=== PATIENT | male | born 1955 | race Caucasian/White ===

== ENCOUNTER → 2016-12-02 | Outpatient (CLI) | payer BC ==
[~2016-12-02] MED LIST: CRAN500C2 PO; FENO145T26 PO; GLC500 PO; INSDGIPEN SC; NVLGI SC; OMEG10007 PO
[2016-12-02 13:33] LABS: ESTIMATED AVERAGE GLUCOSE 232 mg/dl; HA1C FLAG Normal (Normal)
== END | disposition home or self-care (01) ==
LOC: C.LAB1850 12:24
PROVIDERS: ATTEND Internal Medicine
DX: Z11.59 Encounter for screening for other viral diseases (principal); F17.200 Nicotine dependence, unspecified, uncomplicated

== ENCOUNTER → 2017-02-17 | Outpatient (CLI) | payer BC ==
[2017-02-17 10:07] LABS: BASO ABS # 0.07 K/uL (0-0.2); COMPLETE YES; EOS % 5.9 %; HEMATOCRIT 46.3 % (42-52); IG% 0.3 %; LYMPH % 26.7 %; LYMPH ABS # 1.87 K/uL (1.2-3.4); MEAN CELL VOLUME 83.1 fL (80-100); MEAN CORPUSCULAR HEMOGLOBIN 28.9 pg (25-34); MEAN CORPUSCULAR HGB CONC 34.8 g/dl (32-36); MEAN PLATELET VOLUME 10.2 fL (7.4-10.4); MONO % 10.3 %; NEUT % 55.8 %; PLATELET COUNT 275 K/uL (130-400); RED BLOOD COUNT 5.57 M/uL (4.7-6.1)
[2017-02-17 10:37] LABS: ALT/SGPT 56 U/L (12-78); BLOOD UREA NITROGEN 8 mg/dl (7-18); BUN/CREATININE RATIO 8.9 (10-20); CALCIUM 9.2 mg/dl (8.5-10.1); CARBON DIOXIDE 28 mmol/L (21-32); CHLORIDE 100 mmol/L (98-107); CHOLESTEROL 224 mg/dl (0-200); CREATININE 0.88 mg/dl (0.60-1.40); GLUCOSE 227 mg/dl (70-99); SODIUM 134 mmol/L (136-145)
[2017-02-17 10:48] LABS: ALB/GLOB RATIO 0.8 (0.9-2); ALKALINE PHOSPHATASE 92 U/L (45-117); AST/SGOT 57 U/L (15-37); HDL CHOLESTEROL 25 mg/dl; PROSTATE SPECIFIC ANTIGEN 0.132 ng/ml (0.000-4.000); TRIGLYCERIDES 1066 mg/dl (0-150)
--- NOTE | 2017-02-24 14:06 | CODING QUERY MEDICAL NECESSITY ---
SUPPORTING DIAGNOSIS NEEDED A supporting diagnosis is required for the test/procedure performed on this patient in order for us to be reimbursed by the patient's insurance. Please provide a supporting diagnosis for the following test/procedure listed below next to the test name along with your signature. *If there is no additional diagnosis for this patient that would support the following test/procedure please document that below next to the test/procedure. Test(s)/Procedure(s) that require a supporting diagnosis: * PSA DIAGNOSIS: Provider Signature: Date: Thank you Jennifer Kilgore [employer] Once completed, please kindly fax back to [phone] For questions please call [phone]
== END | disposition home or self-care (01) ==
LOC: C.LAB1850 09:00
PROVIDERS: ATTEND Internal Medicine
DX: F17.200 Nicotine dependence, unspecified, uncomplicated (principal); Z12.5 Encounter for screening for malignant neoplasm of prostate

== ENCOUNTER → 2017-05-31 | Outpatient (CLI) | payer BC ==
[2017-05-31 10:37] LABS: ESTIMATED AVERAGE GLUCOSE 249 mg/dl; HA1C FLAG Normal (Normal)
[2017-05-31 10:53] LABS: ALT/SGPT 37 U/L (12-78); AST/SGOT 42 U/L (15-37); BLOOD UREA NITROGEN 8 mg/dl (7-18); BUN/CREATININE RATIO 8.7 (10-20); CALCIUM 9.3 mg/dl (8.5-10.1); CARBON DIOXIDE 28 mmol/L (21-32); CHLORIDE 101 mmol/L (98-107); GLUCOSE 189 mg/dl (70-99); POTASSIUM 3.9 mmol/L (3.5-5.1); SODIUM 132 mmol/L (136-145)
[2017-05-31 10:55] LABS: ALB/GLOB RATIO 0.9 (0.9-2); ALKALINE PHOSPHATASE 77 U/L (45-117); CHOLESTEROL 143 mg/dl (0-200); CHOLESTEROL/HDL RATIO 5.1; HDL CHOLESTEROL 28 mg/dl; LDL CHOLESTEROL CALCULATED 61 mg/dl; TRIGLYCERIDES 271 mg/dl (0-150); VERY LOW DENSITY LIPOPROT CALC 54 mg/dl
[2017-05-31 13:03] LABS: RATIO 75.3 mcg/mg (0-30.0)
== END | disposition home or self-care (01) ==
LOC: C.LAB1850 09:35
PROVIDERS: ATTEND Internal Medicine
DX: E11.65 Type 2 diabetes mellitus with hyperglycemia (principal); E78.1 Pure hyperglyceridemia

== ENCOUNTER 2019-12-13 16:29 | Inpatient (IN) ==
[2019-12-13] MEDS ORDERED: SODIUM CHLORIDE 0.9% 500 ML IV ONE (17:08)
[2019-12-13] MEDS ORDERED: ASPIRIN CHEW 324 MG PO STA (17:08)
--- NOTE | 2019-12-13 17:12 | Emergency Department Note ---
Impression & Plan Numbness on right side, Stroke-like symptoms, Acute hyperglycemia, Elevated liver enzymes ED Provider Note NAME: PERRY KENT AGE: 64 SEX: M : 1955 ARRIVES VIA: Walk-In INFORMANT: [Patient] ED PROVIDER(S): [Mark Benoit MD] CHIEF COMPLAINT: Right-sided numbness HISTORY OF PRESENT ILLNESS: Patient is a 64-year-old male who presents to the ED with right-sided numbness which has now resolved. The patient states that 3 hours ago, his right side from his face to his foot were numb for 15 minutes. He felt he was slightly weak on the right side as well but was able to walk. The patient states that about an hour or so after the first episode, he had a second episode of the same numbness lasting maybe 5 to 8 minutes. His symptoms have now resolved and have not returned a third time. There has been no cough or cold or congestion. No chest pain or headache. He has been in baseline health. No known coronavirus exposures. He talked his family and was advised to come to the ED. The patient states that he has never had a stroke before but he was concerned that his symptoms were consistent with stroke. REVIEW OF SYSTEMS: See HPI for pertinent positives and negatives. A total of ten systems were reviewed and were otherwise negative. PMHx/PSHx: See Below SOCIAL HISTORY: See Below. PHYSICAL EXAM: GENERAL: Patient is in no acute distress. HEENT: No acute trauma, normocephalic atraumatic, mucous membranes moist, no nasal congestion, no scleral icterus. NECK: No stridor, no adenopathy, no meningismus, trachea is midline. LUNGS: Clear to auscultation bilaterally, no wheeze, no rhonchi, breath sounds equal. HEART: Without murmurs gallops or rubs, regular rate and rhythm. ABDOMEN: Soft, nontender, bowel sounds positive, no hernias, no peritonitis. EXTREMITIES: No cyanosis or edema, full range of motion of all the joints witho ut pain or difficulty, no signs for acute trauma. NEUROLOGIC: Oriented x 3, no acute motor or sensory deficits, no focal weakness. No speech slur or facial droop. No extremity drift, no cerebellar dysfunction. SKIN: No rash, no jaundice, no diaphoresis. DIFFERENTIAL DIAGNOSIS: Infection, dehydration, metabolic abnormality, hypo/hyperglycemia, TIA, CVA, electrolyte disturbance, anemia, hypoxia, cardiac sources, intracerebral event, toxicologic, neurologic, as well as other pathologies. EMERGENCY DEPARTMENT COURSE/PROCEDURES: ECG: Indication was strokelike symptoms. The EKG shows a normal sinus rhythm with some diffuse nonspecific ST change. There may be an old inferior infarct present. The rate is 99. The QTC is 420. There are no PVCs. No ST elevation. Continuous Cardiac Monitoring: An order was placed for continuous cardiac monitoring. The monitor shows a rate of 93 with normal sinus rhythm. MEDICAL DECISION MAKING: There is no leukocytosis or concerning anemia. No coagulopathy. Sodium was low at 129. Glucose was high at 534. No kidney failure. There were some liver enzyme elevations, the bilirubin was normal. Urinalysis shows glucose, no evidence for infection. Brain CT angiogram shows some scattered plaquing, no acute stroke, no acute bleeding. CT angiogram of the neck does not show any significant stenosis but there is some scattered plaquing. EKG shows a sinus rhythm, no acute ischemia. Cardiac enzyme testing x1 is not consistent with acute cardiac injury. On my exam, there were no focal neurologic deficits. There was no speech slur. The patient received oral aspirin for stroke prevention. He was given IV insulin because of the high blood sugar. He received IV saline, 1 L. The patient requires a hospital stay for his presentation. Certainly, TIA is a consideration. I suppose, with the higher sugar, his symptoms could be related to the hyperglycemia. I spoke to the patient, I talked with the case folder. The on-call hospitalist was consulted. Of note, the patient had a 5-minute episode while here in the ED where his right arm was numb. This resolved spontaneously, he is now again asymptomatic. 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, uncontrolled (Chronic) Diabetes type 2, uncontrolled (Chronic) Diabetic peripheral neuropathy (Chronic) Dysesthesia (Acute) Dyslipidemia with low high density lipoprotein (HDL) cholesterol with hypertriglyceridemia due to type 2 diabetes mellitus (Chronic) Esophageal reflux (Acute) Hypertension (Chronic) Hypertriglyceridemia (Acute) Hypothyroidism, unspecified (Acute) Neurodermatitis (Chronic) Obstructive sleep apnea (Chronic) Prurigo nodularis (Acute) Retinopathy (Acute) Sebaceous cyst (Acute) Skin lesion (Acute) Tubular adenoma of colon (Acute) Type 2 diabetes mellitus (Acute) Family History Unknown Diabetes Family/Other Diabetes Mother Diabetes Cardiovascular disease Social History Preferred Language: [place] Beliefs That Will Affect Care: None Current Living Situation: Family Other Information That Helps Us Care for You: No Feels Safe at Home: Yes Safety Concerns: Feels Safe At This Time Smoking Status: Former smoker Hx Alcohol Use: No Hx Substance Use: No Allergies Allergies Allergy/AdvReac Type Severity Reaction Status Date / Time liraglutide [From Victoza] Allergy Unknown Unknown Verified 12/13/19 18:09 Home Meds Home Medications Medication Instructions Recorded Confirmed fenofibrate nanocrystallized 145 145 mg PO DAILY #90 tab 01/04/19 12/13/19 mg tablet vitamin B complex 1 tab PO DAILY 01/10/19 12/13/19 insulin aspart U-100 [Novolog 0 unit SUBCUT TIDM 10/15/19 12/13/19 Flexpen U-100 Insulin] insulin degludec [Tresiba 140 unit SUBCUT HS 10/15/19 12/13/19 FlexTouch U-200] magnesium 250 mg PO HS 10/15/19 12/13/19 levothyroxine 25 mcg PO QAM 12/13/19 12/13/19 Previous Rx's Medication Instructions Recorded atorvastatin 20 mg tablet 20 mg PO QPM #90 tab 11/28/18 metformin 500 mg tablet 1,000 mg PO BID #360 tab 11/28/18 Results & Data (ED) Vital Signs Vital Signs - 24 hr 12/13/19 16:34 12/13/19 17:00 12/13/19 17:30 Temperature 37.2 C Temperature Source Oral Pulse Rate 109 H 100 H Pulse Rate from SpO2 Sensor 101 H Respiratory Rate 18 26 H Respiratory Effort / Characteristics Non-Labored Spontaneous Respiratory Depth Normal Blood Pressure 134/79 137/90 167/99 H Blood Pressure Mean 97 106 143 Blood Pressure Position Sitting Pulse Oximetry 95 94 Oxygen Delivery Method Room Air Sepsis Recent Fever Within 48 Hours No Sepsis New/Unexplained Change in Mental Status No Sepsis Action Taken by Nursing No Action Required 12/13/19 17:38 12/13/19 18:00 12/13/19 18:32 Temperature Temperature Source Pulse Rate 93 H 93 H Pulse Rate from SpO2 Sensor 93 H 94 H 93 H Respiratory Rate 15 Respiratory Effort / Characteristics Respiratory Depth Blood Pressure 150/89 H 136/83 160/94 H Blood Pressure Mean 109 98 104 Blood Pressure Position Pulse Oximetry 95 95 96 Oxygen Delivery Method Room Air Sepsis Recent Fever Within 48 Hours Sepsis New/Unexplained Change in Mental Status Sepsis Action Taken by Nursing 12/13/19 19:00 12/13/19 19:01 12/13/19 19:15 Temperature Temperature Source Pulse Rate 85 83 83 Pulse Rate from SpO2 Sensor 85 84 Respiratory Rate 20 20 17 Respiratory Effort / Characteristics Respiratory Depth Blood Pressure 139/87 146/91 H Blood Pressure Mean 96 113 Blood Pressure Position Pulse Oximetry 96 96 98 Oxygen Delivery Method Room Air Room Air Sepsis Recent Fever Within 48 Hours Sepsis New/Unexplained Change in Mental Status Sepsis Action Taken by Nursing 12/13/19 19:30 12/13/19 20:17 12/13/19 20:30 Temperature Temperature Source Pulse Rate 80 82 Pulse Rate from SpO2 Sensor 84 Respiratory Rate 15 14 Respiratory Effort / Characteristics Respiratory Depth Blood Pressure 166/97 H 145/90 H 127/70 Blood Pressure Mean 129 97 83 Blood Pressure Position Pulse Oximetry 98 Oxygen Delivery Method Sepsis Recent Fever Within 48 Hours Sepsis New/Unexplained Change in Mental Status Sepsis Action Taken by [facility] Medications Current Medication List: was personally reviewed by me Laboratory Data Attestation: I reviewed the patient's lab results. Result diagrams: 12/13/19 16:48 12/13/19 22:44 Lab Results 12/13/19 12/13/19 12/13/19 Range/Units 16:48 16:48 16:48 WBC 8.30 (4.8-10.8) K/uL RBC 5.61 (4.7-6.1) M/uL Hgb 16.1 (14.0-18.0) g/dL Hct 47.1 (42-52) % MCV 84.0 (80-100) fL MCH 28.7 (25-34) pg MCHC 34.2 (32-36) g/dL RDW Std Deviation 44.0 (36.4-46.3) fL RDW Coeff of Emery 14.3 (11.5-14.5) % Plt Count 267 (130-400) K/uL MPV 11.1 H (7.4-10.4) fL Immature Gran % (Auto) 0.2 % Neut % (Auto) 64.9 % Lymph % (Auto) 23.1 % Gooding % (Auto) 8.7 % Eos % (Auto) 1.9 % Baso % (Auto) 1.2 % Immature Gran # (Auto) 0.02 (0.00-0.02) K/uL Neut # (Auto) 5.38 (1.4-6.5) K/uL Lymph # (Auto) 1.92 (1.2-3.4) K/uL Gooding # (Auto) 0.72 H (0.11-0.59) K/uL Eos # (Auto) 0.16 (0-0.5) K/uL Baso # (Auto) 0.10 (0-0.2) K/uL PT 11.3 (9.0-12.0) Seconds INR 1.1 (0.9-1.1) APTT 28.9 (21.0-31.0) Seconds PTT Ratio 1.0 Sodium 129 L (136-145) mmol/L Potassium 4.3 (3.5-5.1) mmol/L Chloride 93 L (98-107) mmol/L Carbon Dioxide 26 (21-32) mmol/L Anion Gap 10.0 (3-11) BUN 9 (7-18) mg/dl Creatinine 1.18 (0.6-1.4) mg/dl Est Cr Clr Drug Dosing 70.6 ml/min Est GFR ( Amer) 75.7 Est GFR (Non-Af Amer) 65.3 BUN/Creatinine Ratio 7.8 L (10-20) Glucose 534 H* (70-99) mg/dl POC Glucose (70-99) mg/dl Calcium 9.6 (8.5-10.1) mg/dl Magnesium 1.9 (1.8-2.4) mg/dl Total Bilirubin 0.8 (0.2-1) mg/dl AST 90 H (15-37) U/L ALT 80 H (12-78) U/L Alkaline Phosphatase 328 H (45-117) U/L Troponin I < 0.015 (0-0.045) ng/ml Total Protein 8.8 H (6.4-8.2) gm/dl Albumin 3.3 L (3.4-5.0) gm/dl Globulin 5.5 H (2.5-4.0) gm/dl Albumin/Globulin Ratio 0.6 L (0.9-2) Beta-Hydroxybutyric Acd 1.90 (0.2-2.81) mg/dl Urine Color Urine Appearance (Clear) Urine pH (4.5-7.5) Ur Specific [place] (1.000-1.030) Urine Protein (Negative) Urine Glucose (UA) (Negative) Urine Ketones (Negative) Urine Blood (Negative) Urine Nitrite (Negative) Urine Bilirubin (Negative) Urine Urobilinogen (Negative) Ur Leukocyte Esterase (Negative) 12/13/19 12/13/19 Range/Units 17:35 19:14 WBC (4.8-10.8) K/uL RBC (4.7-6.1) M/uL Hgb (14.0-18.0) g/dL Hct (42-52) % MCV (80-100) fL MCH (25-34) pg MCHC (32-36) g/dL RDW Std Deviation (36.4-46.3) fL RDW Coeff of Emery (11.5-14.5) % Plt Count (130-400) K/uL MPV (7.4-10.4) fL Immature Gran % (Auto) % Neut % (Auto) % Lymph % (Auto) % Gooding % (Auto) % Eos % (Auto) % Baso % (Auto) % Immature Gran # (Auto) (0.00-0.02) K/uL Neut # (Auto) (1.4-6.5) K/uL Lymph # (Auto) (1.2-3.4) K/uL Good[place] # (Auto) (0.11-0.59) K/uL Eos # (Auto) (0-0.5) K/uL Baso # (Auto) (0-0.2) K/uL PT (9.0-12.0) Seconds INR (0.9-1.1) APTT (21.0-31.0) Seconds PTT Ratio Sodium (136-145) mmol/L Potassium (3.5-5.1) mmol/L Chloride (98-107) mmol/L Carbon Dioxide (21-32) mmol/L Anion Gap (3-11) BUN (7-18) mg/dl Creatinine (0.6-1.4) mg/dl Est Cr Clr Drug Dosing ml/min Est GFR ( Amer) Est GFR (Non-Af Amer) BUN/Creatinine Ratio (10-20) Glucose (70-99) mg/dl POC Glucose 403 H* (70-99) mg/dl Calcium (8.5-10.1) mg/dl Magnesium (1.8-2.4) mg/dl Total Bilirubin (0.2-1) mg/dl AST (15-37) U/L ALT (12-78) U/L Alkaline Phosphatase (45-117) U/L Troponin I (0-0.045) ng/ml Total Protein (6.4-8.2) gm/dl Albumin (3.4-5.0) gm/dl Globulin (2.5-4.0) gm/dl Albumin/Globulin Ratio (0.9-2) Beta-Hydroxybutyric Acd (0.2-2.81) mg/dl Urine Color Yellow Urine Appearance Clear (Clear) Urine pH 6.5 (4.5-7.5) Ur Specific [place] 1.041 H (1.000-1.030) Urine Protein Negative (Negative) Urine Glucose (UA) 3+ H (Negative) Urine Ketones Negative (Negative) Urine Blood Negative (Negative) Urine Nitrite Negative (Negative) Urine Bilirubin Negative (Negative) Urine Urobilinogen Negative (Negative) Ur Leukocyte Esterase Negative (Negative) Administered Medications Heparin Sodium (Porcine) (Heparin Sodium (Porcine)) 5,000 units SQ Q12 ANA MARIA Stop: 01/12/20 22:59 Last Admin: 12/13/19 23:54 Dose: Not Given Documented by: [id number] Insulin Human Regular 250 (units/ Sodium Chloride) 250 mls @ 7.2 mls/hr IV .Q24H ANA MARIA; Protocol Stop: 01/12/20 20:39 Last Titration: 12/14/19 00:09 Dose: 7.2 units/hr, 7.2 mls/hr Documented by: [id number] Cosigned by: [id number] Titration: 06/18/20 23:21 Dose: 9 units/hr, 9 mls/hr Documented by: [id number] Cosigned by: [id number] Admin: 12/13/19 22:00 Dose: 9 units/hr, 9 mls/hr Documented by: [id number] Cosigned by: [id number] Ioversol (Optiray 320 125ml) 119 ml IV ONCE PRN PRN Reason: Interaction Checking Stop: 12/17/19 18:18 Last Admin: 12/13/19 18:19 Dose: 119 ml Documented by: [id number] Discontinued Medications Aspirin (Aspirin) 324 mg PO NOW STA Stop: 12/13/19 17:09 Last Admin: 12/13/19 17:15 Dose: 324 mg Documented by: [id number] Sodium Chloride (Nss) 500 mls @ 999 mls/hr IV .Q31M ONE Stop: 12/13/19 17:38 Last Infusion: 12/13/19 17:46 Dose: 0 mls/hr Documented by: [id number] Admin: 12/13/19 17:15 Dose: 999 mls/hr Documented by: [id number] Sodium Chloride (Nss 1000ml) 500 mls @ 999 mls/hr IV .Q31M ONE Stop: 12/13/19 18:22 Last Infusion: 12/13/19 19:23 Dose: 0 mls/hr Documented by: [id number] Admin: 12/13/19 18:41 Dose: 999 mls/hr Documented by: [id number] Insulin Human Regular (Novolin R U-100 Per Unit) 10 units IV NOW STA Stop: 12/13/19 17:53 Last Admin: 12/13/19 18:41 Dose: 10 units Documented by: [id number] Cosigned by: [id number] Miscellaneous (Insulin Protocol Hhs Goal Range) 1 ea N/A ONE ONE Stop: 12/13/19 20:41 Last Admin: 12/13/19 22:23 Dose: 1 ea Documented by: [id number] Miscellaneous Information (Consult Glycemic Management Pharmacy) 1 ea N/A NOW STA Stop: 12/13/19 20:41 Last Admin: 12/13/19 22:23 Dose: 1 ea Documented by: [id number] Imaging Data Radiologist's Impression: CT head/brain wo con CT DOSE: HISTORY: Stroke evaluation TECHNIQUE: Multiaxial CT images of the head were performed without the use of intravenous contrast. A dose lowering technique was utilized adhering to the principles of ALARA. Comparison: None. Findings: The paranasal sinuses and mastoid air cells are clear. The calvarium and skull base are intact. The ventricles and sulci are within normal limits. There is no mass, hematoma, midline shift, or acute infarct. Impression: No acute intracranial abnormality. CT angio neck with con HISTORY: Mental status change Stroke evaluation TECHNIQUE: Multiaxial CT angiography of the neck was performed IV contrast: None. All measurements were calculated based on NASCET criteria. Maximum intensity projection images were also obtained. A dose lowering technique was utilized adhering to the principles of ALARA. COMPARISON STUDY: None. FINDINGS: The aortic arch and proximal great vessels are widely patent. Plaque formation involving the right and to a lesser extent left carotid bifurcations. The proximal right internal carotid artery demonstrates a 50% narrowing. There is no significant left-sided stenosis. Vertebral basilar system is unremarkable. IMPRESSION: 1. 50% narrowing right internal carotid artery at its origin. 2. Moderate plaque formation bilaterally at the carotid bifurcations. 3. No evidence for high-grade stenosis. 4. Normal vertebral basilar system CT angio head w con HISTORY: Mental status change Stroke evaluation TECHNIQUE: Multiaxial CT angiography of the head was performed IV contrast: None. Maximum intensity projection images were also obtained. A dose loweri ng technique was utilized adhering to the principles of ALARA. COMPARISON: None. FINDINGS: There is no mass, hematoma, midline shift, or acute infarct. Intracranial vasculature demonstrates moderate atherosclerotic change at the carotid siphons. There is also mild scattered atherosclerotic narrowing throughout all major intracranial vessels. No evidence, however for high-grade or critical stenotic process. No evidence for significant aneurysmal dilatation. Reconstructed images suggest a tip of the basilar severe stenosis. Raw data evaluation shows this to be artifactual. Moderate plaque formation is noted however. IMPRESSION: 1. Minimal to mild scattered plaque formation throughout the intracranial vasculature. 2. No evidence for high-grade or critical stenosis. Blood Pressure Blood Pressure Findings: Elevated blood pressure Blood Pressure Disposition: further management by hospitalist Discharge Plan Visit Data *Final* Discharge Date/Time: 12/13/19 21:34 Chief Complaint: Neuro Symptoms/Deficit Stated Complaint: WHOLE RIGHT SIDE OF BODY WENT NUMB TWICE ED Provider: Mark Benoit Discharge Problem: Numbness on right side, Stroke-like symptoms, Acute hyperglycemia, Elevated liver enzymes Patient Disposition: Admitted As Inpatient Condition: Good Discharge Instructions Interventions: ED Discharge Assessment Last Done: 12/13/19 21:34
[2019-12-13 17:37] LABS: INR 1.1 (0.9-1.1); Partial Thromboplastin Time 28.9 Seconds (21.0-31.0); Prothrombin Time 11.3 Seconds (9.0-12.0)
[2019-12-13 17:39] LABS: Basophils % (auto) 1.2 %; Eosinophils # (auto) 0.16 K/uL (0-0.5); Eosinophils % (auto) 1.9 %; Hematocrit (blood only) 47.1 % (42-52); Hemoglobin 16.1 g/dL (14.0-18.0); Immature Granulocytes # (auto) 0.02 K/uL (0.00-0.02); Immature Granulocytes % (auto) 0.2 %; Lymphocytes # (auto) 1.92 K/uL (1.2-3.4); Lymphocytes % (auto) 23.1 %; Mean Corpuscular Hemoglobin 28.7 pg (25-34); Mean Corpuscular Hgb Conc 34.2 g/dL (32-36); Mean Platelet Volume 11.1 fL (7.4-10.4); Monocytes # (auto) 0.72 K/uL (0.11-0.59); Monocytes % (auto) 8.7 %; Neutrophils # (auto) 5.38 K/uL (1.4-6.5); Neutrophils % (auto) 64.9 %; Platelet Count 267 K/uL (130-400); RDW Coefficient of Variation 14.3 % (11.5-14.5); Red Blood Count 5.61 M/uL (4.7-6.1)
[2019-12-13 17:47] LABS: Alanine Aminotransferase 80 U/L (12-78); Albumin Globulin Ratio 0.6 (0.9-2); Albumin Level 3.3 gm/dl (3.4-5.0); Alkaline Phosphatase 328 U/L (45-117); Aspartate Aminotransferase 90 U/L (15-37); BUN Creatinine Ratio 7.8 (10-20); Bilirubin,Total 0.8 mg/dl (0.2-1); Blood Urea Nitrogen 9 mg/dl (7-18); Calcium 9.6 mg/dl (8.5-10.1); Carbon Dioxide 26 mmol/L (21-32); Chloride 93 mmol/L (98-107); Creatinine Clr Calc Pharmacy 70.6 ml/min; Est GFR (African American) 75.7; Est GFR (Non-African American) 65.3; Globulin 5.5 gm/dl (2.5-4.0); Glucose 534 mg/dl (70-99); Magnesium 1.9 mg/dl (1.8-2.4); Potassium 4.3 mmol/L (3.5-5.1); Sodium 129 mmol/L (136-145); Total Protein 8.8 gm/dl (6.4-8.2); Troponin I < 0.015 ng/ml (0-0.045)
[2019-12-13 17:51] LABS: Appearance Urine Clear (Clear); Bilirubin Urine Negative (Negative); Blood Urine Negative (Negative); Color Urine Yellow; Glucose Urine UA 3+ (Negative); Ketones Urine Negative (Negative); Leukocyte Esterase Urine Negative (Negative); Nitrite Urine Negative (Negative); Protein Urine Negative (Negative); Specific Gravity Urine 1.041 (1.000-1.030); Urobilinogen Urine Negative (Negative); pH Urine 6.5 (4.5-7.5)
[2019-12-13] MEDS ORDERED: NovoLIN-R INSULIN PER UNIT CHARGE IV STA (17:52)
[2019-12-13] MEDS ORDERED: SODIUM CHLORIDE 0.9% 1000ML 500 ML IV ONE (17:52)
[2019-12-13] MEDS ORDERED: OPTIRAY 320 125ml IV PRN (18:19)
--- NOTE | 2019-12-13 18:34 | CT Scan Report ---
CT head/brain wo con CT DOSE: HISTORY: Stroke evaluation TECHNIQUE: Multiaxial CT images of the head were performed without the use of intravenous contrast. A dose lowering technique was utilized adhering to the principles of ALARA. Comparison: None. Findings: The paranasal sinuses and mastoid air cells are clear. The calvarium and skull base are int act. The ventricles and sulci are within normal limits. There is no mass, hematoma, midline shift, or acute infarct. Impression: No acute intracranial abnormality. ACT 112: Negative or not required by law. The above report was generated using voice recognition software. It may contain grammatical, syntax or spelling errors. Electronically signed by: Jorge Smith M.D. 12/13/2019 6:32 PM
--- NOTE | 2019-12-13 18:37 | CT Scan Report ---
CT angio neck with con HISTORY: Mental status change Stroke evaluation TECHNIQUE: Multiaxial CT angiography of the neck was performed IV contrast: None. All measurements w ere calculated based on NASCET criteria. Maximum intensity projection images were also obtained. A dose lowering technique was utilized adhering to the principles of ALARA. COMPARISON STUDY: None. FINDINGS: The aortic arch and proximal great vessels are widely patent. Plaque formation involving t he right and to a lesser extent left carotid bifurcations. The proximal right internal carotid artery demonstrates a 50% narrowing. There is no significant left-sided stenosis. Vertebral basilar system is unremarkable. IMPRESSION: 1. 50% narrowing right internal carotid artery at its origin. 2. Moderate plaque formation bilaterally at the carotid bifurcations. 3. No evidence for high-grade stenosis. 4. Normal vertebral basilar system ACT 112: Negative or not required by law. The above report was generated using voice recognition software. It may contain grammatical, syntax or spelling errors. Electronically signed by: Jorge Smith M.D. 12/13/2019 6:36 PM
--- NOTE | 2019-12-13 18:42 | CT Scan Report ---
CT angio head w con HISTORY: Mental status change Stroke evaluation TECHNIQUE: Multiaxial CT angiography of the head was performed IV contrast: None. Maximum intensit y projection images were also obtained. A dose lowering technique was utilized adhering to [facility] COMPARISON: None. FINDINGS: There is no mass, hematoma, midline shift, or acute infarct. Intracranial vasculature demon strates moderate atherosclerotic change at the carotid siphons. There is also mild scattered atherosc lerotic narrowing throughout all major intracranial vessels. No evidence, however for high-grade or c ritical stenotic process. No evidence for significant aneurysmal dilatation. Reconstructed images suggest a tip of the basilar severe stenosis. Raw data evaluation shows this to be artifactual. Moderate plaque formation is noted however. IMPRESSION: 1. Minimal to mild scattered plaque formation throughout the intracranial vasculature. 2. No evidence for high-grade or critical stenosis. 3. Moderate plaque formation of the carotid siphons as well as tip of the basilar. ACT 112: Negative or not required by law. The above report was generated using voice recognition software. It may contain grammatical, syntax or spelling errors. Electronically signed by: Jorge Smith M.D. 12/13/2019 6:41 PM
[2019-12-13] MEDS ORDERED: INSULIN REGULAR 250 UNITS in SODIUM CHLORIDE 0.9% 247.5 ML IV SCH (20:40)
[2019-12-13] MEDS ORDERED: HHS GOAL RANGE 250-350 mg/dl ONE (20:40)
[2019-12-13] MEDS ORDERED: PHARMACY GLYCEMIC MGMT CONSULT STA (20:40)
--- NOTE | 2019-12-13 20:52 | History & Physical Report ---
Date of Service December 13, 2019 Assessment & Plan (1) Elevated liver enzymes: (2) Diabetes mellitus with neurological manifestations, uncontrolled: (3) Esophageal reflux: (4) Hypertension: (5) Hypothyroidism, unspecified: History of Present Illness Chief Complaint: Right sided numbness Primary Care Provider: Jordy Conway MD 64-year-old male past medical history significant for type 2 diabetes, not well controlled on insulin therapy, hyperlipidemia, hypertension, hypothyroidism, obstructive sleep apnea presented to the emergency room following several episodes of right sided face, RU E, and RLE numbness with some minimal associated weakness of his affected leg. Last known normal was about 2 PM today, at 2 PM he had a 15-minute episode of this numbness, which self resolved. 1 hour later he had another episode which lasted for 5 minutes and again self resolved. After speaking with his daughter who urged him to come to the emergency room, he came to our facility for evaluation. In the ED he had 1 more such episode that lasted for 5 minutes but was isolated to his right upper extremity. While in the ED his lab work showed a glucose of 534, AST 90, ALT 80, alk phos 328. Head CT/CTA head and neck significant for 50% stenosis of the right ICA, mild scattered intracranial plaque. Patient was given 10 units insulin IV, 1 L NSS, aspirin 324 mg. Hospitalist service was consulted for admission. On my interview patient is without symptoms at this time, denies shortness of breath, chest pain, dizziness, headaches, numbness, tingling, nausea, vomiting. No recent illnesses. Reports that for the last 20 years he has had diabetes, however for the entirety of that time he has not made any dietary changes, does not regularly check his sugars, and eats "whatever he wants". Last A1c per patient was about 14% about a year ago. Used to follow with Endocrinology, his primary care provider is Dr. Conway. Endorses intermittent numbness and tingling of his fingers and toes and sensation of cold in his fingers and toes intermittently. States that "this happening is a kick in the pants, and I want to be around for my grandbaby who will be here in 9 weeks". Has a family history of diabetes and CAD. Allergies Allergy/AdvReac Type Severity Reaction Status Date / Time liraglutide [From Victoza] Allergy Unknown Unknown Verified 12/13/19 18:09 Home Medications Home Medications Medication Instructions Recorded Confirmed Type metformin 500 mg tablet 1,000 mg PO BID #360 tab 11/28/18 12/13/19 Rx fenofibrate nanocrystallized 145 145 mg PO DAILY #90 tab 01/04/19 12/13/19 History mg tablet vitamin B complex 1 tab PO DAILY 01/10/19 12/13/19 History insulin aspart U-100 [Novolog 0 unit SUBCUT TIDM 10/15/19 12/13/19 History Flexpen U-100 Insulin] magnesium 250 mg PO HS 10/15/19 12/13/19 History Tresiba FlexTouch U-200 140 unit SUBCUT HS #0 ml 12/14/19 12/13/19 Rx aspirin 81 mg PO QAM #30 tab 12/14/19 Rx atorvastatin 40 mg PO QAM #30 tab 12/14/19 Rx levothyroxine 50 mcg PO DAILY #30 cap 12/14/19 Rx 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, uncontrolled (Chronic) Diabetes type 2, uncontrolled (Chronic) Diabetic peripheral neuropathy (Chronic) Dysesthesia (Acute) Dyslipidemia with low high density lipoprotein (HDL) cholesterol with hypertriglyceridemia due to type 2 diabetes mellitus (Chronic) Esophageal reflux (Acute) Hypertension (Chronic) Hypertriglyceridemia (Acute) Hypothyroidism, unspecified (Acute) Neurodermatitis (Chronic) Obstructive sleep apnea (Chronic) Prurigo nodularis (Acute) Retinopathy (Acute) Sebaceous cyst (Acute) Skin lesion (Acute) Tubular adenoma of colon (Acute) Type 2 diabetes mellitus (Acute) Family History Unknown Diabetes Family/Other Diabetes Mother , age 88 with dementia Diabetes Cardiovascular disease Dementia Social History (Updated 12/14/19 @ 08:06 by Jonathan Davenport MD) Preferred Language: Urdu Communication Ability: Effective Beliefs That Will Affect Care: None Current Living Situation: Family current occupational status: retired 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 Feels Safe at Home: Yes Smoking Status: Former smoker Hx Alcohol Use: Yes Alcohol type: beer Alcohol Intake Frequency Comment: Averages less than 1 per week. Hx Substance Use: No Review of Systems Review of Systems: All systems reviewed & are unremarkable except as noted in HPI & below Constitutional: no fever, no chills and no malaise Eyes: no visual changes Ear, Nose, Mouth, Throat: no dizziness, no hoarseness and no dysphagia Respiratory: no cough, no dyspnea and no wheezing Cardiovascular: no chest pain, no palpitations and no edema Gastrointestinal: no abdominal pain, no nausea, no vomiting, no constipation and no diarrhea/loose stools Genitourinary: no dysuria and no hematuria Neurologic: no headache(s) and no abnormal speech Physical Exam Constitutional: WD/WN, vitals as above Eyes: PERRL, conjunctivae normal, anicteric sclerae ENMT: external ear and nose normal, oropharynx normal Neck: normal visual inspection Respiratory: normal respiratory effort, lungs clear to auscultation Cardiovascular: RRR, no murmur, no edema Gastrointestinal (Abdomen): normal bowel sounds, soft, nontender, no hepatosplenomegaly Musculoskeletal: no cyanosis or clubbing, extremities motor strength 5/5 Skin: patient with multiple excoriations on his bilateral LE and R shoulder Neurologic: AAOx3, normal speech. PERRLA, EOMI, no nystagmus. Normal visual acuity bilaterally. Bilateral UE, LE, and face without sensory or motor deficits. DTRs normal. II- XII intact bilaterally. No pronator drift. No tremor. Normal rapid alternating movements, normal finger to nose. Psychiatric: A+Ox3, euthymic affect Results & Data Results & Data ([facility]) Vital Signs (Past 12 Hours) Vital Signs Temp Pulse Resp BP Pulse Ox 12/13/19 19:15 83 17 146/91 H 98 12/13/19 19:01 83 20 96 12/13/19 19:00 85 20 139/87 96 12/13/19 18:32 160/94 H 96 12/13/19 18:00 93 H 136/83 95 12/13/19 17:38 93 H 15 150/89 H 95 12/13/19 17:30 167/99 H 12/13/19 17:00 100 H 26 H 137/90 94 12/13/19 16:34 37.2 C 109 H 18 134/79 95 Code Status & VTE Plan VTE Prophylaxis Plan VTE Prophylaxis will be ordered: Yes Supervising Physician Co-Signing Physician Notes Attending addendum: I have physically seen this patient, have supervised the medical residents activities, and agree with the H&P unless as otherwise noted. Assessment and Plan: Resolved episodes of right-sided numbness- Patient had several episodes of transient numbness of right side of face, right upper extremity, right lower extremity and one time with transient right leg weakness. CT of head, and CTA head neck primarily significant for 50% stenosis of the right ICA. Laboratory assessment was significant for elevated glucose of 534, AST 90, ALT 80, alk phos 328. Patient was given 10 units of regular insulin IV 1 L normal saline by the ED, with improvement in fingerstick to 403. The patient will be admitted with stroke protocol order set. Aspirin 81 mg daily. MRI of brain ordered. Neurology consult Uncontrolled diabetes mellitus- Patient admittedly eats whatever he wants and but blood sugar not uncommonly goes up to 450 if and when he checks it at home. Check hemoglobin A1c. He is going to be placed on an insulin infusion with glycemic consult. Diabetic education. Will transition to his usual dosing of Tresiba morning 40 units subcu at bedtime and metformin 5 mg p.o. twice daily. Hyperlipidemia- Continue fenofibrate 145 mg daily and atorvastatin 40 mg daily. Check a fasting lipid panel. Remainder of orders and notations noted. Resident Activity Tracking Resident Involvement: Resident Care Provided Care Provided: Adult Hospital Medicine (1) Hypertension Hypertension type: essential hypertension Qualified Code(s): I10 - Essential (primary) hypertension
[2019-12-13] MEDS ORDERED: POLYETHYLENE (MIRALAX) 17 GM PACK PO PRN (22:03)
[2019-12-13] MEDS ORDERED: ACETAMINOPHEN 325 MG TAB PO PRN (22:03)
[2019-12-13] MEDS ORDERED: PHARMACIST DISCHARGE MED REC CONSULT PRN (22:03)
[2019-12-13] MEDS ORDERED: ONDANSETRON INJ 2 MG/ML 2 ML VIAL IV PRN (22:03)
[2019-12-13] MEDS ORDERED: PHARMACY GLYCEMIC MGMT CONSULT PRN (22:15)
[2019-12-13] MEDS ORDERED: GLUCOSE 10 TABS/TUBE PO PRN (22:45)
[2019-12-13] MEDS ORDERED: DEXTROSE 50% 50 ML SYRINGE IV PRN (22:45)
[2019-12-13] MEDS ORDERED: GLUCAGON FOR INJ 1 MG VIAL IM PRN (22:45)
[2019-12-13] MEDS ORDERED: GLUCOSE 40% GEL 15 GM TUBE PO PRN (22:45)
[2019-12-13] MEDS ORDERED: CARBOHYDRATES FOR HYPOGLYCEMIA PO PRN (22:45)
[2019-12-13 23:31] LABS: BUN Creatinine Ratio 9.5 (10-20); Calcium 9.4 mg/dl (8.5-10.1); Creatinine Clr Calc Pharmacy 100.6 ml/min; Est GFR (African American) 108.5; Est GFR (Non-African American) 93.6; Potassium 3.7 mmol/L (3.5-5.1)
[2019-12-13] MEDS: HEPARIN SOD 5,000 UNIT/0.5 ML VIAL SQ SCH (23:54)
[2019-12-14] MEDS: NSS + 20MEQ KCL 20 MEQ/1,000 ML BAG IV SCH ×2 (01:00→07:58)
[2019-12-14 07:08] LABS: Basophils # (auto) 0.07 K/uL (0-0.2); Eosinophils # (auto) 0.33 K/uL (0-0.5); Eosinophils % (auto) 4.5 %; Hematocrit (blood only) 42.1 % (42-52); Hemoglobin 14.1 g/dL (14.0-18.0); Immature Granulocytes # (auto) 0.02 K/uL (0.00-0.02); Immature Granulocytes % (auto) 0.3 %; Lymphocytes # (auto) 2.28 K/uL (1.2-3.4); Mean Corpuscular Hemoglobin 28.1 pg (25-34); Mean Corpuscular Hgb Conc 33.5 g/dL (32-36); Mean Corpuscular Volume 83.9 fL (80-100); Mean Platelet Volume 10.2 fL (7.4-10.4); Monocytes # (auto) 0.57 K/uL (0.11-0.59); Monocytes % (auto) 7.7 %; Neutrophils # (auto) 4.09 K/uL (1.4-6.5); Neutrophils % (auto) 55.5 %; Platelet Count 206 K/uL (130-400); RDW Coefficient of Variation 14.5 % (11.5-14.5); RDW Standard Deviation 44.2 fL (36.4-46.3); Red Blood Count 5.02 M/uL (4.7-6.1); White Blood Count 7.36 K/uL (4.8-10.8)
[2019-12-14 07:35] LABS: Albumin Level 2.7 gm/dl (3.4-5.0); Calcium 8.5 mg/dl (8.5-10.1); Creatinine Clr Calc Pharmacy 112.7 ml/min; Est GFR (African American) 113.8; Est GFR (Non-African American) 98.2; Magnesium 1.7 mg/dl (1.8-2.4); Potassium 3.8 mmol/L (3.5-5.1)
[2019-12-14 07:39] LABS: Albumin Globulin Ratio 0.6 (0.9-2); Bilirubin,Total 0.5 mg/dl (0.2-1); Globulin 4.7 gm/dl (2.5-4.0); Phosphorus 2.9 mg/dl (2.5-4.9); Total Protein 7.4 gm/dl (6.4-8.2)
[2019-12-14 07:45] LABS: Estimated Average Glucose 346 mg/dl; Hemoglobin A1C 13.7 % (4.5-5.6)
[2019-12-14] MEDS: INSULIN ASPART 100 UNITS/ML 3 ML PEN SC SCH ×2 (07:52→11:57)
--- NOTE | 2019-12-14 08:02 | Neurology Consultation ---
Date of Consultation December 14, 2019 Assessment & Plan (1) Numbness on right side: (2) Carotid stenosis: (3) Diabetes type 2, uncontrolled: (4) Diabetic peripheral neuropathy: Patient had 3 episodes of transient right-sided numbness December 12 with no other significant symptoms or findings. Today he is stable and has had no further episodes and has a nonfocal neurologic exam no deficits, meningeal signs, or encephalopathy. The etiology of these transient symptoms could be hyperglycemia. Glucose and electrolyte imbalances such as this can mimic stroke/TIA. Alternatively, I cannot entirely exclude TIA. He has no obvious large vessel occlusion. There is 50% stenosis in the right internal carotid artery at the origin but this move not be responsible for his symptoms. I suspect significant small vessel ischemic disease secondary to longstanding, poorly controlled diabetes. The patient also has elevated liver enzymes. Recommendations: 1. MRI of the brain without contrast to evaluate for stroke and extent of cerebral vascular disease. 2. Fasting lipid profile, hemoglobin A1c, TSH, and B12 if not already ordered. 3. Echocardiogram 4. 81 mg aspirin tablet daily. 5. Depending on his lipid profile, the patient could be a high dose statin candidate. 6. Controlled glucose as you are doing. 7. Increase activity as able. 8. Final recommendations will be made following the above. I discussed the case with Dr. Hui including differential diagnosis and treatment options. History of Present Illness Reason for Consultation: The patient is a 64-year-old, who I was asked to see the request of Dr. Burrell, for neurologic consultation regarding transient neurologic dysfunction. Requesting Physician: Dr. Burrell Attending Physician: Jenny Hui MD History of Present Illness Patient has a 20 year history diabetes requiring insulin for most of this. He is also on metformin. He has a several year history of diabetes and dyslipidemia (increased triglycerides). Carries a diagnosis of obstructive sleep apnea on CPAP and hypothyroidism. Patient was in his usual health when on December 12, around 1400, when he was sitting watching TV, he had the sudden onset of numbness on the right side of the body. He claims that it really was the right half of the body including face and head, arm, trunk, and leg (like it split the midline). This lasted 15 minutes and then resolved. He had a sense of vague weakness with this but he could walk and was not significantly weak. He had no pain or headache before, during, or after. Approximately 1 hour later the same thing in the exact same area happen again only this time it lasted 5-8 minutes and then resolved. He arrived at the emergency room at 1634 with a temperature 37.2, pulse 109, respiratory rate 18, blood pressure 134/79, and O2 saturation 95%. On neurologic examination he had no focal signs, meningeal signs, or encephalopathy. NIH stroke scale was 0. He tells me that sometime in the emergency room ("before they lowered my sugar") he had a 3rd episode of numbness lasting about 2 minutes but only involving the right upper extremity. CT scan of the head was unremarkable. CT angiography of the head showed some plaque and of a moderate nature at the basilar tip. CT angiography of the neck had a 50% stenosis at the origin of the right internal carotid artery CBC was unremarkable. Chem profile revealed a sodium of 129, glucose of 534, alk phos of 328, AST of 90, ALT of 80. Urinalysis was unremarkable. This morning blood pressure is 130/76. He has been in normal sinus rhythm since admission. He has had no episodes of numbness or dysesthesias since. He has had no pain or headaches, speech issues, mentation issues balance problems. He has no chest or abdominal pain and really feels back to his baseline Allergies Allergy/AdvReac Type Severity Reaction Status Date / Time liraglutide [From Victoza] Allergy Unknown Unknown Verified 12/13/19 18:09 Home Medications Home Medications Medication Instructions Recorded Confirmed Type atorvastatin 20 mg tablet 20 mg PO QPM #90 tab 11/28/18 12/13/19 Rx metformin 500 mg tablet 1,000 mg PO BID #360 tab 11/28/18 12/13/19 Rx fenofibrate nanocrystallized 145 145 mg PO DAILY #90 tab 01/04/19 12/13/19 History mg tablet vitamin B complex 1 tab PO DAILY 01/10/19 12/13/19 History insulin aspart U-100 [Novolog 0 unit SUBCUT TIDM 10/15/19 12/13/19 History Flexpen U-100 Insulin] insulin degludec [Tresiba 140 unit SUBCUT HS 10/15/19 12/13/19 History FlexTouch U-200] magnesium 250 mg PO HS 10/15/19 12/13/19 History levothyroxine 25 mcg PO QAM 12/13/19 12/13/19 History Patient History Medical History Acute bronchitis (Acute) Acute sinusitis (Acute) 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, uncontrolled (Chronic) Diabetes type 2, uncontrolled (Chronic) Diabetic peripheral neuropathy (Chronic) Dysesthesia (Acute) Dyslipidemia with low high density lipoprotein (HDL) cholesterol with hypertriglyceridemia due to type 2 diabetes mellitus (Chronic) Esophageal reflux (Acute) Hypertension (Chronic) Hypertriglyceridemia (Acute) Hypothyroidism, unspecified (Acute) Neurodermatitis (Chronic) Obstructive sleep apnea (Chronic) Prurigo nodularis (Acute) Retinopathy (Acute) Sebaceous cyst (Acute) Skin lesion (Acute) Tubular adenoma of colon (Acute) Type 2 diabetes mellitus (Acute) Family History Unknown Diabetes Family/Other Diabetes Mother , age 88 with dementia Diabetes Cardiovascular disease Dementia Social History (Updated 12/14/19 @ 08:06 by Jonathan Davenport MD) Preferred Language: Portuguese Beliefs That Will Affect Care: None Current Living Situation: Family current occupational status: retired 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 Hx Substance Use: No Review of Systems Constitutional: no fever, no fatigue and no weakness Eyes: no diplopia, no eye pain and no worsening vision Ear, Nose, Mouth, Throat: + snoring; no ear pain, no tinnitus, no hearing loss, no dizziness, no hoarseness and no dysphagia Respiratory: no cough and no dyspnea Cardiovascular: no chest pain, no palpitations and no lightheadedness Gastrointestinal: no abdominal pain, no nausea and no vomiting Genitourinary: no dysuria and no urinary incontinence Musculoskeletal: no back pain, no neck pain, no radicular pain, no joint pain and no myalgia Integumentary: no rash and no lesions Neurologic: no gait abnormality, no localized weakness, no generalized weakness, no tingling, no numbness, no tremor(s), no abnormal movements, no headache(s), no abnormal speech, no confusion and no memory loss Psychiatric: no depression, no irritability, no anxiety, no difficulty concentrating, no confusion and no hallucinations Endocrine: no fatigue and no flushing Hematologic / Lymphatic: no easy bleeding and no easy bruising Allergy / Immunological: no urticaria and no problem reported Exam (Neuro) Physical Exam: The patient is right-handed. The patient is awake, alert, and attentive. Speech is normal without any aphasia or dysarthria. he can name objects, repeat phrases, and has normal spontaneous speech. Mentation and thought processes are intact, with orientation to person, place and time, and normal fund of knowledge. Attention and concentration are normal. Mood and affect are normal and appropriate. General appearance and grooming are normal. Short and long-term memory are intact. The discs are sharp with positive venous pulsations bilaterally. There are no exudates, hemorrhages, or blood vessel changes seen. Pupils are 3 mm bilaterally and reactive to light. Extraocular eye muscles are intact without nystagmus. Visual acuity and visual ko seem normal grossly to confrontation. There are no deficits to sensation in the face in all 3 distributions of the fifth cranial nerve bilaterally. Corneal reflexes are positive bilaterally. Facial strength and symmetry was normal bilaterally. Hearing seems normal to whisper and finger rub bilaterally. Palate moves well without asymmetry. There is normal sternocleidomastoid and trapezius (shoulder shrug) strength bilaterally. Tongue is midline with good strength bilaterally. Neck has a full range of motion without discomfort. There are no cervical bruits bilaterally. There are no cranial or ocular bruits. Heart is without murmur. There is a regular rhythm and rate. Cervical, thoracic, and lumbar spine are nontender to palpation. Gait is narrow based, with good arm swing, turns, and stance. Balance is normal eyes open or closed. With outstretched arms there is no drift. There are no resting, postural, or action tremors. There is no ataxia with finger to nose testing. There is good facility in the hands. No other abnormal involuntary movements are noted. Motor strength is 5/5 diffusely in the arms bilaterally including deltoids, biceps, triceps, brachioradialis, wrist flexors and extensors, admissions manager, and intrinsic hand muscles. Motor strength is 5/5 diffusely in the legs bilaterally including hip flexors, quadriceps, hamstrings, gastrocnemius, tibialis anterior, tibialis posterior, and Peroneii muscles. Toe extensors are normal and there is good bulk in the extensor digitorum brevis muscles bilaterally. The limbs have good tone without rigidity or spasticity. There is no atrophy not ed in the muscles. Muscle bulk is normal, there is no tenderness to palpation, no myotonia to percussion, and no fasciculations seen. Sensory examination is intact to touch and pin throughout all 4 limbs diffusely. Reflexes are 1/4 in the biceps, triceps, and brachioradialis tendons bilaterally. Quadriceps and Achilles tendon reflexes are absent bilaterally. There is no clonus bilaterally. Toes are downgoing with plantar stimulation bilaterally. Peripheral pulses are present and of normal quality distally in all 4 limbs. There is no peripheral edema noted in the limbs. Results & Data ([facility]) Vital Signs (Past 12 Hours) Vital Signs Temp Pulse Pulse Resp BP BP Pulse Ox 12/14/19 04:23 36.9 C 67 20 130/76 94 12/14/19 00:23 37.1 C 76 18 142/87 H 94 12/13/19 21:47 36.7 C 83 18 167/98 H 93 12/13/19 21:30 77 21 138/77 95 12/13/19 21:01 81 16 149/93 H 98 12/13/19 20:30 82 14 127/70 12/13/19 20:17 80 15 145/90 H PG Care Time/CCT Total # of Minutes Spent Total Time Spent with Patient: Total time spent is greater than 50% in coordination of care (as documented) at patient's floor/unit and/or counseling patient: Coding Level of Care Code 87282 Inpt Consult Level 4 Diagnoses Numbness on right side R20.0 Carotid stenosis I65.29 Diabetes type 2, uncontrolled E11.65 Diabetic peripheral neuropathy E11.42
[2019-12-14] MEDS ORDERED: ASPIRIN 81 MG ECTAB PO SCH (09:00)
[2019-12-14] MEDS ORDERED: ATORVASTATIN 40 MG TAB PO SCH (09:00)
[2019-12-14] MEDS: HEPARIN SOD 5,000 UNIT/0.5 ML VIAL SQ SCH (09:10)
[2019-12-14] MEDS: MAGNESIUM SULFATE / D5W 1 GM/100 ML BAG IV SCH ×2 (09:38→12:00)
[2019-12-14 10:21] LABS: Thyroid Stimulating Hormone 6.49 uIu/ml (0.300-4.500)
[2019-12-14 10:34] LABS: T4 Free Thyroxine 1.31 ng/dl (0.8-1.6)
[2019-12-14] MEDS ORDERED: GADOBUTROL 65ML VIAL IV PRN (10:57)
--- NOTE | 2019-12-14 11:09 | Magnetic Resonance Report ---
MRI OF THE BRAIN WITHOUT AND WITH IV CONTRAST CLINICAL HISTORY: stroke like symptoms. Right-sided numbness. COMPARISON STUDY: Head CT and CTA of the head December 13, 2019. TECHNIQUE: Utilizing a 1.5 Sonia magnet and dedicated coil, multiplanar, multiecho imaging of the br ain was performed pre and postcontrast administration. IV administration of 8.5 mL of Gadavist contr ast was uneventful. FINDINGS: There are no foci of restricted diffusion to suggest acute infarct. No acute intracranial h emorrhage, midline shift or mass effect is present. Ventricular system is unremarkable. Basilar ciste rns are patent. There are no extra-axial collections. Flow-voids for the major intracranial vessels a re present. There is no intracranial mass or pathologic enhancement. Note is made of mild atrophy. A few small white matter T2 hyperintense foci reflect mild small vessel disease. Calvarial signal is no rmal. Orbits are unremarkable Global. Minimal ethmoid sinus mucosal thickening is present. IMPRESSION: No acute intracranial findings. ACT 112: Negative or not required by law. Electronically signed by: Neftali Brandon M.D. 12/14/2019 11:07 AM
--- NOTE | 2019-12-14 12:12 | Pharmacy Report ---
Glycemic Control Consultation - Date of Service December 14, 2019 - Scope Scope: Glycemic Pharmacist consulted for glycemic control and to write orders per [facility] inpatient glycemic control protocol. - Objective Weight: 88.9 kg Accuchecks BSG (last 24hrs): 12/13/19 12/13/19 12/13/19 16:48 19:14 21:45 Glucose 534 H* POC Glucose 403 H* 354 H* 12/13/19 12/13/19 12/14/19 22:44 23:11 00:07 Glucose 311 H* POC Glucose 289 H 239 H 12/14/19 12/14/19 12/14/19 00:56 01:59 02:31 Glucose POC Glucose 215 H 189 H 196 H 12/14/19 12/14/19 12/14/19 02:59 03:34 04:28 Glucose POC Glucose 206 H 210 H 237 H 12/14/19 12/14/19 12/14/19 05:26 06:34 07:01 Glucose 231 H POC Glucose 270 H 223 H 12/14/19 12/14/19 12/14/19 07:32 08:29 09:42 Glucose POC Glucose 226 H 215 H 257 H 12/14/19 12/14/19 10:21 11:35 Glucose POC Glucose 319 H* 318 H* Laboratory Data (last 24hrs): 12/13/19 12/13/19 12/14/19 16:48 22:44 00:08 Potassium 4.3 3.7 Carbon Dioxide 26 24 Anion Gap 10.0 9.0 Creatinine 1.18 0.83 D Est Cr Clr Drug Dosing 70.6 100.6 Beta-Hydroxybutyric Acd 1.90 1.49 12/14/19 07:01 Potassium 3.8 Carbon Dioxide 26 Anion Gap 7.0 Creatinine 0.74 Est Cr Clr Drug Dosing 112.7 Beta-Hydroxybutyric Acd HbA1c: Hemoglobin A1c 13.7 % (4.5-5.6) H 12/14/19 07:01 - Recent Pertinent Medications Outpatient Anti-diabetic Regimen: * tresiba 140 units HS + novolog, metformin * A1c = 13.7 % 12/13 Risk Factors for Insulin Resistance: * Diet: yes - Assessment & Plan Assessment & Plan: ASSESSMENT: * 64 year old with t2dm, hld, htn hypothyroidism presenting to the ED following R face numbness/weakness in leg. Insulin gtt started on admission for elevated BSGs on arrival. Pharmacy consulted for glycemic management * Insulin gtt just started late last evening <12 hrs since starting - BSGs still in upper 200s. BSG at lunch ~300s, however per discussion with RN appears patient had eaten some carbs for late breakfast and had gone done to MRI so carbs were not covered * Used to [place] [facility] [place]. A1C elevated ~13.7 on admission * Plan to give dose of basal insulin to help with drip transition PLAN FOR INPATIENT GLYCEMIC CONTROL: * Continue insulin drip for now - adjusted goal range 110-180 * Confirmed home insulin regimen and adjusted set carb ratio of 2 * Plan to give Lantus 100 units x 1 in hopes for possible drip transition * Please note that the plan above was derived based on current level of insulin resistance and hospital stress. These recommendations are appropriate for inpatient admission only. Plan of care upon discharge will need to be reassessed to avoid potential outpatient hypo/hyperglycemia. Thank you.
[2019-12-14] MEDS ORDERED: INSULIN GLARGINE 100 UNIT/ML VIAL SC ONE (15:15)
[2019-12-14] MEDS ORDERED: STROKE PATIENT DISCHARGE STA (15:57)
--- NOTE | 2019-12-14 16:00 | Discharge Summary ---
Date of Service December 14, 2019 Admission HPI Per Admitting Provider 64-year-old male past medical history significant for type 2 diabetes, not well controlled on insulin therapy, hyperlipidemia, hypertension, hypothyroidism, obstructive sleep apnea presented to the emergency room following several episodes of right sided face, RU E, and RLE numbness with some minimal associated weakness of his affected leg. Last known normal was about 2 PM today, at 2 PM he had a 15-minute episode of this numbness, which self resolved. 1 hour later he had another episode which lasted for 5 minutes and again self resolved. After speaking with his daughter who urged him to come to the emergency room, he came to our facility for evaluation. In the ED he had 1 more such episode that lasted for 5 minutes but was isolated to his right upper extremity. While in the ED his lab work showed a glucose of 534, AST 90, ALT 80, alk phos 328. Head CT/CTA head and neck significant for 50% stenosis of the right ICA, mild scattered intracranial plaque. Patient was given 10 units insulin IV, 1 L NSS, aspirin 324 mg. Hospitalist service was consulted for admission. On my interview patient is without symptoms at this time, denies shortness of breath, chest pain, dizziness, headaches, numbness, tingling, nausea, vomiting. No recent illnesses. Reports that for the last 20 years he has had diabetes, however for the entirety of that time he has not made any dietary changes, does not regularly check his sugars, and eats "whatever he wants". Last A1c per patient was about 14% about a year ago. Used to follow with Endocrinology, his primary care provider is Dr. Conway. Endorses intermittent numbness and tingling of his fingers and toes and sensation of cold in his fingers and toes intermittently. States that "this happening is a kick in the pants, and I want to be around for my grandbaby who will be here in 9 weeks". Has a family history of diabetes and CAD. Principal Diagnosis HHS, right-sided paresthesias Discharge Exam Constitutional WD/WN, vitals as above Eyes + anicteric sclerae Neck trachea midline, no thyromegaly Respiratory normal respiratory effort, lungs clear to auscultation Cardiovascular RRR, no murmur, no edema Chest (Breasts) Chest: normal inspection of chest Gastrointestinal (Abdomen) normal bowel sounds, soft, nontender, no hepatosplenomegaly Musculoskeletal Extremities: extremities normal to inspection; no cyanosis and no clubbing Skin no rashes, warm and dry Neurologic moves all extremities and awake; no focal motor deficits Psychiatric A+Ox3, euthymic affect Lymphatic no lymphedema Discharge Data Allergies Allergy/AdvReac Type Severity Reaction Status Date / Time liraglutide [From Victoza] Allergy Unknown Unknown Verified 12/20/19 08:03 Consultations 12/13/19 18:59 ED Decision to Admit Stat 12/13/19 22:03 Consult Case Management - Discharge Planning Routine Consult Neurology Routine Ordered Studies 12/13/19 17:08 CT angio head w con Stat CT angio neck with con Stat CT head/brain wo con Stat 12/14/19 08:56 MR brain wo/w con Urgent Echo Hospital Course (1) Diabetes mellitus with neurological manifestations, uncontrolled: Resolved episodes of right-sided numbness- Patient had several episodes of transient numbness of right side of face, right upper extremity, right lower extremity and one time with transient right leg weakness. CT of head, and CTA head neck primarily significant for 50% stenosis of the right ICA. Laboratory assessment was significant for elevated glucose of 534, AST 90, ALT 80, alk phos 328. Patient was given 10 units of regular insulin IV 1 L normal saline by the ED, with improvement in fingerstick to 403. He was admitted for stroke work-up. MRI of the brain was negative for stroke. Echocardiogram was normal. No arrhythmias on telemetry. CT angiogram of the head and neck were noted as above. His symptoms are completely resolved with resolution of his profound hyperglycemia Neurology consult appreciated Stable for discharged home and will continue him on aspirin 81 mg daily for primary prevention of stroke -We will also start atorvastatin 40 mg daily for hyperlipidemia Uncontrolled diabetes mellitus-with HHS and blood sugar in the 500s Patient admittedly eats whatever he wants and but blood sugar not uncommonly goes up to 450 if and when he checks it at home. hemoglobin A1c here significantly elevated at 13.7% He was started on insulin drip and blood sugars came down to the 300s. Patient was adamant about going home. He was given a large dose of Tresiba 100 units prior to discharge and he will take another 40 units this evening when he gets home -Restart home metformin and NovoLog sliding scale He was counseled extensively on the importance of following and improve diet and following up with endocrinology for improved blood sugar management Hypothyroidism his TSH was found to be elevated His levothyroxine dose was increased to 50 mcg once daily and he will follow-up with endocrinology Hyperlipidemia- Continue fenofibrate 145 mg daily and increased the dose of his atorvastatin for hyperlipidemia Stable for discharge to home (2) Elevated liver enzymes: (3) Esophageal reflux: (4) Hypertension: (5) Hypothyroidism, unspecified: Total Time Total Time Spent Total Time Spent (In Minutes): Greater than 30 minutes Total Time Includes: Examination of the Patient, Discharge Planning and Medication Reconciliation Discharge Plan Discharge Items Patient Disposition: Home - Self-Care Reason For Visit: HHS,CVA R/O Discharge Diagnosis: Hyperglycemia Condition on Discharge: Fair Activity: Resume your previous activity Non-emergency contact: Primary Care Provider and Specialist Call non-emergency contact if: you have any medication questions and your symptoms worsen Follow-up/Referrals: Jordy Conway MD [Primary Care Provider] - 12/20/19 8:15 am (Please follow up within 1-2 weeks. Appt: 12/20/19 8:15 am ) Sage Petty MD [Physician] - (Please follow up with Dr. Petty within 2 weeks. ) Diet: Carb Consistent or DM2 and Heart Healthy Addtl Attending Provider Instructions: You were admitted with stroke-like symptoms and a brain MRI showed that you did NOT have a stroke. Your symptoms of numbness were likely due to your severely uncontrolled blood sugars. It is very important that you start checking your blood sugar first thing in the morning and before each meal and again at bedtime. For tonight, please only take Tresiba 40 units if your blood glucose is >180 as you already received 100 units at the hospital at 4:00 PM. Then, you can go back to your usual 140 units of Tresiba each night tomorrow, 12/15/19. Your cholesterol is very high. Please increase your atorvastatin dose to 40mg once daily and begin taking aspirin 81mg once daily for stroke prevention. Your thyroid function is too low. Please increase your levothyroxine dose to 50mcq once daily. Dr. Petty can follow your thyroid function in the next 1-2 months. Please follow up with Dr. Petty and with Dr. Conway within 1-2 weeks. Pending Studies at Discharge: No Stand-Alone Forms: My [facility] Medications and DC Order Prescriptions: New atorvastatin 40 mg Tablet 40 mg PO QAM Qty: 30 RF: 0 aspirin 81 mg Tablet,Delayed Release (Dr/Ec) 81 mg PO QAM Qty: 30 RF: 0 levothyroxine 50 mcg capsule 50 mcg PO DAILY Qty: 30 RF: 0 Continued metformin 500 mg tablet 1,000 mg PO BID Qty: 360 RF: 3 fenofibrate nanocrystallized 145 mg tablet 145 mg PO DAILY Qty: 90 RF: 0 vitamin B complex [B Complex-Vitamin B12] tablet 1 tab PO DAILY RF: 0 Tresiba FlexTouch U-200 200 unit/mL (3 mL) insulin pen 140 unit SUBCUT HS Qty: 0 RF: 0 magnesium 250 mg Tablet 250 mg PO HS RF: 0 insulin aspart U-100 [Novolog Flexpen U-100 Insulin] 100 unit/mL (3 mL) insulin pen 0 unit SUBCUT TIDM RF: 0 Discontinued atorvastatin 20 mg tablet 20 mg PO QPM Qty: 90 RF: 3 levothyroxine 25 mcg tablet 25 mcg PO QAM RF: 0 No Action ramipril 5 mg capsule 5 mg PO DAILY Qty: 90 RF: 3 Discharge Orders: Discharge Order (Routine); Ordered 12/14/19 Ordered By: Jenny Hui Admission Data Admit Date/Time: 12/13/19 20:40 Attending Provider: Jenny Hui Admit Provider: Fawn Castaneda Primary Care Provider: Jordy Conway Other Providers: Jonathan Davenport Other Interventions: Discharge Summary Assessment (RN) Last Done: 12/14/19 16:28 DC Date/Time DO NOT enter until pt leaves facility: 12/14/19 17:04 Coding Level of Care Code D/C Day Management >30 mins Diagnoses Diabetes mellitus with neurological manifestations, uncontrolled E11.49; E11.65 Elevated liver enzymes R74.8 Esophageal reflux K21.9 Hypertension I10 Hypertension type: essential hypertension Hypothyroidism, unspecified E03.9
--- NOTE | 2019-12-14 17:23 | XCELERA ---
[id number]
--- NOTE | 2019-12-14 19:21 | Electrocardiogram Report ---
Test Reason : Blood Pressure : / mmHG Vent. Rate : 099 BPM Atrial Rate : 099 BPM P-R Int : 166 ms QRS Dur : 086 ms QT Int : 328 ms P-R-T Axes : 052 -35 021 degrees QTc Int : 420 ms Normal sinus rhythm Left axis deviation Possible Anterior infarct , age undetermined Incomplete right bundle branch block Abnormal ECG When compared with ECG of 12-MAR-2015 18:01, Nonspecific T wave abnormality, worse in Anterior leads Confirmed by Joni Pack ([id number]) on 12/14/2019 7:20:37 PM Referred By: REFERRED SELF Confirmed By:Jean Pack
[2019-12-14] MEDS ORDERED: [UNRECOGNIZED DRUG - OTHER] SCH (20:00)
--- NOTE | 2019-12-15 05:12 | Billing Data ---
Date of Service December 15, 2019 Coding Level of Care Code 11189 Initial Inpt Care Lvl 3
== END 2019-12-14 17:04 | disposition home or self-care (01) | DRG 301 ==
LOC: ED 16:29 → SUATTDRO 20:40 → 2S 20:40

== ENCOUNTER 2021-01-06 16:09 | Inpatient (IN) ==
[~2021-01-06 16:09] MED LIST changes: -CRAN500C2 PO; -FENO145T26 PO; -GLC500 PO; -INSDGIPEN SC; +KETAMINE HCL INJ 50 MG/ML 10 ML VIAL IV ONE; -NVLGI SC; -OMEG10007 PO; +SUCCINYLCHOLINE CHLORIDE 20 MG/ML 10 ML VIAL IV ONE
[2021-01-06] MEDS ORDERED: SODIUM CHLORIDE 0.9% 1000ML 2,000 ML IV ONE (16:43)
[2021-01-06 16:50] LABS: Basophils # (auto) 0.02 K/uL (0-0.2); Basophils % (auto) 0.2 %; Hematocrit (blood only) 44.5 % (42-52); Hemoglobin 15.1 g/dL (14.0-18.0); Immature Granulocytes # (auto) 0.03 K/uL (0.00-0.02); Immature Granulocytes % (auto) 0.3 %; Lymphocytes # (auto) 0.64 K/uL (1.2-3.4); Lymphocytes % (auto) 5.9 %; Mean Corpuscular Hemoglobin 29.7 pg (25-34); Mean Corpuscular Hgb Conc 33.9 g/dL (32-36); Mean Corpuscular Volume 87.6 fL (80-100); Mean Platelet Volume 11.1 fL (7.4-10.4); Monocytes # (auto) 0.58 K/uL (0.11-0.59); Monocytes % (auto) 5.4 %; Neutrophils # (auto) 9.52 K/uL (1.4-6.5); Neutrophils % (auto) 88.2 %; Platelet Count 112 K/uL (130-400); RDW Coefficient of Variation 15.5 % (11.5-14.5); RDW Standard Deviation 50.2 fL (36.4-46.3); Red Blood Count 5.08 M/uL (4.7-6.1); White Blood Count 10.79 K/uL (4.8-10.8)
[2021-01-06 16:53] LABS: Base Excess VBG -3.5 mEq/L; Oxygen Saturation VBG 71.1 %; pH VBG 7.42 (7.36-7.41)
[2021-01-06] MEDS ORDERED: NovoLIN-R INSULIN PER UNIT CHARGE IV STA (16:56)
--- NOTE | 2021-01-06 16:56 | Emergency Department Note ---
Impression & Plan Acute CVA (cerebrovascular accident), Altered mental status, Acidosis, lactic, Elevated troponin, Acute hyperglycemia, Mass of throat, Respiratory arrest ED Provider Note NAME: PERRY KENT AGE: 65 SEX: M : 1955 ARRIVES VIA: Ambulance INFORMANT: Patient ED PROVIDER(S): Esequiel Phillips DO CHIEF COMPLAINT: Altered mental status HPI: Patient is a 65-year-old male who presents the ER for altered mental status. He was last known well last night some where around 9pm. Family notes that he has had this before in the past and it was secondary to his elevated blood sugars. Recently placed on steroids for vertigo and they believe that his blood sugars have been elevated. History is otherwise limited secondary to mentation as he is only able to state his name Ed. ROS: History is limited secondary to mentation PAST MEDICAL HISTORY:See Below PAST SURGICAL HISTORY:See Below FAMILY HISTORY:See Below SOCIAL HISTORY:See Below HOME MEDICATIONS:See Below ALLERGIES:See Below VITALS:See Below PHYSICAL EXAMINATION: GENERAL: Lying in bed rolling around, disheveled and altered EYE EXAM: normal conjunctiva. PERRL and EOM's grossly intact. OROPHARYNX: mucous membranes are dry NECK: supple, no nuchal rigidity, no adenopathy, non-tender LUNGS: Clear to auscultation. Normal chest wall mechanics HEART: tachy, S1 normal and S2 normal ABDOMEN: abdomen soft, non-tender, normo-active bowel sounds, no masses, no rebound or guarding. UPPER EXTREMITIES: upper extremities are grossly normal. LOWER EXTREMITIES: No pitting edema. NEURO EXAM: Eyes are open and Pt is intermittently rolling around the bed. He is able to state that his name Ed and will intermittently follow commands but will not answer any other questions, MEDICAL DECISION MAKING: Patient is a 65-year-old male who was brought in by EMS as he was found down with his last known well yesterday around 9pm. IV was established and blood work was obtained. Labs show no significant leukocytosis or anemia. INR was at 1.4. BMP with a sodium slightly low at 128. CO2 was 21. Glucose was elevated in the 400s. Lactate was elevated at 5. LFTs were unremarkable. T bili slightly elevated 2.3. Ammonia was 32. Troponin was elevated 0.656. Procalcitonin was elevated at 26. UA was contaminated with small amount epithelial cells. No white cells. Nothing to suggest infection in UA. Alcohol was negative. Covid was negative. CT of the head was obtained as well as a chest x-ray initially. CT head showed likely right basal ganglia infarct. He had significant electrolyte abnormalities. He was ordered 8 units IV insulin as well as 2 L IV fluids. He was also ordered an insulin drip. We attempted to obtain CTA of the head and neck which was added onafter he initially returned from CT of the head. Also added on CT of the chest, abdomen/pelvis as his lactat e came back elevated and increased from 5 to 10. I was concerned as there may be other causes of this elevation in lactic acid. This was prior being given ativan. Patient was rolling around the bed intermittently not following commands. We did give him a small dose of Ativan initially 1 mg to settle him down for better CT studies. This was followed by 0.5 mg dose in attempt to get him to lay still. He was still fairly agitated and we attempted to obtain scans which were poor studies as he was moving throughout the scanner in the CT. Sedation was given as he was concerned that he may have a large vessel occlusion due to the mentation and presentation. Following this he returned to [address] scanner went down and images were delayed for a period of time. Did call down to pharmacy to obtain insulin drip and a new order was placed and I called and spoke with the pharmacist personally and she sent up the insulin. Dr. Valladares was present in the ER evaluating another patient in B1. Discussed the case and with his current presentation as it had deteriorated, increasing lactic, as he now does not respond to any verbal stimuli and with sternal rub mohollie did elect to intubate as he was not protecting his airway and the need for MRI/additional imaging. Initially let Whit Julian use glide scope 4 to open the airway and intubate. I was standing behind her and visualized the mass. I took control at this point and passed the ET tube with a significant amount of difficulty 2/2 the mass/bleeding. Patient had good breath sounds bilaterally and no air in the stomach. I gave the tube to respiratory therapy to take control and secure and went to call/order x-ray as O2 stats were improving. By the time I got to the base/foot of the bed respiratory therapist had removed the ET tube for unknown reasons. I quickly returned to the top of the bed and tried to reintubate the patient but there was extensive bleeding and the mass was significantly swelled. Suction would not keep up with the bleeding. Were unable to oxygenate or ventilate through BVM. I used the glidescope 4 again and was unable to intubate. We attempted to bag the patient and the sats dropped to the 70s. At this point anesthesia and ICU were paged emergently. We attempted to place a Nhan airway with no improvement in bagging. I attempted to directly intubate the patient with a MAC 4 and was unable to visualize anything due to the mass and the bleeding. Dr. Robles presented at bedside and help set up for cricothyrotomy. While they were bagging the Pt I performed cricothyrotomy. Initially there was minimal breath sounds and O2 sats continued to deteriorate. Patient coded and bradycardia down. Anesthesia present at bedside and attempted to take a look above but was unable to visualize anything due to the mass and the bleeding. At this time I pulled out the ET tube which I now believed was not in the proper position in the neck. I reinserted with a 6.0 tube and got good breath sounds bilaterally after widening my incision. CPR continued. Patient was given epinephrine Q 3minutes during CPR. Pulses were then regained. Anesthesia and early head start teacher both attempted to evaluate the tube by bronch at bedside. Please see their note for further dictation. Heart rate trended down and pulse ox trended up to the 90s after about 10 minutes of CPR. Patient was then taken under the care of the early head start teacher Dr. Cullen Valladares who was at bedside. Of note did discuss with the ex- prior to intubation who is his contact and she agrees that he would be a full code. Did update both daughters in regards to the events. Triage Nursing notes reviewed. Limited review of prior medical records performed Vital Signs: reviewed and remarkable for tachycardic and tachypneic Differential diagnosis: Differential diagnoses includes but is not limited to toxic, metabolic, infectious, traumatic, cardiac, neurologic, hematologic, psychiatric and inflammatory etiologies. ER treatment provided: See below Diagnostics interpreted by me: ECG: Sinus rhythm rate of 117 Left axis No PVCs QTC 474 Cardiac Monitoring: An order was placed for continuous cardiac monitoring. The monitor shows a rate of 110 with sinus rhythm. Laboratory studies: As stated above and show below. Imaging studies: See below Consultation(s): Discussed with early head start teacher as stated above who evaluate the patient at bedside Consulted anesthesia who did present at bedside to assist Procedures: EM PROCEDURE NOTE - Endotracheal Intubation PROCEDURE NOTE: Informed consent was not obtained by the patient. Verify Correct Patient: yes Procedure: Endotracheal intubation Indication: respiratory failure, not maintain airway, obtaining imaging studies The procedure was done emergently. Description of the Procedure: The patient was seen and properly identified. The patient was pre-oxygenated and intubated after rapid sequence induction with meds: Succinylcholine and ketamie. Intubation was performed using a glidescope 4 with 8.0 cuffed endotracheal tube. The tube was visualized going through the cords and secured with the 23cm lacie at the lips. The patient had good bilateral breath sounds in the axillae with good chest rise and no breath sounds over the abdomen. The patient dropped his pulse ox into the upper 80s but tolerated the initial intubation and had a fair amount of bleeding from the mass in the back of her throat. Repeat attempts at intubation were unsuccessful after the tube was pulled by the respiratory therapist as she believed that she heard the someone said the tube w as in the stomach. Cricothyrotomy: Landmarks of the neck were established. Made a small vertical followed by a lateral incision over the cricothyroid membrane with an 11 blade. Advanced my pinky into the trachea and threaded a bougie over top. Advanced a 6.5 ET tube initially. Patient was bagged and pulse ox continued to deteriorate and patient coded. There was only minimal breath sounds on the left side at this time. ET tube was removed. Used the 11 blade to make a larger incision and reinserted with bougie followed by a 6.0 ET tube. At this point had good b reath sounds B/L and pulse Ox began to improve significantly. CPR was performed under my direction for close to 10 minutes. Critical Care: I have personally spent 45 minutes of critical care time in the direct management of this patient. This includes bedside care, interpretation of diagnostic studies, and testing, discussion with consultants, patient, and family members, and other required patient management activities. This 45 minutes is in excess of all separately billable procedures. 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, uncontrolled Diabetes type 2, uncontrolled Diabetic peripheral neuropathy Dysesthesia Dyslipidemia with low high density lipoprotein (HDL) cholesterol with hypertriglyceridemia due to type 2 diabetes mellitus Esophageal reflux Hypertension Hypertriglyceridemia Hypothyroidism, unspecified Neurodermatitis Obstructive sleep apnea Prurigo nodularis Retinopathy Sebaceous cyst Skin lesion Tubular adenoma of colon Type 2 diabetes mellitus Family History Unknown Diabetes Family/Other Diabetes Mother , age 88 with dementia Diabetes Cardiovascular disease Dementia Social History Smoking Status: Unknown if ever smoked Hx Alcohol Use: No (unable to obtain) Hx Substance Use: No (unable to obtain) Preferred Language: Nauruan Communication Ability: Unable Visual Impairment: Limited Hearing Ability: Normal Control Systems Specialist Required: No Beliefs That Will Affect Care: None marital status: Single Current Living Situation: Family current occupational status: retired 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 [employer] Feels Safe at Home: Yes Childhood Exposure to Second-Hand Smoke: Yes caffeine: Yes Dental Care, Regularly: No Physical Activity Frequency: Does not Exercise Seatbelt Use: sometimes Sunscreen Use: No Assistive Devices: None Allergies Allergies Allergy/AdvReac Type Severity Reaction Status Date / Time liraglutide [From Victoza] Allergy Unknown Unknown Verified 01/06/21 17:06 Home Meds Home Medications Medication Instructions Recorded Confirmed magnesium 250 mg tablet 250 mg PO HS 10/15/19 01/06/21 blood sugar diagnostic (Accu-Chek ea 08/07/20 01/01/21 Guide test strips) fenofibrate nanocrystallized 145 145 mg PO DAILY tab 10/15/20 01/06/21 mg tablet insulin degludec 200 unit/mL (3 140 unit SUBCUT HS PRN ml 11/06/20 01/06/21 mL) subcutaneous pen (Tresiba FlexTouch U-200 insulin) subcutaneous insulin pump (t:slim #1 ea 11/06/20 01/01/21 X2 Basal-IQ Insulin Finger Lift Operator) cyanocobalamin (vitamin B-12) 1,000 mcg PO DAILY 01/06/21 01/06/21 1,000 mcg tablet (Vitamin B-12) Previous Rx's Medication Instructions Recorded aspirin 81 mg tablet,delayed 81 mg PO QAM #30 tab 12/14/19 release ramipril 5 mg capsule 5 mg PO DAILY #90 cap 12/20/19 metformin 500 mg tablet 1,000 mg PO BID #360 tab 01/03/20 blood-glucose meter (Accu-Chek #1 ea 02/25/20 Guide Glucose Meter) lancets (Accu-Chek Fastclix Lancet #300 ea 02/25/20 Drum) Dexcom G6 Pipe Liner (blood-glucose #1 ea NS 05/13/20 meter,continuous) atorvastatin 40 mg tablet 40 mg PO QAM #90 tab 05/20/20 levothyroxine 50 mcg capsule 50 mcg PO DAILY #90 cap 05/20/20 Dexcom G6 Sensor (blood-glucose #9 ea NS 09/04/20 sensor) Dexcom G6 Transmitter #1 ea NS 09/04/20 (blood-glucose transmitter) Novolog U-100 Insulin aspart 100 350 unit SUBCUT DAILY 90 Days #320 09/04/20 unit/mL subcutaneous solution ml NS (insulin aspart U-100) meclizine 25 mg tablet 25 mg PO TID PRN #30 tab 12/29/20 methylprednisolone 4 mg tablets in 4 mg PO .COMPLEX #21 ea 01/01/21 a dose pack (Medrol (Jonnathan)) Results & Data (ED) Vital Signs Vital Signs - 24 hr 01/06/21 16:33 01/06/21 17:27 01/06/21 17:28 Temperature 36.8 C Temperature Source Oral Pulse Rate 115 H Pulse Rate [Right Finger] 113 H Pulse Rate from SpO2 Sensor Respiratory Rate 35 H 37 H 32 H Respiratory Effort / Characteristics Labored Non-Labored Labored Respiratory Depth Deep Normal Blood Pressure 125/76 Blood Pressure [Right Arm] 156/70 H Blood Pressure Mean 92 Blood Pressure Mean [Right Arm] 98 Pulse Oximetry 94 94 96 Oxygen Delivery Method Room Air Room Air Room Air Oxygen Flow Rate Sepsis Recent Fever Within 48 Hours No Sepsis New/Unexplained Change in Mental Status Yes Sepsis Action Taken by Nursing Physician Notified 01/06/21 18:00 01/06/21 18:14 01/06/21 18:30 Temperature Temperature Source Pulse Rate 116 H 113 H Pulse Rate [Right Finger] 117 H Pulse Rate from SpO2 Sensor 117 H 114 H Respiratory Rate 44 H 43 H 24 Respiratory Effort / Characteristics Respiratory Depth Blood Pressure 131/75 150/76 H Blood Pressure [Right Arm] 132/85 Blood Pressure Mean 93 100 Blood Pressure Mean [Right Arm] 100 Pulse Oximetry 93 96 96 Oxygen Delivery Method Room Air Oxygen Flow Rate Sepsis Recent Fever Within 48 Hours Sepsis New/Unexplained Change in Mental Status Sepsis Action Taken by Nursing 01/06/21 18:50 01/06/21 19:00 01/06/21 19:39 Temperature Temperature Source Pulse Rate 109 H Pulse Rate [Right Finger] 109 H 105 H Pulse Rate from SpO2 Sensor 109 H Respiratory Rate 36 H 42 H 36 H Respiratory Effort / Characteristics Labored Respiratory Depth Blood Pressure 150/84 H Blood Pressure [Right Arm] 159/84 H 115/52 L Blood Pressure Mean 106 Blood Pressure Mean [Right Arm] 109 73 Pulse Oximetry 95 94 92 Oxygen Delivery Method Room Air Nasal Cannula Oxygen Flow Rate 2 Sepsis Recent Fever Within 48 Hours Sepsis New/Unexplained Change in Mental Status Sepsis Action Taken by Nursing 01/06/21 19:43 01/06/21 19:45 01/06/21 20:00 Temperature Temperature Source Pulse Rate 105 H Pulse Rate [Right Finger] Pulse Rate from SpO2 Sensor 105 H 109 H Respiratory Rate Respiratory Effort / Characteristics Labored Respiratory Depth Blood Pressure 131/56 L 135/83 Blood Pressure [Right Arm] Blood Pressure Mean 81 100 Blood Pressure Mean [Right Arm] Pulse Oximetry 91 94 Oxygen Delivery Method Nasal Cannula Nasal Cannula Nasal Cannula Oxygen Flow Rate 4 4 Sepsis Recent Fever Within 48 Hours Sepsis New/Unexplained Change in Mental Status Sepsis Action Taken by Nursing 01/06/21 20:15 01/06/21 20:30 Temperature Temperature Source Pulse Rate 106 H 105 H Pulse Rate [Right Finger] Pulse Rate from SpO2 Sensor 105 H 105 H Respiratory Rate Respiratory Effort / Characteristics Respiratory Depth Blood Pressure 96/60 L 107/74 Blood Pressure [Right Arm] Blood Pressure Mean 72 85 Blood Pressure Mean [Right Arm] Pulse Oximetry 99 80 L Oxygen Delivery Method Nasal Cannula Oxygen Flow Rate 4 Sepsis Recent Fever Within 48 Hours Sepsis New/Unexplained Change in Mental Status Sepsis Action Taken by Nursing Laboratory Data Result diagrams: 01/07/21 04:19 01/07/21 08:00 Lab Results 01/06/21 01/06/21 01/06/21 Range/Units 16:17 16:26 16:29 WBC 10.79 (4.8-10.8) K/uL RBC 5.08 (4.7-6.1) M/uL Hgb 15.1 (14.0-18.0) g/dL POC Hgb (14.0-18.0) g/dl Hct 44.5 (42-52) % POC Hct (42-52) % MCV 87.6 (80-100) fL MCH 29.7 (25-34) pg MCHC 33.9 (32-36) g/dL RDW Std Deviation 50.2 H (36.4-46.3) fL RDW Coeff of Emery 15.5 H (11.5-14.5) % Plt Count 112 L (130-400) K/uL MPV 11.1 H (7.4-10.4) fL Immature Gran % (Auto) 0.3 % Neut % (Auto) 88.2 % Lymph % (Auto) 5.9 % [place] % (Auto) 5.4 % Eos % (Auto) 0.0 % Baso % (Auto) 0.2 % Neut # (Auto) 9.52 H (1.4-6.5) K/uL Lymph # (Auto) 0.64 L (1.2-3.4) K/uL [place] # (Auto) 0.58 (0.11-0.59) K/uL Eos # (Auto) 0.00 (0-0.5) K/uL Baso # (Auto) 0.02 (0-0.2) K/uL Immature Gran # (Auto) 0.03 H (0.00-0.02) K/uL PT (9.0-12.0) Seconds INR (0.9-1.1) APTT (21.0-31.0) Seconds PTT Ratio POC pH (7.35-7.45) POC pCO2 (35-46) mmHg POC pO2 (80-95) mmHg POC HCO3 (19-24) tiki/L POC Base Excess (-9-1.8) tiki/L POC ABG O2 Sat (90-95) % VBG pH (7.36-7.41) VBG pCO2 (38-50) mmHg VBG pO2 mmHg VBG HCO3 mmol/L VBG O2 Saturation % VBG Base Excess mEq/L Barometric Pressure mm/Hg POC Sodium (135-144) mmol/L Sodium 128 L (136-145) mmol/L POC Potassium (3.3-5.0) mmol/L Potassium 3.7 (3.5-5.1) mmol/L POC Chloride (101-112) mmol/L Chloride 97 L (98-107) mmol/L Carbon Dioxide 21 (21-32) mmol/L POC Total CO2 (24-31) mmol/L Anion Gap 10.0 (3-11) POC Anion Gap (16-25) mmol/L POC BUN (7-18) mg/dl BUN 29 H (7-18) mg/dl Creatinine 1.48 H (0.6-1.4) mg/dl POC Creatinine (0.6-1.3) mg/dl Est Cr Clr Drug Dosing 58.6 ml/min Est GFR ( Amer) 57.1 ml/min Est GFR (Non-Af Amer) 49.3 ml/min BUN/Creatinine Ratio 19.8 (10-20) Glucose 426 H* (70-99) mg/dl POC Glucose 412 H* (70-99) mg/dl POC Glucose (other) (70-99) mg/dl Estimat Average Glucose mg/dl Hemoglobin A1c (4.5-5.6) % Lactate (0.4-2.0) mmol/L Calcium 8.7 (8.5-10.1) mg/dl POC Ioniz Calcium Hipolito (1.12-1.32) mmol/l Phosphorus (2.5-4.9) mg/dl Magnesium 1.6 L (1.8-2.4) mg/dl Total Bilirubin 2.3 H (0.2-1) mg/dl AST 110 H (15-37) U/L ALT 53 (12-78) U/L Alkaline Phosphatase 111 (45-117) U/L Ammonia (11-32) umol/L Total Creatine Kinase (39-308) U/L Troponin I 0.656 H* (0-0.045) ng/ml Total Protein 8.3 H (6.4-8.2) gm/dl Albumin 3.0 L (3.4-5.0) gm/dl Globulin 5.3 H (2.5-4.0) gm/dl Albumin/Globulin Ratio 0.6 L (0.9-2) Beta-Hydroxybutyric Acd (0.2-2.81) mg/dl Procalcitonin (0-0.5) ng/ml Urine Color Urine Appearance (Clear) Urine pH (4.5-7.5) Ur Specific [place] (1.000-1.030) Urine Protein (Negative) Urine Glucose (UA) (Negative) Urine Ketones (Negative) Urine Blood (Negative) Urine Nitrite (Negative) Urine Bilirubin (Negative) Urine Urobilinogen (Negative) Ur Leukocyte Esterase (Negative) Urine WBC (Auto) (0-5) /hpf Urine RBC (Auto) (0-4) /hpf U Hyaline Cast (Auto) (0-5) /lpf U Epithel Cells (Auto) (0-5) /lpf Urine Bacteria (Auto) (Negative) Ethyl Alcohol mg/dL (0-3) mg/dl COVID-19 Eval Order SARS-CoV-2 (PCR) (Negative) 01/06/21 01/06/21 01/06/21 Range/Units 16:31 16:31 16:40 WBC (4.8-10.8) K/uL RBC (4.7-6.1) M/uL Hgb (14.0-18.0) g/dL POC Hgb (14.0-18.0) g/dl Hct (42-52) % POC Hct (42-52) % MCV (80-100) fL MCH (25-34) pg MCHC (32-36) g/dL RDW Std Deviation (36.4-46.3) fL RDW Coeff of Emery (11.5-14.5) % Plt Count (130-400) K/uL MPV (7.4-10.4) fL Immature Gran % (Auto) % Neut % (Auto) % Lymph % (Auto) % [place] % (Auto) % Eos % (Auto) % Baso % (Auto) % Neut # (Auto) (1.4-6.5) K/uL Lymph # (Auto) (1.2-3.4) K/uL [place] # (Auto) (0.11-0.59) K/uL Eos # (Auto) (0-0.5) K/uL Baso # (Auto) (0-0.2) K/uL Immature Gran # (Auto) (0.00-0.02) K/uL PT (9.0-12.0) Seconds INR (0.9-1.1) APTT (21.0-31.0) Seconds PTT Ratio POC pH (7.35-7.45) POC pCO2 (35-46) mmHg POC pO2 (80-95) mmHg POC HCO3 (19-24) tiki/L POC Base Excess (-9-1.8) tiki/L POC ABG O2 Sat (90-95) % VBG pH (7.36-7.41) VBG pCO2 (38-50) mmHg VBG pO2 mmHg VBG HCO3 mmol/L VBG O2 Saturation % VBG Base Excess mEq/L Barometric Pressure mm/Hg POC Sodium (135-144) mmol/L Sodium (136-145) mmol/L POC Potassium (3.3-5.0) mmol/L Potassium (3.5-5.1) mmol/L POC Chloride (101-112) mmol/L Chloride (98-107) mmol/L Carbon Dioxide (21-32) mmol/L POC Total CO2 (24-31) mmol/L Anion Gap (3-11) POC Anion Gap (16-25) mmol/L POC BUN (7-18) mg/dl BUN (7-18) mg/dl Creatinine (0.6-1.4) mg/dl POC Creatinine (0.6-1.3) mg/dl Est Cr Clr Drug Dosing ml/min Est GFR ( Amer) ml/min Est GFR (Non-Af Amer) ml/min BUN/Creatinine Ratio (10-20) Glucose (70-99) mg/dl POC Glucose (70-99) mg/dl POC Glucose (other) (70-99) mg/dl Estimat Average Glucose mg/dl Hemoglobin A1c (4.5-5.6) % Lactate 5.0 H* (0.4-2.0) mmol/L Calcium (8.5-10.1) mg/dl POC Ioniz Calcium [place]ito (1.12-1.32) mmol/l Phosphorus (2.5-4.9) mg/dl Magnesium (1.8-2.4) mg/dl Total Bilirubin (0.2-1) mg/dl AST (15-37) U/L ALT (12-78) U/L Alkaline Phosphatase (45-117) U/L Ammonia (11-32) umol/L Total Creatine Kinase (39-308) U/L Troponin I (0-0.045) ng/ml Total Protein (6.4-8.2) gm/dl Albumin (3.4-5.0) gm/dl Globulin (2.5-4.0) gm/dl Albumin/Globulin Ratio (0.9-2) Beta-Hydroxybutyric Acd (0.2-2.81) mg/dl Procalcitonin (0-0.5) ng/ml Urine Color Urine Appearance (Clear) Urine pH (4.5-7.5) Ur Specific [place] (1.000-1.030) Urine Protein (Negative) Urine Glucose (UA) (Negative) Urine Ketones (Negative) Urine Blood (Negative) Urine Nitrite (Negative) Urine Bilirubin (Negative) Urine Urobilinogen (Negative) Ur Leukocyte Esterase (Negative) Urine WBC (Auto) (0-5) /hpf Urine RBC (Auto) (0-4) /hpf U Hyaline Cast (Auto) (0-5) /lpf U Epithel Cells (Auto) (0-5) /lpf Urine Bacteria (Auto) (Negative) Ethyl Alcohol mg/dL (0-3) mg/dl COVID-19 Eval Order Covid19 at [facility] SARS-CoV-2 (PCR) NEGATIVE (Negative) 01/06/21 01/06/21 01/06/21 Range/Units 16:40 16:44 17:41 WBC (4.8-10.8) K/uL RBC (4.7-6.1) M/uL Hgb (14.0-18.0) g/dL POC Hgb 16.0 (14.0-18.0) g/dl Hct (42-52) % POC Hct 47 (42-52) % MCV (80-100) fL MCH (25-34) pg MCHC (32-36) g/dL RDW Std Deviation (36.4-46.3) fL RDW Coeff of Emery (11.5-14.5) % Plt Count (130-400) K/uL MPV (7.4-10.4) fL Immature Gran % (Auto) % Neut % (Auto) % Lymph % (Auto) % [place] % (Auto) % Eos % (Auto) % Baso % (Auto) % Neut # (Auto) (1.4-6.5) K/uL Lymph # (Auto) (1.2-3.4) K/uL [place] # (Auto) (0.11-0.59) K/uL Eos # (Auto) (0-0.5) K/uL Baso # (Auto) (0-0.2) K/uL Immature Gran # (Auto) (0.00-0.02) K/uL PT (9.0-12.0) Seconds INR (0.9-1.1) APTT (21.0-31.0) Seconds PTT Ratio POC pH (7.35-7.45) POC pCO2 (35-46) mmHg POC pO2 (80-95) mmHg POC HCO3 (19-24) tiki/L POC Base Excess (-9-1.8) tiki/L POC ABG O2 Sat (90-95) % VBG pH 7.42 H (7.36-7.41) VBG pCO2 31 L (38-50) mmHg VBG pO2 36 mmHg VBG HCO3 20 mmol/L VBG O2 Saturation 71.1 % VBG Base Excess -3.5 mEq/L Barometric Pressure 734.5 mm/Hg POC Sodium 131 L (135-144) mmol/L Sodium (136-145) mmol/L POC Potassium 4.3 (3.3-5.0) mmol/L Potassium (3.5-5.1) mmol/L POC Chloride 96 L (101-112) mmol/L Chloride (98-107) mmol/L Carbon Dioxide (21-32) mmol/L POC Total CO2 20 L (24-31) mmol/L Anion Gap (3-11) POC Anion Gap 21.0 (16-25) mmol/L POC BUN 37 H (7-18) mg/dl BUN (7-18) mg/dl Creatinine (0.6-1.4) mg/dl POC Creatinine 1.2 (0.6-1.3) mg/dl Est Cr Clr Drug Dosing ml/min Est GFR ( Amer) ml/min Est GFR (Non-Af Amer) ml/min BUN/Creatinine Ratio (10-20) Glucose (70-99) mg/dl POC Glucose (70-99) mg/dl POC Glucose (other) 438 H* (70-99) mg/dl Estimat Average Glucose mg/dl Hemoglobin A1c (4.5-5.6) % Lactate (0.4-2.0) mmol/L Calcium (8.5-10.1) mg/dl POC Ioniz Calcium [place] 1.03 L (1.12-1.32) mmol/l Phosphorus (2.5-4.9) mg/dl Magnesium (1.8-2.4) mg/dl Total Bilirubin (0.2-1) mg/dl AST (15-37) U/L ALT (12-78) U/L Alkaline Phosphatase (45-117) U/L Ammonia (11-32) umol/L Total Creatine Kinase (39-308) U/L Troponin I (0-0.045) ng/ml Total Protein (6.4-8.2) gm/dl Albumin (3.4-5.0) gm/dl Globulin (2.5-4.0) gm/dl Albumin/Globulin Ratio (0.9-2) Beta-Hydroxybutyric Acd (0.2-2.81) mg/dl Procalcitonin (0-0.5) ng/ml Urine Color Dark Yellow Urine Appearance Clear (Clear) Urine pH 5.5 (4.5-7.5) Ur Specific [place] 1.038 H (1.000-1.030) Urine Protein 1+ H (Negative) Urine Glucose (UA) 3+ H (Negative) Urine Ketones 1+ H (Negative) Urine Blood 2+ H (Negative) Urine Nitrite Negative (Negative) Urine Bilirubin 1+ H (Negative) Urine Urobilinogen Negative (Negative) Ur Leukocyte Esterase Negative (Negative) Urine WBC (Auto) 1-5 (0-5) /hpf Urine RBC (Auto) 5-10 H (0-4) /hpf U Hyaline Cast (Auto) 1-5 (0-5) /lpf U Epithel Cells (Auto) 5-10 H (0-5) /lpf Urine Bacteria (Auto) Negative (Negative) Ethyl Alcohol mg/dL (0-3) mg/dl COVID-19 Eval Order SARS-CoV-2 (PCR) (Negative) 01/06/21 01/06/21 01/06/21 Range/Units 17:58 17:58 17:58 WBC (4.8-10.8) K/uL RBC (4.7-6.1) M/uL Hgb (14.0-18.0) g/dL POC Hgb (14.0-18.0) g/dl Hct (42-52) % POC Hct (42-52) % MCV (80-100) fL MCH (25-34) pg MCHC (32-36) g/dL RDW Std Deviation (36.4-46.3) fL RDW Coeff of Emery (11.5-14.5) % Plt Count (130-400) K/uL MPV (7.4-10.4) fL Immature Gran % (Auto) % Neut % (Auto) % Lymph % (Auto) % [place] % (Auto) % Eos % (Auto) % Baso % (Auto) % Neut # (Auto) (1.4-6.5) K/uL Lymph # (Auto) (1.2-3.4) K/uL [place] # (Auto) (0.11-0.59) K/uL Eos # (Auto) (0-0.5) K/uL Baso # (Auto) (0-0.2) K/uL Immature Gran # (Auto) (0.00-0.02) K/uL PT 13.5 H (9.0-12.0) Seconds INR 1.4 H (0.9-1.1) APTT 31.4 H (21.0-31.0) Seconds PTT Ratio 1.2 POC pH (7.35-7.45) POC pCO2 (35-46) mmHg POC pO2 (80-95) mmHg POC HCO3 (19-24) tiki/L POC Base Excess (-9-1.8) tiki/L POC ABG O2 Sat (90-95) % VBG pH (7.36-7.41) VBG pCO2 (38-50) mmHg VBG pO2 mmHg VBG HCO3 mmol/L VBG O2 Saturation % VBG Base Excess mEq/L Barometric Pressure mm/Hg POC Sodium (135-144) mmol/L Sodium (136-145) mmol/L POC Potassium (3.3-5.0) mmol/L Potassium (3.5-5.1) mmol/L POC Chloride (101-112) mmol/L Chloride (98-107) mmol/L Carbon Dioxide (21-32) mmol/L POC Total CO2 (24-31) mmol/L Anion Gap (3-11) POC Anion Gap (16-25) mmol/L POC BUN (7-18) mg/dl BUN (7-18) mg/dl Creatinine (0.6-1.4) mg/dl POC Creatinine (0.6-1.3) mg/dl Est Cr Clr Drug Dosing ml/min Est GFR ( Amer) ml/min Est GFR (Non-Af Amer) ml/min BUN/Creatinine Ratio (10-20) Glucose (70-99) mg/dl POC Glucose (70-99) mg/dl POC Glucose (other) (70-99) mg/dl Estimat Average Glucose mg/dl Hemoglobin A1c (4.5-5.6) % Lactate (0.4-2.0) mmol/L Calcium (8.5-10.1) mg/dl POC Ioniz Calcium Hipolito (1.12-1.32) mmol/l Phosphorus (2.5-4.9) mg/dl Magnesium (1.8-2.4) mg/dl Total Bilirubin (0.2-1) mg/dl AST (15-37) U/L ALT (12-78) U/L Alkaline Phosphatase (45-117) U/L Ammonia 32.0 (11-32) umol/L Total Creatine Kinase (39-308) U/L Troponin I (0-0.045) ng/ml Total Protein (6.4-8.2) gm/dl Albumin (3.4-5.0) gm/dl Globulin (2.5-4.0) gm/dl Albumin/Globulin Ratio (0.9-2) Beta-Hydroxybutyric Acd (0.2-2.81) mg/dl Procalcitonin 26.31 H (0-0.5) ng/ml Urine Color Urine Appearance (Clear) Urine pH (4.5-7.5) Ur Specific [place] (1.000-1.030) Urine Protein (Negative) Urine Glucose (UA) (Negative) Urine Ketones (Negative) Urine Blood (Negative) Urine Nitrite (Negative) Urine Bilirubin (Negative) Urine Urobilinogen (Negative) Ur Leukocyte Esterase (Negative) Urine WBC (Auto) (0-5) /hpf Urine RBC (Auto) (0-4) /hpf U Hyaline Cast (Auto) (0-5) /lpf U Epithel Cells (Auto) (0-5) /lpf Urine Bacteria (Auto) (Negative) Ethyl Alcohol mg/dL (0-3) mg/dl COVID-19 Eval Order SARS-CoV-2 (PCR) (Negative) 01/06/21 01/06/21 01/06/21 Range/Units 17:58 17:58 17:58 WBC (4.8-10.8) K/uL RBC (4.7-6.1) M/uL Hgb (14.0-18.0) g/dL POC Hgb (14.0-18.0) g/dl Hct (42-52) % POC Hct (42-52) % MCV (80-100) fL MCH (25-34) pg MCHC (32-36) g/dL RDW Std Deviation (36.4-46.3) fL RDW Coeff of Emery (11.5-14.5) % Plt Count (130-400) K/uL MPV (7.4-10.4) fL Immature Gran % (Auto) % Neut % (Auto) % Lymph % (Auto) % [place] % (Auto) % Eos % (Auto) % Baso % (Auto) % Neut # (Auto) (1.4-6.5) K/uL Lymph # (Auto) (1.2-3.4) K/uL [place] # (Auto) (0.11-0.59) K/uL Eos # (Auto) (0-0.5) K/uL Baso # (Auto) (0-0.2) K/uL Immature Gran # (Auto) (0.00-0.02) K/uL PT (9.0-12.0) Seconds INR (0.9-1.1) APTT (21.0-31.0) Seconds PTT Ratio POC pH (7.35-7.45) POC pCO2 (35-46) mmHg POC pO2 (80-95) mmHg POC HCO3 (19-24) tiki/L POC Base Excess (-9-1.8) tiki/L POC ABG O2 Sat (90-95) % VBG pH (7.36-7.41) VBG pCO2 (38-50) mmHg VBG pO2 mmHg VBG HCO3 mmol/L VBG O2 Saturation % VBG Base Excess mEq/L Barometric Pressure mm/Hg POC Sodium (135-144) mmol/L Sodium (136-145) mmol/L POC Potassium (3.3-5.0) mmol/L Potassium (3.5-5.1) mmol/L POC Chloride (101-112) mmol/L Chloride (98-107) mmol/L Carbon Dioxide (21-32) mmol/L POC Total CO2 (24-31) mmol/L Anion Gap (3-11) POC Anion Gap (16-25) mmol/L POC BUN (7-18) mg/dl BUN (7-18) mg/dl Creatinine (0.6-1.4) mg/dl POC Creatinine (0.6-1.3) mg/dl Est Cr Clr Drug Dosing ml/min Est GFR ( Amer) ml/min Est GFR (Non-Af Amer) ml/min BUN/Creatinine Ratio (10-20) Glucose (70-99) mg/dl POC Glucose (70-99) mg/dl POC Glucose (other) (70-99) mg/dl Estimat Average Glucose mg/dl Hemoglobin A1c (4.5-5.6) % Lactate (0.4-2.0) mmol/L Calcium (8.5-10.1) mg/dl POC Ioniz Calcium [place]ito (1.12-1.32) mmol/l Phosphorus (2.5-4.9) mg/dl Magnesium (1.8-2.4) mg/dl Total Bilirubin (0.2-1) mg/dl AST (15-37) U/L ALT (12-78) U/L Alkaline Phosphatase (45-117) U/L Ammonia (11-32) umol/L Total Creatine Kinase 1320 H (39-308) U/L Troponin I (0-0.045) ng/ml Total Protein (6.4-8.2) gm/dl Albumin (3.4-5.0) gm/dl Globulin (2.5-4.0) gm/dl Albumin/Globulin Ratio (0.9-2) Beta-Hydroxybutyric Acd 3.64 H (0.2-2.81) mg/dl Procalcitonin (0-0.5) ng/ml Urine Color Urine Appearance (Clear) Urine pH (4.5-7.5) Ur Specific [place] (1.000-1.030) Urine Protein (Negative) Urine Glucose (UA) (Negative) Urine Ketones (Negative) Urine Blood (Negative) Urine Nitrite (Negative) Urine Bilirubin (Negative) Urine Urobilinogen (Negative) Ur Leukocyte Esterase (Negative) Urine WBC (Auto) (0-5) /hpf Urine RBC (Auto) (0-4) /hpf U Hyaline Cast (Auto) (0-5) /lpf U Epithel Cells (Auto) (0-5) /lpf Urine Bacteria (Auto) (Negative) Ethyl Alcohol mg/dL < 3.0 (0-3) mg/dl COVID-19 Eval Order SARS-CoV-2 (PCR) (Negative) 01/06/21 01/06/21 01/06/21 Range/Units 18:06 18:24 19:11 WBC (4.8-10.8) K/uL RBC (4.7-6.1) M/uL Hgb (14.0-18.0) g/dL POC Hgb (14.0-18.0) g/dl Hct (42-52) % POC Hct (42-52) % MCV (80-100) fL MCH (25-34) pg MCHC (32-36) g/dL RDW Std Deviation (36.4-46.3) fL RDW Coeff of Emery (11.5-14.5) % Plt Count (130-400) K/uL MPV (7.4-10.4) fL Immature Gran % (Auto) % Neut % (Auto) % Lymph % (Auto) % [place] % (Auto) % Eos % (Auto) % Baso % (Auto) % Neut # (Auto) (1.4-6.5) K/uL Lymph # (Auto) (1.2-3.4) K/uL [place] # (Auto) (0.11-0.59) K/uL Eos # (Auto) (0-0.5) K/uL Baso # (Auto) (0-0.2) K/uL Immature Gran # (Auto) (0.00-0.02) K/uL PT (9.0-12.0) Seconds INR (0.9-1.1) APTT (21.0-31.0) Seconds PTT Ratio POC pH (7.35-7.45) POC pCO2 (35-46) mmHg POC pO2 (80-95) mmHg POC HCO3 (19-24) tiki/L POC Base Excess (-9-1.8) tiki/L POC ABG O2 Sat (90-95) % VBG pH (7.36-7.41) VBG pCO2 (38-50) mmHg VBG pO2 mmHg VBG HCO3 mmol/L VBG O2 Saturation % VBG Base Excess mEq/L Barometric Pressure mm/Hg POC Sodium (135-144) mmol/L Sodium (136-145) mmol/L POC Potassium (3.3-5.0) mmol/L Potassium (3.5-5.1) mmol/L POC Chloride (101-112) mmol/L Chloride (98-107) mmol/L Carbon Dioxide (21-32) mmol/L POC Total CO2 (24-31) mmol/L Anion Gap (3-11) POC Anion Gap (16-25) mmol/L POC BUN (7-18) mg/dl BUN (7-18) mg/dl Creatinine (0.6-1.4) mg/dl POC Creatinine (0.6-1.3) mg/dl Est Cr Clr Drug Dosing ml/min Est GFR ( Amer) ml/min Est GFR (Non-Af Amer) ml/min BUN/Creatinine Ratio (10-20) Glucose (70-99) mg/dl POC Glucose 373 H* 443 H* (70-99) mg/dl POC Glucose (other) (70-99) mg/dl Estimat Average Glucose mg/dl Hemoglobin A1c (4.5-5.6) % Lactate 10.2 H* (0.4-2.0) mmol/L Calcium (8.5-10.1) mg/dl POC Ioniz Calcium [place] (1.12-1.32) mmol/l Phosphorus (2.5-4.9) mg/dl Magnesium (1.8-2.4) mg/dl Total Bilirubin (0.2-1) mg/dl AST (15-37) U/L ALT (12-78) U/L Alkaline Phosphatase (45-117) U/L Ammonia (11-32) umol/L Total Creatine Kinase (39-308) U/L Troponin I (0-0.045) ng/ml Total Protein (6.4-8.2) gm/dl Albumin (3.4-5.0) gm/dl Globulin (2.5-4.0) gm/dl Albumin/Globulin Ratio (0.9-2) Beta-Hydroxybutyric Acd (0.2-2.81) mg/dl Procalcitonin (0-0.5) ng/ml Urine Color Urine Appearance (Clear) Urine pH (4.5-7.5) Ur Specific [place] (1.000-1.030) Urine Protein (Negative) Urine Glucose (UA) (Negative) Urine Ketones (Negative) Urine Blood (Negative) Urine Nitrite (Negative) Urine Bilirubin (Negative) Urine Urobilinogen (Negative) Ur Leukocyte Esterase (Negative) Urine WBC (Auto) (0-5) /hpf Urine RBC (Auto) (0-4) /hpf U Hyaline Cast (Auto) (0-5) /lpf U Epithel Cells (Auto) (0-5) /lpf Urine Bacteria (Auto) (Negative) Ethyl Alcohol mg/dL (0-3) mg/dl COVID-19 Eval Order SARS-CoV-2 (PCR) (Negative) 01/06/21 01/06/21 01/06/21 Range/Units 19:49 19:54 19:54 WBC (4.8-10.8) K/uL RBC (4.7-6.1) M/uL Hgb (14.0-18.0) g/dL POC Hgb 13.3 L (14.0-18.0) g/dl Hct (42-52) % POC Hct 39 L (42-52) % MCV (80-100) fL MCH (25-34) pg MCHC (32-36) g/dL RDW Std Deviation (36.4-46.3) fL RDW Coeff of Emery (11.5-14.5) % Plt Count (130-400) K/uL MPV (7.4-10.4) fL Immature Gran % (Auto) % Neut % (Auto) % Lymph % (Auto) % [place] % (Auto) % Eos % (Auto) % Baso % (Auto) % Neut # (Auto) (1.4-6.5) K/uL Lymph # (Auto) (1.2-3.4) K/uL [place] # (Auto) (0.11-0.59) K/uL Eos # (Auto) (0-0.5) K/uL Baso # (Auto) (0-0.2) K/uL Immature Gran # (Auto) (0.00-0.02) K/uL PT (9.0-12.0) Seconds INR (0.9-1.1) APTT (21.0-31.0) Seconds PTT Ratio POC pH 7.39 (7.35-7.45) POC pCO2 29 L (35-46) mmHg POC pO2 63 L (80-95) mmHg POC HCO3 18 L (19-24) tiki/L POC Base Excess -8.0 (-9-1.8) tiki/L POC ABG O2 Sat 92.0 (90-95) % VBG pH 7.26 L (7.36-7.41) VBG pCO2 45 (38-50) mmHg VBG pO2 37 mmHg VBG HCO3 20 mmol/L VBG O2 Saturation 66.1 % VBG Base Excess -7.4 mEq/L Barometric Pressure 735.6 mm/Hg POC Sodium 131 L (135-144) mmol/L Sodium (136-145) mmol/L POC Potassium 3.3 (3.3-5.0) mmol/L Potassium (3.5-5.1) mmol/L POC Chloride (101-112) mmol/L Chloride (98-107) mmol/L Carbon Dioxide (21-32) mmol/L POC Total CO2 18 L (24-31) mmol/L Anion Gap (3-11) POC Anion Gap (16-25) mmol/L POC BUN (7-18) mg/dl BUN (7-18) mg/dl Creatinine (0.6-1.4) mg/dl POC Creatinine (0.6-1.3) mg/dl Est Cr Clr Drug Dosing ml/min Est GFR ( Amer) ml/min Est GFR (Non-Af Amer) ml/min BUN/Creatinine Ratio (10-20) Glucose (70-99) mg/dl POC Glucose (70-99) mg/dl POC Glucose (other) (70-99) mg/dl Estimat Average Glucose mg/dl Hemoglobin A1c (4.5-5.6) % Lactate (0.4-2.0) mmol/L Calcium (8.5-10.1) mg/dl POC Ioniz Calcium [place] (1.12-1.32) mmol/l Phosphorus 3.0 (2.5-4.9) mg/dl Magnesium (1.8-2.4) mg/dl Total Bilirubin (0.2-1) mg/dl AST (15-37) U/L ALT (12-78) U/L Alkaline Phosphatase (45-117) U/L Ammonia (11-32) umol/L Total Creatine Kinase (39-308) U/L Troponin I (0-0.045) ng/ml Total Protein (6.4-8.2) gm/dl Albumin (3.4-5.0) gm/dl Globulin (2.5-4.0) gm/dl Albumin/Globulin Ratio (0.9-2) Beta-Hydroxybutyric Acd 2.81 (0.2-2.81) mg/dl Procalcitonin (0-0.5) ng/ml Urine Color Urine Appearance (Clear) Urine pH (4.5-7.5) Ur Specific [place] (1.000-1.030) Urine Protein (Negative) Urine Glucose (UA) (Negative) Urine Ketones (Negative) Urine Blood (Negative) Urine Nitrite (Negative) Urine Bilirubin (Negative) Urine Urobilinogen (Negative) Ur Leukocyte Esterase (Negative) Urine WBC (Auto) (0-5) /hpf Urine RBC (Auto) (0-4) /hpf U Hyaline Cast (Auto) (0-5) /lpf U Epithel Cells (Auto) (0-5) /lpf Urine Bacteria (Auto) (Negative) Ethyl Alcohol mg/dL (0-3) mg/dl COVID-19 Eval Order SARS-CoV-2 (PCR) (Negative) 01/06/21 01/06/21 Range/Units 19:54 20:16 WBC (4.8-10.8) K/uL RBC (4.7-6.1) M/uL Hgb (14.0-18.0) g/dL POC Hgb (14.0-18.0) g/dl Hct (42-52) % POC Hct (42-52) % MCV (80-100) fL MCH (25-34) pg MCHC (32-36) g/dL RDW Std Deviation (36.4-46.3) fL RDW Coeff of Emery (11.5-14.5) % Plt Count (130-400) K/uL MPV (7.4-10.4) fL Immature Gran % (Auto) % Neut % (Auto) % Lymph % (Auto) % [place] % (Auto) % Eos % (Auto) % Baso % (Auto) % Neut # (Auto) (1.4-6.5) K/uL Lymph # (Auto) (1.2-3.4) K/uL [place] # (Auto) (0.11-0.59) K/uL Eos # (Auto) (0-0.5) K/uL Baso # (Auto) (0-0.2) K/uL Immature Gran # (Auto) (0.00-0.02) K/uL PT (9.0-12.0) Seconds INR (0.9-1.1) APTT (21.0-31.0) Seconds PTT Ratio POC pH (7.35-7.45) POC pCO2 (35-46) mmHg POC pO2 (80-95) mmHg POC HCO3 (19-24) tiki/L POC Base Excess (-9-1.8) tiki/L POC ABG O2 Sat (90-95) % VBG pH (7.36-7.41) VBG pCO2 (38-50) mmHg VBG pO2 mmHg VBG HCO3 mmol/L VBG O2 Saturation % VBG Base Excess mEq/L Barometric Pressure mm/Hg POC Sodium (135-144) mmol/L Sodium (136-145) mmol/L POC Potassium (3.3-5.0) mmol/L Potassium (3.5-5.1) mmol/L POC Chloride (101-112) mmol/L Chloride (98-107) mmol/L Carbon Dioxide (21-32) mmol/L POC Total CO2 (24-31) mmol/L Anion Gap (3-11) POC Anion Gap (16-25) mmol/L POC BUN (7-18) mg/dl BUN (7-18) mg/dl Creatinine (0.6-1.4) mg/dl POC Creatinine (0.6-1.3) mg/dl Est Cr Clr Drug Dosing ml/min Est GFR ( Amer) ml/min Est GFR (Non-Af Amer) ml/min BUN/Creatinine Ratio (10-20) Glucose (70-99) mg/dl POC Glucose 360 H* (70-99) mg/dl POC Glucose (other) (70-99) mg/dl Estimat Average Glucose 171 mg/dl Hemoglobin A1c 7.6 H (4.5-5.6) % Lactate (0.4-2.0) mmol/L Calcium (8.5-10.1) mg/dl POC Ioniz Calcium [place] (1.12-1.32) mmol/l Phosphorus (2.5-4.9) mg/dl Magnesium (1.8-2.4) mg/dl Total Bilirubin (0.2-1) mg/dl AST (15-37) U/L ALT (12-78) U/L Alkaline Phosphatase (45-117) U/L Ammonia (11-32) umol/L Total Creatine Kinase (39-308) U/L Troponin I (0-0.045) ng/ml Total Protein (6.4-8.2) gm/dl Albumin (3.4-5.0) gm/dl Globulin (2.5-4.0) gm/dl Albumin/Globulin Ratio (0.9-2) Beta-Hydroxybutyric Acd (0.2-2.81) mg/dl Procalcitonin (0-0.5) ng/ml Urine Color Urine Appearance (Clear) Urine pH (4.5-7.5) Ur Specific [place] (1.000-1.030) Urine Protein (Negative) Urine Glucose (UA) (Negative) Urine Ketones (Negative) Urine Blood (Negative) Urine Nitrite (Negative) Urine Bilirubin (Negative) Urine Urobilinogen (Negative) Ur Leukocyte Esterase (Negative) Urine WBC (Auto) (0-5) /hpf Urine RBC (Auto) (0-4) /hpf U Hyaline Cast (Auto) (0-5) /lpf U Epithel Cells (Auto) (0-5) /lpf Urine Bacteria (Auto) (Negative) Ethyl Alcohol mg/dL (0-3) mg/dl COVID-19 Eval Order SARS-CoV-2 (PCR) (Negative) Administered Medications Fentanyl Citrate (Fentanyl Bolus From Bag) 50 mcg IV Q60M PRN PRN Reason: Pain or Agitation Stop: 01/20/21 23:27 Last Admin: 01/07/21 08:43 Dose: 50 mcg Documented by: [id number] Propofol (Diprivan) 1,000 mg in 100 mls @ 27.96 mls/hr IV .Q3H35M [facility]; Protocol Stop: 01/09/21 23:29 Last Titration: 01/07/21 09:18 Dose: 50 mcg/kg/min, 28 mls/hr Documented by: [id number] Titration: 01/07/21 08:54 Dose: 45 mcg/kg/min, 25.2 mls/hr Documented by: [id number] Admin: 01/07/21 08:42 Dose: 40 mcg/kg/min, 22.4 mls/hr Documented by: [id number] Cosigned by: [id number] Titration: 01/07/21 08:30 Dose: 35 mcg/kg/min, 19.6 mls/hr Documented by: [id number] Cosigned by: [id number] Titration: 01/07/21 07:30 Dose: 35 mcg/kg/min, 19.6 mls/hr Documented by: [id number] Cosigned by: [id number] Titration: 01/07/21 07:10 Dose: 30 mcg/kg/min, 16.8 mls/hr Documented by: [id number] Cosigned by: [id number] Titration: 01/07/21 05:42 Dose: 30 mcg/kg/min, 16.8 mls/hr Documented by: [id number] Cosigned by: [id number] Titration: 01/07/21 02:30 Dose: 25 mcg/kg/min, 14 mls/hr Documented by: [id number] Titration: 01/07/21 02:05 Dose: 30 mcg/kg/min, 16.8 mls/hr Documented by: [id number] Admin: 01/07/21 02:01 Dose: 35 mcg/kg/min, 19.6 mls/hr Documented by: [id number] Cosigned by: [id number] Titration: 01/07/21 02:01 Dose: 35 mcg/kg/min, 19.6 mls/hr Documented by: [id number] Cosigned by: [id number] Titration: 01/07/21 01:30 Dose: 35 mcg/kg/min, 19.6 mls/hr Documented by: [id number] Titration: 01/07/21 00:15 Dose: 30 mcg/kg/min, 16.8 mls/hr Documented by: [id number] Titration: 01/07/21 00:00 Dose: 25 mcg/kg/min, 14 mls/hr Documented by: [id number] Admin: 01/06/21 23:30 Dose: 20 mcg/kg/min, 11.2 mls/hr Documented by: [id number] Cosigned by: [id number] Fentanyl Citrate (Fentanyl Drip) 1,250 mcg in 250 mls @ 25 mls/hr IV .Q10H [facility]; Protocol Stop: 01/20/21 23:29 Last Titration: 01/07/21 08:43 Dose: 125 mcg/hr, 25 mls/hr Documented by: [id number] Cosigned by: [id number] Titration: 01/07/21 07:10 Dose: 100 mcg/hr, 20 mls/hr Documented by: [id number] Cosigned by: [id number] Titration: 01/07/21 05:42 Dose: 100 mcg/hr, 20 mls/hr Documented by: [id number] Cosigned by: [id number] Titration: 01/07/21 02:30 Dose: 75 mcg/hr, 15 mls/hr Documented by: [id number] Cosigned by: [id number] Titration: 01/07/21 02:00 Dose: 50 mcg/hr, 10 mls/hr Documented by: [id number] Cosigned by: [id number] Admin: 01/07/21 00:00 Dose: 25 mcg/hr, 5 mls/hr Documented by: [id number] Cosigned by: [id number] Parenteral Electrolytes (Normosol-R) 1,000 mls @ 80 mls/hr IV .[id number] [facility] Stop: 02/06/21 00:59 Last Infusion: 01/07/21 01:44 Dose: 80 mls/hr Documented by: [id number] Admin: 01/07/21 01:15 Dose: 100 mls/hr Documented by: [id number] Norepinephrine Bitartrate (Levophed/D5w) 8 mg in 508 mls @ 46.162 mls/hr IV .Q11H1M [facility]; Protocol Stop: 02/06/21 01:29 Last Titration: 01/07/21 07:10 Dose: 0.13 mcg/kg/min, 46.2 mls/hr Documented by: [id number] Cosigned by: [id number] Titration: 01/07/21 04:25 Dose: 0.13 mcg/kg/min, 46.2 mls/hr Documented by: [id number] Titration: 01/07/21 03:55 Dose: 0.11 mcg/kg/min, 39.1 mls/hr Documented by: [id number] Titration: 01/07/21 01:55 Dose: 0.09 mcg/kg/min, 32 mls/hr Documented by: [id number] Titration: 01/07/21 01:50 Dose: 0.07 mcg/kg/min, 24.9 mls/hr Documented by: [id number] Admin: 01/07/21 01:42 Dose: 0.05 mcg/kg/min, 17.8 mls/hr Documented by: [id number] Cosigned by: [id number] Insulin Human Regular 250 (units/ Sodium Chloride) 250 mls @ 5 mls/hr IV .Q24H [facility]; Protocol Stop: 02/06/21 06:59 Last Titration: 01/07/21 09:45 Dose: 5 units/hr, 5 mls/hr Documented by: [id number] Cosigned by: [id number] Titration: 01/07/21 08:45 Dose: 5 units/hr, 5 mls/hr Documented by: [id number] Cosigned by: [id number] Admin: 01/07/21 07:45 Dose: 5 units/hr, 5 mls/hr Documented by: [id number] Cosigned by: [id number] Insulin Aspart (Insulin Aspart 100 Units/Ml 3 Ml Pen) 0 units SC ACHS [facility] Stop: 02/05/21 20:59 Last Admin: 01/07/21 07:58 Dose: Not Given Documented by: [id number] Cosigned by: [id number] Admin: 01/07/21 04:41 Dose: Not Given Documented by: [id number] Cosigned by: [id number] Propofol (Propofol Bolus From Bag) 20 mg IV Q5M PRN PRN Reason: Sedation Stop: 01/09/21 23:27 Last Admin: 01/07/21 09:19 Dose: 20 mg Documented by: [id number] Cosigned by: [id number] Admin: 01/07/21 08:54 Dose: 20 mg Documented by: [id number] Cosigned by: [id number] Admin: 01/07/21 08:44 Dose: 20 mg Documented by: [id number] Cosigned by: [id number] Admin: 01/07/21 07:57 Dose: 20 mg Documented by: [id number] Cosigned by: [id number] Discontinued Medications Sodium Chloride (Nss 1000ml) 2,000 mls @ 999 mls/hr IV .Q2H1M ONE Stop: 01/06/21 18:43 Last Infusion: 01/06/21 19:01 Dose: 0 mls/hr Documented by: [id number] Admin: 01/06/21 16:50 Dose: 999 mls/hr Documented by: [id number] Insulin Human Regular 250 (units/ Sodium Chloride) 250 mls @ 9 mls/hr IV .Q24H ANA MARIA; Protocol Stop: 02/05/21 17:59 Last Titration: 01/07/21 08:44 Dose: 0 units/hr, 0 mls/hr Documented by: [id number] Cosigned by: [id number] Titration: 01/07/21 06:45 Dose: 5 units/hr, 5 mls/hr Documented by: [id number] Cosigned by: [id number] Titration: 01/07/21 04:30 Dose: 9 units/hr, 9 mls/hr Documented by: [id number] Cosigned by: [id number] Titration: 01/07/21 03:30 Dose: 9 units/hr, 9 mls/hr Documented by: [id number] Cosigned by: [id number] Titration: 01/07/21 02:30 Dose: 9 units/hr, 9 mls/hr Documented by: [id number] Cosigned by: [id number] Titration: 01/07/21 01:38 Dose: 9 units/hr, 9 mls/hr Documented by: [id number] Cosigned by: [id number] Titration: 01/07/21 00:24 Dose: 9 units/hr, 9 mls/hr Documented by: [id number] Cosigned by: [id number] Titration: 01/06/21 21:12 Dose: 0 units/hr, 0 mls/hr Documented by: [id number] Cosigned by: [id number] Admin: 01/06/21 19:56 Dose: 9 units/hr, 9 mls/hr Documented by: [id number] Cosigned by: [id number] Lorazepam (Ativan) 1 mg in 2 mls @ 2 mls/min IV NOW STA Stop: 01/06/21 18:25 Last Admin: 01/06/21 18:29 Dose: 2 mls/min Documented by: [id number] Lorazepam (Ativan) 0.5 mg in 1 mls @ 1 mls/min IV NOW STA Stop: 01/06/21 18:59 Last Admin: 01/06/21 19:10 Dose: 1 mls/min Documented by: [id number] Potassium Chloride (K Rafael / Wtr) 10 meq in 100 mls @ 100 mls/hr IV Q1H ANA MARIA Stop: 01/06/21 20:59 Last Infusion: 01/07/21 07:59 Dose: 0 mls/hr Documented by: [id number] Admin: 01/07/21 00:26 Dose: Not Given Documented by: [id number] Infusion: 01/06/21 20:42 Dose: 0 mls/hr Documented by: [id number] Admin: 01/06/21 19:59 Dose: 100 mls/hr Documented by: [id number] Parenteral Electrolytes (Normosol-R) 2,000 mls @ 999 mls/hr IV .Q2H1M ONE Stop: 01/06/21 21:06 Last Infusion: 01/07/21 07:59 Dose: 0 mls/hr Documented by: [id number] Infusion: 01/06/21 20:42 Dose: 0 mls/hr Documented by: [id number] Admin: 01/06/21 19:45 Dose: 999 mls/hr Documented by: [id number] Piperacillin Sod/Tazobactam Sod (Zosyn) 4.5 gm in 120 mls @ 240 mls/hr IV NOW ONE Stop: 01/06/21 19:36 Last Infusion: 01/06/21 21:14 Dose: 0 mls/hr Documented by: [id number] Admin: 01/06/21 20:07 Dose: 240 mls/hr Documented by: [id number] Potassium Chloride 20 meq/ (Parenteral Electrolytes) 1,010 mls @ 250 mls/hr IV .Q4H3M [facility] Stop: 02/05/21 20:37 Last Admin: 01/07/21 09:10 Dose: Not Given Documented by: [id number] Admin: 01/07/21 09:10 Dose: Not Given Documented by: [id number] Vancomycin HCl 2,000 mg/ (Sodium Chloride) 540 mls @ 200 mls/hr IV NOW ONE Stop: 01/07/21 02:41 Last Infusion: 01/07/21 07:13 Dose: 0 mls/hr Documented by: [id number] Admin: 01/07/21 00:07 Dose: 200 mls/hr Documented by: [id number] Potassium Chloride (K Rafael / Wtr) 20 meq in 100 mls @ 50 mls/hr IV Q2H [facility] Stop: 01/07/21 09:29 Last Infusion: 01/07/21 09:50 Dose: 0 mls/hr Documented by: [id number] Admin: 01/07/21 07:50 Dose: 50 mls/hr Documented by: [id number] Infusion: 01/07/21 07:42 Dose: 50 mls/hr Documented by: [id number] Admin: 01/07/21 05:42 Dose: 50 mls/hr Documented by: [id number] Calcium Gluconate 2,000 mg/ (Sodium Chloride) 70 mls @ 240 mls/hr IV NOW ONE Stop: 01/07/21 05:47 Last Infusion: 01/07/21 07:12 Dose: 0 mls/hr Documented by: [id number] Admin: 01/07/21 05:42 Dose: 240 mls/hr Documented by: [id number] Insulin Human Regular (Novolin-R Insulin Per Unit Charge) 8 units IV NOW STA Stop: 01/06/21 16:57 Last Admin: 01/06/21 17:24 Dose: 8 units Documented by: [id number] Cosigned by: [id number] Insulin Human Regular (Novolin-R Bolus From Bag) 9 units IV ONE ONE Stop: 01/06/21 19:31 Last Admin: 01/06/21 19:56 Dose: 9 units Documented by: [id number] Cosigned by: [id number] Ioversol (Optiray 320 125ml) 120 ml IV ONCE ONE Stop: 01/06/21 19:23 Last Admin: 01/06/21 19:25 Dose: 120 ml Documented by: [id number] Miscellaneous (Stat Iv Infusion Titration Per Protocol) 1 ea N/A NOW STA Stop: 01/06/21 19:12 Last Admin: 01/06/21 23:51 Dose: Not Given Documented by: [id number] Miscellaneous (Rapid Sequence Induction Bag) Confirm Administered Dose 1 ea .ROUTE .STK-MED ONE Stop: 01/06/21 20:19 Last Admin: 01/07/21 00:26 Dose: Not Given Documented by: [id number] Miscellaneous (Pending D5 1/2ns+20meq Kcl Ivf) 1 ea N/A Q2H ANA MARIA Stop: 02/05/21 23:13 Last Admin: 01/07/21 08:00 Dose: Not Given Documented by: [id number] Admin: 01/07/21 08:00 Dose: Not Given Documented by: [id number] Admin: 01/07/21 07:59 Dose: Not Given Documented by: [id number] Admin: 01/07/21 04:42 Dose: Not Given Documented by: [id number] Miscellaneous (Dka Goal Range 150-250 Mg/Dl) 1 ea N/A ONE ONE Stop: 01/06/21 23:15 Last Admin: 01/07/21 04:42 Dose: 1 ea Documented by: [id number] Miscellaneous Information (Pharmacy Glycemic Mgmt Consult) 1 ea N/A NOW STA Stop: 01/06/21 20:39 Last Admin: 01/07/21 00:27 Dose: 1 ea Documented by: [id number] Norepinephrine Bitartrate (Norepinephrine/D5w 8 Mg/508 Ml) Confirm Administered Dose 8 mg IV .STK-MED ONE Stop: 01/06/21 20:56 Last Admin: 01/07/21 01:41 Dose: Not Given Documented by: [id number] Norepinephrine Bitartrate (Norepinephrine/D5w 8 Mg/508 Ml) Confirm Administered Dose 8 mg IV .STK-MED ONE Stop: 01/07/21 00:13 Last Admin: 01/07/21 01:23 Dose: 8 mg Documented by: [id number] Propofol (Propofol Iv Emulsion 10 Mg/Ml 100 Ml Vial) Confirm Administered Dose 1,000 mg IV .STK-MED ONE Stop: 01/06/21 22:27 Last Admin: 01/07/21 04:42 Dose: Not Given Documented by: [id number] Vecuronium Republic (Vecuronium Republic 10 Mg Vial) Confirm Administered Dose 10 mg IV .SMS GupShup-CommScope ONE Stop: 01/06/21 21:02 Last Admin: 01/07/21 04:42 Dose: Not Given Documented by: [id number] Imaging Data Radiologist's Impression: Chest X-Ray 01/06/21 16:43 XR chest 1V portable CLINICAL HISTORY: SEPSIS COMPARISON STUDY: 10/15/2019 FINDINGS: The heart is enlarged. There is mild mediastinal widening. There are calcified right paratracheal lymph nodes. There is mild elevation of interstitium. Diagnostic considerations include mild pulmonary vascular congestion versus interstitial infectious/inflammatory process. There are no significant pleural effusions[ IMPRESSION: 1. Cardiomegaly 2. Mild mediastinal widening possibly secondary to the AP portable technique, with calcified right paratracheal lymph nodes 3. Mild elevation of the interstitium, pulmonary vascular congestion versus an interstitial infectious/inflammatory process. Clinical and radiographic follow- up are recommended. ACT 112: Negative or not required by law. Electronically signed by: Alex Villafuerte M.D. 01/06/2021 6:[address] 01/06/21 16:43 CT head/brain wo con CLINICAL HISTORY: Acute change in mental status. COMPARISON STUDY: Head CT and MRI the brain performed December 13, 2019 TECHNIQUE: Axial CT of the brain is performed from the vertex to the skull base. IV contrast was not administered for this examination. A dose lowering technique was utilized adhering to the principles of ALARA. CT DOSE: 614.27 mGy.cm FINDINGS: No intra or extra-axial mass lesions are visualized. There is no CT evidence of acute cortical infarction. There is no evidence of midline shift. There is no acute hemorrhage. No calvarial fractures are visualized. There is an equivocal 8 mm hypodensity in the region the right basal ganglia. This may be chronic. If there is clinical concern over the presence of an acute infarct, an MRI the brain could be obtained in follow-up. There is no evidence of pathologic ventricular dilatation. There is no evidence of acute sinusitis IMPRESSION: 1. Equivocal age-indeterminate 8 mm hypodensity in the region of the right basal ganglia. If there is clinical concern over the presence of an acute infarct, an MRI could be obtained in follow-up. 2. No evidence of acute hemorrhage ACT 112: Negative or not required by law. Electronically signed by: Alex Villafuerte M.D. 01/06/2021 5:13 PM Abdomen/Pelvis CT 01/06/21 17:24 CT abd pelvis IV con only CLINICAL HISTORY: Elective acidosis. Possible bowel ischemia. Acute change in mental status. COMPARISON STUDY: None. TECHNIQUE: Patient was scanned in a dynamic helical fashion during intravenous administration of 1 20 cc of Optiray 320 A dose lowering technique was utilized adhering to the principles of ALARA. CT DOSE: 1315.04 mGy.cm FINDINGS: Lower chest: There is significant respiratory motion artifact. There is mild basilar atelectasis. Liver: There is suspected hepatic cirrhosis. There is recannulization of the umbilical vein. There are anterior abdominal wall varices. No focal hepatic masses are visualized. Gallbladder: No calculi are visualized. There is trace pericholecystic fluid/edema likely secondary to hepatocellular disease Spleen: The spleen is enlarged measuring 14.5 cm Pancreas: Unremarkable. Adrenal glands: There is an indeterminate 27 mm left adrenal mass. Dedicated renal CT scan could be obtained in follow-up as deemed clinically appropriate. Kidneys: There is symmetric renal cortical enhancement. The kidneys are normal in size without hydronephrosis. Bowel: There are no transition zones to indicate bowel obstruction. Bowel evaluation is significantly limited due to motion artifact. There is no convincing evidence of acute diverticulitis. There is no convincing evidence of acute appendicitis. If symptoms persist, repeat imaging should be considered given the technical limitations of the current study Peritoneum: There is no intraperitoneal free air or abdominal ascites. Vasculature: The abdominal aorta is normal in course and caliber. Adenopathy: There are mildly enlarged lymph nodes in the peripancreatic, portacaval, and gastrohepatic ligament region possibly secondary to hepat ocellular disease Pelvic viscera: There is a joint Lyles catheter. There is bladder wall thickening. Skeletal structures: No destructive osseous lesions are seen. IMPRESSION: 1. Motion compromised study 2. No evidence of bowel obstruction. No evidence of free air 3. No definite acute inflammatory changes 4. Hepatic cirrhosis and splenomegaly 5. Indeterminate 27 mm left adrenal nodule 6. Mild peripancreatic, portacaval, gastrohepatic ligament adenopathy. This is nonspecific but could be related to hepatocellular disease 7. Given the technical limitations of the examination, if symptoms persist, repeat imaging should be considered. ACT 112: Negative or not required by law. Electronically signed by: Alex Villafuerte M.D. 01/06/2021 9:09 PM Head CTA 01/06/21 17:41 CT angio head w con CLINICAL HISTORY: Acute change in mental status. Possible stroke. TECHNIQUE: CT angiography of the head was performed in a dynamic helical fashion during intravenous administration of 120 cc of Optiray. MIP imaging was p erformed. A dose lowering technique was utilized adhering to the principles of ALARA. CT DOSE: COMPARISON STUDY: No previous studies for comparison. FINDINGS: There are atheromatous calcifications present within the cavernous supraclinoid carotid with an approximate 50% stenosis of the right internal carotid artery. There is also a stenosis of the right proximal middle cerebral artery. There are no lesion suspicious for aneurysm. The dural venous sinuses appear patent. There is a right frontal lobe developmental venous anomaly IMPRESSION: 1. Cavernous and supraclinoid internal carotid atheromatous calcifications with a 50% diameter stenosis of the right internal carotid artery. In addition there is also a 50% diameter stenosis of the proximal right middle cerebral artery. 2. Right frontal lobe developmental venous anomaly ACT 112: Negative or not required by law. Electronically signed by: Alex Villafuerte M.D. 01/06/2021 9:00 PM Neck CTA 01/06/21 17:41 CT angio neck with con CLINICAL HISTORY: Acute change in mental status. Possible stroke. COMPARISON STUDY: November 2019 TECHNIQUE: CT angiography was performed from the aortic arch to the skull base. MIP imaging was performed. The patient was scanned in a dynamic helical fashion during intravenous administration of 120 cc of Optiray. A dose lowering technique was utilized adhering to the principles of ALARA. CT DOSE: Technique: CT angiogram of the carotid and vertebral arteries was obtained using intravenous contrast and 3-D reconstruction. NASCET criteria was utilized. Findings: The study is compromised due to motion artifact. There is mild interlobular septal edema visualized at the lung apices. There is extensive calcific plaque involving the right internal carotid origin. This makes evaluation of stenotic lesions less sensitive and specific. There is evidence for a proximal right internal carotid artery stenosis which is estimated to be approximately 50%. There is a proximal left internal carotid artery stenosis which is estimated to measure 50%. There is no evidence of hemodynamically significant vertebral stenosis. There is no evidence of vertebral dissection. IMPRESSION: 1. Significantly limited study from a technical standpoint secondary to motion artifact and dense right carotid calcification 2. Bilateral internal carotid artery stenosis estimated to be approximately 50% bilaterally. Accuracy is however limited given the above-mentioned technical constraints. Correlation with carotid Doppler ultrasonography should be considered in follow-up ACT 112: Negative or not required by law. Electronically signed by: Alex Villafuerte M.D. 01/06/2021 9:01 PM Chest CTA 01/06/21 18:57 CT ANGIOGRAM OF THE CHEST CLINICAL HISTORY: Sepsis. Abnormal chest x-ray with mediastinal widening. COMPARISON STUDY: Chest x-ray performed the same day TECHNIQUE: Following the IV administration of 120 mL of Optiray, CT angiogram of the thorax was performed from the thoracic inlet to the lung bases utilizing the pulmonary embolus protocol. Images are reviewed in the axial, sagittal, and coronal planes. IV contrast was administered without complication. MIP imaging was performed. A dose lowering technique was utilized adhering to the principles of ALARA. CT DOSE: 1041.08 mGy.cm FINDINGS: No pathologically enlarged axillary mediastinal or hilar lymph nodes were visualized. There is mild aneurysmal dilatation of the ascending thoracic aorta which measures 44 mm. There is dilatation of the main pulmonary artery segment suggesting pulmonary arterial hypertension. There are no pulmonary artery filling defects to indicate acute pulmonary embolism. Evaluation limited due to significant respiratory motion artifact. Correlation with leg ultrasonography recommended given the technical limitations of the examination. No pleural effusions are visualized. There is significant respiratory motion artifact. There is no focal pulmonary consolidation. There is suspected hepatic cirrhosis and splenomegaly. IMPRESSION: 1. Motion compromised study 2. No evidence of acute pulmonary embolism given the technical limitations of the examination. Given the significant motion artifact, correlation with serial leg ultrasonography should be considered. 3. No evidence of focal pulmonary consolidation 4. Suspected hepatic cirrhosis and splenomegaly. 5. Mild aneurysmal dilatation of the ascending thoracic aorta which measures 44 mm 6. No evidence of pathologic adenopathy ACT 112: Negative or not required by law. Electronically signed by: Alex Villafuerte M.D. 01/06/2021 9:00 PM Discharge Plan Visit Data Chief Complaint: Hyperglycemia ED Provider: Esequiel Phillips Discharge Problem: Acute CVA (cerebrovascular accident), Altered mental status, Acidosis, lactic, Elevated troponin, Acute hyperglycemia, Mass of throat, Respiratory arrest Patient Disposition: Admitted As Inpatient Discharge Instructions Interventions: ED Discharge Assessment Last Done: 01/06/21 22:38 Discharge Problem: Altered mental status Qualifiers: Altered mental status type: unspecified Qualified Code(s): R41.82 - Altered mental status, unspecified
[2021-01-06 16:57] LABS: iSTAT Creatinine 1.2 mg/dl (0.6-1.3); iSTAT Ionized Calcium 1.03 mmol/l (1.12-1.32); iSTAT Potassium 4.3 mmol/L (3.3-5.0)
--- NOTE | 2021-01-06 17:15 | CT Scan Report ---
CT head/brain wo con CLINICAL HISTORY: Acute change in mental status. COMPARISON STUDY: Head CT and MRI the brain performed December 13, 2019 TECHNIQUE: Axial CT of the brain is performed from the vertex to the skull base. IV contrast was not administered for this examination. A dose lowering technique was utilized adhering to the principles of ALARA. CT DOSE: 614.27 mGy.cm FINDINGS: No intra or extra-axial mass lesions are visualized. There is no CT evidence of acute cortical infarc tion. There is no evidence of midline shift. There is no acute hemorrhage. No calvarial fractures ar e visualized. There is an equivocal 8 mm hypodensity in the region the right basal ganglia. This may be chronic. If there is clinical concern over the presence of an acute infarct, an MRI the brain could be obtained in follow-up. There is no evidence of pathologic ventricular dilatation. There is no evidence of acute sinusitis IMPRESSION: 1. Equivocal age-indeterminate 8 mm hypodensity in the region of the right basal ganglia. If there is clinical concern over the presence of an acute infarct, an MRI could be obtained in follow-up. 2. No evidence of acute hemorrhage ACT 112: Negative or not required by law. Electronically signed by: Alex Villafuerte M.D. 01/06/2021 5:13 PM
[2021-01-06 17:27] LABS: Albumin Globulin Ratio 0.6 (0.9-2); BUN Creatinine Ratio 19.8 (10-20); Bilirubin,Total 2.3 mg/dl (0.2-1); Calcium 8.7 mg/dl (8.5-10.1); Creatinine Clr Calc Pharmacy 58.6 ml/min; Est GFR (African American) 57.1 ml/min; Est GFR (Non-African American) 49.3 ml/min; Globulin 5.3 gm/dl (2.5-4.0); Magnesium 1.6 mg/dl (1.8-2.4); Potassium 3.7 mmol/L (3.5-5.1); Total Protein 8.3 gm/dl (6.4-8.2); Troponin I 0.656 ng/ml (0-0.045)
[2021-01-06] MEDS ORDERED: INSULIN PROTOCOL GOAL RANGE ONE (17:53)
[2021-01-06] MEDS ORDERED: SEVERE STRESS LEVEL ONE (17:53)
[2021-01-06] MEDS ORDERED: INSULIN REGULAR 250 UNITS in SODIUM CHLORIDE 0.9% 247.5 ML IV SCH ×2 (18:00→19:15)
[2021-01-06 18:13] LABS: Appearance Urine Clear (Clear); Bacteria Urine Automated Negative (Negative); Blood Urine 2+ (Negative); Color Urine Dark Yellow; Glucose Urine UA 3+ (Negative); Ketones Urine 1+ (Negative); Leukocyte Esterase Urine Negative (Negative); Nitrite Urine Negative (Negative); Protein Urine 1+ (Negative); Specific Gravity Urine 1.038 (1.000-1.030); Urobilinogen Urine Negative (Negative); pH Urine 5.5 (4.5-7.5)
[2021-01-06] MEDS ORDERED: LORazepam 1 MG/2 ML VIAL IV STA (18:24)
[2021-01-06 18:33] LABS: Bilirubin Urine 1+ (Negative)
[2021-01-06 18:36] LABS: INR 1.4 (0.9-1.1); Partial Thromboplastin Ratio 1.2; Partial Thromboplastin Time 31.4 Seconds (21.0-31.0); Prothrombin Time 13.5 Seconds (9.0-12.0)
--- NOTE | 2021-01-06 18:57 | XRay Report ---
XR chest 1V portable CLINICAL HISTORY: SEPSIS COMPARISON STUDY: 10/15/2019 FINDINGS: The heart is enlarged. There is mild mediastinal widening. There are calcified right paratr acheal lymph nodes. There is mild elevation of interstitium. Diagnostic considerations include mild p ulmonary vascular congestion versus interstitial infectious/inflammatory process. There are no signif icant pleural effusions[ IMPRESSION: 1. Cardiomegaly 2. Mild mediastinal widening possibly secondary to the AP portable technique, with calcified right pa ratracheal lymph nodes 3. Mild elevation of the interstitium, pulmonary vascular congestion versus an interstitial infectiou s/inflammatory process. Clinical and radiographic follow-up are recommended. ACT 112: Negative or not required by law. Electronically signed by: Alex Villafuerte M.D. 01/06/2021 6:55 PM
[2021-01-06] MEDS ORDERED: LORazepam 0.5 MG/1 ML VIAL IV STA (18:58)
[2021-01-06] MEDS ORDERED: NORMOSOL-R 2,000 ML IV ONE (19:06)
[2021-01-06] MEDS ORDERED: PIPERACILL/TAZOBAC CONSULT ACTIVE PRN (19:07)
[2021-01-06] MEDS ORDERED: PIPERACILLIN/TAZOBACTAM 4.5 GM/120 ML BAG IV ONE (19:07)
[2021-01-06] MEDS ORDERED: DEXTROSE 50% 50 ML SYRINGE IV PRN (19:11)
[2021-01-06] MEDS ORDERED: GLUCOSE 10 TABS/TUBE PO PRN (19:11)
[2021-01-06] MEDS ORDERED: CARBOHYDRATES FOR HYPOGLYCEMIA PO PRN (19:11)
[2021-01-06] MEDS ORDERED: DKA GOAL RANGE 150-250 mg/dl ONE ×2 (19:11→23:14)
[2021-01-06] MEDS ORDERED: GLUCAGON FOR INJ 1 MG VIAL SQ PRN (19:11)
[2021-01-06] MEDS ORDERED: GLUCOSE 40% GEL 15 GM TUBE PO PRN (19:11)
[2021-01-06] MEDS ORDERED: STAT IV Infusion **Titration per Protocol STA ×2 (19:11→23:28)
[2021-01-06] MEDS ORDERED: OPTIRAY 320 125ml IV ONE (19:22)
[2021-01-06] MEDS ORDERED: NovoLIN-R BOLUS FROM BAG IV ONE (19:30)
[2021-01-06] MEDS: POTASSIUM CHLORIDE / WTR 10 MEQ/100 ML PLCT IV SCH (19:59)
[2021-01-06 20:03] LABS: iSTAT Arterial Blood Gas HCO3 18 meg/L (19-24); iSTAT Arterial Blood Gas pCO2 29 mmHg (35-46); iSTAT Arterial Blood Gas pH 7.39 (7.35-7.45); iSTAT Arterial Blood Gas pO2 63 mmHg (80-95); iSTAT Carbon Dioxide 18 mmol/L (24-31); iSTAT Hematocrit 39 % (42-52); iSTAT Hemoglobin 13.3 g/dl (14.0-18.0); iSTAT Potassium 3.3 mmol/L (3.3-5.0); iSTAT Sodium 131 mmol/L (135-144)
[2021-01-06 20:17] LABS: Base Excess VBG -7.4 mEq/L; Oxygen Saturation VBG 66.1 %; pH VBG 7.26 (7.36-7.41)
[2021-01-06] MEDS ORDERED: RAPID SEQUENCE INDUCTION BAG ONE (20:18)
[2021-01-06 20:38] LABS: Beta-Hydroxybutyrate 2.81 mg/dl (0.2-2.81)
[2021-01-06] MEDS ORDERED: ICU PROTOCOL FOR HYPERGLYCEMIA PRN (20:38)
[2021-01-06] MEDS ORDERED: PHARMACY GLYCEMIC MGMT CONSULT STA (20:38)
[2021-01-06] MEDS ORDERED: NOREPINEPHRINE/D5W 8 MG/508 ML IV ONE (20:55)
[2021-01-06] MEDS ORDERED: INSULIN ASPART 100 UNITS/ML 3 ML PEN SC SCH ×2 (21:00)
[2021-01-06] MEDS ORDERED: VECURONIUM BROMIDE 10 MG VIAL IV ONE (21:01)
--- NOTE | 2021-01-06 21:01 | CT Scan Report ---
CT angio head w con CLINICAL HISTORY: Acute change in mental status. Possible stroke. TECHNIQUE: CT angiography of the head was performed in a dynamic helical fashion during intravenous a dministration of 120 cc of Optiray. MIP imaging was performed. A dose lowering technique was utilized adhering to the principles of ALARA. CT DOSE: COMPARISON STUDY: No previous studies for comparison. FINDINGS: There are atheromatous calcifications present within the cavernous supraclinoid carotid wit h an approximate 50% stenosis of the right internal carotid artery. There is also a stenosis of the r ight proximal middle cerebral artery. There are no lesion suspicious for aneurysm. The dural venous s inuses appear patent. There is a right frontal lobe developmental venous anomaly IMPRESSION: 1. Cavernous and supraclinoid internal carotid atheromatous calcifications with a 50% diameter stenos is of the right internal carotid artery. In addition there is also a 50% diameter stenosis of the pro ximal right middle cerebral artery. 2. Right frontal lobe developmental venous anomaly ACT 112: Negative or not required by law. Electronically signed by: Alex Villafuerte M.D. 01/06/2021 9:00 PM
--- NOTE | 2021-01-06 21:01 | CT Scan Report ---
CT ANGIOGRAM OF THE CHEST CLINICAL HISTORY: Sepsis. Abnormal chest x-ray with mediastinal widening. COMPARISON STUDY: Chest x-ray performed the same day TECHNIQUE: Following the IV administration of 120 mL of Optiray, CT angiogram of the thorax was perfo rmed from the thoracic inlet to the lung bases utilizing the pulmonary embolus protocol. Images are r eviewed in the axial, sagittal, and coronal planes. IV contrast was administered without complication . MIP imaging was performed. A dose lowering technique was utilized adhering to the principles of [place]. CT DOSE: 1041.08 mGy.cm FINDINGS: No pathologically enlarged axillary mediastinal or hilar lymph nodes were visualized. There is mild aneurysmal dilatation of the ascending thoracic aorta which measures 44 mm. There is dilatation of the main pulmonary artery segment suggesting pulmonary arterial hypertension. There are no pulmonary artery filling defects to indicate acute pulmonary embolism. Evaluation limite d due to significant respiratory motion artifact. Correlation with leg ultrasonography recommended gi ko the technical limitations of the examination. No pleural effusions are visualized. There is significant respiratory motion artifact. There is no focal pulmonary consolidation. There is suspected hepatic cirrhosis and splenomegaly. IMPRESSION: 1. Motion compromised study 2. No evidence of acute pulmonary embolism given the technical limitations of the examination. Given the significant motion artifact, correlation with serial leg ultrasonography should be considered. 3. No evidence of focal pulmonary consolidation 4. Suspected hepatic cirrhosis and splenomegaly. 5. Mild aneurysmal dilatation of the ascending thoracic aorta which measures 44 mm 6. No evidence of pathologic adenopathy ACT 112: Negative or not required by law. Electronically signed by: Alex Villafuerte M.D. 01/06/2021 9:00 PM
--- NOTE | 2021-01-06 21:02 | CT Scan Report ---
CT angio neck with con CLINICAL HISTORY: Acute change in mental status. Possible stroke. COMPARISON STUDY: November 2019 TECHNIQUE: CT angiography was performed from the aortic arch to the skull base. MIP imaging was perfo rmed. The patient was scanned in a dynamic helical fashion during intravenous administration of 120 c c of Optiray. A dose lowering technique was utilized adhering to the principles of ALARA. CT DOSE: Technique: CT angiogram of the carotid and vertebral arteries was obtained using intravenous contrast and 3-D reconstruction. NASCET criteria was utilized. Findings: The study is compromised due to motion artifact. There is mild interlobular septal edema visualized at the lung apices. There is extensive calcific plaque involving the right internal carotid origin. This makes evaluation of stenotic lesions less sensitive and specific. There is evidence for a proximal right internal car otid artery stenosis which is estimated to be approximately 50%. There is a proximal left internal carotid artery stenosis which is estimated to measure 50%. There is no evidence of hemodynamically significant vertebral stenosis. There is no evidence of verte bral dissection. IMPRESSION: 1. Significantly limited study from a technical standpoint secondary to motion artifact and dense rig ht carotid calcification 2. Bilateral internal carotid artery stenosis estimated to be approximately 50% bilaterally. Accuracy is however limited given the above-mentioned technical constraints. Correlation with carotid Doppler ultrasonography should be considered in follow-up ACT 112: Negative or not required by law. Electronically signed by: Alex Villafuerte M.D. 01/06/2021 9:01 PM
--- NOTE | 2021-01-06 21:10 | CT Scan Report ---
CT abd pelvis IV con only CLINICAL HISTORY: Elective acidosis. Possible bowel ischemia. Acute change in mental status. COMPARISON STUDY: None. TECHNIQUE: Patient was scanned in a dynamic helical fashion during intravenous administration of 1 20 cc of Optiray 320 A dose lowering technique was utilized adhering to the principles of ALARA. CT DOSE: 1315.04 mGy.cm FINDINGS: Lower chest: There is significant respiratory motion artifact. There is mild basilar atelectasis. Liver: There is suspected hepatic cirrhosis. There is recannulization of the umbilical vein. There ar e anterior abdominal wall varices. No focal hepatic masses are visualized. Gallbladder: No calculi are visualized. There is trace pericholecystic fluid/edema likely secondary t o hepatocellular disease Spleen: The spleen is enlarged measuring 14.5 cm Pancreas: Unremarkable. Adrenal glands: There is an indeterminate 27 mm left adrenal mass. Dedicated renal CT scan could be o btained in follow-up as deemed clinically appropriate. Kidneys: There is symmetric renal cortical enhancement. The kidneys are normal in size without hydron ephrosis. Bowel: There are no transition zones to indicate bowel obstruction. Bowel evaluation is significantly limited due to motion artifact. There is no convincing evidence of acute diverticulitis. There is no convincing evidence of acute appendicitis. If symptoms persist, repeat imaging should be considered given the technical limitations of the current study Peritoneum: There is no intraperitoneal free air or abdominal ascites. Vasculature: The abdominal aorta is normal in course and caliber. Adenopathy: There are mildly enlarged lymph nodes in the peripancreatic, portacaval, and gastrohepati c ligament region possibly secondary to hepatocellular disease Pelvic viscera: There is a joint Lyles catheter. There is bladder wall thickening. Skeletal structures: No destructive osseous lesions are seen. IMPRESSION: 1. Motion compromised study 2. No evidence of bowel obstruction. No evidence of free air 3. No definite acute inflammatory changes 4. Hepatic cirrhosis and splenomegaly 5. Indeterminate 27 mm left adrenal nodule 6. Mild peripancreatic, portacaval, gastrohepatic ligament adenopathy. This is nonspecific but could be related to hepatocellular disease 7. Given the technical limitations of the examination, if symptoms persist, repeat imaging should be considered. ACT 112: Negative or not required by law. Electronically signed by: Alex Villafuerte M.D. 01/06/2021 9:09 PM
[2021-01-06 21:36] LABS: iSTAT Arterial Blood Gas HCO3 21 meg/L (19-24); iSTAT Arterial Blood Gas pCO2 83 mmHg (35-46); iSTAT Arterial Blood Gas pH 7.02 (7.35-7.45); iSTAT Arterial Blood Gas pO2 91 mmHg (80-95); iSTAT Carbon Dioxide 24 mmol/L (24-31); iSTAT Hematocrit 42 % (42-52); iSTAT Hemoglobin 14.3 g/dl (14.0-18.0); iSTAT Potassium 3.6 mmol/L (3.3-5.0); iSTAT Sodium 135 mmol/L (135-144)
--- NOTE | 2021-01-06 22:07 | Procedure Note ---
Procedure Note Date of Service January 06, 2021 Note Procedure Date: Noted Above Procedure: Revision Dilatational Tracheotomy Pre-procedure Diagnosis & Indication: Acute respiratory failure inability to intubate status post emergent tracheostomy Post-procedure Diagnosis: same as above Prior to Procedure: Informed Consent: Emergent consent implied. Performed by: Moustapha Valladares DO Bronchoscopy Landscape Architect And Planner: Too Hernandez Preprocedure: The identity of the patient was confirmed and a bedside time out was performed. [place] protocol was followed for this procedure. Prior to the initiation of sedation or the procedure, a timeout was performed. The patients identity was verified by confirming the patients wrist band for name, date of , and medical record number. Everyone in the room was in agreement with the patient identify, the procedure to be performed. The area was cleaned with a CHG scrub and draped with large sterile barrier. Hand hygiene was performed, and cap, mask, sterile gown, and sterile gloves were worn. The patient was covered by a large sterile drape. Sterile technique was maintained for the entire procedure. Anesthesia: The patient was on propofol sedation and given 10 mL 1% lidocaine with epiephrine. Vecuronium had been administered for paralysis. Description of Procedure: The patient was placed in the supine position. The anterior neck was prepped and draped in usual sterile fashion. 1% lidocaine was administered around the prior tracheostomy incision. The guidewire was introduced into the 6.0 endotracheal tube. The endotracheal tube was then removed while meticulously maintaining the guidewire in the trachea. The large, tapered dilator was then advanced over the wire into the trachea. The dilator was removed leaving the wire and white inner cannula in position. A number 6 percutaneous Shiley tracheostomy tube with appropriate inner cannula was then advanced over the wire and white inner cannula into the trachea. Proper positioning was confirmed with end-tidal measurement and later with bronchoscopic visualization. The tracheostomy was secured with a tracheostomy ties. Estimated blood loss: Less than 5 mL. Complications: None immediate. Coding CPT Codes ENT - ENT: 32895 Visualization of windpipe ([id number]) [facility] [place] Procedure Codes (Charges) ENT ENT: 91655 Visualization of windpipe
--- NOTE | 2021-01-06 22:08 | Procedure Note ---
Procedure Note Date of Service January 06, 2021 Note Procedure date: Noted above Procedure: Central venous access Pre-procedure indication: Need for vasoactive medication administration and therapeutic hypothermia Post-procedure Diagnosis: same as above Prior to Procedure: Informed Consent: Emergent consent implied Attending Staff: Moustapha Valladares DO Resident/APC: Too Hernandez Skin Prep: Chlorhexidine Anesthesia: 4 mL 1% lidocaine without epinephrine The identity of the patient was confirmed and a bedside time out was performed. Description of Procedure: After sterile prep and sterile drape utilizing standard sterile technique the superficial skin of the left subclavian area was anesthetized. The target vessel was identified and entered with an 18-gauge needle. Dark venous blood return was noted. A guidewire was inserted through the needle and into the vessel. The needle was withdrawn and a skin reynaldo was made. A tissue dilator was advanced via Seldinger technique and removed. A triple lumen catheter was inserted via Seldinger technique and the guidewire removed. All ports starla and flushed easily. A Biopatch was placed, and the catheter was secured via nylon suture. A sterile dressing was then applied. Complications: None Estimated blood loss: Trace Patient tolerated the procedure well. Coding CPT Codes Tubes, Drains, and Vasc Access - Tubes, Drains, and Vasc Access: [id number] Insertion Of Non-tunneled Catheter Age 6 Yrs> ([id number]) [facility] [place] Procedure Codes (Charges) Tubes, Drains, and Vasc Access Procedure 1: Tubes, Drains, and Vasc Access: [id number] Insertion Of Non-tunneled Catheter Age 6 Yrs>
--- NOTE | 2021-01-06 22:13 | History & Physical Report ---
Date of Service January 06, 2021 Assessment & Plan (1) Cardiac arrest: 65-year-old male past medical history significant for type 2 diabetes with insulin pump, hypertension, hyperlipidemia, hypothyroidism, BIANKA admitted initially for DKA and ? CVA but had cardiac arrest and ROSC in ER prior to t ransfer to ICU. Neuro - Metabolic encephalopathy, ? CVA, obtundation: Currently intubated and sedated post-cardiac arrest. On presentation to the ER patient was somewhat obtunded, oriented only to name. Multifactorial with metabolic encephalopathy and lactic acidosis from DKA, dehydration from time lying on floor, ? infectious source, as well as possible subacute CVA. CT head showed 8 mm hypodensity in the region of the right basal ganglia, possible age indeterminate infarct. MRI to be performed after patient stabilized to further qualify CT findings. Monitor neurologic status, extubation and weaning of sedation by ICU when able. Cardiac - Respiratory arrest before cardiac arrest status post ROSC: Had respiratory arrest during attempted intubation, which led to cardiac arrest Able to achieve ROSC, no hypothermia protocol due to primary process being respiratory arrest Respiratory - History of BIANKA. Currently intubated and sedated, performed during code. CTA chest did not have evidence of PE or focal consolidation. Wean sedation and extubate when able. GI - NPO. GI prophylaxis with Protonix IV daily. CTAP showed hepatic cirrhosis, splenomegaly, indeterminate 27 mm left adrenal nodule. Benign abdominal exam prior to cardiac arrest. RENAL/LYTES - Metabolic acidosis: Presented with low CO2 and HCO3 in the estting of several hours lying on the floor, uncontrolled hyperglycemia. Intubated initially for airway protection and continued when underwent cardiac arrest. POC ABG q4h. Treatment of DKA with IVF, insulin below. JAD: Suspected due to dehydration, unable to get up from floor. Creatinine on admission 1.48 with elevated BUN/Cr ratio. IV Fluids for DKA as described below. Repeat BMP in AM. Rhabdomyolysis: Was lying on floor for unknown amount of time prior to being found by family. CK 1320 on admission. Receiving IV fluids for DKA. - Lyles in place. No infectious concerns. Strict intake/output. ENDO - DKA: Presented initially after being found down for unknown amount of time per family. History of type 2 diabetes with an insulin pump. POC BSG 412 on arrival with elevated BHB. DKA protocol initiated; received 2 L normal saline and was started on Normosol. Continue Normosol at 250 cc/h with KCl 20 M EQ until BSG 200. We will then initiate D5 half-normal at similar rate with potassium added. Frequent BMP, POC ABG. Continue insulin gtt per DKA protocol. HEME - Hemoglobin on admission of 15.1, however did have significant amount of bleeding during code due to undifferentiated airway mass. Repeat H/H AM. ID - Patient's lactate and pro Andrez are both elevated, normal WBC count, no focal source of infection on exam nor on imaging. Suspect significantly elevated lactate is secondary to lactic acidosis from lying on the floor for several hours, as well as DKA. IV fluids to continue as above. Repeat lactate and procal. Did receive Zosyn in ER. Will continue as well as vancomycin for empiric treatment of possible infection. LINES/IV ACCESS - PIVs intact. Central line in place. CODE STATUS: Full code FEN: NPO; DM2 Heart Healthy diet if/when able to extubate and advance diet DVT prophylaxis: SCDs Dispo: ICU (2) Acute CVA (cerebrovascular accident): (3) DKA (diabetic ketoacidosis): (4) Respiratory arrest before cardiac arrest: History of Present Illness Chief Complaint: found down at home Primary Care Provider: Jordy Conway MD 65-year-old male past medical history significant for type 2 diabetes with insulin pump, hypertension, hyperlipidemia, hypothyroidism, BIANKA presented to the ER via EMS after being found down for unknown amount of time by family. Last known well was yesterday evening around 9pm. Of note, has recently been on PO steroids for vertigo. On arrival patient had altered mental status, alert only to name and lethargic. POC BSG 412, POC ABG with pH of 7.39, CO2 31, O2 36, HCO3 20. Lab work showed an elevated lactate of 5 with repeat 2 hours later of 10. Troponin elevated to 0.656, CK 1320, pro-Andrez 26. CT head showed 8 mm hypodensity in the region of the right basal ganglia, possible age indeterminate infarct. Patient was having labored quick respirations, and there was concern for ability to protect airway. Intubation was attempted and there was a large mass noted in airway. Tube was removed for concern for air into belly, and was unable to be reinserted due to airway mass swelling and bleeding. Cricothyrotomy performed, after which patient had cardiac arrest. Received epinephrine q3-5 mins during code, and ROSC was able to be achieved. Central line placed in ER. Patient was ultimately transferred to ICU for continued acute care. Allergies Allergy/AdvReac Type Severity Reaction Status Date / Time liraglutide [From Victoza] Allergy Unknown Unknown Verified 01/06/21 17:06 Home Medications Medication Instructions Recorded Confirmed Type magnesium 250 mg tablet 250 mg PO HS 10/15/19 01/06/21 History aspirin 81 mg tablet,delayed 81 mg PO QAM #30 tab 12/14/19 01/06/21 Rx release ramipril 5 mg capsule 5 mg PO DAILY #90 cap 12/20/19 01/06/21 Rx metformin 500 mg tablet 1,000 mg PO BID #360 tab 01/03/20 01/06/21 Rx blood-glucose meter (Accu-Chek #1 ea 02/25/20 01/01/21 Rx Guide Glucose Meter) lancets (Accu-Chek Fastclix Lancet #300 ea 02/25/20 01/01/21 Rx Drum) Dexcom G6 Composite Mechanic (blood-glucose #1 ea NS 05/13/20 01/01/21 Rx meter,continuous) atorvastatin 40 mg tablet 40 mg PO QAM #90 tab 05/20/20 01/06/21 Rx levothyroxine 50 mcg capsule 50 mcg PO DAILY #90 cap 05/20/20 01/06/21 Rx blood sugar diagnostic (Accu-Chek ea 08/07/20 01/01/21 History Guide test strips) Dexcom G6 Sensor (blood-glucose #9 ea NS 09/04/20 01/01/21 Rx sensor) Dexcom G6 Transmitter #1 ea NS 09/04/20 01/01/21 Rx (blood-glucose transmitter) Novolog U-100 Insulin aspart 100 350 unit SUBCUT DAILY 90 Days #320 09/04/20 01/06/21 Rx unit/mL subcutaneous solution ml NS (insulin aspart U-100) fenofibrate nanocrystallized 145 145 mg PO DAILY tab 10/15/20 01/06/21 History mg tablet insulin degludec 200 unit/mL (3 140 unit SUBCUT HS PRN ml 11/06/20 01/06/21 History mL) subcutaneous pen (Tresiba FlexTouch U-200 insulin) subcutaneous insulin pump (t:slim #1 ea 11/06/20 01/01/21 History X2 Basal-IQ Insulin Instructional Design Manager) meclizine 25 mg tablet 25 mg PO TID PRN #30 tab 12/29/20 01/06/21 Rx methylprednisolone 4 mg tablets in 4 mg PO .COMPLEX #21 ea 01/01/21 01/06/21 Rx a dose pack (Medrol (Jonnathan)) cyanocobalamin (vitamin B-12) 1,000 mcg PO DAILY 01/06/21 01/06/21 History 1,000 mcg tablet (Vitamin B-12) Past Med/Surg History Medical History (Updated 01/07/21 @ 04:58 by Wilman Fontaine MD) 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, uncontrolled Diabetes type 2, uncontrolled Diabetic peripheral neuropathy Dysesthesia Dyslipidemia with low high density lipoprotein (HDL) cholesterol with hypertriglyceridemia due to type 2 diabetes mellitus Esophageal reflux Hypertension Hypertriglyceridemia Hypothyroidism, unspecified Neurodermatitis Obstructive sleep apnea Prurigo nodularis Retinopathy Sebaceous cyst Skin lesion Tubular adenoma of colon Type 2 diabetes mellitus Family History Unknown Diabetes Family/Other Diabetes Mother , age 88 with dementia Diabetes Cardiovascular disease Dementia Social History Smoking Status: Unknown if ever smoked Hx Alcohol Use: Yes Alcohol type: beer and hard liquor Alcohol Intake Frequency Comment: Averages less than 1 per week. 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 [employer] Feels Safe at Home: Yes Childhood Exposure to Second-Hand Smoke: Yes caffeine: Yes Dental Care, Regularly: No Physical Activity Frequency: Does not Exercise Seatbelt Use: sometimes Sunscreen Use: No Assistive Devices: None Review of Systems Review of Systems: Unobtainable due to reduced consciousness Physical Exam Constitutional: well developed, well nourished, + acute distress and + altered mental status Eyes: PERRL, conjunctivae normal, anicteric sclerae ENMT: Ears: no external ear abnormality Nose: no external nose abnormality Neck: normal visual inspection Respiratory: tachypneic, saturating well on 2LNC (prior to code and intubation) Cardiovascular: Rate/Rhythm: regular rhythm and + tachycardic Extremities: no edema Gastrointestinal (Abdomen): Inspection/Auscultation: normal bowel sounds Percussion/Palpation: abdomen soft; abdomen nontender and no guarding Skin: no rashes, warm and dry Neurologic: Oriented to name, lethargic, able to answer yes/no questions. Anxious affect Results & Data Results & Data ([facility]) Vital Signs (Past 12 Hours) Vital Signs Temp Pulse Pulse Resp BP BP Pulse Ox 01/06/21 20:15 106 H 96/60 L 99 01/06/21 20:00 135/83 94 01/06/21 19:45 105 H 131/56 L 91 01/06/21 19:39 105 H 36 H 115/52 L 92 01/06/21 19:00 109 H 42 H 159/84 H 94 01/06/21 18:50 109 H 36 H 150/84 H 95 01/06/21 18:30 113 H 24 150/76 H 96 01/06/21 18:14 117 H 43 H 132/85 96 01/06/21 18:00 116 H 44 H 131/75 93 01/06/21 17:28 32 H 96 01/06/21 17:27 113 H 37 H 156/70 H 94 01/06/21 16:33 36.8 C 115 H 35 H 125/76 94 Code Status & VTE Plan VTE Prophylaxis Plan VTE Prophylaxis will be ordered: Yes Critical Care Time 50 minutes Supervising Physician Co-Signing Physician Notes Attending addendum: I have physically seen this patient, have supervised the medical residents activities, and agree with the H&P unless as otherwise noted. Assessment and Plan: Respiratory arrest for cardiac arrest status post ROSC- Admit to intensive care unit on ventilator Consult corner cutter machine operator Dr. Valladares and staff No hypothermia protocol due to primary issue being respiratory arrest Remaining orders and notations as noted Resident Activity Tracking Resident Involvement: Resident Care Provided Care Provided: Adult Hospital Medicine
[2021-01-06] MEDS ORDERED: PROPOFOL IV EMULSION 10 MG/ML 100 ML VIAL IV ONE (22:26)
--- NOTE | 2021-01-06 22:37 | Procedure Note ---
Procedure Note Date of Service January 06, 2021 Procedure: Arterial Line Placement Attending: Dr. Valladares APC: Dhruv Hernandez PA-C Indication: Monitoring on Pressors Anesthesia: None Emergent consent implied in the setting of patient in active extremitas requiring close hemodynamic monitoring and arterial line placement for TTM therapy A time-out was completed verifying correct patient, procedure, site, positioning, and implant(s) or special equipment if applicable. Allens test was performed to ensure adequate perfusion. Patients LEFT wrist was prepped and draped in the usual sterile fashion. Ultrasound guidance was used to aid needle placement. A 20g Arrow arterial line was introduced into the LEFT Radial artery. Catheter was threaded, and the needle was removed with appropriate blood return. Good waveform was observed. The patient tolerated the procedure well. Confirmation of placement with ultrasound. Blood Loss: Minimal Complications: None Procedural Ultrasound Guidance: Procedure Date: 01/06/2021 Indication: Pressors, ABGs, Hemodynamic monitoring Attending: Dr. Valladares APC: Dhruv Hernandez PA-C Artery Identified: YES Line confirmed in Artery with ultrasound: YES Complications: NONE Patient tolerated procedure: WELL Coding CPT Codes Tubes, Drains, and Vasc Access - Tubes, Drains, and Vasc Access: [id number] Place Catheter In Artery ([id number]) [facility] [place] Codes (Charges) Tubes, Drains, and Vasc Access Procedure 1: Tubes, Drains, and Vasc Access: [id number] Place Catheter In Artery
--- NOTE | 2021-01-06 22:37 | Critical Care Consultation ---
Date of Consultation January 06, 2021 Assessment & Plan (1) Admitted to intensive care unit: Reason Critically Ill: 65-year-old male presenting with altered mental status with concerns for acute CVA and lactic acidosis who is status post hypoxic respiratory failure with arrest resulting in cardiac arrest with successful ROSC requiring TTM therapy and close ongoing management from a respiratory/cardiac/metabolic standpoint. NEURO - * CAM ICU: Unable to assess at this time. * Sedation: Propofol; Pain: Fentanyl gtt * Will utilize BIS monitoring and RASS scale to achieve appropriate level of sedation. * Status post cardiac arrest: * Continue to BIS monitoring for rudimentary assessment of possible underlying seizure activity. * A.m. EEG * Continue with appropriate sedation. * AMS: * Altered mental status on initial presentation likely multifactorial in the setting of possible acute CVA with associated lactic acidosis and hyperglycemia. * CT head/brain suggests acute to subacute basal ganglion infarct on the RIGHT side. * Will obtain MRI, however patient is currently not hemodynamically stable to perform this. Will defer until after patient is successfully rewarmed. * Of note, patient had recently been treated with meclizine for presumed benign positional vertigo with associated blurry vision. He had recently been started on oral steroids as meclizine had not provided cessation of symptoms. CARDIAC/VASCULAR - * Cardiac arrest: * Likely secondary to profound hypoxia with associated acidemia. * ROSC achieved. * Will initiate TTM protocol. * Serial troponins/EKGs * AM Echo * Monitor on telemetry. RESPIRATORY - * Acute Hypoxic Respiratory Failure: * Patient unable to maintain airway. Intubated successfully initially despite difficult airway with upper airway mass noted on video laryngoscopy. * ET Tube removed at some point. Patient unable to be reintubated from above. Required emergent cricothyrotomy. * ET tube exchanged for formal shiley tracheostomy tube. * Chemical pneumonitis 2/2 bloody aspiration noted on bedside bronch: * Currently covered w/ Zosyn/Vanc. * ABGs as needed to assess oxygenation/ventilation. * Titrate down ventilator settings as tolerated. * Aggressive pulmonary toilet in the setting of large amount of bloody aspiration. GI/NUTRITION - * NPO * NGT placed to LIS * Prophylaxis: Protonix RENAL/LYTES - * JAD: * Likely 2/2 hypovolemia and possibly degree of rhabdo. * Continue w/ ongoing IVF. * Close monitoring of urine output. * Pseudohyponatremia in the setting of hyperglycemia. * Corrected sodium 136. * IVF: Normosol R - * Lyles in place - Strict I&Os. ENDO - * Hyperglycemia: * Without elevated anion gap. BiCarb WNL. BHB slightly elevated. Slight ketones in urine. * Likely 2/2 stress of recent illness, lactic acidosis, steroid use. * Patient w/o concerning findings for profound DKA. * Agree w/ insulin gtt currently in the setting of stress. Titrate down to off as able. HEME - * Stable H&H * Will monitor H&H given blood loss and possible development of dilution in the setting of resuscitation. ID - * Pulmonary Aspiration w/ chemical pneumonitis: * Per bronch findings. * Received Zosyn. * Will cover w/ Vanc. * Lactate/PCT elevated. Will trend. * Blood Cultures pending. LINES/IV ACCESS - * PIVs x4 * LEFT Subclavian cooling catheter * LEFT Radial Arterial Line * NG Tube * Tracheostomy tube * Lyles DVT PROPHYLAXIS - * Hold s/p cricothyrotomy * SCDs I have personally spent 47 minutes of critical care time in the direct management of this patient. This is a life/limb threatening event. This includes time spent evaluating patient, direct bedside care, chart review, placing orders, interpretation of diagnostic studies, discussion with consultants, patient, and family members, as well as other required patient management activities. This time is exclusive of all separately billable procedures, and teaching time and separate from and in addition to any other critical care service time. Thank you for allowing us to participate in the care of this patient. Please refer to my attending physician's documentation for any further recommendations. (2) Respiratory arrest before cardiac arrest: (3) Cardiac arrest: (4) Acute CVA (cerebrovascular accident): (5) Altered mental status: (6) Acidosis, lactic: (7) Elevated troponin: (8) Acute hyperglycemia: (9) Elevated liver enzymes: (10) Diabetes type 2, uncontrolled: (11) Hypertension: (12) Hypertriglyceridemia: (13) Hypothyroidism, unspecified: (14) Obstructive sleep apnea: Supervising Physician Co-Signing Physician Notes I have personally evaluated and examined this patient. I agree with assessment and plan of Too Hernandez PA-C. Patient being admitted for acute encephalopathy concerning for possible CVA. After initial intubation which where head neck mass was noted there was loss of airway and subsequent respiratory and cardiac arrests. We will initiate hypothermia protocol and hopefully obtain neuroimaging after the rewarming phase. Formal tracheostomy was placed to better secure the airway. History of Present Illness History of Present Illness Patient is a 65-year-old male with a past medical history including type 2 diabetes is insulin-dependent utilizing insulin pump, obstructive sleep apnea, hypothyroidism, esophageal reflux, and hyperlipidemia. Patient presented to the emergency department as he was apparently found on the floor at his residence. He was reportedly last known well last evening. Patient was noted to be altered and not answering questions appropriately. On assessment, there was concern patient was obtunded and not protecting his airway well. Additionally, he was found to have hyperglycemia as well as an elevated lactate level. Wilson scanning demonstrated possible acute to subacute infarct in the RIGHT basil ganglia area. Otherwise, no other concerning findings on CT imaging, specifically no specific concerning areas for source of infection. Procalcitonin and lactate were both elevated. Patient hyperglycemic without elevated anion gap and CO2 is appropriate. Patient not acidotic on VBG. Patient was intubated in the emergency department as there was difficulty for the patient protecting his airway and he was not mentating well. During intubation, the patient was noted to have a large mass obscuring the airway. The patient was successfully intubated during first attempt, however it was reported as difficult. At some point, the tube was removed by respiratory therapy and patient was unable to be reintubated through typical fashion. Emergent cricothyrotomy was performed at bedside. Unfortunately, prior to successfully securing airway, the patient had cardiac arrest. I was contacted by emergency department staff and requested to present at bedside. On my way to the emergency department, a KALPESH GILLETTE was called overhead. Upon my arrival, the patient was actively receiving chest compressions. Typical ACLS techniques and drugs were utilized, and ROSC was achieved. Patient's oxygen saturations improved status post cricothyrotomy. Upon my assessment in the emergency department, the patient is intubated via cricothyrotomy and status post arrest with ROSC. He is unable to contribute to history of present illness. Allergies Allergy/AdvReac Type Severity Reaction Status Date / Time liraglutide [From Victoza] Allergy Unknown Unknown Verified 01/06/21 17:06 Home Medications Medication Instructions Recorded Confirmed Type magnesium 250 mg tablet 250 mg PO HS 10/15/19 01/06/21 History aspirin 81 mg tablet,delayed 81 mg PO QAM #30 tab 12/14/19 01/06/21 Rx release ramipril 5 mg capsule 5 mg PO DAILY #90 cap 12/20/19 01/06/21 Rx metformin 500 mg tablet 1,000 mg PO BID #360 tab 01/03/20 01/06/21 Rx blood-glucose meter (Accu-Chek #1 ea 02/25/20 01/01/21 Rx Guide Glucose Meter) lancets (Accu-Chek Fastclix Lancet #300 ea 02/25/20 01/01/21 Rx Drum) Dexcom G6 Circular Shear Operator (blood-glucose #1 ea NS 05/13/20 01/01/21 Rx meter,continuous) atorvastatin 40 mg tablet 40 mg PO QAM #90 tab 05/20/20 01/06/21 Rx levothyroxine 50 mcg capsule 50 mcg PO DAILY #90 cap 05/20/20 01/06/21 Rx blood sugar diagnostic (Accu-Chek ea 08/07/20 01/01/21 History Guide test strips) Dexcom G6 Sensor (blood-glucose #9 ea NS 09/04/20 01/01/21 Rx sensor) Dexcom G6 Transmitter #1 ea NS 09/04/20 01/01/21 Rx (blood-glucose transmitter) Novolog U-100 Insulin aspart 100 350 unit SUBCUT DAILY 90 Days #320 09/04/20 01/06/21 Rx unit/mL subcutaneous solution ml NS (insulin aspart U-100) fenofibrate nanocrystallized 145 145 mg PO DAILY tab 10/15/20 01/06/21 History mg tablet insulin degludec 200 unit/mL (3 140 unit SUBCUT HS PRN ml 11/06/20 01/06/21 History mL) subcutaneous pen (Tresiba FlexTouch U-200 insulin) subcutaneous insulin pump (t:slim #1 ea 11/06/20 01/01/21 History X2 Basal-IQ Insulin [employer]) meclizine 25 mg tablet 25 mg PO TID PRN #30 tab 12/29/20 01/06/21 Rx methylprednisolone 4 mg tablets in 4 mg PO .COMPLEX #21 ea 01/01/21 01/06/21 Rx a dose pack (Medrol (Jonnathan)) cyanocobalamin (vitamin B-12) 1,000 mcg PO DAILY 01/06/21 01/06/21 History 1,000 mcg tablet (Vitamin B-12) Patient History Medical History (Updated 01/07/21 @ 06:06 by Dhruv Hernandez PA-C) 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, uncontrolled Diabetes type 2, uncontrolled Diabetic peripheral neuropathy Dysesthesia Dyslipidemia with low high density lipoprotein (HDL) cholesterol with hypertriglyceridemia due to type 2 diabetes mellitus Esophageal reflux Hypertension Hypertriglyceridemia Hypothyroidism, unspecified Neurodermatitis Obstructive sleep apnea Prurigo nodularis Retinopathy Sebaceous cyst Skin lesion Tubular adenoma of colon Type 2 diabetes mellitus Family History Unknown Diabetes Family/Other Diabetes Mother , age 88 with dementia Diabetes Cardiovascular disease Dementia Social History Smoking Status: Unknown if ever smoked Hx Alcohol Use: No (unable to obtain) Hx Substance Use: No (unable to obtain) Preferred Language: Pashto Communication Ability: Impaired Visual Impairment: Limited Hearing Ability: Normal Field Mechanic Required: No Beliefs That Will Affect Care: None marital status: Single Current Living Situation: Family current occupational status: retired 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 GENERAL - 65-year-old male appearing his stated age who is in active extremis. SKIN - Multiple healing skin lesions noted throughout. HEAD - NC/AT. EYES - Mild pupillary dilation noted bilaterally. EARS - No deformities of external structures noted on gross examination bilaterally. NOSE - Midline and without cyanosis. Dried blood noted in the bilateral nares. MOUTH/OROPHARYNX - Without perioral cyanosis. Blood noted in the oropharynx. NECK - ET tube in place midline. LUNGS - Chest wall symmetric. Coarse breath sounds noted bilaterally. CARDIAC - RRR with S1/S2. No murmur, rubs, or gallops appreciated. ABDOMEN - Abdominal contour protuberant with pulsations noted midline. Hypoactive bowel sounds. EXTREMITIES - No clubbing or peripheral cyanosis. No pretibial edema present. +3/5 radial and dorsalis pedis pulses palpated throughout. NEUROLOGIC - Patient unresponsive to stimuli. No focal neurological deficits noted. Unable to fully assess secondary to status s/p arrest. Results & Data Results & Data ([facility]) Vital Signs (Past 12 Hours) Vital Signs Temp Pulse Pulse Resp BP BP Pulse Ox 01/06/21 22:30 116 H 152/71 H 96 01/06/21 22:25 117 H 148/72 H 95 01/06/21 22:20 117 H 152/71 H 95 01/06/21 22:15 117 H 141/77 H 95 01/06/21 22:10 116 H 121/67 95 01/06/21 22:05 113 H 113/64 94 01/06/21 22:00 62 128/69 93 01/06/21 21:55 116 H 169/78 H 89 L 01/06/21 21:50 116 H 157/73 H 93 01/06/21 21:45 115 H 129/76 92 01/06/21 21:41 111 H 93/55 L 93 01/06/21 21:35 113 H 94/54 L 94 01/06/21 21:30 113 H 106/57 L 94 01/06/21 21:25 114 H 110/59 L 92 01/06/21 21:20 115 H 103/66 92 01/06/21 21:15 115 H 112/63 91 01/06/21 21:10 114 H 125/67 90 01/06/21 21:05 114 H 127/90 96 01/06/21 21:00 119 H 163/81 H 97 01/06/21 20:57 129 H 198/97 H 97 01/06/21 20:45 39 L 123/17 L 75 L 01/06/21 20:30 105 H 107/74 80 L 01/06/21 20:15 106 H 96/60 L 99 01/06/21 20:00 135/83 94 01/06/21 19:45 105 H 131/56 L 91 01/06/21 19:39 105 H 36 H 115/52 L 92 01/06/21 19:00 109 H 42 H 159/84 H 94 01/06/21 18:50 109 H 36 H 150/84 H 95 01/06/21 18:30 113 H 24 150/76 H 96 01/06/21 18:14 117 H 43 H 132/85 96 01/06/21 18:00 116 H 44 H 131/75 93 01/06/21 17:28 32 H 96 01/06/21 17:27 113 H 37 H 156/70 H 94 01/06/21 16:33 36.8 C 115 H 35 H 125/76 94 Coding Level of Care Code Critical Care 1st 30-74 mins Diagnoses Respiratory arrest before cardiac arrest I46.9; R09.2 Cardiac arrest I46.9 Acute CVA (cerebrovascular accident) I63.9 Altered mental status R41.82 Altered mental status type: unspecified Acidosis, lactic E87.2 Elevated troponin R77.8 Acute hyperglycemia R73.9 Elevated liver enzymes R74.8 Diabetes type 2, uncontrolled E11.65 Hypertension I10 Hypertension type: essential hypertension Hypertriglyceridemia E78.1 Hypothyroidism, unspecified E03.9 Obstructive sleep apnea G47.33 Admitted to intensive care unit Z78.9 Time Spent (min) 47 (1) Altered mental status Altered mental status type: unspecified Qualified Code(s): R41.82 - Altered mental status, unspecified (2) Hypertension Hypertension type: essential hypertension Qualified Code(s): I10 - Essential (primary) hypertension
--- NOTE | 2021-01-06 22:54 | Emergency Department Note ---
ED Visit Note Femoral Central Venous Catheter performed by Dr. Robles Indication: CODE BLUE Catheter Type: Triple-lumen central venous catheter Location: Left groin Central line was placed emergently with implied consent given the concerns of the patient's acute medical condition. At this time, the risks of the procedure are less than the risks of NOT performing the procedure. The correct patient and site identified. The proper landmarks were identified with ultrasound, and the needle was inserted through the skin in the standard fashion. The needle was carefully advanced into blood vessel lumen with ultrasound guidance. The guidewire was placed uneventfully. The vessel is dilated and the catheter was placed. It was sutured into position. There was good blood return from all ports. The patient tolerated the procedure well and there were no complications. Catheter was placed at the behest of Dr. Phillips due to concern for respiratory arrest. . : Altered mental status Qualifiers: Altered mental status type: unspecified Qualified Code(s): R41.82 - Altered mental status, unspecified
[2021-01-06] MEDS ORDERED: LEVALBUTEROL HCL 0.63 MG/3 ML NEB INH PRN (23:14)
[2021-01-06] MEDS ORDERED: PHARMACIST DISCHARGE MED REC CONSULT PRN (23:14)
[2021-01-06] MEDS ORDERED: VANCOMYCIN CONSULT ACTIVE PRN (23:28)
--- NOTE | 2021-01-06 23:29 | Emergency Department Note ---
ED Visit Note I initially attempted endotracheal intubation with Dr. Phillips at bedside. Patient was preoxygenated and given succinylcholine and ketamine per Dr. Phillips. I initially inserted the glide scope and was able to visualize the vocal cords, however a mass was also visualized at this time. Given this finding, Dr. Phillips took over the procedure at this time. Please see his note for the remainder of the endotracheal intubation. : Altered mental status Qualifiers: Altered mental status type: unspecified Qualified Code(s): R41.82 - Altered mental status, unspecified
[2021-01-06] MEDS: propofoL 1,000 MG/100 ML VIAL IV SCH (23:30)
[2021-01-06] MEDS ORDERED: PHARMACY GLYCEMIC MGMT CONSULT PRN (23:44)
[2021-01-07] LABS: Base Excess ABG -4.1 mEq/L (-9-1.8); HCO3 ABG 20 mmol/L (19-24); Oxygen Saturation ABG 97.9 % (90-95); PCO2 ABG 35 mmHg (35-46); PO2 ABG 106 mmHg (80-95); pH ABG 7.38 (7.35-7.45)
[2021-01-07] MEDS ORDERED: VANCOMYCIN HCL 2,000 MG in SODIUM CHLORIDE 0.9% 500 ML IV ONE
[2021-01-07 00:07] LABS: Allen Test POS (Pos)
[2021-01-07] MEDS ORDERED: NOREPINEPHRINE/D5W 8 MG/508 ML IV ONE (00:12)
[2021-01-07] MEDS: POTASSIUM CHLORIDE / WTR 10 MEQ/100 ML PLCT IV SCH (00:26)
[2021-01-07 00:35] LABS: BUN Creatinine Ratio 21.5 (10-20); Calcium 7.4 mg/dl (8.5-10.1); Creatinine Clr Calc Pharmacy 60.7 ml/min; Est GFR (African American) 59.6 ml/min; Est GFR (Non-African American) 51.4 ml/min; Magnesium 1.8 mg/dl (1.8-2.4); Phosphorus 4.4 mg/dl (2.5-4.9); Potassium 4.3 mmol/L (3.5-5.1); Troponin I 0.943 ng/ml (0-0.045)
[2021-01-07 00:46] LABS: Hemoglobin 13.3 g/dL (14.0-18.0)
[2021-01-07 00:53] LABS: Beta-Hydroxybutyrate 6.16 mg/dl (0.2-2.81)
[2021-01-07] MEDS: NORMOSOL-R 1,000 ML IV SCH ×2 (01:15→13:14)
[2021-01-07] MEDS ORDERED: STAT IV Infusion **Titration per Protocol STA (01:24)
[2021-01-07] MEDS: NOREPINEPHRINE/D5W 8 MG/508 ML BAG IV SCH ×3 (01:42→22:16)
[2021-01-07] MEDS: propofoL 1,000 MG/100 ML VIAL IV SCH ×6 (02:01→22:16)
[2021-01-07 04:32] LABS: Basophils # (auto) 0.01 K/uL (0-0.2); Basophils % (auto) 0.1 %; Hematocrit (blood only) 39.7 % (42-52); Hemoglobin 13.5 g/dL (14.0-18.0); Immature Granulocytes # (auto) 0.04 K/uL (0.00-0.02); Immature Granulocytes % (auto) 0.3 %; Lymphocytes # (auto) 0.52 K/uL (1.2-3.4); Lymphocytes % (auto) 4.4 %; Mean Corpuscular Hemoglobin 29.7 pg (25-34); Mean Corpuscular Volume 87.3 fL (80-100); Mean Platelet Volume 11.4 fL (7.4-10.4); Monocytes # (auto) 0.36 K/uL (0.11-0.59); Neutrophils # (auto) 10.99 K/uL (1.4-6.5); Neutrophils % (auto) 92.2 %; Platelet Count 128 K/uL (130-400); RDW Coefficient of Variation 15.8 % (11.5-14.5); RDW Standard Deviation 50.6 fL (36.4-46.3); Red Blood Count 4.55 M/uL (4.7-6.1); White Blood Count 11.92 K/uL (4.8-10.8)
[2021-01-07] MEDS: INSULIN ASPART 100 UNITS/ML 3 ML PEN SC SCH ×5 (04:41→22:16)
[2021-01-07] MEDS: PENDING D5 1/2NS+20mEq KCL IVF SCH ×3 (04:42→08:00)
[2021-01-07 05:03] LABS: BUN Creatinine Ratio 26.3 (10-20); Calcium 7.4 mg/dl (8.5-10.1); Creatinine Clr Calc Pharmacy 63.8 ml/min; Est GFR (African American) 63.3 ml/min; Est GFR (Non-African American) 54.6 ml/min; Magnesium 1.9 mg/dl (1.8-2.4); Phosphorus 2.6 mg/dl (2.5-4.9); Potassium 3.3 mmol/L (3.5-5.1)
--- NOTE | 2021-01-07 05:05 | Billing Data ---
Date of Service January 07, 2021 Coding Level of Care Code Critical Care 1st 30-74 mins
[2021-01-07] MEDS ORDERED: CALCIUM GLUCONATE 10% 2,000 MG in SODIUM CHLORIDE 0.9% 50 ML IV ONE (05:30)
[2021-01-07] MEDS: POTASSIUM CHLORIDE / WTR 20 MEQ/100 ML PLCT IV SCH ×2 (05:42→07:50)
[2021-01-07 07:18] LABS: Estimated Average Glucose 171 mg/dl; Hemoglobin A1C 7.6 % (4.5-5.6)
[2021-01-07] MEDS: INSULIN REGULAR 250 UNITS in SODIUM CHLORIDE 0.9% 247.5 ML IV SCH (07:45)
--- NOTE | 2021-01-07 07:52 | XRay Report ---
XR chest 1V portable HISTORY: Tracheostomy tube placement COMPARISON: Chest 01/06/2021. FINDINGS: Interval placement of a tracheostomy tube which appears in good position. There is suggesti on of a small amount of pneumomediastinum. This is likely postsurgical. A left subclavian central ko ous catheter terminates at the proximal SVC. No pneumothorax. No pleural effusions. Progressive perip heral airspace opacities and diffuse interstitial thickening are noted. The heart is mildly enlarged. IMPRESSION: 1. Satisfactory support line placement. 2. Progressive peripheral airspace opacities and interstitial thickening. 3. There may be a small amount of pneumomediastinum which is likely postsurgical. Follow-up recommend ed to ensure resolution. ACT 112: Negative or not required by law. Electronically signed by: Álvaro Carson M.D. 01/07/2021 7:51 AM
[2021-01-07] MEDS: PROPOFOL BOLUS FROM BAG IV PRN ×4 (07:57→09:19)
[2021-01-07 08:19] LABS: iSTAT Art Bld Gas pCO2 Correct 30 mmHg (35-46); iSTAT Art Bld Gas pH Corrected 7.483 (7.35-7.45); iSTAT Arterial Blood Gas HCO3 23 meg/L (19-24); iSTAT Arterial Blood Gas pCO2 34 mmHg (35-46); iSTAT Arterial Blood Gas pH 7.44 (7.35-7.45); iSTAT Arterial Blood Gas pO2 91 mmHg (80-95); iSTAT Arterial Blood Gas pO2 C 77; iSTAT Carbon Dioxide 24 mmol/L (24-31); iSTAT FiO2 80 %; iSTAT Hematocrit 38 % (42-52); iSTAT Hemoglobin 12.9 g/dl (14.0-18.0); iSTAT Potassium 3.9 mmol/L (3.3-5.0); iSTAT Site Art Line; iSTAT Sodium 134 mmol/L (135-144)
[2021-01-07 08:55] LABS: BUN Creatinine Ratio 29.9 (10-20); Calcium 8.3 mg/dl (8.5-10.1); Creatinine Clr Calc Pharmacy 74.2 ml/min; Est GFR (African American) 75.9 ml/min; Est GFR (Non-African American) 65.5 ml/min; Magnesium 2.1 mg/dl (1.8-2.4); Potassium 3.9 mmol/L (3.5-5.1)
[2021-01-07 09:00] LABS: Phosphorus 2.2 mg/dl (2.5-4.9); Troponin I 1.44 ng/ml (0-0.045)
[2021-01-07] MEDS: POTASSIUM CHLORIDE 20 MEQ in NORMOSOL-R 1,000 ML IV SCH (09:10)
[2021-01-07 09:32] LABS: iSTAT Art Bld Gas pCO2 Correct 33 mmHg (35-46); iSTAT Art Bld Gas pH Corrected 7.418 (7.35-7.45); iSTAT Arterial Blood Gas HCO3 22 meg/L (19-24); iSTAT Arterial Blood Gas pCO2 35 mmHg (35-46); iSTAT Arterial Blood Gas pO2 69 mmHg (80-95); iSTAT Arterial Blood Gas pO2 C 63; iSTAT Carbon Dioxide 23 mmol/L (24-31); iSTAT FiO2 80 %; iSTAT Hematocrit 40 % (42-52); iSTAT Hemoglobin 13.6 g/dl (14.0-18.0); iSTAT Potassium 3.4 mmol/L (3.3-5.0); iSTAT Site Art Line; iSTAT Sodium 136 mmol/L (135-144)
--- NOTE | 2021-01-07 09:33 | Billing Data ---
Date of Service January 07, 2021 Coding Level of Care Code Critical Care 1st 30-74 mins
--- NOTE | 2021-01-07 09:55 | XRay Report ---
KUB CLINICAL HISTORY: Abdominal distention. COMPARISON STUDY: CT of the abdomen and pelvis January 06, 2021. FINDINGS: Tip of nasogastric tube is within the body of the stomach. Interval development of mild sma ll bowel dilatation. Multiple loops of small bowel are mildly dilated. A Lyles balloon is present wit hin the bladder. There is contrast within the bladder from recent contrast-enhanced CT. IMPRESSION: 1. Interval development of mild small bowel dilatation. This may reflect an ileus or partial small doris wel obstruction. 2. Tip of nasogastric tube within the body of the stomach. ACT 112: Negative or not required by law. Electronically signed by: Neftali Brandon M.D. 01/07/2021 9:53 AM
--- NOTE | 2021-01-07 10:05 | Critical Care Progress Note ---
Date of Service January 07, 2021 Assessment & Plan (1) Admitted to intensive care unit: Plan: Reason Critically Ill: 65-year-old male presenting with altered mental status with concerns for acute CVA and lactic acidosis who is status post hypoxic respiratory failure with arrest resulting in cardiac arrest with successful ROSC requiring TTM therapy and close ongoing management from a respiratory/cardiac/metabolic standpoint. NEURO - CAM ICU: Unable to assess at this time. Sedation: Propofol Pain: Fentanyl gtt RASS Goal: -5 Metabolic Encephalopathy / Unresponsive * Suspect secondary to acute CVA, hyperglycemia, and lactic acidosis -- possible component of anoxia may also be present s/p cardiac arrest * CT-H revealing of acute/subacute R BG infarct * EEG: suggestive of moderate-severe encephalopathy, no epileptiform activity * Await BCX * Repeat CT-H today * MRI when hemodynamically stable CARDIAC/VASCULAR - S/P Cardiac Arrest * Secondary to profound hypoxia and associated acidemia * Given ROSC and candidacy for TTM, has been on cooling protocol * Considering 35C as beginning of 24-hour TTM management * Troponins: 0.943 --> 1.440 this AM, continue to trend alongside ECGs * Await echocardiography * Still requiring small amounts of pressors at this time to maintain hemodynamic stability. Will ween when appropriate. 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 SBO * Abdominal exam this morning revealing +tympanic distention * KUB revealing of dilated loops of bowel s/o either ileus or developing SBO * Obtain CT-A/P with contrast * Maintain NGT Otherwise: * NPO * Maintain LIS on NGT * Prophylaxis: Protonix RENAL/LYTES - JAD: * Likely prerenal and sec to hypovolemia and possibly degree of rhabdomyolysis * Resolving on labs this AM * Continue IVF - Lyles in place - Strict I&Os. ENDO - Hyperglycemia in setting of T2DM -- 438 on arrival * No significant anion gap -- BHB mildly elevated with +ketonuria * Likely 2/2 stress of recent illness, lactic acidosis, steroid use. * Certainly could be contributory towards ongoing metabolic encephalopathy * Continue insulin gtt HEME - * Stable H&H * No obvious bleeding at this point. Will continue to monitor ID - Pulmonary Aspiration and Chemical Pneumonitis * Visualized on bronchoscopy * Continue Zosyn, vancomycin * Continue to trend PCT and lactate * Monitor BCX LINES/IV ACCESS - - PIVs x4 - LEFT Subclavian cooling catheter - LEFT Radial Arterial Line - NG Tube - Tracheostomy tube - Lyles DVT PROPHYLAXIS - - Hold s/p cricothyrotomy - SCDs (2) Respiratory arrest before cardiac arrest: (3) Cardiac arrest: (4) Acute CVA (cerebrovascular accident): (5) Altered mental status: (6) Acidosis, lactic: (7) Elevated troponin: (8) Acute hyperglycemia: (9) Elevated liver enzymes: (10) Diabetes type 2, uncontrolled: (11) Hypertension: (12) Hypertriglyceridemia: (13) Hypothyroidism, unspecified: (14) Obstructive sleep apnea: Admission and Anticipated Discharge Date Admission Date: January 06, 2021 Supervising Physician Co-Signing Physician Notes Dr. Christianson was resident physician during care of patient. I separately evaluated patient for ghosh portions of the history and the exam. I was present during the critical portion of medical decision making, and I discussed the case with the resident. I generally agree with the findings and plan. We will consider patient reached 35 degrees start of the 24-hour cooling period. Patient has persistent cuff leak unclear if the balloon has popped we will exchange the tracheostomy and upsize it at this time. Of note there was concern of mass in upper airway at this time it is not demonstrated on CT scan patient will require MRI and at that time we will also attempt to obtain imaging of the neck. Evaluation by ENT can be deferred at this point as he is still undergoing hypothermia protocol. Emergently placed femoral line was discontinued yest erday. Blood cultures are pending we will continue vancomycin and Zosyn for 72 hours. Adjusting ventilator settings bringing tidal volume down as he is very mildly being over ventilated and hopefully will be able to decrease PEEP, there was significant bloody secretion aspiration noted on tracheostomy revision yesterday in emergency department. EEG being performed awaiting results. Repeat CT abdomen pelvis given recommendations from previous CT and worsening small bowel pathology. Does require low-dose vasoactive medication administration. Will obtain repeat CT scan of the head prior to CT of the abdomen. Plan tracheostomy change today. I have personally spent 60 minutes of critical care time in the direct management of this patient. This is a life/limb threatening event. This includes time spent evaluating patient, direct bedside care, chart review, placing orders, interpretation of diagnostic studies, discussion with consultants, patient, and/or family members regarding treatment decisions, as well as other required patient management activities. This time is exclusive of all separately billable procedures, and teaching time and separate from and in addition to any other critical care service time. Subjective No acute events overnight. Patient remains unresponsive to verbal, tactile, and noxious stimuli. Respiratory therapy did notes that he is continuing to have persistent cuff leak and will likely need replacement. He remains on targeted temperature management. Amount of hemorrhagic airway secretions has reduced overnight. Review of Systems Review of Systems: Unobtainable due to endotracheal tube and Unobtainable due to reduced consciousness Physical Exam Physical Exam: General: Obtunded and intubated 65-year-old gentleman who is in his hospital bed. He is unarousable to verbal, tactile, or noxious stimuli. HEENT: Normocephalic atraumatic. Oral exam not achievable secondary to endotracheal tube. Otherwise see neurologic exam. Cardiac: Normal rate and regular rhythm; S1 and S2 present with no murmurs, rubs, or gallops. Pulmonary: Mechanically ventilated with ETT in place. Breath sounds are present bilaterally, no appreciable crackles or wheezes. Abdominal: Normoactive bowel sounds. Abdomen was distended and tympanic. No facial grimacing. Extremities: Upper and lower extremities are warm and well perfused. Capillary refill assessed in UE was < 3 sec. Neurologic: Pupils are sluggishly responsive to light. Minimal to absent corneal reflex. Oculocephalic reflex absent. Examination of the upper and lower extremities reveals bilateral spasticity. Reflexes in the upper and lower extremities are approximately 3+ bilaterally. No response to Babinski on my exam. Results & Data Results & Data ([facility]) Vital Signs (Past 12 Hours) Vital Signs Temp Temp Temp Pulse Resp BP BP 07/14/21 07:16 92 H 26 H 01/07/21 06:30 34.5 C L 34.7 C L 71 26 H 101/55 L 01/07/21 05:30 34.9 C L 35.0 C L 75 26 H 109/54 L 01/07/21 04:45 75 27 H 01/07/21 04:30 35.3 C L 35.6 C L 73 26 H 106/59 L 01/07/21 03:30 35.9 C L 36 C L 82 26 H 115/56 L 01/07/21 02:30 36.3 C L 36.7 C 80 26 H 106/60 01/07/21 01:33 37.0 C 92 H 99/63 L 01/07/21 01:30 37.1 C 37.4 C 95 H 26 H 102/57 L 01/07/21 01:17 37.3 C 95 H 96/60 L 01/07/21 01:01 37.4 C 99 H 87/62 L 01/07/21 00:30 37.8 C H 37.8 C H 37.9 C H 101 H 27 H 102/70 113/56 L 01/07/21 00:15 38.0 C H 101 H 92/61 L 01/07/21 00:10 101 H 27 H 01/07/21 00:00 38.2 C H 105 H 134/72 01/06/21 23:30 38.9 C H 38.9 C H 38.1 C H 108 H 26 H 128/68 01/06/21 23:16 112 H 01/06/21 23:15 38.9 C H 37.4 C 112 H 01/06/21 22:45 115 H 125/66 01/06/21 22:40 115 H 137/68 01/06/21 22:35 115 H 142/71 H 01/06/21 22:30 116 H 152/71 H 01/06/21 22:25 117 H 148/72 H 01/06/21 22:20 117 H 152/71 H 01/06/21 22:15 117 H 141/77 H 01/06/21 22:10 116 H 121/67 01/06/21 22:05 113 H 113/64 BP Pulse Ox 01/07/21 07:16 96 01/07/21 06:30 94/64 L 95 01/07/21 05:30 95/67 L 94 01/07/21 04:45 97 01/07/21 04:30 98/64 L 96 01/07/21 03:30 102/69 93 01/07/21 02:30 95/65 L 95 01/07/21 01:33 99 01/07/21 01:30 99/63 L 98 01/07/21 01:17 98 01/07/21 01:01 97 01/07/21 00:30 102/70 100 01/07/21 00:15 100 01/07/21 00:10 100 01/07/21 00:00 100 01/06/21 23:30 105/64 100 01/06/21 23:16 97 01/06/21 23:15 01/06/21 22:45 96 01/06/21 22:40 96 01/06/21 22:35 95 01/06/21 22:30 96 01/06/21 22:25 95 01/06/21 22:20 95 01/06/21 22:15 95 01/06/21 22:10 95 01/06/21 22:05 94 Resident Activity Tracking Resident Involvement: Resident Care Provided Care Provided: Adult Hospital Medicine (1) Altered mental status Altered mental status type: unspecified Qualified Code(s): R41.82 - Altered mental status, unspecified (2) Hypertension Hypertension type: essential hypertension Qualified Code(s): I10 - Essential (primary) hypertension
--- NOTE | 2021-01-07 10:07 | XRay Report ---
XR chest 1V portable HISTORY: Respiratory distress. Follow-up. COMPARISON: 01/06/2021. FINDINGS: A tracheostomy tube appears in good position. Nasogastric tube terminates below the diaphra gm. The tip is not included on this study. There is a left subclavian central venous catheter termina ibeth at the SVC. Progressive bilateral airspace opacities most pronounced within the periphery. There may be trace bilateral pleural effusions. No pneumothorax. The heart remains enlarged. Interstitial/v ascular thickening has also progressed. IMPRESSION: 1. Satisfactory support line placement. 2. Progressive bilateral airspace opacities and interstitial thickening. This could represent worseni ng pneumonia or superimposed pulmonary edema. ACT 112: Negative or not required by law. Electronically signed by: Álvaro Carson M.D. 01/07/2021 10:06 AM
[2021-01-07] MEDS ORDERED: PIPERACILLIN/TAZOBACTAM 4.5 GM in DEXTROSE 5% 100 ML IV ONE (10:30)
[2021-01-07] MEDS: PANTOprazole 40 MG in SYRINGE 0 ML IV SCH (11:15)
--- NOTE | 2021-01-07 11:24 | Hospitalist Progress Note ---
Date of Service January 07, 2021 Assessment & Plan Admission and Anticipated Discharge Date Admission Date: January 06, 2021 Supervising Physician Co-Signing Physician Notes Attending attestation Pt seen and examined in concert with Dr. Dennis. In agreement with the documented findings as noted in the resident documentation with any exceptions or additions as noted here. Patient sedated on vent via trach, no apparent agitation at this time. On examination, S1/S2 nl RRR no MCG. CTAB. Abd distended with decreased bowel sounds. s/p cardiac arrest - rewarming process - follow up echocardiogram today. Trending Troponins. VDRF s/p tracheostomy - ventilator management per ICU team, ABG trending. Continue vanc/zosyn in the setting of pneumonitis Metabolic encephalopathy - multifactorial - BCx pending. CT head pending, MRI brain when stable. Newly diagnosed airway mass - MRI pending stability followed by ENT consult Ileus v. SBO in the setting of abdominal distention - f/u CT abd. NGT in place JAD - IVF DMII with hyperglycemia - insulin gtt Else see resident documentation as noted. Results & Data Results & Data ([facility]) Vital Signs (Past 12 Hours) Vital Signs Temp Temp Temp Pulse Resp BP BP 01/07/21 10:30 34.2 C L 34.2 C L 70 26 H 117/64 01/07/21 09:30 34.2 C L 34.2 C L 68 26 H 98/55 L 01/07/21 08:30 34.3 C L 34.2 C L 70 26 H 107/60 01/07/21 07:30 34.2 C L 34.3 C L 71 26 H 113/61 01/07/21 07:16 92 H 26 H 01/07/21 06:30 34.5 C L 34.7 C L 71 26 H 101/55 L 01/07/21 05:30 34.9 C L 35.0 C L 75 26 H 109/54 L 01/07/21 04:45 75 27 H 01/07/21 04:30 35.3 C L 35.6 C L 73 26 H 106/59 L 01/07/21 03:30 35.9 C L 36 C L 82 26 H 115/56 L 01/07/21 02:30 36.3 C L 36.7 C 80 26 H 106/60 01/07/21 01:33 37.0 C 92 H 99/63 L 01/07/21 01:30 37.1 C 37.4 C 95 H 26 H 102/57 L 01/07/21 01:17 37.3 C 95 H 96/60 L 01/07/21 01:01 37.4 C 99 H 87/62 L 01/07/21 00:30 37.8 C H 37.8 C H 37.9 C H 101 H 27 H 102/70 113/56 L 01/07/21 00:15 38.0 C H 101 H 92/61 L 01/07/21 00:10 101 H 27 H 01/07/21 00:00 38.2 C H 105 H 134/72 01/06/21 23:30 38.9 C H 38.9 C H 38.1 C H 108 H 26 H 128/68 BP Pulse Ox 01/07/21 10:30 117/75 100 01/07/21 09:30 107/69 98 01/07/21 08:30 105/66 99 01/07/21 07:30 105/78 99 01/07/21 07:16 96 01/07/21 06:30 94/64 L 95 01/07/21 05:30 95/67 L 94 01/07/21 04:45 97 01/07/21 04:30 98/64 L 96 01/07/21 03:30 102/69 93 01/07/21 02:30 95/65 L 95 01/07/21 01:33 99 01/07/21 01:30 99/63 L 98 01/07/21 01:17 98 01/07/21 01:01 97 01/07/21 00:30 102/70 100 01/07/21 00:15 100 01/07/21 00:10 100 01/07/21 00:00 100 01/06/21 23:30 105/64 100 Resident Activity Tracking Resident Involvement: Resident Care Provided Care Provided: [facility]
--- NOTE | 2021-01-07 11:36 | Electroencephalogram ---
EEG Procedure Note Date of Service January 07, 2021 Start / End Times Start Time: 10:01 AM End Time: 10:21 AM Referring Physician Esequiel Christianson MD History Unresponsive, cardiac arrest Home Medication List Medication Instructions Recorded Confirmed Type magnesium 250 mg tablet 250 mg PO HS 10/15/19 01/06/21 History aspirin 81 mg tablet,delayed 81 mg PO QAM #30 tab 12/14/19 01/06/21 Rx release ramipril 5 mg capsule 5 mg PO DAILY #90 cap 12/20/19 01/06/21 Rx metformin 500 mg tablet 1,000 mg PO BID #360 tab 01/03/20 01/06/21 Rx blood-glucose meter (Accu-Chek #1 ea 02/25/20 01/01/21 Rx Guide Glucose Meter) lancets (Accu-Chek Fastclix Lancet #300 ea 02/25/20 01/01/21 Rx Drum) Dexcom G6 Medical Imaging Director (blood-glucose #1 ea NS 05/13/20 01/01/21 Rx meter,continuous) atorvastatin 40 mg tablet 40 mg PO QAM #90 tab 05/20/20 01/06/21 Rx levothyroxine 50 mcg capsule 50 mcg PO DAILY #90 cap 05/20/20 01/06/21 Rx blood sugar diagnostic (Accu-Chek ea 08/07/20 01/01/21 History Guide test strips) Dexcom G6 Sensor (blood-glucose #9 ea NS 09/04/20 01/01/21 Rx sensor) Dexcom G6 Transmitter #1 ea NS 09/04/20 01/01/21 Rx (blood-glucose transmitter) Novolog U-100 Insulin aspart 100 350 unit SUBCUT DAILY 90 Days #320 09/04/20 01/06/21 Rx unit/mL subcutaneous solution ml NS (insulin aspart U-100) fenofibrate nanocrystallized 145 145 mg PO DAILY tab 10/15/20 01/06/21 History mg tablet insulin degludec 200 unit/mL (3 140 unit SUBCUT HS PRN ml 11/06/20 01/06/21 History mL) subcutaneous pen (Tresiba FlexTouch U-200 insulin) subcutaneous insulin pump (t:slim #1 ea 11/06/20 01/01/21 History X2 Basal-IQ Insulin Product Demonstrator) meclizine 25 mg tablet 25 mg PO TID PRN #30 tab 12/29/20 01/06/21 Rx methylprednisolone 4 mg tablets in 4 mg PO .COMPLEX #21 ea 01/01/21 01/06/21 Rx a dose pack (Medrol (Jonnathan)) cyanocobalamin (vitamin B-12) 1,000 mcg PO DAILY 01/06/21 01/06/21 History 1,000 mcg tablet (Vitamin B-12) Inpatient Medication List Fentanyl Citrate (Fentanyl Bolus From Bag) 50 mcg IV Q60M PRN PRN Reason: Pain or Agitation Stop: 01/20/21 23:27 Last Admin: 01/07/21 08:43 Dose: 50 mcg Documented by: [id number] Propofol (Diprivan) 1,000 mg in 100 mls @ 27.96 mls/hr IV .Q3H35M [facility]; Protocol Stop: 01/09/21 23:29 Last Titration: 01/07/21 09:18 Dose: 50 mcg/kg/min, 28 mls/hr Documented by: [id number] Titration: 01/07/21 08:54 Dose: 45 mcg/kg/min, 25.2 mls/hr Documented by: [id number] Admin: 01/07/21 08:42 Dose: 40 mcg/kg/min, 22.4 mls/hr Documented by: [id number] Cosigned by: [id number] Titration: 01/07/21 08:30 Dose: 35 mcg/kg/min, 19.6 mls/hr Documented by: [id number] Cosigned by: [id number] Titration: 01/07/21 07:30 Dose: 35 mcg/kg/min, 19.6 mls/hr Documented by: [id number] Cosigned by: [id number] Titration: 01/07/21 07:10 Dose: 30 mcg/kg/min, 16.8 mls/hr Documented by: [id number] Cosigned by: [id number] Titration: 01/07/21 05:42 Dose: 30 mcg/kg/min, 16.8 mls/hr Documented by: [id number] Cosigned by: [id number] Titration: 01/07/21 02:30 Dose: 25 mcg/kg/min, 14 mls/hr Documented by: [id number] Titration: 01/07/21 02:05 Dose: 30 mcg/kg/min, 16.8 mls/hr Documented by: [id number] Admin: 01/07/21 02:01 Dose: 35 mcg/kg/min, 19.6 mls/hr Documented by: [id number] Cosigned by: [id number] Titration: 01/07/21 02:01 Dose: 35 mcg/kg/min, 19.6 mls/hr Documented by: [id number] Cosigned by: [id number] Titration: 01/07/21 01:30 Dose: 35 mcg/kg/min, 19.6 mls/hr Documented by: [id number] Titration: 01/07/21 00:15 Dose: 30 mcg/kg/min, 16.8 mls/hr Documented by: [id number] Titration: 01/07/21 00:00 Dose: 25 mcg/kg/min, 14 mls/hr Documented by: [id number] Admin: 01/06/21 23:30 Dose: 20 mcg/kg/min, 11.2 mls/hr Documented by: [id number] Cosigned by: [id number] Fentanyl Citrate (Fentanyl Drip) 1,250 mcg in 250 mls @ 25 mls/hr IV .Q10H [facility]; Protocol Stop: 01/20/21 23:29 Last Titration: 01/07/21 08:43 Dose: 125 mcg/hr, 25 mls/hr Documented by: [id number] Cosigned by: [id number] Titration: 01/07/21 07:10 Dose: 100 mcg/hr, 20 mls/hr Documented by: [id number] Cosigned by: [id number] Titration: 01/07/21 05:42 Dose: 100 mcg/hr, 20 mls/hr Documented by: [id number] Cosigned by: [id number] Titration: 01/07/21 02:30 Dose: 75 mcg/hr, 15 mls/hr Documented by: [id number] Cosigned by: [id number] Titration: 01/07/21 02:00 Dose: 50 mcg/hr, 10 mls/hr Documented by: [id number] Cosigned by: [id number] Admin: 01/07/21 00:00 Dose: 25 mcg/hr, 5 mls/hr Documented by: [id number] Cosigned by: [id number] Parenteral Electrolytes (Normosol-R) 1,000 mls @ 80 mls/hr IV .S81P10M ANA [facility] Stop: 02/06/21 00:59 Last Infusion: 01/07/21 01:44 Dose: 80 mls/hr Documented by: [id number] Admin: 01/07/21 01:15 Dose: 100 mls/hr Documented by: [id number] Norepinephrine Bitartrate (Levophed/D5w) 8 mg in 508 mls @ 46.162 mls/hr IV .Q11H1M [facility]; Protocol Stop: 02/06/21 01:29 Last Titration: 01/07/21 07:10 Dose: 0.13 mcg/kg/min, 46.2 mls/hr Documented by: [id number] Cosigned by: [id number] Titration: 01/07/21 04:25 Dose: 0.13 mcg/kg/min, 46.2 mls/hr Documented by: [id number] Titration: 01/07/21 03:55 Dose: 0.11 mcg/kg/min, 39.1 mls/hr Documented by: [id number] Titration: 01/07/21 01:55 Dose: 0.09 mcg/kg/min, 32 mls/hr Documented by: [id number] Titration: 01/07/21 01:50 Dose: 0.07 mcg/kg/min, 24.9 mls/hr Documented by: [id number] Admin: 01/07/21 01:42 Dose: 0.05 mcg/kg/min, 17.8 mls/hr Documented by: [id number] Cosigned by: [id number] Insulin Human Regular 250 (units/ Sodium Chloride) 250 mls @ 5 mls/hr IV .Q24H [facility]; Protocol Stop: 02/06/21 06:59 Last Titration: 01/07/21 09:45 Dose: 5 units/hr, 5 mls/hr Documented by: [id number] Cosigned by: [id number] Titration: 01/07/21 08:45 Dose: 5 units/hr, 5 mls/hr Documented by: [id number] Cosigned by: [id number] Admin: 01/07/21 07:45 Dose: 5 units/hr, 5 mls/hr Documented by: [id number] Cosigned by: [id number] Insulin Aspart (Insulin Aspart 100 Units/Ml 3 Ml Pen) 0 units SC ACHS [facility] Stop: 02/05/21 20:59 Last Admin: 01/07/21 07:58 Dose: Not Given Documented by: [id number] Cosigned by: [id number] Admin: 01/07/21 04:41 Dose: Not Given Documented by: [id number] Cosigned by: [id number] Propofol (Propofol Bolus From Bag) 20 mg IV Q5M PRN PRN Reason: Sedation Stop: 01/09/21 23:27 Last Admin: 01/07/21 09:19 Dose: 20 mg Documented by: [id number] Cosigned by: [id number] Admin: 01/07/21 08:54 Dose: 20 mg Documented by: [id number] Cosigned by: [id number] Admin: 01/07/21 08:44 Dose: 20 mg Documented by: [id number] Cosigned by: [id number] Admin: 01/07/21 07:57 Dose: 20 mg Documented by: [id number] Cosigned by: [id number] Discontinued Medications Sodium Chloride (Nss 1000ml) 2,000 mls @ 999 mls/hr IV .Q2H1M ONE Stop: 01/06/21 18:43 Last Infusion: 01/06/21 19:01 Dose: 0 mls/hr Documented by: [id number] Admin: 01/06/21 16:50 Dose: 999 mls/hr Documented by: [id number] Insulin Human Regular 250 (units/ Sodium Chloride) 250 mls @ 9 mls/hr IV .Q24H [facility]; Protocol Stop: 02/05/21 17:59 Last Titration: 01/07/21 08:44 Dose: 0 units/hr, 0 mls/hr Documented by: [id number] Cosigned by: [id number] Titration: 01/07/21 06:45 Dose: 5 units/hr, 5 mls/hr Documented by: [id number] Cosigned by: [id number] Titration: 01/07/21 04:30 Dose: 9 units/hr, 9 mls/hr Documented by: [id number] Cosigned by: [id number] Titration: 01/07/21 03:30 Dose: 9 units/hr, 9 mls/hr Documented by: [id number] Cosigned by: [id number] Titration: 01/07/21 02:30 Dose: 9 units/hr, 9 mls/hr Documented by: [id number] Cosigned by: [id number] Titration: 01/07/21 01:38 Dose: 9 units/hr, 9 mls/hr Documented by: [id number] Cosigned by: [id number] Titration: 01/07/21 00:24 Dose: 9 units/hr, 9 mls/hr Documented by: [id number] Cosigned by: [id number] Titration: 01/06/21 21:12 Dose: 0 units/hr, 0 mls/hr Documented by: [id number] Cosigned by: [id number] Admin: 01/06/21 19:56 Dose: 9 units/hr, 9 mls/hr Documented by: [id number] Cosigned by: [id number] Lorazepam (Ativan) 1 mg in 2 mls @ 2 mls/min IV NOW STA Stop: 01/06/21 18:25 Last Admin: 01/06/21 18:29 Dose: 2 mls/min Documented by: [id number] Lorazepam (Ativan) 0.5 mg in 1 mls @ 1 mls/min IV NOW STA Stop: 01/06/21 18:59 Last Admin: 01/06/21 19:10 Dose: 1 mls/min Documented by: [id number] Potassium Chloride (K Rafael / Wtr) 10 meq in 100 mls @ 100 mls/hr IV Q1H ANA [facility]IA Stop: 01/06/21 20:59 Last Infusion: 01/07/21 07:59 Dose: 0 mls/hr Documented by: [id number] Admin: 01/07/21 00:26 Dose: Not Given Documented by: [id number] Infusion: 01/06/21 20:42 Dose: 0 mls/hr Documented by: [id number] Admin: 01/06/21 19:59 Dose: 100 mls/hr Documented by: [id number] Parenteral Electrolytes (Normosol-R) 2,000 mls @ 999 mls/hr IV .Q2H1M ONE Stop: 01/06/21 21:06 Last Infusion: 01/07/21 07:59 Dose: 0 mls/hr Documented by: [id number] Infusion: 01/06/21 20:42 Dose: 0 mls/hr Documented by: [id number] Admin: 01/06/21 19:45 Dose: 999 mls/hr Documented by: [id number] Piperacillin Sod/Tazobactam Sod (Zosyn) 4.5 gm in 120 mls @ 240 mls/hr IV NOW ONE Stop: 01/06/21 19:36 Last Infusion: 01/06/21 21:14 Dose: 0 mls/hr Documented by: [id number] Admin: 01/06/21 20:07 Dose: 240 mls/hr Documented by: [id number] Potassium Chloride 20 meq/ (Parenteral Electrolytes) 1,010 mls @ 250 mls/hr IV .Q4H3M [facility]NA [facility] Stop: 02/05/21 20:37 Last Admin: 01/07/21 09:10 Dose: Not Given Documented by: [id number] Admin: 01/07/21 09:10 Dose: Not Given Documented by: [id number] Vancomycin HCl 2,000 mg/ (Sodium Chloride) 540 mls @ 200 mls/hr IV NOW ONE Stop: 01/07/21 02:41 Last Infusion: 01/07/21 07:13 Dose: 0 mls/hr Documented by: [id number] Admin: 01/07/21 00:07 Dose: 200 mls/hr Documented by: [id number] Potassium Chloride (K Rafael / Wtr) 20 meq in 100 mls @ 50 mls/hr IV Q2H ANA MARIA Stop: 01/07/21 09:29 Last Infusion: 01/07/21 09:50 Dose: 0 mls/hr Documented by: [id number] Admin: 01/07/21 07:50 Dose: 50 mls/hr Documented by: [id number] Infusion: 01/07/21 07:42 Dose: 50 mls/hr Documented by: [id number] Admin: 01/07/21 05:42 Dose: 50 mls/hr Documented by: [id number] Calcium Gluconate 2,000 mg/ (Sodium Chloride) 70 mls @ 240 mls/hr IV NOW ONE Stop: 01/07/21 05:47 Last Infusion: 01/07/21 07:12 Dose: 0 mls/hr Documented by: [id number] Admin: 01/07/21 05:42 Dose: 240 mls/hr Documented by: [id number] Insulin Human Regular (Novolin-R Insulin Per Unit Charge) 8 units IV NOW STA Stop: 01/06/21 16:57 Last Admin: 01/06/21 17:24 Dose: 8 units Documented by: [id number] Cosigned by: [id number] Insulin Human Regular (Novolin-R Bolus From Bag) 9 units IV ONE ONE Stop: 01/06/21 19:31 Last Admin: 01/06/21 19:56 Dose: 9 units Documented by: [id number] Cosigned by: [id number] Ioversol (Optiray 320 125ml) 120 ml IV ONCE ONE Stop: 01/06/21 19:23 Last Admin: 01/06/21 19:25 Dose: 120 ml Documented by: [id number] Miscellaneous (Stat Iv Infusion Titration Per Protocol) 1 ea N/A NOW STA Stop: 01/06/21 19:12 Last Admin: 01/06/21 23:51 Dose: Not Given Documented by: [id number] Miscellaneous (Rapid Sequence Induction Bag) Confirm Administered Dose 1 ea .ROUTE .STK-MED ONE Stop: 01/06/21 20:19 Last Admin: 01/07/21 00:26 Dose: Not Given Documented by: [id number] Miscellaneous (Pending D5 1/2ns+20meq Kcl Ivf) 1 ea N/A Q2H ANA MARIA Stop: 02/05/21 23:13 Last Admin: 01/07/21 08:00 Dose: Not Given Documented by: [id number] Admin: 01/07/21 08:00 Dose: Not Given Documented by: [id number] Admin: 01/07/21 07:59 Dose: Not Given Documented by: [id number] Admin: 01/07/21 04:42 Dose: Not Given Documented by: [id number] Miscellaneous (Dka Goal Range 150-250 Mg/Dl) 1 ea N/A ONE ONE Stop: 01/06/21 23:15 Last Admin: 01/07/21 04:42 Dose: 1 ea Documented by: [id number] Miscellaneous Information (Pharmacy Glycemic Mgmt Consult) 1 ea N/A NOW STA Stop: 01/06/21 20:39 Last Admin: 01/07/21 00:27 Dose: 1 ea Documented by: [id number] Norepinephrine Bitartrate (Norepinephrine/D5w 8 Mg/508 Ml) Confirm Administered Dose 8 mg IV .STK-MED ONE Stop: 01/06/21 20:56 Last Admin: 01/07/21 01:41 Dose: Not Given Documented by: [id number] Norepinephrine Bitartrate (Norepinephrine/D5w 8 Mg/508 Ml) Confirm Administered Dose 8 mg IV .STK-MED ONE Stop: 01/07/21 00:13 Last Admin: 01/07/21 01:23 Dose: 8 mg Documented by: [id number] Propofol (Propofol Iv Emulsion 10 Mg/Ml 100 Ml Vial) Confirm Administered Dose 1,000 mg IV .STK-MED ONE Stop: 01/06/21 22:27 Last Admin: 01/07/21 04:42 Dose: Not Given Documented by: [id number] Vecuronium [place] (Vecuronium [place] 10 Mg Vial) Confirm Administered Dose 10 mg IV .[employer] ONE Stop: 01/06/21 21:02 Last Admin: 01/07/21 04:42 Dose: Not Given Documented by: [id number] Description This is a 21 electrode EEG with a single channel dedicated to limited EKG. The electrodes were placed in accordance with the International 10-20 system. This EEG was completed in the ICU, patient on the ventilator. The background rhythm consists of a mix of poorly organized low to medium amplitude alpha and theta frequencies ranging from 5 to 7 Hz. Photic stimulation is unremarkable. Hyperventilation is not performed. The background activity is fairly symmetrical, no focal or lateralized slowing. There is no appreciable beta rhythm. No epileptiform abnormalities. Interpretation Abnormal awake/drowsy EEG with evidence of generalized slowing suggestive of a moderate to severe encephalopathy. No epileptiform abnormalities. No evidence of subclinical seizure activity. [facility] EEG Procedure Codes Indication for Procedure (1) Anoxic encephalopathy: Neurology Neurology: 51019 EEG include record awake & drowsy
[2021-01-07] MEDS: ATORVASTATIN 40 MG TAB PO SCH (11:56)
[2021-01-07] MEDS: CLOPIDOGREL BISULFATE 75 MG TAB PO SCH (11:56)
--- NOTE | 2021-01-07 11:59 | Procedure Note ---
Procedure Note Date of Service January 07, 2021 Note Procedure Date: Noted above Procedure: tracheostomy change, upsize tracheostomy Pre-procedure Diagnosis: Tracheostomy management Post-procedure Diagnosis: same as above Prior to Procedure: Attending Staff: Moustapha Valladares DO The identity of the patient was confirmed and a bedside time out was performed. Description of Procedure: Patient was evaluated and required a tracheostomy tube change due to loss of cuff pressures and possible oozing around tracheostomy site. The patient was position in the usual fashion. A leak test was performed on the new tracheostomy tube, and successfully passed. The tracheostomy ties were loosened. A guidewire was inserted through the 6 DCT tracheostomy tube, and the old tracheostomy tube carefully removed leaving the guidewire in place. A tapered blue dilator was then inserted via Seldinger technique over the guidewire to dilate the tract. Dilator was then removed and an 8 DCT Shiley was then inserted in place without difficulty, obturator removed, and connected to the ventilator. Chest rise was bilateral. Bilateral breath sounds were heard without air sounds in the abdomen, and end-tidal CO2 measurement was positive. Bronchoscopy was employed to confirm location. Bronchoscopic findings showed diffuse pneumonitis secondary to bloody secretion aspiration which was similar to that on prior tracheostomy change Complications: Patient tolerated the procedure well without complications. Findings: Aspiration pneumonitis Specimens: not applicable Estimated blood loss: Zero Coding CPT Codes ENT - ENT: 64782 Visualization of windpipe ([id number]) [facility] [place] Procedure Codes (Charges) ENT ENT: 03645 Visualization of windpipe (61283 CPT code)
[2021-01-07] MEDS ORDERED: VECURONIUM BROMIDE 10 MG VIAL IV SCH (12:00)
--- NOTE | 2021-01-07 12:04 | Procedure Note ---
Procedure Note Date of Service January 06, 2021 Note Procedure date: Noted above Procedure: fiberoptic bronchoscopy Pre-procedure indication: Respiratory arrest status post emergent tracheotomy, acute hypoxic respiratory failure Post-procedure Diagnosis: same as above Prior to Procedure: Informed Consent: Emergent consent implied Attending Staff: Moustapha Valladares DO Resident/APC: Not applicable Skin Prep: Not applicable Anesthesia: Continuous infusion The identity of the patient was confirmed and a bedside time out was performed. Description of Procedure: Fiberoptic bronchoscopy was performed via endotracheal tube. Bronchioalveolar lavage was not performed. Findings included: Significant aspiration of bloody secretions and all lung ko. 3 cm by half centimeter by quarter centimeter clot was suctioned from right mainstem Complications: None Specimens: None Estimated blood loss: Zero Coding CPT Codes Pulmonary/Thoracic - Pulmonary and Thoracic: 27619 Bronchoscopy, clear airways ([id number]) [facility] [place] Procedure Codes (Charges) Pulmonary/Thoracic Procedure 1: Pulmonary and Thoracic: 80574 Bronchoscopy, clear airways
[2021-01-07 12:11] LABS: iSTAT Art Bld Gas pCO2 Correct 45 mmHg (35-46); iSTAT Art Bld Gas pH Corrected 7.333 (7.35-7.45); iSTAT Arterial Blood Gas HCO3 24 meg/L (19-24); iSTAT Arterial Blood Gas pCO2 48 mmHg (35-46); iSTAT Arterial Blood Gas pH 7.31 (7.35-7.45); iSTAT Arterial Blood Gas pO2 88 mmHg (80-95); iSTAT Arterial Blood Gas pO2 C 78; iSTAT Carbon Dioxide 26 mmol/L (24-31); iSTAT FiO2 80 %; iSTAT Hematocrit 40 % (42-52); iSTAT Hemoglobin 13.6 g/dl (14.0-18.0); iSTAT Potassium 3.8 mmol/L (3.3-5.0); iSTAT Site Art Line; iSTAT Sodium 134 mmol/L (135-144)
[2021-01-07] MEDS ORDERED: VANCOMYCIN HCL 1,500 MG in SODIUM CHLORIDE 0.9% 500 ML IV STA (12:16)
[2021-01-07] MEDS ORDERED: CEFEPIME CONSULT ACTIVE PRN (12:38)
--- NOTE | 2021-01-07 12:49 | Pharmacy Report ---
Pharmacy Abx Dose Short Note - Date of Service January 07, 2021 - Assessment & Plan Assessment * 65 year old M receiving cefepime, metronidazole, and vancomycin for treatment of multiple possible infectious sources including pulm, GI, and possible neck mass * Critically ill in ICU, intubated, on norepinephrine * SCr improving and eCrCL >= 74 mL/min Vancomycin * Vanco 22 mg/kg loading dose. Will continue with 16 mg/kg IV q12h. Trough prior to 4th overall dose Plan * Vancomycin 1500 mg IV q12h * Trough 01/08 @ 1130 Pharmacy will continue to follow and will adjust dose/frequency as necessary. Thank you.
[2021-01-07] MEDS ORDERED: OPTIRAY 320 125ml IV ONE (12:50)
--- NOTE | 2021-01-07 12:54 | XCELERA ---
[id number]
--- NOTE | 2021-01-07 12:58 | CT Scan Report ---
CT OF THE HEAD WITHOUT CONTRAST CLINICAL HISTORY: f/u - unresponsive, s/p CPR COMPARISON STUDY: MRI of the brain December 14, 2019. Head CT and CTA of the head January 06, 2021. TECHNIQUE: Helical axial images of the head were obtained without IV contrast. Automated exposure con trol was utilized for the study. A dose lowering technique was utilized adhering to the principles o f ALARA. FINDINGS: Nasogastric tube is partially imaged. No acute intracranial hemorrhage, midline shift or ma ss effect is present. Ventricular system is normal. Basilar cisterns are patent. There are no extra-a xial collections. There are no findings to suggest acute dural sinus thrombosis or acute territorial infarct. There are no significant calvarial abnormalities. Secretions and air-fluid levels within the sinuses are noted. IMPRESSION: No acute intracranial findings. ACT 112: Negative or not required by law. Electronically signed by: Neftali Brandon M.D. 01/07/2021 12:56 PM
--- NOTE | 2021-01-07 13:19 | Pharmacy Report ---
Pharmacy Glycemic Short Note 2 - Date of Service January 07, 2021 - Glycemic Short BSG Results (Last 24 hours): 01/06/21 01/06/21 01/06/21 16:17 16:26 16:44 Glucose 426 H* POC Glucose 412 H* POC Glucose (other) 438 H* 01/06/21 01/06/21 01/06/21 18:06 19:11 20:16 Glucose POC Glucose 373 H* 443 H* 360 H* POC Glucose (other) 01/06/21 01/06/21 01/07/21 22:14 23:43 01:32 Glucose 375 H* POC Glucose 377 H* POC Glucose (other) 334 H 01/07/21 01/07/21 01/07/21 02:29 03:29 04:19 Glucose 230 H POC Glucose POC Glucose (other) 297 H 254 H 01/07/21 01/07/21 01/07/21 04:29 05:34 06:44 Glucose POC Glucose POC Glucose (other) 227 H 208 H 180 H 01/07/21 01/07/21 01/07/21 07:49 08:00 08:25 Glucose 170 H POC Glucose POC Glucose (other) 177 H 172 H 01/07/21 01/07/21 09:48 10:51 Glucose POC Glucose POC Glucose (other) 168 H 176 H OUTPATIENT ANTIDIABETIC REGIMEN: * Novolog pump * Tresiba 140 units SC prn pump failure ASSESSMENT: * 65 yo M presented to ED on 01/06 with AMS now s/p respiratory failure/arrest, cardiac arrest w ROSC, currently undergoing TTM in ICU. * Initially concern for DKA with acidosis, slight anion gap of 12. However, metabolic derangements are not likely 2nd DKA and anion gap has closed [id number]. OK to adjust goal range and dextrose infusion not required at this time * Norepinephrine requirement currently 0.13 mcg/kg/min * Patient is on an insulin drip which is reasonable. No attempt to transition to basal/bolus as this time per discussion at ICU rounds PLAN FOR INPATIENT GLYCEMIC CONTROL: * Basal insulin - none * Continue insulin drip. Currently stable at 5 units/hr. OK to change goal range to 140-180 mg/dL
[2021-01-07] MEDS: fentaNYL DRIP 1,250 MCG/250 ML BAG IV SCH ×2 (13:25)
[2021-01-07 13:29] LABS: Bilirubin Direct 0.9 mg/dl (0-0.2)
[2021-01-07 13:30] LABS: Bilirubin,Total 1.5 mg/dl (0.2-1); Total Protein 5.9 gm/dl (6.4-8.2)
[2021-01-07 13:31] LABS: BUN Creatinine Ratio 33.8 (10-20); Calcium 7.4 mg/dl (8.5-10.1); Creatinine Clr Calc Pharmacy 81.9 ml/min; Est GFR (African American) 85.5 ml/min; Est GFR (Non-African American) 73.8 ml/min; Phosphorus 2.7 mg/dl (2.5-4.9); Potassium 3.4 mmol/L (3.5-5.1)
--- NOTE | 2021-01-07 13:32 | CT Scan Report ---
CT angio abdomen pelvis w con HISTORY: Unresponsive. abdominal distention TECHNIQUE: Multiaxial CT images of the abdomen and pelvis performed following the intravenous adminis tration of 120 cc Optiray 320 to evaluate the major arterial structures. Maximal intensity projection images were also obtained. COMPARISON STUDY: Abdomen and pelvis CT 01/06/2021. FINDINGS: A nasogastric tube terminates in the stomach. A Lyles catheter is in good position. A recta l catheter is also noted. Extensive consolidation within the visualized lungs which is new from the p rior study. Aneurysmal dilatation of the ascending thoracic aorta measuring up to 4.4 cm in diameter. The heart is mildly enlarged. No fractures within the visualized osseous structures. There is a smal l left pneumothorax. Trace gas within the anterior mediastinum is likely due to the left-sided pneumo thorax. No pneumoperitoneum. No pneumatosis. Small fat-containing right inguinal hernia. Subtle nodul ar contour to the liver consistent with mild cirrhosis. Gallbladder distended. Small amount of increa sed density within the neck of the gallbladder could be due to vicarious excretion of contrast or sma ll stone/sludge. The spleen remains mildly enlarged. Redemonstration of the 2.7 cm left adrenal gland nodule. The right adrenal gland is unremarkable. Normal pancreas. A few mildly enlarged periportal l ymph nodes remain unchanged. Trace pericholecystic fluid is noted. No retroperitoneal hematoma. The k idneys enhance normally. No hydronephrosis. The prostate gland is mildly enlarged. Colonic diverticul osis. No evidence for acute diverticulitis. Trace pelvic free fluid. No bowel wall thickening or obst ruction. Upper abdominal varicosities are again noted. Normal appendix. The abdominal aorta is normal in course and caliber with no evidence for dissection. The celiac arter y, superior mesenteric artery, inferior mesenteric artery, and renal arteries are widely patent. IMPRESSION: 1. Extensive consolidative airspace opacities within the lungs consistent with a pneumonia. This coul d be due to aspiration. 2. Small left pneumothorax. 3. Satisfactory support line placement. 4. Cirrhotic liver, splenomegaly, upper abdominal varices, and mild periportal lymphadenopathy, uncha nged. 5. Trace ascites. 6. Distended gallbladder. No gallbladder wall thickening. 7. Colonic diverticulosis. 8. Stable indeterminate 2.7 cm left adrenal gland nodule. 9. No evidence for dissection or occlusion within the major arterial structures. ACT 112: Negative or not required by law. Electronically signed by: Álvaro Carson M.D. 01/07/2021 1:31 PM
[2021-01-07] MEDS: CEFEPIME 2,000 MG in SYRINGE 0 ML IV SCH (15:48)
[2021-01-07] MEDS: metroNIDAZOLE 500 MG/100 ML BAG IV SCH (15:48)
[2021-01-07] MEDS ORDERED: PIPERACILLIN/TAZOBACTAM 4.5 GM in DEXTROSE 5% 100 ML IV SCH (16:00)
[2021-01-07 16:11] LABS: iSTAT Arterial Blood Gas HCO3 22 meg/L (19-24); iSTAT Arterial Blood Gas pCO2 32 mmHg (35-46); iSTAT Arterial Blood Gas pH 7.43 (7.35-7.45); iSTAT Arterial Blood Gas pO2 118 mmHg (80-95); iSTAT Carbon Dioxide 23 mmol/L (24-31); iSTAT FiO2 80 %; iSTAT Site Art Line
--- NOTE | 2021-01-07 16:59 | Electrocardiogram Report ---
Test Reason : Blood Pressure : / mmHG Vent. Rate : 117 BPM Atrial Rate : 117 BPM P-R Int : 156 ms QRS Dur : 092 ms QT Int : 340 ms P-R-T Axes : 054 -47 035 degrees QTc Int : 474 ms Sinus tachycardia Left axis deviation Incomplete right bundle branch block Poor R wave progression, consider anterior OH vs. lead placement vs. LVH Abnormal ECG When compared with ECG of 13-DEC-2019 16:55, Nonspecific T wave abnormality, improved in Inferior leads Nonspecific T wave abnormality, improved in Anterolateral leads Confirmed by Joni Pack ([id number]) on 01/07/2021 4:59:37 PM Referred By: REFERRED SELF Confirmed By:Jean Pack
--- NOTE | 2021-01-07 17:07 | Electrocardiogram Report ---
Test Reason : Blood Pressure : / mmHG Vent. Rate : 098 BPM Atrial Rate : 098 BPM P-R Int : 170 ms QRS Dur : 084 ms QT Int : 390 ms P-R-T Axes : 049 -36 035 degrees QTc Int : 497 ms Normal sinus rhythm Left axis deviation Nonspecific ST and T wave abnormality Prolonged QT Abnormal ECG When compared with ECG of 06-JAN-2021 16:15, (unconfirmed) Inverted T waves have replaced nonspecific T wave abnormality in Anterior leads Confirmed by Joni Pack ([id number]) on 01/07/2021 5:07:27 PM Referred By: REFERRED SELF Confirmed By:Jean Pack
--- NOTE | 2021-01-07 17:07 | Electrocardiogram Report ---
Test Reason : Blood Pressure : / mmHG Vent. Rate : 075 BPM Atrial Rate : 075 BPM P-R Int : 140 ms QRS Dur : 094 ms QT Int : 484 ms P-R-T Axes : 045 -32 -13 degrees QTc Int : 540 ms Normal sinus rhythm Left axis deviation Prolonged QT Abnormal ECG When compared with ECG of 07-JAN-2021 01:13, (unconfirmed) Nonspecific T wave abnormality, worse in Inferior leads T wave inversion more evident in Anterior leads Confirmed by Joni Pack ([id number]) on 01/07/2021 5:07:32 PM Referred By: REFERRED SELF Confirmed By:Jean Pack
--- NOTE | 2021-01-07 17:10 | Electrocardiogram Report ---
Test Reason : Blood Pressure : / mmHG Vent. Rate : 071 BPM Atrial Rate : 071 BPM P-R Int : 170 ms QRS Dur : 096 ms QT Int : 468 ms P-R-T Axes : 052 -34 -04 degrees QTc Int : 508 ms Normal sinus rhythm Left axis deviation T wave abnormality, consider anterior ischemia Prolonged QT Abnormal ECG When compared with ECG of 07-JAN-2021 04:05, (unconfirmed) No significant change was found Confirmed by Joni Pack ([id number] on 01/07/2021 5:09:48 PM Referred By: REFERRED SELF Confirmed By:Jean Pack
--- NOTE | 2021-01-07 17:14 | Electrocardiogram Report ---
Test Reason : Blood Pressure : / mmHG Vent. Rate : 078 BPM Atrial Rate : 078 BPM P-R Int : 164 ms QRS Dur : 096 ms QT Int : 444 ms P-R-T Axes : 051 -33 046 degrees QTc Int : 506 ms Normal sinus rhythm Left axis deviation Low voltage QRS Nonspecific T wave abnormality Prolonged QT Abnormal ECG When compared with ECG of 07-JAN-2021 08:16, (unconfirmed) No significant change was found Confirmed by Joni Pack ([id number] on 01/07/2021 5:14:34 PM Referred By: REFERRED SELF Confirmed By:Jean Pack
[2021-01-07 17:16] LABS: Troponin I 1.24 ng/ml (0-0.045)
[2021-01-07 17:34] LABS: BUN Creatinine Ratio 34.6 (10-20); Calcium 7.6 mg/dl (8.5-10.1); Creatinine Clr Calc Pharmacy 90.4 ml/min; Est GFR (African American) 96.4 ml/min; Est GFR (Non-African American) 83.2 ml/min; Magnesium 2.1 mg/dl (1.8-2.4); Phosphorus 1.4 mg/dl (2.5-4.9); Potassium 3.7 mmol/L (3.5-5.1)
[2021-01-07] MEDS ORDERED: POTASSIUM PHOS 3 MMOL/1 ML INFUSION IV STA (17:42)
[2021-01-07] MEDS ORDERED: POTASSIUM PHOSPHATE 15 MMOL in SODIUM CHLORIDE 0.9% 250 ML IV ONE (18:00)
--- NOTE | 2021-01-07 18:09 | Hospitalist Progress Note ---
Date of Service January 07, 2021 Assessment & Plan (1) Respiratory arrest: Plan: 65-year-old male presented to the emergency department with altered mental status and concerns for CVA, labs demonstrated lactic acidosis, he experienced respiratory and cardiac arrest with ROSC transferred to the ICU for hypothermia protocol and ongoing management. #Metabolic encephalopathy Likely multifactorial secondary to CVA, hyperglycemia, lactic acidosis, CT head demonstrating acute/subacute right basal ganglia infarct, EEG demonstrating moderate to severe encephalopathy. -MRI when hemodynamically stable #Status post cardiac arrest On hypothermia protocol, troponins have up trended from 0.9-1.4 we will continue to trend with ECGs as well, echo pending. -Requiring pressor support, wean when able #Ventilator dependent respiratory failure Initially intubated in the ED with a difficult to obtain airway, the airway was lost requiring subsequent trach placement. Chemical pneumonitis was noted on bronchoscopy. Additional airway mass was noted not visible on CT scan -Continue intubation wean as tolerated #Pulmonary aspiration and chemical pneumonitis Visualized on bronchoscopy, -continue Zosyn and Vanco, #Ileus versus SBO KUB demonstrating dilated loops of bowel -CT abdomen pelvis pending, n.p.o., on NGT #JAD Likely prerenal and secondary to hypovolemia/rhabdo -A.m. labs improving Hyperglycemia with type 2 diabetes -Likely related to present illness -On insulin GTT FENa: N.p.o., PIV's x4, left subclavian cooling catheter, left radial art line, NG tube, trach tube, Lyles Code Status: Full code DVT PPX: SCDs PT/OT: Not indicated at present Case Management: Not indicated at present Dispo: ICU Refugio Brown MD PGY 3, FCM This chart was completed utilizing [employer] voice recognition software. Grammatical errors, random word insertions, pronoun errors, and in complete sentences are an occasional consequence of the system. Any questions or concerns about the content, text, or information contained within the body of this dictation should be addressed directly to the physician for clarification. (2) Cardiac arrest: (3) Acute CVA (cerebrovascular accident): (4) Altered mental status: (5) Acidosis, lactic: (6) Elevated troponin: (7) Acute hyperglycemia: (8) Elevated liver enzymes: (9) Diabetes type 2, uncontrolled: (10) Hypertension: (11) Hypertriglyceridemia: (12) Hypothyroidism, unspecified: (13) Obstructive sleep apnea: Admission and Anticipated Discharge Date Admission Date: January 06, 2021 Supervising Physician Co-Signing Physician Notes Attending attestation Pt seen and examined in concert with Dr. Brown & Sonny. In agreement with the documented findings as noted in the resident documentation with any exceptions or additions as noted here. Pt. sedated on vent via trach without apparent agitation at this time. On examination, S1/S2 nl RRR no MCG. CTAB. Abd distended with decreased bowelsounds. s/p cardiac arrest- follow up echocardiogram today.Trending Troponins. VDRF s/p tracheostomy - ventilator management per ICU team Else see resident documentation as noted. Subjective Patient lying in bed with trach in place, responsive to verbal and tactile stimuli. Respiratory reporting leak in the trach, plans to be replaced later today. Otherwise patient is n.p.o., Lyles catheter in place. Acute concerns related to prognosis. Review of Systems Review of Systems: Unobtainable due to endotracheal tube Physical Exam Physical Exam: General: Intubated lying in bed unarousable HEENT: Normocephalic atraumatic, Neck: Trach in place Cardiac: Normal rate and rhythm I did not appreciate significant murmurs rubs or gallops, normal S1, normal S2 Respiratory: Mechanically ventilated tracheostomy in place, breath sounds present bilaterally GI: Bowel sounds present, abdomen distended MSK: Upper and lower extremities well-perfused Results & Data Results & Data ([facility]) Vital Signs (Past 12 Hours) Vital Signs Temp Temp Pulse Resp BP BP Pulse Ox 01/07/21 17:30 78 01/07/21 16:30 35.1 C L 35.1 C L 78 23 118/56 L 107/74 99 01/07/21 15:30 35.1 C L 35.1 C L 76 23 128/64 107/74 100 01/07/21 15:28 79 26 H 100 01/07/21 14:30 35.1 C L 35.1 C L 78 22 120/62 107/72 100 01/07/21 13:30 35.1 C L 35.1 C L 77 23 123/63 111/75 100 01/07/21 12:05 78 26 H 97 01/07/21 11:30 35.1 C L 35.1 C L 78 26 H 129/63 113/66 01/07/21 10:30 34.2 C L 34.2 C L 70 26 H 117/64 117/75 100 01/07/21 09:30 34.2 C L 34.2 C L 68 26 H 98/55 L 107/69 98 01/07/21 08:30 34.3 C L 34.2 C L 70 26 H 107/60 105/66 99 01/07/21 07:30 34.2 C L 34.3 C L 71 26 H 113/61 105/78 99 01/07/21 07:16 92 H 26 H 96 01/07/21 06:30 34.5 C L 34.7 C L 71 26 H 101/55 L 94/64 L 95 Laboratory Results 01/07/21 01/07/21 01/07/21 Range/Units 16:00 15:56 12:54 WBC (4.8-10.8) K/uL RBC (4.7-6.1) M/uL Hgb (14.0-18.0) g/dL POC Hgb (14.0-18.0) g/dl Hct (42-52) % POC Hct (42-52) % MCV (80-100) fL MCH (25-34) pg MCHC (32-36) g/dL RDW Std Deviation (36.4-46.3) fL RDW Coeff of Emery (11.5-14.5) % Plt Count (130-400) K/uL MPV (7.4-10.4) fL Immature Gran % (Auto) % Neut % (Auto) % Lymph % (Auto) % [place] % (Auto) % Eos % (Auto) % Baso % (Auto) % Neut # (Auto) (1.4-6.5) K/uL Lymph # (Auto) (1.2-3.4) K/uL [place] # (Auto) (0.11-0.59) K/uL Eos # (Auto) (0-0.5) K/uL Baso # (Auto) (0-0.2) K/uL Immature Gran # (Auto) (0.00-0.02) K/uL PT (9.0-12.0) Seconds INR (0.9-1.1) APTT (21.0-31.0) Seconds PTT Ratio Sample Site Art Line POC pH 7.43 (7.35-7.45) POC pCO2 32 L (35-46) mmHg POC pO2 118 H (80-95) mmHg POC HCO3 22 (19-24) tiki/L POC Total CO2 23 L (24-31) mmol/L POC Base Excess -3.0 (-9-1.8) tiki/L ABG pH (7.35-7.45) ABG pH (Temp Correct) (7.35-7.45) ABG pCO2 (35-46) mmHg ABG pCO2 (Temp Corrct (35-46) mmHg ABG pO2 (80-95) mmHg POC ABG pO2 at Pt Temp ABG HCO3 (19-24) mmol/L POC ABG O2 Sat 99.0 H (90-95) % ABG O2 Saturation (90-95) % ABG Base Excess (-9-1.8) mEq/L Kulwant Test NA (Pos) VBG pH (7.36-7.41) VBG pCO2 (38-50) mmHg VBG pO2 mmHg VBG HCO3 mmol/L VBG O2 Saturation % VBG Base Excess mEq/L Barometric Pressure mm/Hg Oxygen Given O2 Delivery Device Ventilator POC O2 Rate 26 Minute Ventilation 14.3 POC FiO2 80 % Tidal Volume 550 PEEP 12 POC Sodium (135-144) mmol/L Sodium 131 L (136-145) mmol/L POC Potassium (3.3-5.0) mmol/L Potassium 3.7 (3.5-5.1) mmol/L Chloride 102 (98-107) mmol/L Carbon Dioxide 23 (21-32) mmol/L Anion Gap 6.0 (3-11) BUN 33 H (7-18) mg/dl Creatinine 0.96 (0.6-1.4) mg/dl Est Cr Clr Drug Dosing 90.4 ml/min Est GFR ( Amer) 96.4 ml/min Est GFR (Non-Af Amer) 83.2 ml/min BUN/Creatinine Ratio 34.6 H (10-20) Glucose 171 H (70-99) mg/dl POC Glucose (70-99) mg/dl POC Glucose (other) (70-99) mg/dl Estimat Average Glucose mg/dl Hemoglobin A1c (4.5-5.6) % Lactate (0.4-2.0) mmol/L Calcium 7.6 L (8.5-10.1) mg/dl Phosphorus 1.4 L* D (2.5-4.9) mg/dl Magnesium 2.1 (1.8-2.4) mg/dl Total Bilirubin 1.5 H (0.2-1) mg/dl Direct Bilirubin 0.9 H (0-0.2) mg/dl AST 141 H (15-37) U/L ALT 58 (12-78) U/L Alkaline Phosphatase 74 (45-117) U/L Ammonia (11-32) umol/L Total Creatine Kinase (39-308) U/L Troponin I 1.240 H* (0-0.045) ng/ml Total Protein 5.9 L D (6.4-8.2) gm/dl Albumin 2.0 L (3.4-5.0) gm/dl Triglycerides (0-150) mg/dl Cholesterol (0-200) mg/dl LDL Cholesterol, Calc mg/dl VLDL Cholesterol, Calc mg/dl HDL Cholesterol mg/dl Cholesterol/HDL Ratio Beta-Hydroxybutyric Acd (0.2-2.81) mg/dl Procalcitonin (0-0.5) ng/ml Specimen Hemolysis Urine Color Urine Appearance (Clear) Urine pH (4.5-7.5) Ur Specific [place] (1.000-1.030) Urine Protein (Negative) Urine Glucose (UA) (Negative) Urine Ketones (Negative) Urine Blood (Negative) Urine Nitrite (Negative) Urine Bilirubin (Negative) Urine Urobilinogen (Negative) Ur Leukocyte Esterase (Negative) Urine WBC (Auto) (0-5) /hpf Urine RBC (Auto) (0-4) /hpf U Hyaline Cast (Auto) (0-5) /lpf U Epithel Cells (Auto) (0-5) /lpf Urine Bacteria (Auto) (Negative) Nasal Screen MRSA (PCR) (Negative) Ethyl Alcohol mg/dL (0-3) mg/dl SARS-CoV-2 (PCR) (Negative) Blood Type Antibody Screen 01/07/21 01/07/21 01/07/21 Range/Units 12:54 11:57 10:51 WBC (4.8-10.8) K/uL RBC (4.7-6.1) M/uL Hgb (14.0-18.0) g/dL POC Hgb 13.6 L (14.0-18.0) g/dl Hct (42-52) % POC Hct 40 L (42-52) % MCV (80-100) fL MCH (25-34) pg MCHC (32-36) g/dL RDW Std Deviation (36.4-46.3) fL RDW Coeff of Emery (11.5-14.5) % Plt Count (130-400) K/uL MPV (7.4-10.4) fL Immature Gran % (Auto) % Neut % (Auto) % Lymph % (Auto) % [place] % (Auto) % Eos % (Auto) % Baso % (Auto) % Neut # (Auto) (1.4-6.5) K/uL Lymph # (Auto) (1.2-3.4) K/uL [place] # (Auto) (0.11-0.59) K/uL Eos # (Auto) (0-0.5) K/uL Baso # (Auto) (0-0.2) K/uL Immature Gran # (Auto) (0.00-0.02) K/uL PT (9.0-12.0) Seconds INR (0.9-1.1) APTT (21.0-31.0) Seconds PTT Ratio Sample Site Art Line POC pH 7.31 L (7.35-7.45) POC pCO2 48 H (35-46) mmHg POC pO2 88 (80-95) mmHg POC HCO3 24 (19-24) tiki/L POC Total CO2 26 (24-31) mmol/L POC Base Excess -2.0 (-9-1.8) tiki/L ABG pH (7.35-7.45) ABG pH (Temp Correct) 7.333 L (7.35-7.45) ABG pCO2 (35-46) mmHg ABG pCO2 (Temp Corrct 45 (35-46) mmHg ABG pO2 (80-95) mmHg POC ABG pO2 at Pt Temp 78 ABG HCO3 (19-24) mmol/L POC ABG O2 Sat 96.0 H (90-95) % ABG O2 Saturation (90-95) % ABG Base Excess (-9-1.8) mEq/L Kulwant Test NA (Pos) VBG pH (7.36-7.41) VBG pCO2 (38-50) mmHg VBG pO2 mmHg VBG HCO3 mmol/L VBG O2 Saturation % VBG Base Excess mEq/L Barometric Pressure mm/Hg Oxygen Given O2 Delivery Device Ventilator POC O2 Rate 26 Minute Ventilation 12 POC FiO2 80 % Tidal Volume 500 PEEP 12 POC Sodium 134 L (135-144) mmol/L Sodium 130 L (136-145) mmol/L POC Potassium 3.8 (3.3-5.0) mmol/L Potassium 3.4 L (3.5-5.1) mmol/L Chloride 100 (98-107) mmol/L Carbon Dioxide 25 (21-32) mmol/L Anion Gap 5.0 (3-11) BUN 36 H (7-18) mg/dl Creatinine 1.06 (0.6-1.4) mg/dl Est Cr Clr Drug Dosing 81.9 ml/min Est GFR ( Amer) 85.5 ml/min Est GFR (Non-Af Amer) 73.8 ml/min BUN/Creatinine Ratio 33.8 H (10-20) Glucose 182 H (70-99) mg/dl POC Glucose (70-99) mg/dl POC Glucose (other) 176 H (70-99) mg/dl Estimat Average Glucose mg/dl Hemoglobin A1c (4.5-5.6) % Lactate (0.4-2.0) mmol/L Calcium 7.4 L (8.5-10.1) mg/dl Phosphorus 2.7 (2.5-4.9) mg/dl Magnesium 2.0 (1.8-2.4) mg/dl Total Bilirubin (0.2-1) mg/dl Direct Bilirubin (0-0.2) mg/dl AST (15-37) U/L ALT (12-78) U/L Alkaline Phosphatase (45-117) U/L Ammonia (11-32) umol/L Total Creatine Kinase (39-308) U/L Troponin I (0-0.045) ng/ml Total Protein (6.4-8.2) gm/dl Albumin (3.4-5.0) gm/dl Triglycerides (0-150) mg/dl Cholesterol (0-200) mg/dl LDL Cholesterol, Calc mg/dl VLDL Cholesterol, Calc mg/dl HDL Cholesterol mg/dl Cholesterol/HDL Ratio Beta-Hydroxybutyric Acd (0.2-2.81) mg/dl Procalcitonin (0-0.5) ng/ml Specimen Hemolysis Urine Color Urine Appearance (Clear) Urine pH (4.5-7.5) Ur Specific [place] (1.000-1.030) Urine Protein (Negative) Urine Glucose (UA) (Negative) Urine Ketones (Negative) Urine Blood (Negative) Urine Nitrite (Negative) Urine Bilirubin (Negative) Urine Urobilinogen (Negative) Ur Leukocyte Esterase (Negative) Urine WBC (Auto) (0-5) /hpf Urine RBC (Auto) (0-4) /hpf U Hyaline Cast (Auto) (0-5) /lpf U Epithel Cells (Auto) (0-5) /lpf Urine Bacteria (Auto) (Negative) Nasal Screen MRSA (PCR) (Negative) Ethyl Alcohol mg/dL (0-3) mg/dl SARS-CoV-2 (PCR) (Negative) Blood Type Antibody Screen 01/07/21 01/07/21 01/07/21 Range/Units 09:48 08:25 08:03 WBC (4.8-10.8) K/uL RBC (4.7-6.1) M/uL Hgb (14.0-18.0) g/dL POC Hgb 12.9 L (14.0-18.0) g/dl Hct (42-52) % POC Hct 38 L (42-52) % MCV (80-100) fL MCH (25-34) pg MCHC (32-36) g/dL RDW Std Deviation (36.4-46.3) fL RDW Coeff of Emery (11.5-14.5) % Plt Count (130-400) K/uL MPV (7.4-10.4) fL Immature Gran % (Auto) % Neut % (Auto) % Lymph % (Auto) % [place] % (Auto) % Eos % (Auto) % Baso % (Auto) % Neut # (Auto) (1.4-6.5) K/uL Lymph # (Auto) (1.2-3.4) K/uL [place] # (Auto) (0.11-0.59) K/uL Eos # (Auto) (0-0.5) K/uL Baso # (Auto) (0-0.2) K/uL Immature Gran # (Auto) (0.00-0.02) K/uL PT (9.0-12.0) Seconds INR (0.9-1.1) APTT (21.0-31.0) Seconds PTT Ratio Sample Site Art Line POC pH 7.44 (7.35-7.45) POC pCO2 34 L (35-46) mmHg POC pO2 91 (80-95) mmHg POC HCO3 23 (19-24) tiki/L POC Total CO2 24 (24-31) mmol/L POC Base Excess -1.0 (-9-1.8) tiki/L ABG pH (7.35-7.45) ABG pH (Temp Correct) 7.483 H (7.35-7.45) ABG pCO2 (35-46) mmHg ABG pCO2 (Temp Corrct 30 L (35-46) mmHg ABG pO2 (80-95) mmHg POC ABG pO2 at Pt Temp 77 ABG HCO3 (19-24) mmol/L POC ABG O2 Sat 97.0 H (90-95) % ABG O2 Saturation (90-95) % ABG Base Excess (-9-1.8) mEq/L Kulwant Test NA (Pos) VBG pH (7.36-7.41) VBG pCO2 (38-50) mmHg VBG pO2 mmHg VBG HCO3 mmol/L VBG O2 Saturation % VBG Base Excess mEq/L Barometric Pressure mm/Hg Oxygen Given O2 Delivery Device Ventilator POC O2 Rate 26 Minute Ventilation 15 POC FiO2 80 % Tidal Volume 600 PEEP 12 POC Sodium 134 L (135-144) mmol/L Sodium (136-145) mmol/L POC Potassium 3.9 (3.3-5.0) mmol/L Potassium (3.5-5.1) mmol/L Chloride (98-107) mmol/L Carbon Dioxide (21-32) mmol/L Anion Gap (3-11) BUN (7-18) mg/dl Creatinine (0.6-1.4) mg/dl Est Cr Clr Drug Dosing ml/min Est GFR ( Amer) ml/min Est GFR (Non-Af Amer) ml/min BUN/Creatinine Ratio (10-20) Glucose (70-99) mg/dl POC Glucose (70-99) mg/dl POC Glucose (other) 168 H 172 H (70-99) mg/dl Estimat Average Glucose mg/dl Hemoglobin A1c (4.5-5.6) % Lactate (0.4-2.0) mmol/L Calcium (8.5-10.1) mg/dl Phosphorus (2.5-4.9) mg/dl Magnesium (1.8-2.4) mg/dl Total Bilirubin (0.2-1) mg/dl Direct Bilirubin (0-0.2) mg/dl AST (15-37) U/L ALT (12-78) U/L Alkaline Phosphatase (45-117) U/L Ammonia (11-32) umol/L Total Creatine Kinase (39-308) U/L Troponin I (0-0.045) ng/ml Total Protein (6.4-8.2) gm/dl Albumin (3.4-5.0) gm/dl Triglycerides (0-150) mg/dl Cholesterol (0-200) mg/dl LDL Cholesterol, Calc mg/dl VLDL Cholesterol, Calc mg/dl HDL Cholesterol mg/dl Cholesterol/HDL Ratio Beta-Hydroxybutyric Acd (0.2-2.81) mg/dl Procalcitonin (0-0.5) ng/ml Specimen Hemolysis Urine Color Urine Appearance (Clear) Urine pH (4.5-7.5) Ur Specific [place] (1.000-1.030) Urine Protein (Negative) Urine Glucose (UA) (Negative) Urine Ketones (Negative) Urine Blood (Negative) Urine Nitrite (Negative) Urine Bilirubin (Negative) Urine Urobilinogen (Negative) Ur Leukocyte Esterase (Negative) Urine WBC (Auto) (0-5) /hpf Urine RBC (Auto) (0-4) /hpf U Hyaline Cast (Auto) (0-5) /lpf U Epithel Cells (Auto) (0-5) /lpf Urine Bacteria (Auto) (Negative) Nasal Screen MRSA (PCR) (Negative) Ethyl Alcohol mg/dL (0-3) mg/dl SARS-CoV-2 (PCR) (Negative) Blood Type Antibody Screen 07/14/21 07/14/21 07/14/21 Range/Units 08:00 07:49 06:44 WBC (4.8-10.8) K/uL RBC (4.7-6.1) M/uL Hgb (14.0-18.0) g/dL POC Hgb (14.0-18.0) g/dl Hct (42-52) % POC Hct (42-52) % MCV (80-100) fL MCH (25-34) pg MCHC (32-36) g/dL RDW Std Deviation (36.4-46.3) fL RDW Coeff of Emery (11.5-14.5) % Plt Count (130-400) K/uL MPV (7.4-10.4) fL Immature Gran % (Auto) % Neut % (Auto) % Lymph % (Auto) % [place] % (Auto) % Eos % (Auto) % Baso % (Auto) % Neut # (Auto) (1.4-6.5) K/uL Lymph # (Auto) (1.2-3.4) K/uL [place] # (Auto) (0.11-0.59) K/uL Eos # (Auto) (0-0.5) K/uL Baso # (Auto) (0-0.2) K/uL Immature Gran # (Auto) (0.00-0.02) K/uL PT (9.0-12.0) Seconds INR (0.9-1.1) APTT (21.0-31.0) Seconds PTT Ratio Sample Site POC pH (7.35-7.45) POC pCO2 (35-46) mmHg POC pO2 (80-95) mmHg POC HCO3 (19-24) tiki/L POC Total CO2 (24-31) mmol/L POC Base Excess (-9-1.8) tiki/L ABG pH (7.35-7.45) ABG pH (Temp Correct) (7.35-7.45) ABG pCO2 (35-46) mmHg ABG pCO2 (Temp Corrct (35-46) mmHg ABG pO2 (80-95) mmHg POC ABG pO2 at Pt Temp ABG HCO3 (19-24) mmol/L POC ABG O2 Sat (90-95) % ABG O2 Saturation (90-95) % ABG Base Excess (-9-1.8) mEq/L Kulwant Test (Pos) VBG pH (7.36-7.41) VBG pCO2 (38-50) mmHg VBG pO2 mmHg VBG HCO3 mmol/L VBG O2 Saturation % VBG Base Excess mEq/L Barometric Pressure mm/Hg Oxygen Given O2 Delivery Device POC O2 Rate Minute Ventilation POC FiO2 % Tidal Volume PEEP POC Sodium (135-144) mmol/L Sodium 132 L (136-145) mmol/L POC Potassium (3.3-5.0) mmol/L Potassium 3.9 D (3.5-5.1) mmol/L Chloride 102 (98-107) mmol/L Carbon Dioxide 22 (21-32) mmol/L Anion Gap 8.0 (3-11) BUN 35 H (7-18) mg/dl Creatinine 1.17 (0.6-1.4) mg/dl Est Cr Clr Drug Dosing 74.2 ml/min Est GFR ( Amer) 75.9 ml/min Est GFR (Non-Af Amer) 65.5 ml/min BUN/Creatinine Ratio 29.9 H (10-20) Glucose 170 H (70-99) mg/dl POC Glucose (70-99) mg/dl POC Glucose (other) 177 H 180 H (70-99) mg/dl Estimat Average Glucose mg/dl Hemoglobin A1c (4.5-5.6) % Lactate (0.4-2.0) mmol/L Calcium 8.3 L (8.5-10.1) mg/dl Phosphorus 2.2 L (2.5-4.9) mg/dl Magnesium 2.1 (1.8-2.4) mg/dl Total Bilirubin (0.2-1) mg/dl Direct Bilirubin (0-0.2) mg/dl AST (15-37) U/L ALT (12-78) U/L Alkaline Phosphatase (45-117) U/L Ammonia (11-32) umol/L Total Creatine Kinase (39-308) U/L Troponin I 1.440 H* (0-0.045) ng/ml Total Protein (6.4-8.2) gm/dl Albumin (3.4-5.0) gm/dl Triglycerides (0-150) mg/dl Cholesterol (0-200) mg/dl LDL Cholesterol, Calc mg/dl VLDL Cholesterol, Calc mg/dl HDL Cholesterol mg/dl Cholesterol/HDL Ratio Beta-Hydroxybutyric Acd (0.2-2.81) mg/dl Procalcitonin (0-0.5) ng/ml Specimen Hemolysis Urine Color Urine Appearance (Clear) Urine pH (4.5-7.5) Ur Specific [place] (1.000-1.030) Urine Protein (Negative) Urine Glucose (UA) (Negative) Urine Ketones (Negative) Urine Blood (Negative) Urine Nitrite (Negative) Urine Bilirubin (Negative) Urine Urobilinogen (Negative) Ur Leukocyte Esterase (Negative) Urine WBC (Auto) (0-5) /hpf Urine RBC (Auto) (0-4) /hpf U Hyaline Cast (Auto) (0-5) /lpf U Epithel Cells (Auto) (0-5) /lpf Urine Bacteria (Auto) (Negative) Nasal Screen MRSA (PCR) (Negative) Ethyl Alcohol mg/dL (0-3) mg/dl SARS-CoV-2 (PCR) (Negative) Blood Type Antibody Screen 01/07/21 01/07/21 01/07/21 Range/Units 05:34 04:29 04:19 WBC (4.8-10.8) K/uL RBC (4.7-6.1) M/uL Hgb (14.0-18.0) g/dL POC Hgb (14.0-18.0) g/dl Hct (42-52) % POC Hct (42-52) % MCV (80-100) fL MCH (25-34) pg MCHC (32-36) g/dL RDW Std Deviation (36.4-46.3) fL RDW Coeff of Emery (11.5-14.5) % Plt Count (130-400) K/uL MPV (7.4-10.4) fL Immature Gran % (Auto) % Neut % (Auto) % Lymph % (Auto) % [place] % (Auto) % Eos % (Auto) % Baso % (Auto) % Neut # (Auto) (1.4-6.5) K/uL Lymph # (Auto) (1.2-3.4) K/uL [place] # (Auto) (0.11-0.59) K/uL Eos # (Auto) (0-0.5) K/uL Baso # (Auto) (0-0.2) K/uL Immature Gran # (Auto) (0.00-0.02) K/uL PT (9.0-12.0) Seconds INR (0.9-1.1) APTT (21.0-31.0) Seconds PTT Ratio Sample Site POC pH (7.35-7.45) POC pCO2 (35-46) mmHg POC pO2 (80-95) mmHg POC HCO3 (19-24) tiki/L POC Total CO2 (24-31) mmol/L POC Base Excess (-9-1.8) tiki/L ABG pH (7.35-7.45) ABG pH (Temp Correct) (7.35-7.45) ABG pCO2 (35-46) mmHg ABG pCO2 (Temp Corrct (35-46) mmHg ABG pO2 (80-95) mmHg POC ABG pO2 at Pt Temp ABG HCO3 (19-24) mmol/L POC ABG O2 Sat (90-95) % ABG O2 Saturation (90-95) % ABG Base Excess (-9-1.8) mEq/L Kulwant Test (Pos) VBG pH (7.36-7.41) VBG pCO2 (38-50) mmHg VBG pO2 mmHg VBG HCO3 mmol/L VBG O2 Saturation % VBG Base Excess mEq/L Barometric Pressure mm/Hg Oxygen Given O2 Delivery Device POC O2 Rate Minute Ventilation POC FiO2 % Tidal Volume PEEP POC Sodium (135-144) mmol/L Sodium (136-145) mmol/L POC Potassium (3.3-5.0) mmol/L Potassium (3.5-5.1) mmol/L Chloride (98-107) mmol/L Carbon Dioxide (21-32) mmol/L Anion Gap (3-11) BUN (7-18) mg/dl Creatinine (0.6-1.4) mg/dl Est Cr Clr Drug Dosing ml/min Est GFR ( Amer) ml/min Est GFR (Non-Af Amer) ml/min BUN/Creatinine Ratio (10-20) Glucose (70-99) mg/dl POC Glucose (70-99) mg/dl POC Glucose (other) 208 H 227 H (70-99) mg/dl Estimat Average Glucose mg/dl Hemoglobin A1c (4.5-5.6) % Lactate 4.1 H* (0.4-2.0) mmol/L Calcium (8.5-10.1) mg/dl Phosphorus (2.5-4.9) mg/dl Magnesium (1.8-2.4) mg/dl Total Bilirubin (0.2-1) mg/dl Direct Bilirubin (0-0.2) mg/dl AST (15-37) U/L ALT (12-78) U/L Alkaline Phosphatase (45-117) U/L Ammonia (11-32) umol/L Total Creatine Kinase (39-308) U/L Troponin I (0-0.045) ng/ml Total Protein (6.4-8.2) gm/dl Albumin (3.4-5.0) gm/dl Triglycerides (0-150) mg/dl Cholesterol (0-200) mg/dl LDL Cholesterol, Calc mg/dl VLDL Cholesterol, Calc mg/dl HDL Cholesterol mg/dl Cholesterol/HDL Ratio Beta-Hydroxybutyric Acd (0.2-2.81) mg/dl Procalcitonin (0-0.5) ng/ml Specimen Hemolysis Urine Color Urine Appearance (Clear) Urine pH (4.5-7.5) Ur Specific [place] (1.000-1.030) Urine Protein (Negative) Urine Glucose (UA) (Negative) Urine Ketones (Negative) Urine Blood (Negative) Urine Nitrite (Negative) Urine Bilirubin (Negative) Urine Urobilinogen (Negative) Ur Leukocyte Esterase (Negative) Urine WBC (Auto) (0-5) /hpf Urine RBC (Auto) (0-4) /hpf U Hyaline Cast (Auto) (0-5) /lpf U Epithel Cells (Auto) (0-5) /lpf Urine Bacteria (Auto) (Negative) Nasal Screen MRSA (PCR) (Negative) Ethyl Alcohol mg/dL (0-3) mg/dl SARS-CoV-2 (PCR) (Negative) Blood Type Antibody Screen 01/07/21 01/07/21 01/07/21 Range/Units 04:19 04:19 04:19 WBC 11.92 H (4.8-10.8) K/uL RBC 4.55 L (4.7-6.1) M/uL Hgb 13.5 L (14.0-18.0) g/dL POC Hgb (14.0-18.0) g/dl Hct 39.7 L (42-52) % POC Hct (42-52) % MCV 87.3 (80-100) fL MCH 29.7 (25-34) pg MCHC 34.0 (32-36) g/dL RDW Std Deviation 50.6 H (36.4-46.3) fL RDW Coeff of [place] 15.8 H (11.5-14.5) % Plt Count 128 L (130-400) K/uL MPV 11.4 H (7.4-10.4) fL Immature Gran % (Auto) 0.3 % Neut % (Auto) 92.2 % Lymph % (Auto) 4.4 % [place] % (Auto) 3.0 % Eos % (Auto) 0.0 % Baso % (Auto) 0.1 % Neut # (Auto) 10.99 H (1.4-6.5) K/uL Lymph # (Auto) 0.52 L (1.2-3.4) K/uL [place] # (Auto) 0.36 (0.11-0.59) K/uL Eos # (Auto) 0.00 (0-0.5) K/uL Baso # (Auto) 0.01 (0-0.2) K/uL Immature Gran # (Auto) 0.04 H (0.00-0.02) K/uL PT (9.0-12.0) Seconds INR (0.9-1.1) APTT (21.0-31.0) Seconds PTT Ratio Sample Site POC pH (7.35-7.45) POC pCO2 (35-46) mmHg POC pO2 (80-95) mmHg POC HCO3 (19-24) tiki/L POC Total CO2 (24-31) mmol/L POC Base Excess (-9-1.8) tiki/L ABG pH (7.35-7.45) ABG pH (Temp Correct) (7.35-7.45) ABG pCO2 (35-46) mmHg ABG pCO2 (Temp Corrct (35-46) mmHg ABG pO2 (80-95) mmHg POC ABG pO2 at Pt Temp ABG HCO3 (19-24) mmol/L POC ABG O2 Sat (90-95) % ABG O2 Saturation (90-95) % ABG Base Excess (-9-1.8) mEq/L [place] Test (Pos) VBG pH (7.36-7.41) VBG pCO2 (38-50) mmHg VBG pO2 mmHg VBG HCO3 mmol/L VBG O2 Saturation % VBG Base Excess mEq/L Barometric Pressure mm/Hg Oxygen Given O2 Delivery Device POC O2 Rate Minute Ventilation POC FiO2 % Tidal Volume PEEP POC Sodium (135-144) mmol/L Sodium 134 L (136-145) mmol/L POC Potassium (3.3-5.0) mmol/L Potassium 3.3 L D (3.5-5.1) mmol/L Chloride 102 (98-107) mmol/L Carbon Dioxide 23 (21-32) mmol/L Anion Gap 9.0 (3-11) BUN 36 H (7-18) mg/dl Creatinine 1.36 (0.6-1.4) mg/dl Est Cr Clr Drug Dosing 63.8 ml/min Est GFR ( Amer) 63.3 ml/min Est GFR (Non-Af Amer) 54.6 ml/min BUN/Creatinine Ratio 26.3 H (10-20) Glucose 230 H (70-99) mg/dl POC Glucose (70-99) mg/dl POC Glucose (other) (70-99) mg/dl Estimat Average Glucose mg/dl Hemoglobin A1c (4.5-5.6) % Lactate (0.4-2.0) mmol/L Calcium 7.4 L (8.5-10.1) mg/dl Phosphorus 2.6 D (2.5-4.9) mg/dl Magnesium 1.9 (1.8-2.4) mg/dl Total Bilirubin (0.2-1) mg/dl Direct Bilirubin (0-0.2) mg/dl AST (15-37) U/L ALT (12-78) U/L Alkaline Phosphatase (45-117) U/L Ammonia (11-32) umol/L Total Creatine Kinase 1258 H (39-308) U/L Troponin I (0-0.045) ng/ml Total Protein (6.4-8.2) gm/dl Albumin (3.4-5.0) gm/dl Triglycerides 349 H (0-150) mg/dl Cholesterol 113 (0-200) mg/dl LDL Cholesterol, Calc 29 mg/dl VLDL Cholesterol, Calc 70 mg/dl HDL Cholesterol 14 mg/dl Cholesterol/HDL Ratio 8 Beta-Hydroxybutyric Acd (0.2-2.81) mg/dl Procalcitonin (0-0.5) ng/ml Specimen Hemolysis Urine Color Urine Appearance (Clear) Urine pH (4.5-7.5) Ur Specific [place] (1.000-1.030) Urine Protein (Negative) Urine Glucose (UA) (Negative) Urine Ketones (Negative) Urine Blood (Negative) Urine Nitrite (Negative) Urine Bilirubin (Negative) Urine Urobilinogen (Negative) Ur Leukocyte Esterase (Negative) Urine WBC (Auto) (0-5) /hpf Urine RBC (Auto) (0-4) /hpf U Hyaline Cast (Auto) (0-5) /lpf U Epithel Cells (Auto) (0-5) /lpf Urine Bacteria (Auto) (Negative) Nasal Screen MRSA (PCR) (Negative) Ethyl Alcohol mg/dL (0-3) mg/dl SARS-CoV-2 (PCR) (Negative) Blood Type Antibody Screen 01/07/21 01/07/21 01/07/21 Range/Units 03:54 03:29 02:29 WBC (4.8-10.8) K/uL RBC (4.7-6.1) M/uL Hgb (14.0-18.0) g/dL POC Hgb 13.6 L (14.0-18.0) g/dl Hct (42-52) % POC Hct 40 L (42-52) % MCV (80-100) fL MCH (25-34) pg MCHC (32-36) g/dL RDW Std Deviation (36.4-46.3) fL RDW Coeff of Emery (11.5-14.5) % Plt Count (130-400) K/uL MPV (7.4-10.4) fL Immature Gran % (Auto) % Neut % (Auto) % Lymph % (Auto) % [place] % (Auto) % Eos % (Auto) % Baso % (Auto) % Neut # (Auto) (1.4-6.5) K/uL Lymph # (Auto) (1.2-3.4) K/uL [place] # (Auto) (0.11-0.59) K/uL Eos # (Auto) (0-0.5) K/uL Baso # (Auto) (0-0.2) K/uL Immature Gran # (Auto) (0.00-0.02) K/uL PT (9.0-12.0) Seconds INR (0.9-1.1) APTT (21.0-31.0) Seconds PTT Ratio Sample Site Art Line POC pH 7.40 (7.35-7.45) POC pCO2 35 (35-46) mmHg POC pO2 69 L (80-95) mmHg POC HCO3 22 (19-24) tiki/L POC Total CO2 23 L (24-31) mmol/L POC Base Excess -3.0 (-9-1.8) tiki/L ABG pH (7.35-7.45) ABG pH (Temp Correct) 7.418 (7.35-7.45) ABG pCO2 (35-46) mmHg ABG pCO2 (Temp Corrct 33 L (35-46) mmHg ABG pO2 (80-95) mmHg POC ABG pO2 at Pt Temp 63 ABG HCO3 (19-24) mmol/L POC ABG O2 Sat 94.0 (90-95) % ABG O2 Saturation (90-95) % ABG Base Excess (-9-1.8) mEq/L Kulwant Test NA (Pos) VBG pH (7.36-7.41) VBG pCO2 (38-50) mmHg VBG pO2 mmHg VBG HCO3 mmol/L VBG O2 Saturation % VBG Base Excess mEq/L Barometric Pressure mm/Hg Oxygen Given O2 Delivery Device Ventilator POC O2 Rate 26 Minute Ventilation 15.6 POC FiO2 80 % Tidal Volume 600 PEEP 12 POC Sodium 136 (135-144) mmol/L Sodium (136-145) mmol/L POC Potassium 3.4 (3.3-5.0) mmol/L Potassium (3.5-5.1) mmol/L Chloride (98-107) mmol/L Carbon Dioxide (21-32) mmol/L Anion Gap (3-11) BUN (7-18) mg/dl Creatinine (0.6-1.4) mg/dl Est Cr Clr Drug Dosing ml/min Est GFR ( Amer) ml/min Est GFR (Non-Af Amer) ml/min BUN/Creatinine Ratio (10-20) Glucose (70-99) mg/dl POC Glucose (70-99) mg/dl POC Glucose (other) 254 H 297 H (70-99) mg/dl Estimat Average Glucose mg/dl Hemoglobin A1c (4.5-5.6) % Lactate (0.4-2.0) mmol/L Calcium (8.5-10.1) mg/dl Phosphorus (2.5-4.9) mg/dl Magnesium (1.8-2.4) mg/dl Total Bilirubin (0.2-1) mg/dl Direct Bilirubin (0-0.2) mg/dl AST (15-37) U/L ALT (12-78) U/L Alkaline Phosphatase (45-117) U/L Ammonia (11-32) umol/L Total Creatine Kinase (39-308) U/L Troponin I (0-0.045) ng/ml Total Protein (6.4-8.2) gm/dl Albumin (3.4-5.0) gm/dl Triglycerides (0-150) mg/dl Cholesterol (0-200) mg/dl LDL Cholesterol, Calc mg/dl VLDL Cholesterol, Calc mg/dl HDL Cholesterol mg/dl Cholesterol/HDL Ratio Beta-Hydroxybutyric Acd (0.2-2.81) mg/dl Procalcitonin (0-0.5) ng/ml Specimen Hemolysis Urine Color Urine Appearance (Clear) Urine pH (4.5-7.5) Ur Specific [place] (1.000-1.030) Urine Protein (Negative) Urine Glucose (UA) (Negative) Urine Ketones (Negative) Urine Blood (Negative) Urine Nitrite (Negative) Urine Bilirubin (Negative) Urine Urobilinogen (Negative) Ur Leukocyte Esterase (Negative) Urine WBC (Auto) (0-5) /hpf Urine RBC (Auto) (0-4) /hpf U Hyaline Cast (Auto) (0-5) /lpf U Epithel Cells (Auto) (0-5) /lpf Urine Bacteria (Auto) (Negative) Nasal Screen MRSA (PCR) (Negative) Ethyl Alcohol mg/dL (0-3) mg/dl SARS-CoV-2 (PCR) (Negative) Blood Type Antibody Screen 07/14/21 07/14/21 07/14/21 Range/Units 02:15 01:32 00:21 WBC (4.8-10.8) K/uL RBC (4.7-6.1) M/uL Hgb 13.3 L (14.0-18.0) g/dL POC Hgb (14.0-18.0) g/dl Hct 39.0 L (42-52) % POC Hct (42-52) % MCV (80-100) fL MCH (25-34) pg MCHC (32-36) g/dL RDW Std Deviation (36.4-46.3) fL RDW Coeff of Emery (11.5-14.5) % Plt Count (130-400) K/uL MPV (7.4-10.4) fL Immature Gran % (Auto) % Neut % (Auto) % Lymph % (Auto) % [place] % (Auto) % Eos % (Auto) % Baso % (Auto) % Neut # (Auto) (1.4-6.5) K/uL Lymph # (Auto) (1.2-3.4) K/uL [place] # (Auto) (0.11-0.59) K/uL Eos # (Auto) (0-0.5) K/uL Baso # (Auto) (0-0.2) K/uL Immature Gran # (Auto) (0.00-0.02) K/uL PT (9.0-12.0) Seconds INR (0.9-1.1) APTT (21.0-31.0) Seconds PTT Ratio Sample Site POC pH (7.35-7.45) POC pCO2 (35-46) mmHg POC pO2 (80-95) mmHg POC HCO3 (19-24) tiki/L POC Total CO2 (24-31) mmol/L POC Base Excess (-9-1.8) tiki/L ABG pH (7.35-7.45) ABG pH (Temp Correct) (7.35-7.45) ABG pCO2 (35-46) mmHg ABG pCO2 (Temp Corrct (35-46) mmHg ABG pO2 (80-95) mmHg POC ABG pO2 at Pt Temp ABG HCO3 (19-24) mmol/L POC ABG O2 Sat (90-95) % ABG O2 Saturation (90-95) % ABG Base Excess (-9-1.8) mEq/L Kulwant Test (Pos) VBG pH (7.36-7.41) VBG pCO2 (38-50) mmHg VBG pO2 mmHg VBG HCO3 mmol/L VBG O2 Saturation % VBG Base Excess mEq/L Barometric Pressure mm/Hg Oxygen Given O2 Delivery Device POC O2 Rate Minute Ventilation POC FiO2 % Tidal Volume PEEP POC Sodium (135-144) mmol/L Sodium (136-145) mmol/L POC Potassium (3.3-5.0) mmol/L Potassium (3.5-5.1) mmol/L Chloride (98-107) mmol/L Carbon Dioxide (21-32) mmol/L Anion Gap (3-11) BUN (7-18) mg/dl Creatinine (0.6-1.4) mg/dl Est Cr Clr Drug Dosing ml/min Est GFR ( Amer) ml/min Est GFR (Non-Af Amer) ml/min BUN/Creatinine Ratio (10-20) Glucose (70-99) mg/dl POC Glucose (70-99) mg/dl POC Glucose (other) 334 H (70-99) mg/dl Estimat Average Glucose mg/dl Hemoglobin A1c (4.5-5.6) % Lactate (0.4-2.0) mmol/L Calcium (8.5-10.1) mg/dl Phosphorus (2.5-4.9) mg/dl Magnesium (1.8-2.4) mg/dl Total Bilirubin (0.2-1) mg/dl Direct Bilirubin (0-0.2) mg/dl AST (15-37) U/L ALT (12-78) U/L Alkaline Phosphatase (45-117) U/L Ammonia (11-32) umol/L Total Creatine Kinase (39-308) U/L Troponin I (0-0.045) ng/ml Total Protein (6.4-8.2) gm/dl Albumin (3.4-5.0) gm/dl Triglycerides (0-150) mg/dl Cholesterol (0-200) mg/dl LDL Cholesterol, Calc mg/dl VLDL Cholesterol, Calc mg/dl HDL Cholesterol mg/dl Cholesterol/HDL Ratio Beta-Hydroxybutyric Acd (0.2-2.81) mg/dl Procalcitonin (0-0.5) ng/ml Specimen Hemolysis Urine Color Urine Appearance (Clear) Urine pH (4.5-7.5) Ur Specific [place] (1.000-1.030) Urine Protein (Negative) Urine Glucose (UA) (Negative) Urine Ketones (Negative) Urine Blood (Negative) Urine Nitrite (Negative) Urine Bilirubin (Negative) Urine Urobilinogen (Negative) Ur Leukocyte Esterase (Negative) Urine WBC (Auto) (0-5) /hpf Urine RBC (Auto) (0-4) /hpf U Hyaline Cast (Auto) (0-5) /lpf U Epithel Cells (Auto) (0-5) /lpf Urine Bacteria (Auto) (Negative) Nasal Screen MRSA (PCR) Negative (Negative) Ethyl Alcohol mg/dL (0-3) mg/dl SARS-CoV-2 (PCR) (Negative) Blood Type Antibody Screen 01/07/21 01/06/21 01/06/21 Range/Units 00:21 23:46 23:44 WBC (4.8-10.8) K/uL RBC (4.7-6.1) M/uL Hgb (14.0-18.0) g/dL POC Hgb (14.0-18.0) g/dl Hct (42-52) % POC Hct (42-52) % MCV (80-100) fL MCH (25-34) pg MCHC (32-36) g/dL RDW Std Deviation (36.4-46.3) fL RDW Coeff of Emery (11.5-14.5) % Plt Count (130-400) K/uL MPV (7.4-10.4) fL Immature Gran % (Auto) % Neut % (Auto) % Lymph % (Auto) % [place] % (Auto) % Eos % (Auto) % Baso % (Auto) % Neut # (Auto) (1.4-6.5) K/uL Lymph # (Auto) (1.2-3.4) K/uL [place] # (Auto) (0.11-0.59) K/uL Eos # (Auto) (0-0.5) K/uL Baso # (Auto) (0-0.2) K/uL Immature Gran # (Auto) (0.00-0.02) K/uL PT (9.0-12.0) Seconds INR (0.9-1.1) APTT (21.0-31.0) Seconds PTT Ratio Sample Site POC pH (7.35-7.45) POC pCO2 (35-46) mmHg POC pO2 (80-95) mmHg POC HCO3 (19-24) tiki/L POC Total CO2 (24-31) mmol/L POC Base Excess (-9-1.8) tiki/L ABG pH 7.38 (7.35-7.45) ABG pH (Temp Correct) (7.35-7.45) ABG pCO2 35 (35-46) mmHg ABG pCO2 (Temp Corrct (35-46) mmHg ABG pO2 106 H (80-95) mmHg POC ABG pO2 at Pt Temp ABG HCO3 20 (19-24) mmol/L POC ABG O2 Sat (90-95) % ABG O2 Saturation 97.9 H (90-95) % ABG Base Excess -4.1 (-9-1.8) mEq/L Kulwant Test POS (Pos) VBG pH (7.36-7.41) VBG pCO2 (38-50) mmHg VBG pO2 mmHg VBG HCO3 mmol/L VBG O2 Saturation % VBG Base Excess mEq/L Barometric Pressure 736.5 mm/Hg Oxygen Given 100% FIO2 O2 Delivery Device POC O2 Rate Minute Ventilation POC FiO2 % Tidal Volume PEEP POC Sodium (135-144) mmol/L Sodium (136-145) mmol/L POC Potassium (3.3-5.0) mmol/L Potassium (3.5-5.1) mmol/L Chloride (98-107) mmol/L Carbon Dioxide (21-32) mmol/L Anion Gap (3-11) BUN (7-18) mg/dl Creatinine (0.6-1.4) mg/dl Est Cr Clr Drug Dosing ml/min Est GFR ( Amer) ml/min Est GFR (Non-Af Amer) ml/min BUN/Creatinine Ratio (10-20) Glucose (70-99) mg/dl POC Glucose (70-99) mg/dl POC Glucose (other) (70-99) mg/dl Estimat Average Glucose mg/dl Hemoglobin A1c (4.5-5.6) % Lactate 4.6 H* (0.4-2.0) mmol/L Calcium (8.5-10.1) mg/dl Phosphorus (2.5-4.9) mg/dl Magnesium (1.8-2.4) mg/dl Total Bilirubin (0.2-1) mg/dl Direct Bilirubin (0-0.2) mg/dl AST (15-37) U/L ALT (12-78) U/L Alkaline Phosphatase (45-117) U/L Ammonia (11-32) umol/L Total Creatine Kinase (39-308) U/L Troponin I (0-0.045) ng/ml Total Protein (6.4-8.2) gm/dl Albumin (3.4-5.0) gm/dl Triglycerides (0-150) mg/dl Cholesterol (0-200) mg/dl LDL Cholesterol, Calc mg/dl VLDL Cholesterol, Calc mg/dl HDL Cholesterol mg/dl Cholesterol/HDL Ratio Beta-Hydroxybutyric Acd (0.2-2.81) mg/dl Procalcitonin (0-0.5) ng/ml Specimen Hemolysis Urine Color Urine Appearance (Clear) Urine pH (4.5-7.5) Ur Specific [place] (1.000-1.030) Urine Protein (Negative) Urine Glucose (UA) (Negative) Urine Ketones (Negative) Urine Blood (Negative) Urine Nitrite (Negative) Urine Bilirubin (Negative) Urine Urobilinogen (Negative) Ur Leukocyte Esterase (Negative) Urine WBC (Auto) (0-5) /hpf Urine RBC (Auto) (0-4) /hpf U Hyaline Cast (Auto) (0-5) /lpf U Epithel Cells (Auto) (0-5) /lpf Urine Bacteria (Auto) (Negative) Nasal Screen MRSA (PCR) (Negative) Ethyl Alcohol mg/dL (0-3) mg/dl SARS-CoV-2 (PCR) (Negative) Blood Type O Positive Antibody Screen NEGATIVE 01/06/21 01/06/21 01/06/21 Range/Units 23:43 22:14 21:23 WBC (4.8-10.8) K/uL RBC (4.7-6.1) M/uL Hgb (14.0-18.0) g/dL POC Hgb 14.3 (14.0-18.0) g/dl Hct (42-52) % POC Hct 42 (42-52) % MCV (80-100) fL MCH (25-34) pg MCHC (32-36) g/dL RDW Std Deviation (36.4-46.3) fL RDW Coeff of Emery (11.5-14.5) % Plt Count (130-400) K/uL MPV (7.4-10.4) fL Immature Gran % (Auto) % Neut % (Auto) % Lymph % (Auto) % [place] % (Auto) % Eos % (Auto) % Baso % (Auto) % Neut # (Auto) (1.4-6.5) K/uL Lymph # (Auto) (1.2-3.4) K/uL [place] # (Auto) (0.11-0.59) K/uL Eos # (Auto) (0-0.5) K/uL Baso # (Auto) (0-0.2) K/uL Immature Gran # (Auto) (0.00-0.02) K/uL PT (9.0-12.0) Seconds INR (0.9-1.1) APTT (21.0-31.0) Seconds PTT Ratio Sample Site POC pH 7.02 L* (7.35-7.45) POC pCO2 83 H (35-46) mmHg POC pO2 91 (80-95) mmHg POC HCO3 21 (19-24) tiki/L POC Total CO2 24 (24-31) mmol/L POC Base Excess -10.0 L (-9-1.8) tiki/L ABG pH (7.35-7.45) ABG pH (Temp Correct) (7.35-7.45) ABG pCO2 (35-46) mmHg ABG pCO2 (Temp Corrct (35-46) mmHg ABG pO2 (80-95) mmHg POC ABG pO2 at Pt Temp ABG HCO3 (19-24) mmol/L POC ABG O2 Sat 91.0 (90-95) % ABG O2 Saturation (90-95) % ABG Base Excess (-9-1.8) mEq/L Kulwant Test (Pos) VBG pH (7.36-7.41) VBG pCO2 (38-50) mmHg VBG pO2 mmHg VBG HCO3 mmol/L VBG O2 Saturation % VBG Base Excess mEq/L Barometric Pressure mm/Hg Oxygen Given O2 Delivery Device POC O2 Rate Minute Ventilation POC FiO2 % Tidal Volume PEEP POC Sodium 135 (135-144) mmol/L Sodium 132 L (136-145) mmol/L POC Potassium 3.6 (3.3-5.0) mmol/L Potassium 4.3 D (3.5-5.1) mmol/L Chloride 100 (98-107) mmol/L Carbon Dioxide 21 (21-32) mmol/L Anion Gap 12.0 H (3-11) BUN 31 H (7-18) mg/dl Creatinine 1.43 H (0.6-1.4) mg/dl Est Cr Clr Drug Dosing 60.7 ml/min Est GFR ( Amer) 59.6 ml/min Est GFR (Non-Af Amer) 51.4 ml/min BUN/Creatinine Ratio 21.5 H (10-20) Glucose 375 H* (70-99) mg/dl POC Glucose 377 H* (70-99) mg/dl POC Glucose (other) (70-99) mg/dl Estimat Average Glucose mg/dl Hemoglobin A1c (4.5-5.6) % Lactate (0.4-2.0) mmol/L Calcium 7.4 L (8.5-10.1) mg/dl Phosphorus 4.4 D (2.5-4.9) mg/dl Magnesium 1.8 (1.8-2.4) mg/dl Total Bilirubin (0.2-1) mg/dl Direct Bilirubin (0-0.2) mg/dl AST (15-37) U/L ALT (12-78) U/L Alkaline Phosphatase (45-117) U/L Ammonia (11-32) umol/L Total Creatine Kinase (39-308) U/L Troponin I 0.943 H* (0-0.045) ng/ml Total Protein (6.4-8.2) gm/dl Albumin (3.4-5.0) gm/dl Triglycerides (0-150) mg/dl Cholesterol (0-200) mg/dl LDL Cholesterol, Calc mg/dl VLDL Cholesterol, Calc mg/dl HDL Cholesterol mg/dl Cholesterol/HDL Ratio Beta-Hydroxybutyric Acd 6.16 H (0.2-2.81) mg/dl Procalcitonin (0-0.5) ng/ml Specimen Hemolysis Urine Color Urine Appearance (Clear) Urine pH (4.5-7.5) Ur Specific [place] (1.000-1.030) Urine Protein (Negative) Urine Glucose (UA) (Negative) Urine Ketones (Negative) Urine Blood (Negative) Urine Nitrite (Negative) Urine Bilirubin (Negative) Urine Urobilinogen (Negative) Ur Leukocyte Esterase (Negative) Urine WBC (Auto) (0-5) /hpf Urine RBC (Auto) (0-4) /hpf U Hyaline Cast (Auto) (0-5) /lpf U Epithel Cells (Auto) (0-5) /lpf Urine Bacteria (Auto) (Negative) Nasal Screen MRSA (PCR) (Negative) Ethyl Alcohol mg/dL (0-3) mg/dl SARS-CoV-2 (PCR) (Negative) Blood Type Antibody Screen 01/06/21 01/06/21 01/06/21 Range/Units 20:16 19:54 19:54 WBC (4.8-10.8) K/uL RBC (4.7-6.1) M/uL Hgb (14.0-18.0) g/dL POC Hgb (14.0-18.0) g/dl Hct (42-52) % POC Hct (42-52) % MCV (80-100) fL MCH (25-34) pg MCHC (32-36) g/dL RDW Std Deviation (36.4-46.3) fL RDW Coeff of Emery (11.5-14.5) % Plt Count (130-400) K/uL MPV (7.4-10.4) fL Immature Gran % (Auto) % Neut % (Auto) % Lymph % (Auto) % [place] % (Auto) % Eos % (Auto) % Baso % (Auto) % Neut # (Auto) (1.4-6.5) K/uL Lymph # (Auto) (1.2-3.4) K/uL [place] # (Auto) (0.11-0.59) K/uL Eos # (Auto) (0-0.5) K/uL Baso # (Auto) (0-0.2) K/uL Immature Gran # (Auto) (0.00-0.02) K/uL PT (9.0-12.0) Seconds INR (0.9-1.1) APTT (21.0-31.0) Seconds PTT Ratio Sample Site POC pH (7.35-7.45) POC pCO2 (35-46) mmHg POC pO2 (80-95) mmHg POC HCO3 (19-24) tiki/L POC Total CO2 (24-31) mmol/L POC Base Excess (-9-1.8) tiki/L ABG pH (7.35-7.45) ABG pH (Temp Correct) (7.35-7.45) ABG pCO2 (35-46) mmHg ABG pCO2 (Temp Corrct (35-46) mmHg ABG pO2 (80-95) mmHg POC ABG pO2 at Pt Temp ABG HCO3 (19-24) mmol/L POC ABG O2 Sat (90-95) % ABG O2 Saturation (90-95) % ABG Base Excess (-9-1.8) mEq/L Kulwant Test (Pos) VBG pH (7.36-7.41) VBG pCO2 (38-50) mmHg VBG pO2 mmHg VBG HCO3 mmol/L VBG O2 Saturation % VBG Base Excess mEq/L Barometric Pressure mm/Hg Oxygen Given O2 Delivery Device POC O2 Rate Minute Ventilation POC FiO2 % Tidal Volume PEEP POC Sodium (135-144) mmol/L Sodium (136-145) mmol/L POC Potassium (3.3-5.0) mmol/L Potassium (3.5-5.1) mmol/L Chloride (98-107) mmol/L Carbon Dioxide (21-32) mmol/L Anion Gap (3-11) BUN (7-18) mg/dl Creatinine (0.6-1.4) mg/dl Est Cr Clr Drug Dosing ml/min Est GFR ( Amer) ml/min Est GFR (Non-Af Amer) ml/min BUN/Creatinine Ratio (10-20) Glucose (70-99) mg/dl POC Glucose 360 H* (70-99) mg/dl POC Glucose (other) (70-99) mg/dl Estimat Average Glucose 171 mg/dl Hemoglobin A1c 7.6 H (4.5-5.6) % Lactate (0.4-2.0) mmol/L Calcium (8.5-10.1) mg/dl Phosphorus 3.0 (2.5-4.9) mg/dl Magnesium (1.8-2.4) mg/dl Total Bilirubin (0.2-1) mg/dl Direct Bilirubin (0-0.2) mg/dl AST (15-37) U/L ALT (12-78) U/L Alkaline Phosphatase (45-117) U/L Ammonia (11-32) umol/L Total Creatine Kinase (39-308) U/L Troponin I (0-0.045) ng/ml Total Protein (6.4-8.2) gm/dl Albumin (3.4-5.0) gm/dl Triglycerides (0-150) mg/dl Cholesterol (0-200) mg/dl LDL Cholesterol, Calc mg/dl VLDL Cholesterol, Calc mg/dl HDL Cholesterol mg/dl Cholesterol/HDL Ratio Beta-Hydroxybutyric Acd 2.81 (0.2-2.81) mg/dl Procalcitonin (0-0.5) ng/ml Specimen Hemolysis Urine Color Urine Appearance (Clear) Urine pH (4.5-7.5) Ur Specific [place] (1.000-1.030) Urine Protein (Negative) Urine Glucose (UA) (Negative) Urine Ketones (Negative) Urine Blood (Negative) Urine Nitrite (Negative) Urine Bilirubin (Negative) Urine Urobilinogen (Negative) Ur Leukocyte Esterase (Negative) Urine WBC (Auto) (0-5) /hpf Urine RBC (Auto) (0-4) /hpf U Hyaline Cast (Auto) (0-5) /lpf U Epithel Cells (Auto) (0-5) /lpf Urine Bacteria (Auto) (Negative) Nasal Screen MRSA (PCR) (Negative) Ethyl Alcohol mg/dL (0-3) mg/dl SARS-CoV-2 (PCR) (Negative) Blood Type Antibody Screen 01/06/21 01/06/21 01/06/21 Range/Units 19:54 19:49 19:11 WBC (4.8-10.8) K/uL RBC (4.7-6.1) M/uL Hgb (14.0-18.0) g/dL POC Hgb 13.3 L (14.0-18.0) g/dl Hct (42-52) % POC Hct 39 L (42-52) % MCV (80-100) fL MCH (25-34) pg MCHC (32-36) g/dL RDW Std Deviation (36.4-46.3) fL RDW Coeff of Emery (11.5-14.5) % Plt Count (130-400) K/uL MPV (7.4-10.4) fL Immature Gran % (Auto) % Neut % (Auto) % Lymph % (Auto) % [place] % (Auto) % Eos % (Auto) % Baso % (Auto) % Neut # (Auto) (1.4-6.5) K/uL Lymph # (Auto) (1.2-3.4) K/uL [place] # (Auto) (0.11-0.59) K/uL Eos # (Auto) (0-0.5) K/uL Baso # (Auto) (0-0.2) K/uL Immature Gran # (Auto) (0.00-0.02) K/uL PT (9.0-12.0) Seconds INR (0.9-1.1) APTT (21.0-31.0) Seconds PTT Ratio Sample Site POC pH 7.39 (7.35-7.45) POC pCO2 29 L (35-46) mmHg POC pO2 63 L (80-95) mmHg POC HCO3 18 L (19-24) tiki/L POC Total CO2 18 L (24-31) mmol/L POC Base Excess -8.0 (-9-1.8) tiki/L ABG pH (7.35-7.45) ABG pH (Temp Correct) (7.35-7.45) ABG pCO2 (35-46) mmHg ABG pCO2 (Temp Corrct (35-46) mmHg ABG pO2 (80-95) mmHg POC ABG pO2 at Pt Temp ABG HCO3 (19-24) mmol/L POC ABG O2 Sat 92.0 (90-95) % ABG O2 Saturation (90-95) % ABG Base Excess (-9-1.8) mEq/L Kulwant Test (Pos) VBG pH 7.26 L (7.36-7.41) VBG pCO2 45 (38-50) mmHg VBG pO2 37 mmHg VBG HCO3 20 mmol/L VBG O2 Saturation 66.1 % VBG Base Excess -7.4 mEq/L Barometric Pressure 735.6 mm/Hg Oxygen Given O2 Delivery Device POC O2 Rate Minute Ventilation POC FiO2 % Tidal Volume PEEP POC Sodium 131 L (135-144) mmol/L Sodium (136-145) mmol/L POC Potassium 3.3 (3.3-5.0) mmol/L Potassium (3.5-5.1) mmol/L Chloride (98-107) mmol/L Carbon Dioxide (21-32) mmol/L Anion Gap (3-11) BUN (7-18) mg/dl Creatinine (0.6-1.4) mg/dl Est Cr Clr Drug Dosing ml/min Est GFR ( Amer) ml/min Est GFR (Non-Af Amer) ml/min BUN/Creatinine Ratio (10-20) Glucose (70-99) mg/dl POC Glucose 443 H* (70-99) mg/dl POC Glucose (other) (70-99) mg/dl Estimat Average Glucose mg/dl Hemoglobin A1c (4.5-5.6) % Lactate (0.4-2.0) mmol/L Calcium (8.5-10.1) mg/dl Phosphorus (2.5-4.9) mg/dl Magnesium (1.8-2.4) mg/dl Total Bilirubin (0.2-1) mg/dl Direct Bilirubin (0-0.2) mg/dl AST (15-37) U/L ALT (12-78) U/L Alkaline Phosphatase (45-117) U/L Ammonia (11-32) umol/L Total Creatine Kinase (39-308) U/L Troponin I (0-0.045) ng/ml Total Protein (6.4-8.2) gm/dl Albumin (3.4-5.0) gm/dl Triglycerides (0-150) mg/dl Cholesterol (0-200) mg/dl LDL Cholesterol, Calc mg/dl VLDL Cholesterol, Calc mg/dl HDL Cholesterol mg/dl Cholesterol/HDL Ratio Beta-Hydroxybutyric Acd (0.2-2.81) mg/dl Procalcitonin (0-0.5) ng/ml Specimen Hemolysis Urine Color Urine Appearance (Clear) Urine pH (4.5-7.5) Ur Specific [place] (1.000-1.030) Urine Protein (Negative) Urine Glucose (UA) (Negative) Urine Ketones (Negative) Urine Blood (Negative) Urine Nitrite (Negative) Urine Bilirubin (Negative) Urine Urobilinogen (Negative) Ur Leukocyte Esterase (Negative) Urine WBC (Auto) (0-5) /hpf Urine RBC (Auto) (0-4) /hpf U Hyaline Cast (Auto) (0-5) /lpf U Epithel Cells (Auto) (0-5) /lpf Urine Bacteria (Auto) (Negative) Nasal Screen MRSA (PCR) (Negative) Ethyl Alcohol mg/dL (0-3) mg/dl SARS-CoV-2 (PCR) (Negative) Blood Type Antibody Screen 01/06/21 01/06/21 01/06/21 Range/Units 18:24 18:06 17:58 WBC (4.8-10.8) K/uL RBC (4.7-6.1) M/uL Hgb (14.0-18.0) g/dL POC Hgb (14.0-18.0) g/dl Hct (42-52) % POC Hct (42-52) % MCV (80-100) fL MCH (25-34) pg MCHC (32-36) g/dL RDW Std Deviation (36.4-46.3) fL RDW Coeff of Emery (11.5-14.5) % Plt Count (130-400) K/uL MPV (7.4-10.4) fL Immature Gran % (Auto) % Neut % (Auto) % Lymph % (Auto) % [place] % (Auto) % Eos % (Auto) % Baso % (Auto) % Neut # (Auto) (1.4-6.5) K/uL Lymph # (Auto) (1.2-3.4) K/uL [place] # (Auto) (0.11-0.59) K/uL Eos # (Auto) (0-0.5) K/uL Baso # (Auto) (0-0.2) K/uL Immature Gran # (Auto) (0.00-0.02) K/uL PT (9.0-12.0) Seconds INR (0.9-1.1) APTT (21.0-31.0) Seconds PTT Ratio Sample Site POC pH (7.35-7.45) POC pCO2 (35-46) mmHg POC pO2 (80-95) mmHg POC HCO3 (19-24) tiki/L POC Total CO2 (24-31) mmol/L POC Base Excess (-9-1.8) tiki/L ABG pH (7.35-7.45) ABG pH (Temp Correct) (7.35-7.45) ABG pCO2 (35-46) mmHg ABG pCO2 (Temp Corrct (35-46) mmHg ABG pO2 (80-95) mmHg POC ABG pO2 at Pt Temp ABG HCO3 (19-24) mmol/L POC ABG O2 Sat (90-95) % ABG O2 Saturation (90-95) % ABG Base Excess (-9-1.8) mEq/L [place] Test (Pos) VBG pH (7.36-7.41) VBG pCO2 (38-50) mmHg VBG pO2 mmHg VBG HCO3 mmol/L VBG O2 Saturation % VBG Base Excess mEq/L Barometric Pressure mm/Hg Oxygen Given O2 Delivery Device POC O2 Rate Minute Ventilation POC FiO2 % Tidal Volume PEEP POC Sodium (135-144) mmol/L Sodium (136-145) mmol/L POC Potassium (3.3-5.0) mmol/L Potassium (3.5-5.1) mmol/L Chloride (98-107) mmol/L Carbon Dioxide (21-32) mmol/L Anion Gap (3-11) BUN (7-18) mg/dl Creatinine (0.6-1.4) mg/dl Est Cr Clr Drug Dosing ml/min Est GFR ( Amer) ml/min Est GFR (Non-Af Amer) ml/min BUN/Creatinine Ratio (10-20) Glucose (70-99) mg/dl POC Glucose 373 H* (70-99) mg/dl POC Glucose (other) (70-99) mg/dl Estimat Average Glucose mg/dl Hemoglobin A1c (4.5-5.6) % Lactate 10.2 H* (0.4-2.0) mmol/L Calcium (8.5-10.1) mg/dl Phosphorus (2.5-4.9) mg/dl Magnesium (1.8-2.4) mg/dl Total Bilirubin (0.2-1) mg/dl Direct Bilirubin (0-0.2) mg/dl AST (15-37) U/L ALT (12-78) U/L Alkaline Phosphatase (45-117) U/L Ammonia (11-32) umol/L Total Creatine Kinase (39-308) U/L Troponin I (0-0.045) ng/ml Total Protein (6.4-8.2) gm/dl Albumin (3.4-5.0) gm/dl Triglycerides (0-150) mg/dl Cholesterol (0-200) mg/dl LDL Cholesterol, Calc mg/dl VLDL Cholesterol, Calc mg/dl HDL Cholesterol mg/dl Cholesterol/HDL Ratio Beta-Hydroxybutyric Acd 3.64 H (0.2-2.81) mg/dl Procalcitonin (0-0.5) ng/ml Specimen Hemolysis Urine Color Urine Appearance (Clear) Urine pH (4.5-7.5) Ur Specific [place] (1.000-1.030) Urine Protein (Negative) Urine Glucose (UA) (Negative) Urine Ketones (Negative) Urine Blood (Negative) Urine Nitrite (Negative) Urine Bilirubin (Negative) Urine Urobilinogen (Negative) Ur Leukocyte Esterase (Negative) Urine WBC (Auto) (0-5) /hpf Urine RBC (Auto) (0-4) /hpf U Hyaline Cast (Auto) (0-5) /lpf U Epithel Cells (Auto) (0-5) /lpf Urine Bacteria (Auto) (Negative) Nasal Screen MRSA (PCR) (Negative) Ethyl Alcohol mg/dL (0-3) mg/dl SARS-CoV-2 (PCR) (Negative) Blood Type Antibody Screen 01/06/21 01/06/21 01/06/21 Range/Units 17:58 17:58 17:58 WBC (4.8-10.8) K/uL RBC (4.7-6.1) M/uL Hgb (14.0-18.0) g/dL POC Hgb (14.0-18.0) g/dl Hct (42-52) % POC Hct (42-52) % MCV (80-100) fL MCH (25-34) pg MCHC (32-36) g/dL RDW Std Deviation (36.4-46.3) fL RDW Coeff of Emery (11.5-14.5) % Plt Count (130-400) K/uL MPV (7.4-10.4) fL Immature Gran % (Auto) % Neut % (Auto) % Lymph % (Auto) % [place] % (Auto) % Eos % (Auto) % Baso % (Auto) % Neut # (Auto) (1.4-6.5) K/uL Lymph # (Auto) (1.2-3.4) K/uL [place] # (Auto) (0.11-0.59) K/uL Eos # (Auto) (0-0.5) K/uL Baso # (Auto) (0-0.2) K/uL Immature Gran # (Auto) (0.00-0.02) K/uL PT (9.0-12.0) Seconds INR (0.9-1.1) APTT (21.0-31.0) Seconds PTT Ratio Sample Site POC pH (7.35-7.45) POC pCO2 (35-46) mmHg POC pO2 (80-95) mmHg POC HCO3 (19-24) tiki/L POC Total CO2 (24-31) mmol/L POC Base Excess (-9-1.8) tiki/L ABG pH (7.35-7.45) ABG pH (Temp Correct) (7.35-7.45) ABG pCO2 (35-46) mmHg ABG pCO2 (Temp Corrct (35-46) mmHg ABG pO2 (80-95) mmHg POC ABG pO2 at Pt Temp ABG HCO3 (19-24) mmol/L POC ABG O2 Sat (90-95) % ABG O2 Saturation (90-95) % ABG Base Excess (-9-1.8) mEq/L [place] Test (Pos) VBG pH (7.36-7.41) VBG pCO2 (38-50) mmHg VBG pO2 mmHg VBG HCO3 mmol/L VBG O2 Saturation % VBG Base Excess mEq/L Barometric Pressure mm/Hg Oxygen Given O2 Delivery Device POC O2 Rate Minute Ventilation POC FiO2 % Tidal Volume PEEP POC Sodium (135-144) mmol/L Sodium (136-145) mmol/L POC Potassium (3.3-5.0) mmol/L Potassium (3.5-5.1) mmol/L Chloride (98-107) mmol/L Carbon Dioxide (21-32) mmol/L Anion Gap (3-11) BUN (7-18) mg/dl Creatinine (0.6-1.4) mg/dl Est Cr Clr Drug Dosing ml/min Est GFR ( Amer) ml/min Est GFR (Non-Af Amer) ml/min BUN/Creatinine Ratio (10-20) Glucose (70-99) mg/dl POC Glucose (70-99) mg/dl POC Glucose (other) (70-99) mg/dl Estimat Average Glucose mg/dl Hemoglobin A1c (4.5-5.6) % Lactate (0.4-2.0) mmol/L Calcium (8.5-10.1) mg/dl Phosphorus (2.5-4.9) mg/dl Magnesium (1.8-2.4) mg/dl Total Bilirubin (0.2-1) mg/dl Direct Bilirubin (0-0.2) mg/dl AST (15-37) U/L ALT (12-78) U/L Alkaline Phosphatase (45-117) U/L Ammonia 32.0 (11-32) umol/L Total Creatine Kinase 1320 H (39-308) U/L Troponin I (0-0.045) ng/ml Total Protein (6.4-8.2) gm/dl Albumin (3.4-5.0) gm/dl Triglycerides (0-150) mg/dl Cholesterol (0-200) mg/dl LDL Cholesterol, Calc mg/dl VLDL Cholesterol, Calc mg/dl HDL Cholesterol mg/dl Cholesterol/HDL Ratio Beta-Hydroxybutyric Acd (0.2-2.81) mg/dl Procalcitonin (0-0.5) ng/ml Specimen Hemolysis Urine Color Urine Appearance (Clear) Urine pH (4.5-7.5) Ur Specific [place] (1.000-1.030) Urine Protein (Negative) Urine Glucose (UA) (Negative) Urine Ketones (Negative) Urine Blood (Negative) Urine Nitrite (Negative) Urine Bilirubin (Negative) Urine Urobilinogen (Negative) Ur Leukocyte Esterase (Negative) Urine WBC (Auto) (0-5) /hpf Urine RBC (Auto) (0-4) /hpf U Hyaline Cast (Auto) (0-5) /lpf U Epithel Cells (Auto) (0-5) /lpf Urine Bacteria (Auto) (Negative) Nasal Screen MRSA (PCR) (Negative) Ethyl Alcohol mg/dL < 3.0 (0-3) mg/dl SARS-CoV-2 (PCR) (Negative) Blood Type Antibody Screen 01/06/21 01/06/21 01/06/21 Range/Units 17:58 17:58 17:41 WBC (4.8-10.8) K/uL RBC (4.7-6.1) M/uL Hgb (14.0-18.0) g/dL POC Hgb (14.0-18.0) g/dl Hct (42-52) % POC Hct (42-52) % MCV (80-100) fL MCH (25-34) pg MCHC (32-36) g/dL RDW Std Deviation (36.4-46.3) fL RDW Coeff of Emery (11.5-14.5) % Plt Count (130-400) K/uL MPV (7.4-10.4) fL Immature Gran % (Auto) % Neut % (Auto) % Lymph % (Auto) % [place] % (Auto) % Eos % (Auto) % Baso % (Auto) % Neut # (Auto) (1.4-6.5) K/uL Lymph # (Auto) (1.2-3.4) K/uL [place] # (Auto) (0.11-0.59) K/uL Eos # (Auto) (0-0.5) K/uL Baso # (Auto) (0-0.2) K/uL Immature Gran # (Auto) (0.00-0.02) K/uL PT 13.5 H (9.0-12.0) Seconds INR 1.4 H (0.9-1.1) APTT 31.4 H (21.0-31.0) Seconds PTT Ratio 1.2 Sample Site POC pH (7.35-7.45) POC pCO2 (35-46) mmHg POC pO2 (80-95) mmHg POC HCO3 (19-24) tiki/L POC Total CO2 (24-31) mmol/L POC Base Excess (-9-1.8) tiki/L ABG pH (7.35-7.45) ABG pH (Temp Correct) (7.35-7.45) ABG pCO2 (35-46) mmHg ABG pCO2 (Temp Corrct (35-46) mmHg ABG pO2 (80-95) mmHg POC ABG pO2 at Pt Temp ABG HCO3 (19-24) mmol/L POC ABG O2 Sat (90-95) % ABG O2 Saturation (90-95) % ABG Base Excess (-9-1.8) mEq/L Kulwant Test (Pos) VBG pH (7.36-7.41) VBG pCO2 (38-50) mmHg VBG pO2 mmHg VBG HCO3 mmol/L VBG O2 Saturation % VBG Base Excess mEq/L Barometric Pressure mm/Hg Oxygen Given O2 Delivery Device POC O2 Rate Minute Ventilation POC FiO2 % Tidal Volume PEEP POC Sodium (135-144) mmol/L Sodium (136-145) mmol/L POC Potassium (3.3-5.0) mmol/L Potassium (3.5-5.1) mmol/L Chloride (98-107) mmol/L Carbon Dioxide (21-32) mmol/L Anion Gap (3-11) BUN (7-18) mg/dl Creatinine (0.6-1.4) mg/dl Est Cr Clr Drug Dosing ml/min Est GFR ( Amer) ml/min Est GFR (Non-Af Amer) ml/min BUN/Creatinine Ratio (10-20) Glucose (70-99) mg/dl POC Glucose (70-99) mg/dl POC Glucose (other) (70-99) mg/dl Estimat Average Glucose mg/dl Hemoglobin A1c (4.5-5.6) % Lactate (0.4-2.0) mmol/L Calcium (8.5-10.1) mg/dl Phosphorus (2.5-4.9) mg/dl Magnesium (1.8-2.4) mg/dl Total Bilirubin (0.2-1) mg/dl Direct Bilirubin (0-0.2) mg/dl AST (15-37) U/L ALT (12-78) U/L Alkaline Phosphatase (45-117) U/L Ammonia (11-32) umol/L Total Creatine Kinase (39-308) U/L Troponin I (0-0.045) ng/ml Total Protein (6.4-8.2) gm/dl Albumin (3.4-5.0) gm/dl Triglycerides (0-150) mg/dl Cholesterol (0-200) mg/dl LDL Cholesterol, Calc mg/dl VLDL Cholesterol, Calc mg/dl HDL Cholesterol mg/dl Cholesterol/HDL Ratio Beta-Hydroxybutyric Acd (0.2-2.81) mg/dl Procalcitonin 26.31 H (0-0.5) ng/ml Specimen Hemolysis Urine Color Dark Yellow Urine Appearance Clear (Clear) Urine pH 5.5 (4.5-7.5) Ur Specific [place] 1.038 H (1.000-1.030) Urine Protein 1+ H (Negative) Urine Glucose (UA) 3+ H (Negative) Urine Ketones 1+ H (Negative) Urine Blood 2+ H (Negative) Urine Nitrite Negative (Negative) Urine Bilirubin 1+ H (Negative) Urine Urobilinogen Negative (Negative) Ur Leukocyte Esterase Negative (Negative) Urine WBC (Auto) 1-5 (0-5) /hpf Urine RBC (Auto) 5-10 H (0-4) /hpf U Hyaline Cast (Auto) 1-5 (0-5) /lpf U Epithel Cells (Auto) 5-10 H (0-5) /lpf Urine Bacteria (Auto) Negative (Negative) Nasal Screen MRSA (PCR) (Negative) Ethyl Alcohol mg/dL (0-3) mg/dl SARS-CoV-2 (PCR) (Negative) Blood Type Antibody Screen 01/06/21 Range/Units 16:31 WBC (4.8-10.8) K/uL RBC (4.7-6.1) M/uL Hgb (14.0-18.0) g/dL POC Hgb (14.0-18.0) g/dl Hct (42-52) % POC Hct (42-52) % MCV (80-100) fL MCH (25-34) pg MCHC (32-36) g/dL RDW Std Deviation (36.4-46.3) fL RDW Coeff of Emery (11.5-14.5) % Plt Count (130-400) K/uL MPV (7.4-10.4) fL Immature Gran % (Auto) % Neut % (Auto) % Lymph % (Auto) % [place] % (Auto) % Eos % (Auto) % Baso % (Auto) % Neut # (Auto) (1.4-6.5) K/uL Lymph # (Auto) (1.2-3.4) K/uL [place] # (Auto) (0.11-0.59) K/uL Eos # (Auto) (0-0.5) K/uL Baso # (Auto) (0-0.2) K/uL Immature Gran # (Auto) (0.00-0.02) K/uL PT (9.0-12.0) Seconds INR (0.9-1.1) APTT (21.0-31.0) Seconds PTT Ratio Sample Site POC pH (7.35-7.45) POC pCO2 (35-46) mmHg POC pO2 (80-95) mmHg POC HCO3 (19-24) tiki/L POC Total CO2 (24-31) mmol/L POC Base Excess (-9-1.8) tiki/L ABG pH (7.35-7.45) ABG pH (Temp Correct) (7.35-7.45) ABG pCO2 (35-46) mmHg ABG pCO2 (Temp Corrct (35-46) mmHg ABG pO2 (80-95) mmHg POC ABG pO2 at Pt Temp ABG HCO3 (19-24) mmol/L POC ABG O2 Sat (90-95) % ABG O2 Saturation (90-95) % ABG Base Excess (-9-1.8) mEq/L Kulwant Test (Pos) VBG pH (7.36-7.41) VBG pCO2 (38-50) mmHg VBG pO2 mmHg VBG HCO3 mmol/L VBG O2 Saturation % VBG Base Excess mEq/L Barometric Pressure mm/Hg Oxygen Given O2 Delivery Device POC O2 Rate Minute Ventilation POC FiO2 % Tidal Volume PEEP POC Sodium (135-144) mmol/L Sodium (136-145) mmol/L POC Potassium (3.3-5.0) mmol/L Potassium (3.5-5.1) mmol/L Chloride (98-107) mmol/L Carbon Dioxide (21-32) mmol/L Anion Gap (3-11) BUN (7-18) mg/dl Creatinine (0.6-1.4) mg/dl Est Cr Clr Drug Dosing ml/min Est GFR ( Amer) ml/min Est GFR (Non-Af Amer) ml/min BUN/Creatinine Ratio (10-20) Glucose (70-99) mg/dl POC Glucose (70-99) mg/dl POC Glucose (other) (70-99) mg/dl Estimat Average Glucose mg/dl Hemoglobin A1c (4.5-5.6) % Lactate (0.4-2.0) mmol/L Calcium (8.5-10.1) mg/dl Phosphorus (2.5-4.9) mg/dl Magnesium (1.8-2.4) mg/dl Total Bilirubin (0.2-1) mg/dl Direct Bilirubin (0-0.2) mg/dl AST (15-37) U/L ALT (12-78) U/L Alkaline Phosphatase (45-117) U/L Ammonia (11-32) umol/L Total Creatine Kinase (39-308) U/L Troponin I (0-0.045) ng/ml Total Protein (6.4-8.2) gm/dl Albumin (3.4-5.0) gm/dl Triglycerides (0-150) mg/dl Cholesterol (0-200) mg/dl LDL Cholesterol, Calc mg/dl VLDL Cholesterol, Calc mg/dl HDL Cholesterol mg/dl Cholesterol/HDL Ratio Beta-Hydroxybutyric Acd (0.2-2.81) mg/dl Procalcitonin (0-0.5) ng/ml Specimen Hemolysis Urine Color Urine Appearance (Clear) Urine pH (4.5-7.5) Ur Specific [place] (1.000-1.030) Urine Protein (Negative) Urine Glucose (UA) (Negative) Urine Ketones (Negative) Urine Blood (Negative) Urine Nitrite (Negative) Urine Bilirubin (Negative) Urine Urobilinogen (Negative) Ur Leukocyte Esterase (Negative) Urine WBC (Auto) (0-5) /hpf Urine RBC (Auto) (0-4) /hpf U Hyaline Cast (Auto) (0-5) /lpf U Epithel Cells (Auto) (0-5) /lpf Urine Bacteria (Auto) (Negative) Nasal Screen MRSA (PCR) (Negative) Ethyl Alcohol mg/dL (0-3) mg/dl SARS-CoV-2 (PCR) NEGATIVE (Negative) Blood Type Antibody Screen Medications Administered Current Inpatient Medications Atorvastatin Calcium ([facility]atin 40 Mg Tab) [facility] Stop: 02/06/21 08:59 Last Admin: 01/07/21 11:56 Dose: 40 mg Documented by: Clopidogrel Bisulfate (Clopidogrel Bisulfate 75 Mg Tab) [facility] [place] Stop: 02/06/21 08:59 Last Admin: 01/07/21 11:56 Dose: 75 mg Documented by: Dextrose (Dextrose 50% 50 Ml Syringe) 25 - 50 ml IV UD PRN; Protocol PRN Reason: Hypoglycemia Protocol Stop: 02/05/21 19:10 Fentanyl Citrate (Fentanyl Bolus From Bag) 50 mcg IV Q60M PRN PRN Reason: Pain or Agitation Stop: 01/20/21 23:27 Last Admin: 01/07/21 08:43 Dose: 50 mcg Documented by: Glucagon (Glucagon For Inj 1 Mg Vial) 1 mg SQ UD PRN; Protocol PRN Reason: Hypoglycemia Protocol Stop: 02/05/21 19:10 Glucose (Glucose 40% Gel 15 Gm Tube) 15 - 30 gm PO UD PRN; Protocol PRN Reason: Hypoglycemia Protocol Stop: 02/05/21 19:10 Glucose (Glucose 10 Tabs/Tube) 4 - 8 tabs PO UD PRN; Protocol PRN Reason: Hypoglycemia Protocol Stop: 02/05/21 19:10 Pantoprazole Sodium 40 mg/ (Syringe) 10 mls @ 5 mls/min IV DAILY@1100 ANA MARIA Stop: 02/06/21 10:59 Last Admin: 01/07/21 11:15 Dose: 5 mls/min Documented by: Propofol (Diprivan) 1,000 mg in 100 mls @ 27.96 mls/hr IV .Q3H35M ANA MARIA; Protocol Stop: 01/09/21 23:29 Last Admin: 01/07/21 15:00 Dose: 50 mcg/kg/min, 28 mls/hr Documented by: Acetaminophen (Ofirmev) 1,000 mg in 100 mls @ 400 mls/hr IV Q8H PRN PRN Reason: Fever/Mild Pain (Pain 1,2,3) Stop: 01/09/21 23:27 Fentanyl Citrate (Fentanyl Drip) 1,250 mcg in 250 mls @ 25 mls/hr IV .Q10H ANA MARIA; Protocol Stop: 01/20/21 23:29 Last Admin: 01/07/21 13:25 Dose: 125 mcg/hr, 25 mls/hr Documented by: Parenteral Electrolytes (Normosol-R) 1,000 mls @ 80 mls/hr IV .[id number] ANA MARIA Stop: 02/06/21 00:59 Last Admin: 01/07/21 13:14 Dose: 80 mls/hr Documented by: Norepinephrine Bitartrate (Levophed/D5w) 8 mg in 508 mls @ 46.162 mls/hr IV .Q11H1M ANA MARIA; Protocol Stop: 02/06/21 01:29 Last Titration: 01/07/21 17:14 Dose: 0.15 mcg/kg/min, 53.3 mls/hr Documented by: Insulin Human Regular 250 (units/ Sodium Chloride) 250 mls @ 5 mls/hr IV .Q24H ANA MARIA; Protocol Stop: 02/06/21 06:59 Last Titration: 01/07/21 14:45 Dose: 5 units/hr, 5 mls/hr Documented by: Vancomycin HCl 1,500 mg/ (Sodium Chloride) 530 mls @ 200 mls/hr IV Q12H ANA MARIA; Protocol Stop: 01/15/21 00:00 Metronidazole (Flagyl) 500 mg in 100 mls @ 100 mls/hr IV Q8H ANA MARIA; Protocol Stop: 01/14/21 15:59 Last Infusion: 01/07/21 16:48 Dose: Infused Documented by: Cefepime HCl 2,000 mg/ Syringe 20 mls @ 5 mls/min IV Q8H ANA MARIA; Protocol Stop: 01/14/21 15:59 Last Admin: 01/07/21 15:48 Dose: 5 mls/min Documented by: Potassium Phosphate 15 mmol/ (Sodium Chloride) 255 mls @ 88 mls/hr IV ONE ONE Stop: 01/07/21 20:53 Insulin Aspart (Insulin Aspart 100 Units/Ml 3 Ml Pen) 0 units SC [facility] Stop: 02/05/21 20:59 Last Admin: 01/07/21 13:31 Dose: Not Given Documented by: Levalbuterol HCl (Levalbuterol Hcl 0.63 Mg/3 Ml Neb) 0.63 mg INH Q4H PRN PRN Reason: Dyspnea Stop: 02/05/21 23:13 Miscellaneous (Carbohydrates For Hypoglycemia ) 15 - 30 gm PO UD PRN PRN Reason: Hypoglycemia Protocol Stop: 02/05/21 19:10 Miscellaneous Information (Pharmacist Discharge Med Rec Consult) 1 ea N/A UD PRN PRN Reason: Consult Stop: 02/05/21 23:13 Miscellaneous Information (Vancomycin Consult Active) 1 ea N/A UD PRN PRN Reason: Consult Stop: 02/05/21 23:27 Miscellaneous Information (Pharmacy Glycemic Mgmt Consult) 1 ea N/A UD PRN PRN Reason: Consult Stop: 02/05/21 23:43 Miscellaneous Information (Cefepime Consult Active) 1 ea N/A UD PRN PRN Reason: Consult Stop: 02/06/21 12:37 Pneumococcal Polyvalent Vaccine (Pneumococcal Polysaccharides 25 Mcg/0.5 Ml Vial/Syr) 25 mcg IM .ONCE ONE Stop: 01/09/21 08:01 Propofol (Propofol Bolus From Bag) 20 mg IV Q5M PRN PRN Reason: Sedation Stop: 01/09/21 23:27 Last Admin: 01/07/21 09:19 Dose: 20 mg Documented by: Vecuronium [place] (Vecuronium [place] 10 Mg Vial) 10 mg IV TODAY@1200 ANA MARIA Stop: 01/07/21 23:59 Last Admin: 01/07/21 12:20 Dose: 10 mg Documented by: Resident Activity Tracking Resident Involvement: Resident Care Provided Care Provided: Adult Hospital Medicine (1) Altered mental status Altered mental status type: unspecified Qualified Code(s): R41.82 - Altered mental status, unspecified (2) Hypertension Hypertension type: essential hypertension Qualified Code(s): I10 - Essential (primary) hypertension
[2021-01-07 20:07] LABS: iSTAT Art Bld Gas pCO2 Correct 30 mmHg (35-46); iSTAT Art Bld Gas pH Corrected 7.439 (7.35-7.45); iSTAT Arterial Blood Gas HCO3 20 meg/L (19-24); iSTAT Arterial Blood Gas pCO2 32 mmHg (35-46); iSTAT Arterial Blood Gas pH 7.41 (7.35-7.45); iSTAT Arterial Blood Gas pO2 71 mmHg (80-95); iSTAT Arterial Blood Gas pO2 C 62; iSTAT Carbon Dioxide 21 mmol/L (24-31); iSTAT FiO2 60 %; iSTAT Hematocrit 37 % (42-52); iSTAT Hemoglobin 12.6 g/dl (14.0-18.0); iSTAT Potassium 3.7 mmol/L (3.3-5.0); iSTAT Site Art Line; iSTAT Sodium 132 mmol/L (135-144)
[2021-01-07 20:38] LABS: Potassium 3.8 mmol/L (3.5-5.1)
[2021-01-07 20:39] LABS: Magnesium 1.9 mg/dl (1.8-2.4)
[2021-01-07 20:40] LABS: BUN Creatinine Ratio 33.4 (10-20); Calcium 7.3 mg/dl (8.5-10.1); Creatinine Clr Calc Pharmacy 87.6 ml/min; Est GFR (African American) 92.9 ml/min; Est GFR (Non-African American) 80.2 ml/min; Phosphorus 2.1 mg/dl (2.5-4.9)
[2021-01-08 00:07] LABS: iSTAT Art Bld Gas pCO2 Correct 35 mmHg (35-46); iSTAT Art Bld Gas pH Corrected 7.407 (7.35-7.45); iSTAT Arterial Blood Gas HCO3 22 meg/L (19-24); iSTAT Arterial Blood Gas pCO2 38 mmHg (35-46); iSTAT Arterial Blood Gas pH 7.38 (7.35-7.45); iSTAT Arterial Blood Gas pO2 75 mmHg (80-95); iSTAT Arterial Blood Gas pO2 C 67; iSTAT Carbon Dioxide 24 mmol/L (24-31); iSTAT FiO2 60 %; iSTAT Hematocrit 38 % (42-52); iSTAT Hemoglobin 12.9 g/dl (14.0-18.0); iSTAT Potassium 3.8 mmol/L (3.3-5.0); iSTAT Site Art Line; iSTAT Sodium 132 mmol/L (135-144)
[2021-01-08] MEDS: INSULIN REGULAR 250 UNITS in SODIUM CHLORIDE 0.9% 247.5 ML IV SCH ×2 (01:05→17:56)
[2021-01-08] MEDS: CEFEPIME 2,000 MG in SYRINGE 0 ML IV SCH ×3 (01:19→15:30)
[2021-01-08] MEDS: VANCOMYCIN HCL 1,500 MG in SODIUM CHLORIDE 0.9% 500 ML IV SCH ×2 (01:19→11:42)
[2021-01-08] MEDS: metroNIDAZOLE 500 MG/100 ML BAG IV SCH ×3 (01:20→18:42)
[2021-01-08] MEDS: fentaNYL DRIP 1,250 MCG/250 ML BAG IV SCH ×3 (01:26→23:45)
[2021-01-08] MEDS: propofoL 1,000 MG/100 ML VIAL IV SCH ×4 (01:35→14:34)
[2021-01-08] MEDS: NORMOSOL-R 1,000 ML IV SCH ×2 (01:50→14:28)
[2021-01-08 05:00] LABS: iSTAT Art Bld Gas pCO2 Correct 33 mmHg (35-46); iSTAT Art Bld Gas pH Corrected 7.424 (7.35-7.45); iSTAT Arterial Blood Gas HCO3 22 meg/L (19-24); iSTAT Arterial Blood Gas pCO2 36 mmHg (35-46); iSTAT Arterial Blood Gas pO2 69 mmHg (80-95); iSTAT Arterial Blood Gas pO2 C 61; iSTAT Carbon Dioxide 23 mmol/L (24-31); iSTAT FiO2 60 %; iSTAT Hematocrit 36 % (42-52); iSTAT Hemoglobin 12.2 g/dl (14.0-18.0); iSTAT Potassium 3.7 mmol/L (3.3-5.0); iSTAT Site Art Line; iSTAT Sodium 132 mmol/L (135-144)
[2021-01-08 06:04] LABS: Albumin Level 2.1 gm/dl (3.4-5.0); BUN Creatinine Ratio 39.4 (10-20); Calcium 7.7 mg/dl (8.5-10.1); Creatinine Clr Calc Pharmacy 100.9 ml/min; Est GFR (African American) 106.2 ml/min; Est GFR (Non-African American) 91.6 ml/min; Magnesium 1.9 mg/dl (1.8-2.4); Phosphorus 2.5 mg/dl (2.5-4.9); Potassium 3.8 mmol/L (3.5-5.1); Total Protein 6.2 gm/dl (6.4-8.2)
[2021-01-08 06:14] LABS: INR 1.2 (0.9-1.1); Prothrombin Time 12.1 Seconds (9.0-12.0)
--- NOTE | 2021-01-08 06:20 | Critical Care Progress Note ---
Date of Service January 08, 2021 Assessment & Plan (1) Respiratory arrest: Plan: Reason Critically Ill: 65-year-old male presenting with altered mental status with concerns for acute CVA and lactic acidosis who is status post hypoxic respiratory failure with arrest resulting in cardiac arrest with successful ROSC requiring TTM therapy and close ongoing management from a respiratory/cardiac/metabolic standpoint. NEURO - CAM ICU: Unable to assess at this time. Sedation: Propofol --> consider sedation holiday / changing to Versed after neuroimaging given rising lipids - Vecuronium on-call for MRI Pain: Fentanyl gtt RASS Goal: -2 to -1 Metabolic Encephalopathy / Unresponsive * Suspect secondary to acute CVA, hyperglycemia, lactic acidosis, and component of anoxia s/p cardiac arrest * CT-H revealing of acute/subacute R BG infarct (repeat demonstrating no change) * EEG: suggestive of moderate-severe encephalopathy, no epileptiform activity * BCX: NGTD * MRI Brain with Contrast to evaluate for anoxic cerebral injury * Will add lactate CARDIAC/VASCULAR - S/P Cardiac Arrest * Secondary to profound hypoxia and associated acidemia * s/p TTM x 24 hours, now in the rewarming stage * Troponins: 0.9 --> 1.4 --> downtrended to 1.2 in the PM of 01/07 * Normal LVEF, difficult to appreciate WMAs sec to limited exam * Still requiring pressors at this time to maintain hemodynamic stability. Will ween when appropriate. * Add 25g of 25% albumin for volume expansion RESPIRATORY - VDRF * Intubated in ED - difficult sec to upper airway mass noted on video laryngoscopy * Loss of airway thereafter --> did require subsequent tracheostomy placement via emergent cricothyrotomy * s/p trach, cuff replacement on 01/07 * ABG demonstrating pH, pCO2, HCO3 stability * Chemical pneumonitis noted on bronchoscopy: see below * Continue pulmonary toilet Concern for Airway Mass * Concern for airway mass, as noted above * Not visible on CT scan or repeat * MRI - Soft Tissue Neck ordered for evaluation of airway mass * ENT consult at some point - defer for now with ongoing TTM GI/NUTRITION - Ileus vs. SBO * Abdominal exam this morning revealing +tympanic distention -- mildly improved since yesterday * KUB revealing of dilated loops of bowel s/o either ileus or developing SBO * CT-A/P demonstrating no evidence of SBO * Clamp NG - will monitor for return of bowel function Otherwise: * Add thiamine supplementation * Initiate tube feeds today * Prophylaxis: Protonix RENAL/LYTES - JAD - Improving * Likely prerenal and sec to hypovolemia and possibly degree of rhabdomyolysis * Resolving on labs - will monitor * Continue mIVF, enteral nutrition - * Lyles in place - Strict I&Os. ENDO - Hyperglycemia in setting of T2DM -- 438 on arrival * No significant anion gap -- BHB mildly elevated with +ketonuria * Likely 2/2 stress of recent illness, lactic acidosis, steroid use * Certainly could be contributory towards ongoing metabolic encephalopathy * Continue insulin gtt, appreciate pharmacy aid HEME - * Stable H&H * No obvious bleeding at this point. Will continue to monitor ID - Pneumonia vs. Pneumonitis * Visualized on bronchoscopy * CXR this AM demonstrating extensive airspace opacities concerning for PNA * Continue Zosyn, vancomycin * Continue to trend PCT and lactate * Monitor BCX LINES/IV ACCESS - - PIVs x4, LEFT Subclavian cooling catheter, LEFT Radial Arterial Line, NG Tube, Tracheostomy tube, Lyles DVT PROPHYLAXIS - SCDs Thank you for allowing us to be part of this patient's care. Please refer to Dr. Valladares's documentation for any further recommendations. (2) Cardiac arrest: (3) Acute CVA (cerebrovascular accident): (4) Altered mental status: (5) Acidosis, lactic: (6) Elevated troponin: (7) Acute hyperglycemia: (8) Elevated liver enzymes: (9) Diabetes type 2, uncontrolled: (10) Hypertension: (11) Hypertriglyceridemia: (12) Hypothyroidism, unspecified: (13) Obstructive sleep apnea: Admission and Anticipated Discharge Date Admission Date: January 06, 2021 Supervising Physician Co-Signing Physician Notes Dr. Christianson was resident physician during care of patient. I separately evaluated patient for ghosh portions of the history and the exam. I was present during the critical portion of medical decision making, and I discussed the case with the resident. I generally agree with the findings and plan. Reached goal temp at 530. Attempt to obtain MRI rule out stroke versus anoxia and neck to further evaluate for mass. Aspiration pneumonia secondary to blood products slowly improving, can have 10 mg vecuronium diamond polisher to MRI, mild hyponatremia. Still requiring vasoactive medication administration will bolus 25 g of 25% albumin for volume expansion, echocardiogram reviewed, repeat lactate, thiamine 200 mg daily, NG output has decreased we will clamp and see if he has return of bowel function ileus noted on prior imaging. Will plan for sedation holiday after neuro imaging is obtained, increase RASS goal to -1 -2 will consider transition to Versed secondary to hypertriglyceridemia and need for vasoactive. Continue to hold statin, troponins downtrending, thrombocytopenia, no heparin exposure will continue with SCDs for DVT prophylaxis I am concerned for poor prognosis Subjective Patient is now in the rewarming phase status post targeted temperature managemen t. Still requiring pressure support. Still requiring high amounts of sedation. Otherwise, no acute changes overnight. Responsiveness remains minimal. Review of Systems Review of Systems: Unobtainable due to endotracheal tube and Unobtainable due to reduced consciousness Physical Exam Physical Exam: General: Obtunded and intubated 65-year-old gentleman who is in his hospital bed. He is unarousable to verbal, tactile, or noxious stimuli. HEENT: Normocephalic atraumatic. Oral exam not achievable secondary to endotracheal tube. Otherwise see neurologic exam. Cardiac: Normal rate and regular rhythm; S1 and S2 present with no murmurs, rubs, or gallops. Pulmonary: Mechanically ventilated with ETT in place. Breath sounds are present bilaterally, no appreciable crackles or wheezes. Abdominal: Normoactive bowel sounds. Abdomen was distended and tympanic. No facial grimacing. Extremities: Upper and lower extremities are warm and well perfused. Capillary refill assessed in UE was < 3 sec. Neurologic: Pupils are sluggishly responsive to light. Minimal to absent corneal reflex. Oculocephalic reflex absent. Examination of the upper and lower extremities reveals bilateral spasticity. Reflexes in the upper and lower extremities reveal minimal reflexes today. No response to Babinski on my exam. Results & Data Results & Data ([facility]) Vital Signs (Past 12 Hours) Vital Signs Temp Temp Pulse Resp BP BP BP 01/08/21 05:27 35.1 C L 77 103/65 01/08/21 04:27 35.1 C L 76 104/66 01/08/21 04:18 24 01/08/21 03:27 35.1 C L 77 101/65 01/08/21 02:27 35.1 C L 76 96/64 L 01/08/21 02:00 79 07/15/21 01:27 35.2 C L 90 114/67 01/08/21 01:00 76 01/08/21 00:27 35.1 C L 79 120/80 01/08/21 00:00 75 01/07/21 23:58 74 24 01/07/21 23:27 34.9 C L 76 97/66 L 01/07/21 23:00 87 01/07/21 22:27 35.1 C L 75 110/74 01/07/21 22:00 77 01/07/21 21:27 35.1 C L 75 100/67 01/07/21 21:06 78 25 H 01/07/21 21:00 78 01/07/21 20:27 34.8 C L 79 97/70 L 01/07/21 20:00 35.1 C L 78 24 108/57 L 97/70 L 01/07/21 19:27 35.1 C L 76 92/68 L Pulse Ox 01/08/21 05:27 98 01/08/21 04:27 98 01/08/21 04:18 01/08/21 03:27 97 01/08/21 02:27 96 01/08/21 02:00 01/08/21 01:27 94 01/08/21 01:00 01/08/21 00:27 100 01/08/21 00:00 01/07/21 23:58 97 01/07/21 23:27 98 01/07/21 23:00 01/07/21 22:27 99 01/07/21 22:00 01/07/21 21:27 99 01/07/21 21:06 98 01/07/21 21:00 01/07/21 20:27 98 01/07/21 20:00 98 01/07/21 19:27 98 Critical Care Time I have personally spent 45 minutes of critical care time in the direct management of this patient. This is a life/limb threatening event. This includ es time spent evaluating patient, direct bedside care, chart review, placing orders, interpretation of diagnostic studies, discussion with consultants, patient, and/or family members regarding treatment decisions, as well as other required patient management activities. This time is exclusive of all separately billable procedures, and teaching time and separate from and in addition to any other critical care service time. Resident Activity Tracking Resident Involvement: Resident Care Provided Care Provided: Adult Hospital Medicine (1) Altered mental status Altered mental status type: unspecified Qualified Code(s): R41.82 - Altered mental status, unspecified (2) Hypertension Hypertension type: essential hypertension Qualified Code(s): I10 - Essential (primary) hypertension
[2021-01-08 06:21] LABS: Hematocrit (blood only) 35.6 % (42-52); Hemoglobin 12.7 g/dL (14.0-18.0); Mean Corpuscular Hemoglobin 30.2 pg (25-34); Mean Corpuscular Hgb Conc 35.7 g/dL (32-36); Mean Corpuscular Volume 84.8 fL (80-100); Mean Platelet Volume 12.1 fL (7.4-10.4); Platelet Count 69 K/uL (130-400); RDW Coefficient of Variation 16.2 % (11.5-14.5); RDW Standard Deviation 50.9 fL (36.4-46.3); White Blood Count 8.12 K/uL (4.8-10.8)
[2021-01-08 06:22] LABS: Basophils # (auto) 0.01 K/uL (0-0.2); Basophils % (auto) 0.1 %; Eosinophils # (auto) 0.04 K/uL (0-0.5); Eosinophils % (auto) 0.5 %; Immature Granulocytes # (auto) 0.18 K/uL (0.00-0.02); Immature Granulocytes % (auto) 2.2 %; Lymphocytes # (auto) 0.29 K/uL (1.2-3.4); Lymphocytes % (auto) 3.6 %; Monocytes # (auto) 0.37 K/uL (0.11-0.59); Monocytes % (auto) 4.6 %; Neutrophils # (auto) 7.23 K/uL (1.4-6.5); Toxic Vacuolation 1+
--- NOTE | 2021-01-08 07:12 | XRay Report ---
XR chest 1V portable CLINICAL HISTORY: f/u COMPARISON STUDY: Chest CT January 06, 2021. Chest radiograph January 07, 2021. FINDINGS: Tracheostomy tube is in place. Tip of nasogastric tube is below the lower aspect of this im age but at least within the proximal stomach. There is no pneumothorax. No pleural effusion is noted. Cardiomegaly is unchanged. Extensive bilateral airspace opacities have increased. IMPRESSION: 1. Progression of extensive bilateral airspace opacities which favor pneumonia. 2. Tracheostomy tube in place. ACT 112: Negative or not required by law. Electronically signed by: Neftali Brandon M.D. 01/08/2021 7:10 AM
--- NOTE | 2021-01-08 07:23 | Hospitalist Progress Note ---
Date of Service January 08, 2021 Assessment & Plan (1) Respiratory arrest: Plan: 65-year-old male presented to the emergency department with altered mental status and concerns for CVA, labs demonstrated lactic acidosis, he experienced respiratory and cardiac arrest with ROSC transferred to the ICU for hypothermia protocol and ongoing management. 1) Metabolic encephalopathy Likely multifactorial secondary to CVA, hyperglycemia, lactic acidosis, CT head demonstrating acute/subacute right basal ganglia infarct, EEG demonstrating moderate to severe encephalopathy. BCX: NGTD -MRI when hemodynamically stable 2) Status post cardiac arrest Secondary to profound hypoxia and associated acidemia. On hypothermia protocol, troponins have up trended from 0.9-1.4 downtrended to 1.2 in the PM of 01/07. Status post TTM x 24 hours, now in the rewarming stage -Requiring pressor support, wean when able 3) Ventilator dependent respiratory failure Initially intubated in the ED with a difficult to obtain airway, the airway was lost requiring subsequent trach placement, cuff replacement on 01/07. Chemical pneumonitis was noted on bronchoscopy. Additional airway mass was noted not visible on CT scan. ABG demonstrating pH, pCO2, HCO3 stability -Continue intubation wean as tolerated, continue pulmonary hygeine 4) Pulmonary aspiration and chemical pneumonitis Visualized on bronchoscopy, started on Zosyn and Vanco, switched to vanco, metronidazole, cefepime. CXR this AM demonstrating extensive airspace opacities concerning for PNA. Mild pneumothorax seen on CT chest. -Continue to trend PCT and lactate 5) Ileus versus SBO KUB demonstrating dilated loops of bowel, Abdominal exam this morning revealing +tympanic distention -- mildly improved since yesterday. CT-A/P demonstrating no evidence of SBO -Clamp NG tube, monitor for return of bowel function 6) JAD Likely prerenal and secondary to hypovolemia/rhabdo, resolving on labs -continue to monitor -continue IVF, enteral nutrition 7) Hyperglycemia with type 2 diabetes Likely related to present illness, could be contributory towards ongoing metabolic encephalopathy -On insulin GTT FENa: N.p.o., PIV's x4, left subclavian cooling catheter, left radial art line, NG tube, trach tube, Lyles Code Status: Full code DVT PPX: SCDs PT/OT: Not indicated at present Case Management: Not indicated at present Dispo: ICU (2) Cardiac arrest: (3) Acute CVA (cerebrovascular accident): (4) Altered mental status: (5) Acidosis, lactic: (6) Elevated troponin: (7) Acute hyperglycemia: (8) Elevated liver enzymes: (9) Diabetes type 2, uncontrolled: (10) Hypertension: (11) Hypertriglyceridemia: (12) Hypothyroidism, unspecified: (13) Obstructive sleep apnea: Admission and Anticipated Discharge Date Admission Date: January 06, 2021 Supervising Physician Co-Signing Physician Notes Attending attestation Pt seen and examined in concert with Dr. Brown & Sonny. In agreement with the documented findings as noted in the resident documentation with any exceptions or additions as noted here. Pt. sedated on vent via trach without apparent agitation at this time. On examination, S1/S2 nl RRR no MCG. CTAB. Abd distended with decreased bowelsounds. s/p cardiac arrest with hypotension - attempted wean today with intolerance of pressor decrease. Continue pressor management per ICU team VDRF s/p tracheostomy - ventilator management per ICU team, slight decrease in PEEP today in prep for MRI in afternoon 30 minutes spent in addition to F2F time counseling and updating family members (2 daughters, ex and her , friends). total time, 45 minutes. Else see resident documentation as noted. Subjective Patient lying in bed with trach in place, unresponsive to verbal stimuli. Lyles catheter in place. Per nurse patient has been warming wince 5:30 am, temperature spiked around 11am. Patient openned eyes once but could not follow commands. ICU attempted to ween him off pressors but failed, pressors have dev increased. Urine has been sluggish, nursing holding off feeding NGT today and stopped suction, says abd looks a bit smaller today. Awaiting MRI results. Acute concerns related to prognosis. Review of Systems Review of Systems: Unobtainable due to endotracheal tube Results & Data Results & Data ([facility]) Vital Signs (Past 12 Hours) Vital Signs Temp Temp Pulse Resp BP BP BP 01/08/21 05:27 35.1 C L 77 103/65 01/08/21 04:27 35.1 C L 76 104/66 01/08/21 04:18 24 01/08/21 03:27 35.1 C L 77 101/65 01/08/21 02:27 35.1 C L 76 96/64 L 01/08/21 02:00 79 01/08/21 01:27 35.2 C L 90 114/67 01/08/21 01:00 76 01/08/21 00:27 35.1 C L 79 120/80 01/08/21 00:00 75 01/07/21 23:58 74 24 01/07/21 23:27 34.9 C L 76 97/66 L 01/07/21 23:00 87 01/07/21 22:27 35.1 C L 75 110/74 01/07/21 22:00 77 01/07/21 21:27 35.1 C L 75 100/67 01/07/21 21:06 78 25 H 01/07/21 21:00 78 01/07/21 20:27 34.8 C L 79 97/70 L 01/07/21 20:00 35.1 C L 78 24 108/57 L 97/70 L 01/07/21 19:27 35.1 C L 76 92/68 L Pulse Ox 01/08/21 05:27 98 01/08/21 04:27 98 01/08/21 04:18 01/08/21 03:27 97 01/08/21 02:27 96 01/08/21 02:00 01/08/21 01:27 94 01/08/21 01:00 01/08/21 00:27 100 01/08/21 00:00 01/07/21 23:58 97 01/07/21 23:27 98 01/07/21 23:00 01/07/21 22:27 99 01/07/21 22:00 01/07/21 21:27 99 01/07/21 21:06 98 01/07/21 21:00 01/07/21 20:27 98 01/07/21 20:00 98 01/07/21 19:27 98 Laboratory Results 01/08/21 01/08/21 01/08/21 Range/Units 14:28 12:30 11:33 WBC (4.8-10.8) K/uL RBC (4.7-6.1) M/uL Hgb (14.0-18.0) g/dL POC Hgb (14.0-18.0) g/dl Hct (42-52) % POC Hct (42-52) % MCV (80-100) fL MCH (25-34) pg MCHC (32-36) g/dL RDW Std Deviation (36.4-46.3) fL RDW Coeff of Emery (11.5-14.5) % Plt Count (130-400) K/uL MPV (7.4-10.4) fL Immature Gran % (Auto) % Neut % (Auto) % Lymph % (Auto) % [place] % (Auto) % Eos % (Auto) % Baso % (Auto) % Neut # (Auto) (1.4-6.5) K/uL Lymph # (Auto) (1.2-3.4) K/uL [place]ins # (Auto) (0.11-0.59) K/uL Eos # (Auto) (0-0.5) K/uL Baso # (Auto) (0-0.2) K/uL Immature Gran # (Auto) (0.00-0.02) K/uL Toxic Vacuolation PT (9.0-12.0) Seconds INR (0.9-1.1) Sample Site POC pH (7.35-7.45) POC pCO2 (35-46) mmHg POC pO2 (80-95) mmHg POC HCO3 (19-24) tiki/L POC Total CO2 (24-31) mmol/L POC Base Excess (-9-1.8) tiki/L ABG pH (Temp Correct) (7.35-7.45) ABG pCO2 (Temp Corrct (35-46) mmHg POC ABG pO2 at Pt Temp POC ABG O2 Sat (90-95) % Kulwant Test O2 Delivery Device POC O2 Rate POC FiO2 % Tidal Volume PEEP POC Sodium (135-144) mmol/L Sodium (136-145) mmol/L POC Potassium (3.3-5.0) mmol/L Potassium (3.5-5.1) mmol/L Chloride (98-107) mmol/L Carbon Dioxide (21-32) mmol/L Anion Gap (3-11) BUN (7-18) mg/dl Creatinine (0.6-1.4) mg/dl Est Cr Clr Drug Dosing ml/min Est GFR ( Amer) ml/min Est GFR (Non-Af Amer) ml/min BUN/Creatinine Ratio (10-20) Glucose (70-99) mg/dl POC Glucose (other) 144 H 137 H 136 H (70-99) mg/dl Lactate Calcium (8.5-10.1) mg/dl Phosphorus (2.5-4.9) mg/dl Magnesium (1.8-2.4) mg/dl Total Bilirubin (0.2-1) mg/dl Direct Bilirubin (0-0.2) mg/dl AST (15-37) U/L ALT (12-78) U/L Alkaline Phosphatase (45-117) U/L Total Creatine Kinase (39-308) U/L Total Protein (6.4-8.2) gm/dl Albumin (3.4-5.0) gm/dl Procalcitonin (0-0.5) ng/ml Random Cortisol mcg/dl Vancomycin Trough (See Comment) mcg/ml 01/08/21 01/08/21 01/08/21 Range/Units 11:30 10:36 10:33 WBC (4.8-10.8) K/uL RBC (4.7-6.1) M/uL Hgb (14.0-18.0) g/dL POC Hgb (14.0-18.0) g/dl Hct (42-52) % POC Hct (42-52) % MCV (80-100) fL MCH (25-34) pg MCHC (32-36) g/dL RDW Std Deviation (36.4-46.3) fL RDW Coeff of Emery (11.5-14.5) % Plt Count (130-400) K/uL MPV (7.4-10.4) fL Immature Gran % (Auto) % Neut % (Auto) % Lymph % (Auto) % [place]ins % (Auto) % Eos % (Auto) % Baso % (Auto) % Neut # (Auto) (1.4-6.5) K/uL Lymph # (Auto) (1.2-3.4) K/uL [place]ins # (Auto) (0.11-0.59) K/uL Eos # (Auto) (0-0.5) K/uL Baso # (Auto) (0-0.2) K/uL Immature Gran # (Auto) (0.00-0.02) K/uL Toxic Vacuolation PT (9.0-12.0) Seconds INR (0.9-1.1) Sample Site POC pH (7.35-7.45) POC pCO2 (35-46) mmHg POC pO2 (80-95) mmHg POC HCO3 (19-24) tiki/L POC Total CO2 (24-31) mmol/L POC Base Excess (-9-1.8) tiki/L ABG pH (Temp Correct) (7.35-7.45) ABG pCO2 (Temp Corrct (35-46) mmHg POC ABG pO2 at Pt Temp POC ABG O2 Sat (90-95) % Kulwant Test O2 Delivery Device POC O2 Rate POC FiO2 % Tidal Volume PEEP POC Sodium (135-144) mmol/L Sodium (136-145) mmol/L POC Potassium (3.3-5.0) mmol/L Potassium (3.5-5.1) mmol/L Chloride (98-107) mmol/L Carbon Dioxide (21-32) mmol/L Anion Gap (3-11) BUN (7-18) mg/dl Creatinine (0.6-1.4) mg/dl Est Cr Clr Drug Dosing ml/min Est GFR ( Amer) ml/min Est GFR (Non-Af Amer) ml/min BUN/Creatinine Ratio (10-20) Glucose (70-99) mg/dl POC Glucose (other) 130 H (70-99) mg/dl Lactate Cancelled Calcium (8.5-10.1) mg/dl Phosphorus (2.5-4.9) mg/dl Magnesium (1.8-2.4) mg/dl Total Bilirubin (0.2-1) mg/dl Direct Bilirubin (0-0.2) mg/dl AST (15-37) U/L ALT (12-78) U/L Alkaline Phosphatase (45-117) U/L Total Creatine Kinase (39-308) U/L Total Protein (6.4-8.2) gm/dl Albumin (3.4-5.0) gm/dl Procalcitonin (0-0.5) ng/ml Random Cortisol mcg/dl Vancomycin Trough 20.6 (See Comment) mcg/ml 01/08/21 01/08/21 01/08/21 Range/Units 09:32 08:32 04:52 WBC (4.8-10.8) K/uL RBC (4.7-6.1) M/uL Hgb (14.0-18.0) g/dL POC Hgb (14.0-18.0) g/dl Hct (42-52) % POC Hct (42-52) % MCV (80-100) fL MCH (25-34) pg MCHC (32-36) g/dL RDW Std Deviation (36.4-46.3) fL RDW Coeff of Emery (11.5-14.5) % Plt Count (130-400) K/uL MPV (7.4-10.4) fL Immature Gran % (Auto) % Neut % (Auto) % Lymph % (Auto) % [place]ins % (Auto) % Eos % (Auto) % Baso % (Auto) % Neut # (Auto) (1.4-6.5) K/uL Lymph # (Auto) (1.2-3.4) K/uL Raw[place]ins # (Auto) (0.11-0.59) K/uL Eos # (Auto) (0-0.5) K/uL Baso # (Auto) (0-0.2) K/uL Immature Gran # (Auto) (0.00-0.02) K/uL Toxic Vacuolation PT (9.0-12.0) Seconds INR (0.9-1.1) Sample Site POC pH (7.35-7.45) POC pCO2 (35-46) mmHg POC pO2 (80-95) mmHg POC HCO3 (19-24) tiki/L POC Total CO2 (24-31) mmol/L POC Base Excess (-9-1.8) tiki/L ABG pH (Temp Correct) (7.35-7.45) ABG pCO2 (Temp Corrct (35-46) mmHg POC ABG pO2 at Pt Temp POC ABG O2 Sat (90-95) % Kulwant Test O2 Delivery Device POC O2 Rate POC FiO2 % Tidal Volume PEEP POC Sodium (135-144) mmol/L Sodium (136-145) mmol/L POC Potassium (3.3-5.0) mmol/L Potassium (3.5-5.1) mmol/L Chloride (98-107) mmol/L Carbon Dioxide (21-32) mmol/L Anion Gap (3-11) BUN (7-18) mg/dl Creatinine (0.6-1.4) mg/dl Est Cr Clr Drug Dosing ml/min Est GFR ( Amer) ml/min Est GFR (Non-Af Amer) ml/min BUN/Creatinine Ratio (10-20) Glucose (70-99) mg/dl POC Glucose (other) 126 H 131 H 145 H (70-99) mg/dl Lactate Calcium (8.5-10.1) mg/dl Phosphorus (2.5-4.9) mg/dl Magnesium (1.8-2.4) mg/dl Total Bilirubin (0.2-1) mg/dl Direct Bilirubin (0-0.2) mg/dl AST (15-37) U/L ALT (12-78) U/L Alkaline Phosphatase (45-117) U/L Total Creatine Kinase (39-308) U/L Total Protein (6.4-8.2) gm/dl Albumin (3.4-5.0) gm/dl Procalcitonin (0-0.5) ng/ml Random Cortisol mcg/dl Vancomycin Trough (See Comment) mcg/ml 01/08/21 01/08/21 01/08/21 Range/Units 04:44 04:44 04:44 WBC (4.8-10.8) K/uL RBC (4.7-6.1) M/uL Hgb (14.0-18.0) g/dL POC Hgb (14.0-18.0) g/dl Hct (42-52) % POC Hct (42-52) % MCV (80-100) fL MCH (25-34) pg MCHC (32-36) g/dL RDW Std Deviation (36.4-46.3) fL RDW Coeff of Emery (11.5-14.5) % Plt Count (130-400) K/uL MPV (7.4-10.4) fL Immature Gran % (Auto) % Neut % (Auto) % Lymph % (Auto) % [place] % (Auto) % Eos % (Auto) % Baso % (Auto) % Neut # (Auto) (1.4-6.5) K/uL Lymph # (Auto) (1.2-3.4) K/uL Raw[place]ins # (Auto) (0.11-0.59) K/uL Eos # (Auto) (0-0.5) K/uL Baso # (Auto) (0-0.2) K/uL Immature Gran # (Auto) (0.00-0.02) K/uL Toxic Vacuolation PT 12.1 H (9.0-12.0) Seconds INR 1.2 H (0.9-1.1) Sample Site POC pH (7.35-7.45) POC pCO2 (35-46) mmHg POC pO2 (80-95) mmHg POC HCO3 (19-24) tiki/L POC Total CO2 (24-31) mmol/L POC Base Excess (-9-1.8) tiki/L ABG pH (Temp Correct) (7.35-7.45) ABG pCO2 (Temp Corrct (35-46) mmHg POC ABG pO2 at Pt Temp POC ABG O2 Sat (90-95) % Kulwant Test O2 Delivery Device POC O2 Rate POC FiO2 % Tidal Volume PEEP POC Sodium (135-144) mmol/L Sodium (136-145) mmol/L POC Potassium (3.3-5.0) mmol/L Potassium (3.5-5.1) mmol/L Chloride (98-107) mmol/L Carbon Dioxide (21-32) mmol/L Anion Gap (3-11) BUN (7-18) mg/dl Creatinine (0.6-1.4) mg/dl Est Cr Clr Drug Dosing ml/min Est GFR ( Amer) ml/min Est GFR (Non-Af Amer) ml/min BUN/Creatinine Ratio (10-20) Glucose (70-99) mg/dl POC Glucose (other) (70-99) mg/dl Lactate Calcium (8.5-10.1) mg/dl Phosphorus (2.5-4.9) mg/dl Magnesium (1.8-2.4) mg/dl Total Bilirubin (0.2-1) mg/dl Direct Bilirubin (0-0.2) mg/dl AST (15-37) U/L ALT (12-78) U/L Alkaline Phosphatase (45-117) U/L Total Creatine Kinase (39-308) U/L Total Protein (6.4-8.2) gm/dl Albumin (3.4-5.0) gm/dl Procalcitonin 28.24 H (0-0.5) ng/ml Random Cortisol 30.43 mcg/dl Vancomycin Trough (See Comment) mcg/ml 01/08/21 01/08/21 01/08/21 Range/Units 04:44 04:44 04:17 WBC 8.12 (4.8-10.8) K/uL RBC 4.20 L (4.7-6.1) M/uL Hgb 12.7 L (14.0-18.0) g/dL POC Hgb 12.2 L (14.0-18.0) g/dl Hct 35.6 L (42-52) % POC Hct 36 L (42-52) % MCV 84.8 (80-100) fL MCH 30.2 (25-34) pg MCHC 35.7 (32-36) g/dL RDW Std Deviation 50.9 H (36.4-46.3) fL RDW Coeff of Emery 16.2 H (11.5-14.5) % Plt Count 69 L (130-400) K/uL MPV 12.1 H (7.4-10.4) fL Immature Gran % (Auto) 2.2 % Neut % (Auto) 89.0 % Lymph % (Auto) 3.6 % Rawlins % (Auto) 4.6 % Eos % (Auto) 0.5 % Baso % (Auto) 0.1 % Neut # (Auto) 7.23 H (1.4-6.5) K/uL Lymph # (Auto) 0.29 L (1.2-3.4) K/uL Rawlins # (Auto) 0.37 (0.11-0.59) K/uL Eos # (Auto) 0.04 (0-0.5) K/uL Baso # (Auto) 0.01 (0-0.2) K/uL Immature Gran # (Auto) 0.18 H (0.00-0.02) K/uL Toxic Vacuolation 1+ PT (9.0-12.0) Seconds INR (0.9-1.1) Sample Site Art Line POC pH 7.40 (7.35-7.45) POC pCO2 36 (35-46) mmHg POC pO2 69 L (80-95) mmHg POC HCO3 22 (19-24) tiki/L POC Total CO2 23 L (24-31) mmol/L POC Base Excess -3.0 (-9-1.8) tiki/L ABG pH (Temp Correct) 7.424 (7.35-7.45) ABG pCO2 (Temp Corrct 33 L (35-46) mmHg POC ABG pO2 at Pt Temp 61 POC ABG O2 Sat 94.0 (90-95) % Kulwant Test NA O2 Delivery Device Ventilator POC O2 Rate 24 POC FiO2 60 % Tidal Volume 550 PEEP 12 POC Sodium 132 L (135-144) mmol/L Sodium 132 L (136-145) mmol/L POC Potassium 3.7 (3.3-5.0) mmol/L Potassium 3.8 (3.5-5.1) mmol/L Chloride 103 (98-107) mmol/L Carbon Dioxide 22 (21-32) mmol/L Anion Gap 7.0 (3-11) BUN 34 H (7-18) mg/dl Creatinine 0.86 (0.6-1.4) mg/dl Est Cr Clr Drug Dosing 100.9 ml/min Est GFR ( Amer) 106.2 ml/min Est GFR (Non-Af Amer) 91.6 ml/min BUN/Creatinine Ratio 39.4 H (10-20) Glucose 147 H (70-99) mg/dl POC Glucose (other) (70-99) mg/dl Lactate Calcium 7.7 L (8.5-10.1) mg/dl Phosphorus 2.5 (2.5-4.9) mg/dl Magnesium 1.9 (1.8-2.4) mg/dl Total Bilirubin 2.0 H (0.2-1) mg/dl Direct Bilirubin 1.0 H (0-0.2) mg/dl AST 316 H (15-37) U/L ALT 100 H (12-78) U/L Alkaline Phosphatase 82 (45-117) U/L Total Creatine Kinase 626 H (39-308) U/L Total Protein 6.2 L (6.4-8.2) gm/dl Albumin 2.1 L (3.4-5.0) gm/dl Procalcitonin (0-0.5) ng/ml Random Cortisol mcg/dl Vancomycin Trough (See Comment) mcg/ml 01/08/21 01/07/21 01/07/21 Range/Units 01:01 23:53 22:57 WBC (4.8-10.8) K/uL RBC (4.7-6.1) M/uL Hgb (14.0-18.0) g/dL POC Hgb 12.9 L (14.0-18.0) g/dl Hct (42-52) % POC Hct 38 L (42-52) % MCV (80-100) fL MCH (25-34) pg MCHC (32-36) g/dL RDW Std Deviation (36.4-46.3) fL RDW Coeff of Emery (11.5-14.5) % Plt Count (130-400) K/uL MPV (7.4-10.4) fL Immature Gran % (Auto) % Neut % (Auto) % Lymph % (Auto) % [place] % (Auto) % Eos % (Auto) % Baso % (Auto) % Neut # (Auto) (1.4-6.5) K/uL Lymph # (Auto) (1.2-3.4) K/uL [place] # (Auto) (0.11-0.59) K/uL Eos # (Auto) (0-0.5) K/uL Baso # (Auto) (0-0.2) K/uL Immature Gran # (Auto) (0.00-0.02) K/uL Toxic Vacuolation PT (9.0-12.0) Seconds INR (0.9-1.1) Sample Site Art Line POC pH 7.38 (7.35-7.45) POC pCO2 38 (35-46) mmHg POC pO2 75 L (80-95) mmHg POC HCO3 22 (19-24) tiki/L POC Total CO2 24 (24-31) mmol/L POC Base Excess -3.0 (-9-1.8) tiki/L ABG pH (Temp Correct) 7.407 (7.35-7.45) ABG pCO2 (Temp Corrct 35 (35-46) mmHg POC ABG pO2 at Pt Temp 67 POC ABG O2 Sat 95.0 (90-95) % Kulwant Test NA O2 Delivery Device Ventilator POC O2 Rate 24 POC FiO2 60 % Tidal Volume 550 PEEP 12 POC Sodium 132 L (135-144) mmol/L Sodium (136-145) mmol/L POC Potassium 3.8 (3.3-5.0) mmol/L Potassium (3.5-5.1) mmol/L Chloride (98-107) mmol/L Carbon Dioxide (21-32) mmol/L Anion Gap (3-11) BUN (7-18) mg/dl Creatinine (0.6-1.4) mg/dl Est Cr Clr Drug Dosing ml/min Est GFR ( Amer) ml/min Est GFR (Non-Af Amer) ml/min BUN/Creatinine Ratio (10-20) Glucose (70-99) mg/dl POC Glucose (other) 151 H 158 H (70-99) mg/dl Lactate Calcium (8.5-10.1) mg/dl Phosphorus (2.5-4.9) mg/dl Magnesium (1.8-2.4) mg/dl Total Bilirubin (0.2-1) mg/dl Direct Bilirubin (0-0.2) mg/dl AST (15-37) U/L ALT (12-78) U/L Alkaline Phosphatase (45-117) U/L Total Creatine Kinase (39-308) U/L Total Protein (6.4-8.2) gm/dl Albumin (3.4-5.0) gm/dl Procalcitonin (0-0.5) ng/ml Random Cortisol mcg/dl Vancomycin Trough (See Comment) mcg/ml 01/07/21 01/07/21 01/07/21 Range/Units 20:44 19:53 19:28 WBC (4.8-10.8) K/uL RBC (4.7-6.1) M/uL Hgb (14.0-18.0) g/dL POC Hgb 12.6 L (14.0-18.0) g/dl Hct (42-52) % POC Hct 37 L (42-52) % MCV (80-100) fL MCH (25-34) pg MCHC (32-36) g/dL RDW Std Deviation (36.4-46.3) fL RDW Coeff of Emery (11.5-14.5) % Plt Count (130-400) K/uL MPV (7.4-10.4) fL Immature Gran % (Auto) % Neut % (Auto) % Lymph % (Auto) % [place] % (Auto) % Eos % (Auto) % Baso % (Auto) % Neut # (Auto) (1.4-6.5) K/uL Lymph # (Auto) (1.2-3.4) K/uL [place] # (Auto) (0.11-0.59) K/uL Eos # (Auto) (0-0.5) K/uL Baso # (Auto) (0-0.2) K/uL Immature Gran # (Auto) (0.00-0.02) K/uL Toxic Vacuolation PT (9.0-12.0) Seconds INR (0.9-1.1) Sample Site Art Line POC pH 7.41 (7.35-7.45) POC pCO2 32 L (35-46) mmHg POC pO2 71 L (80-95) mmHg POC HCO3 20 (19-24) tiki/L POC Total CO2 21 L (24-31) mmol/L POC Base Excess -4.0 (-9-1.8) tiki/L ABG pH (Temp Correct) 7.439 (7.35-7.45) ABG pCO2 (Temp Corrct 30 L (35-46) mmHg POC ABG pO2 at Pt Temp 62 POC ABG O2 Sat 94.0 (90-95) % Kulwant Test NA O2 Delivery Device Ventilator POC O2 Rate 26 POC FiO2 60 % Tidal Volume 550 PEEP 12 POC Sodium 132 L (135-144) mmol/L Sodium 132 L (136-145) mmol/L POC Potassium 3.7 (3.3-5.0) mmol/L Potassium 3.8 (3.5-5.1) mmol/L Chloride 101 (98-107) mmol/L Carbon Dioxide 22 (21-32) mmol/L Anion Gap 8.0 (3-11) BUN 33 H (7-18) mg/dl Creatinine 0.99 (0.6-1.4) mg/dl Est Cr Clr Drug Dosing 87.6 ml/min Est GFR ( Amer) 92.9 ml/min Est GFR (Non-Af Amer) 80.2 ml/min BUN/Creatinine Ratio 33.4 H (10-20) Glucose 163 H (70-99) mg/dl POC Glucose (other) 159 H (70-99) mg/dl Lactate Calcium 7.3 L (8.5-10.1) mg/dl Phosphorus 2.1 L (2.5-4.9) mg/dl Magnesium 1.9 (1.8-2.4) mg/dl Total Bilirubin (0.2-1) mg/dl Direct Bilirubin (0-0.2) mg/dl AST (15-37) U/L ALT (12-78) U/L Alkaline Phosphatase (45-117) U/L Total Creatine Kinase (39-308) U/L Total Protein (6.4-8.2) gm/dl Albumin (3.4-5.0) gm/dl Procalcitonin (0-0.5) ng/ml Random Cortisol mcg/dl Vancomycin Trough (See Comment) mcg/ml 01/07/21 01/07/21 01/07/21 Range/Units 18:46 16:57 16:22 WBC (4.8-10.8) K/uL RBC (4.7-6.1) M/uL Hgb (14.0-18.0) g/dL POC Hgb (14.0-18.0) g/dl Hct (42-52) % POC Hct (42-52) % MCV (80-100) fL MCH (25-34) pg MCHC (32-36) g/dL RDW Std Deviation (36.4-46.3) fL RDW Coeff of Emery (11.5-14.5) % Plt Count (130-400) K/uL MPV (7.4-10.4) fL Immature Gran % (Auto) % Neut % (Auto) % Lymph % (Auto) % [place] % (Auto) % Eos % (Auto) % Baso % (Auto) % Neut # (Auto) (1.4-6.5) K/uL Lymph # (Auto) (1.2-3.4) K/uL [place]ins # (Auto) (0.11-0.59) K/uL Eos # (Auto) (0-0.5) K/uL Baso # (Auto) (0-0.2) K/uL Immature Gran # (Auto) (0.00-0.02) K/uL Toxic Vacuolation PT (9.0-12.0) Seconds INR (0.9-1.1) Sample Site POC pH (7.35-7.45) POC pCO2 (35-46) mmHg POC pO2 (80-95) mmHg POC HCO3 (19-24) tiki/L POC Total CO2 (24-31) mmol/L POC Base Excess (-9-1.8) tiki/L ABG pH (Temp Correct) (7.35-7.45) ABG pCO2 (Temp Corrct (35-46) mmHg POC ABG pO2 at Pt Temp POC ABG O2 Sat (90-95) % Kulwant Test O2 Delivery Device POC O2 Rate POC FiO2 % Tidal Volume PEEP POC Sodium (135-144) mmol/L Sodium (136-145) mmol/L POC Potassium (3.3-5.0) mmol/L Potassium (3.5-5.1) mmol/L Chloride (98-107) mmol/L Carbon Dioxide (21-32) mmol/L Anion Gap (3-11) BUN (7-18) mg/dl Creatinine (0.6-1.4) mg/dl Est Cr Clr Drug Dosing ml/min Est GFR ( Amer) ml/min Est GFR (Non-Af Amer) ml/min BUN/Creatinine Ratio (10-20) Glucose (70-99) mg/dl POC Glucose (other) 163 H 166 H Cancelled (70-99) mg/dl Lactate Calcium (8.5-10.1) mg/dl Phosphorus (2.5-4.9) mg/dl Magnesium (1.8-2.4) mg/dl Total Bilirubin (0.2-1) mg/dl Direct Bilirubin (0-0.2) mg/dl AST (15-37) U/L ALT (12-78) U/L Alkaline Phosphatase (45-117) U/L Total Creatine Kinase (39-308) U/L Total Protein (6.4-8.2) gm/dl Albumin (3.4-5.0) gm/dl Procalcitonin (0-0.5) ng/ml Random Cortisol mcg/dl Vancomycin Trough (See Comment) mcg/ml 01/07/21 01/07/21 01/07/21 Range/Units 16:22 14:56 13:42 WBC (4.8-10.8) K/uL RBC (4.7-6.1) M/uL Hgb (14.0-18.0) g/dL POC Hgb (14.0-18.0) g/dl Hct (42-52) % POC Hct (42-52) % MCV (80-100) fL MCH (25-34) pg MCHC (32-36) g/dL RDW Std Deviation (36.4-46.3) fL RDW Coeff of Emery (11.5-14.5) % Plt Count (130-400) K/uL MPV (7.4-10.4) fL Immature Gran % (Auto) % Neut % (Auto) % Lymph % (Auto) % [place] % (Auto) % Eos % (Auto) % Baso % (Auto) % Neut # (Auto) (1.4-6.5) K/uL Lymph # (Auto) (1.2-3.4) K/uL [place] # (Auto) (0.11-0.59) K/uL Eos # (Auto) (0-0.5) K/uL Baso # (Auto) (0-0.2) K/uL Immature Gran # (Auto) (0.00-0.02) K/uL Toxic Vacuolation PT (9.0-12.0) Seconds INR (0.9-1.1) Sample Site POC pH (7.35-7.45) POC pCO2 (35-46) mmHg POC pO2 (80-95) mmHg POC HCO3 (19-24) tiki/L POC Total CO2 (24-31) mmol/L POC Base Excess (-9-1.8) tiki/L ABG pH (Temp Correct) (7.35-7.45) ABG pCO2 (Temp Corrct (35-46) mmHg POC ABG pO2 at Pt Temp POC ABG O2 Sat (90-95) % Kulwant Test O2 Delivery Device POC O2 Rate POC FiO2 % Tidal Volume PEEP POC Sodium (135-144) mmol/L Sodium (136-145) mmol/L POC Potassium (3.3-5.0) mmol/L Potassium (3.5-5.1) mmol/L Chloride (98-107) mmol/L Carbon Dioxide (21-32) mmol/L Anion Gap (3-11) BUN (7-18) mg/dl Creatinine (0.6-1.4) mg/dl Est Cr Clr Drug Dosing ml/min Est GFR ( Amer) ml/min Est GFR (Non-Af Amer) ml/min BUN/Creatinine Ratio (10-20) Glucose (70-99) mg/dl POC Glucose (other) 168 H 172 H 177 H (70-99) mg/dl Lactate Calcium (8.5-10.1) mg/dl Phosphorus (2.5-4.9) mg/dl Magnesium (1.8-2.4) mg/dl Total Bilirubin (0.2-1) mg/dl Direct Bilirubin (0-0.2) mg/dl AST (15-37) U/L ALT (12-78) U/L Alkaline Phosphatase (45-117) U/L Total Creatine Kinase (39-308) U/L Total Protein (6.4-8.2) gm/dl Albumin (3.4-5.0) gm/dl Procalcitonin (0-0.5) ng/ml Random Cortisol mcg/dl Vancomycin Trough (See Comment) mcg/ml Medications Administered Current Inpatient Medications Atorvastatin Calcium (Atorvastatin 40 Mg Tab) 40 mg PO QAM [facility] Stop: 02/06/21 08:59 Last Admin: 01/08/21 08:39 Dose: 40 mg Documented by: Clopidogrel Bisulfate (Clopidogrel Bisulfate 75 Mg Tab) 75 mg PO QAM [facility] Stop: 02/06/21 08:59 Last Admin: 01/08/21 08:39 Dose: 75 mg Documented by: Dextrose (Dextrose 50% 50 Ml Syringe) 25 - 50 ml IV UD PRN; Protocol PRN Reason: Hypoglycemia Protocol Stop: 02/05/21 19:10 Fentanyl Citrate (Fentanyl Bolus From Bag) 50 mcg IV Q60M PRN PRN Reason: Pain or Agitation Stop: 01/20/21 23:27 Last Admin: 01/07/21 08:43 Dose: 50 mcg Documented by: Glucagon (Glucagon For Inj 1 Mg Vial) 1 mg SQ UD PRN; Protocol PRN Reason: Hypoglycemia Protocol Stop: 02/05/21 19:10 Glucose (Glucose 40% Gel 15 Gm Tube) 15 - 30 gm PO UD PRN; Protocol PRN Reason: Hypoglycemia Protocol Stop: 02/05/21 19:10 Glucose (Glucose 10 Tabs/Tube) 4 - 8 tabs PO UD PRN; Protocol PRN Reason: Hypoglycemia Protocol Stop: 02/05/21 19:10 Pantoprazole Sodium 40 mg/ (Syringe) 10 mls @ 5 mls/min IV DAILY@1100 ANA MARIA Stop: 02/06/21 10:59 Last Admin: 01/08/21 10:52 Dose: 5 mls/min Documented by: Propofol (Diprivan) 1,000 mg in 100 mls @ 16.776 mls/hr IV .[id number] ANA MARIA; Protocol Stop: 01/09/21 23:29 Last Admin: 01/08/21 14:34 Dose: 30 mcg/kg/min, 16.8 mls/hr Documented by: Acetaminophen (Ofirmev) 1,000 mg in 100 mls @ 400 mls/hr IV Q8H PRN PRN Reason: Fever/Mild Pain (Pain 1,2,3) Stop: 01/09/21 23:27 Last Infusion: 01/08/21 13:08 Dose: Infused Documented by: Fentanyl Citrate (Fentanyl Drip) 1,250 mcg in 250 mls @ 10 mls/hr IV .Q25H ANA MARIA; Protocol Stop: 01/20/21 23:29 Last Titration: 01/08/21 14:01 Dose: 50 mcg/hr, 10 mls/hr Documented by: Parenteral Electrolytes (Normosol-R) 1,000 mls @ 80 mls/hr IV .[id number] [facility] Stop: 02/06/21 00:59 Last Admin: 01/08/21 14:28 Dose: 80 mls/hr Documented by: Norepinephrine Bitartrate (Levophed/D5w) 8 mg in 508 mls @ 67.467 mls/hr IV .Q7H32M ANA MARIA; Protocol Stop: 02/06/21 01:29 Last Titration: 01/08/21 17:54 Dose: 0.19 mcg/kg/min, 67.5 mls/hr Documented by: Insulin Human Regular 250 (units/ Sodium Chloride) 250 mls @ 3.2 mls/hr IV .Q24H ANA MARIA; Protocol Stop: 02/06/21 06:59 Last Admin: 01/08/21 17:56 Dose: 3.2 units/hr, 3.2 mls/hr Documented by: Metronidazole (Flagyl) 500 mg in 100 mls @ 100 mls/hr IV Q8H ANA MARIA; Protocol Stop: 01/14/21 15:59 Last Infusion: 01/08/21 09:06 Dose: Infused Documented by: Cefepime HCl 2,000 mg/ Syringe 20 mls @ 5 mls/min IV Q8H [facility]; Protocol Stop: 01/14/21 15:59 Last Admin: 01/08/21 15:30 Dose: 5 mls/min Documented by: Thiamine HCl 200 mg/ Sodium (Chloride) 52 mls @ 208 mls/hr IV QAM ANA MARIA Stop: 02/08/21 08:59 Vancomycin HCl 1,000 mg/ (Sodium Chloride) 270 mls @ 180 mls/hr IV Q12H [facility] Stop: 01/15/21 05:59 Insulin Aspart (Insulin Aspart 100 Units/Ml 3 Ml Pen) 0 units SC ACHS [facility] Stop: 02/05/21 20:59 Last Admin: 01/08/21 11:49 Dose: Not Given Documented by: Levalbuterol HCl (Levalbuterol Hcl 0.63 Mg/3 Ml Neb) 0.63 mg INH Q4H PRN PRN Reason: Dyspnea Stop: 02/05/21 23:13 Miscellaneous (Carbohydrates For Hypoglycemia ) 15 - 30 gm PO UD PRN PRN Reason: Hypoglycemia Protocol Stop: 02/05/21 19:10 Miscellaneous Information (Pharmacist Discharge Med Rec Consult) 1 ea N/A UD PRN PRN Reason: Consult Stop: 02/05/21 23:13 Miscellaneous Information (Vancomycin Consult Active) 1 ea N/A UD PRN PRN Reason: Consult Stop: 02/05/21 23:27 Miscellaneous Information (Pharmacy Glycemic Mgmt Consult) 1 ea N/A UD PRN PRN Reason: Consult Stop: 02/05/21 23:43 Miscellaneous Information (Cefepime Consult Active) 1 ea N/A UD PRN PRN Reason: Consult Stop: 02/06/21 12:37 Pneumococcal Polyvalent Vaccine (Pneumococcal Polysaccharides 25 Mcg/0.5 Ml Vial/Syr) 25 mcg IM .ONCE ONE Stop: 01/09/21 08:01 Propofol (Propofol Bolus From Bag) 20 mg IV Q5M PRN PRN Reason: Sedation Stop: 01/09/21 23:27 Last Admin: 01/07/21 09:19 Dose: 20 mg Documented by: Resident Activity Tracking Resident Involvement: Resident Care Provided Care Provided: Adult Hospital Medicine (1) Altered mental status Altered mental status type: unspecified Qualified Code(s): R41.82 - Altered mental status, unspecified (2) Hypertension Hypertension type: essential hypertension Qualified Code(s): I10 - Essential (primary) hypertension
[2021-01-08] MEDS: NOREPINEPHRINE/D5W 8 MG/508 ML BAG IV SCH ×2 (07:59→21:12)
[2021-01-08] MEDS: CLOPIDOGREL BISULFATE 75 MG TAB PO SCH (08:39)
[2021-01-08] MEDS: ATORVASTATIN 40 MG TAB PO SCH (08:39)
[2021-01-08] MEDS: INSULIN ASPART 100 UNITS/ML 3 ML PEN SC SCH ×4 (08:42→21:02)
--- NOTE | 2021-01-08 10:20 | Billing Data ---
Date of Service January 08, 2021 Coding Level of Care Code Critical Care 1st -74 mins
[2021-01-08] MEDS ORDERED: VECURONIUM BROMIDE 10 MG VIAL IV STA (10:23)
[2021-01-08] MEDS: PANTOprazole 40 MG in SYRINGE 0 ML IV SCH (10:52)
[2021-01-08] MEDS: ALBUMIN 25% 12.5 GM/50 ML VIAL IV SCH ×2 (10:53→11:42)
[2021-01-08] MEDS ORDERED: VANCOMYCIN TROUGH ONE (11:30)
--- NOTE | 2021-01-08 12:45 | Pharmacy Report ---
Pharmacy Glycemic Short Note 2 - Date of Service January 08, 2021 - Glycemic Short BSG Results (Last 24 hours): 01/07/21 01/07/21 01/07/21 12:54 13:42 14:56 Glucose 182 H POC Glucose (other) 177 H 172 H 01/07/21 01/07/21 01/07/21 16:00 16:22 16:22 Glucose 171 H POC Glucose (other) 168 H Cancelled 01/07/21 01/07/21 01/07/21 16:57 18:46 19:28 Glucose 163 H POC Glucose (other) 166 H 163 H 01/07/21 01/07/21 01/08/21 20:44 22:57 01:01 Glucose POC Glucose (other) 159 H 158 H 151 H 01/08/21 01/08/21 01/08/21 04:44 04:52 08:32 Glucose 147 H POC Glucose (other) 145 H 131 H 01/08/21 01/08/21 01/08/21 09:32 10:36 11:33 Glucose POC Glucose (other) 126 H 130 H 136 H OUTPATIENT ANTIDIABETIC REGIMEN: * Novolog pump * Tresiba 140 units SC prn pump failure ASSESSMENT: 01/08 * BSGs well controlled with insulin drip at this time * Patient remains intubated, sedated, and requiring pressor support. No tube feeds planned today given pressor requirements and lactate * Rewarming completed this AM * Suspect insulin requirements will decrease today due to rewarming and decreasing pressor requirements. K currently 3.8 * Insulin drip remains the standard of care however given critical illness and multiple factors affecting insulin resistance 01/07 * 65 yo M presented to ED on 01/06 with AMS now s/p respiratory failure/arrest, cardiac arrest w ROSC, currently undergoing TTM in ICU. * Initially concern for DKA with acidosis, slight anion gap of 12. However, metabolic derangements are not likely 2nd DKA and anion gap has closed [id number]. OK to adjust goal range and dextrose infusion not required at this time * Norepinephrine requirement currently 0.13 mcg/kg/min * Patient is on an insulin drip which is reasonable. No attempt to transition to basal/bolus as this time per discussion at ICU rounds PLAN FOR INPATIENT GLYCEMIC CONTROL: * Basal insulin - none * Continue IV insulin infusion, goal range to 140-180 mg/dL
[2021-01-08] MEDS: ACETAMINOPHEN 1,000 MG/100 ML VIAL IV PRN (12:53)
--- NOTE | 2021-01-08 13:02 | Pharmacy Report ---
Pharmacy Abx Dose Short Note - Date of Service January 08, 2021 - Assessment & Plan Assessment * 65 year old M receiving cefepime, metronidazole, and vancomycin for treatment of pneumonia vs pneumonitis, neck mass * Day 2 of abx therapy * MRSA nasal swab negative, making MRSA pulm infxn unlikely * CXR read as "Progression of extensive bilateral airspace opacities which favor pneumonia" * No resp cx's obtained * BLCXs: currently no growth to date * Renal fxn improving. Still dependent on norepi for pressor support. MAPs have been > 65 however UOP has been poor (< 0.5mL/kg/hr) Plan Vancomycin * Trough level of 20.6 mcg/mL is slightly supratherapeutic. Prior dose was hung ~1.5 hrs late however. This level was obtained prior to steady-state however thus I am included to reduce the dose especially in light of poor UOP thus far today * Change to 1000 mg IV every 12 hours - next dose tomorrow at 0600 * Will obtain trough level with 3rd or 4th dose of new regimen in therapy to continue Cefepime * eCrCl > 60, continue 2gm IV Q 8 hours Pharmacy will continue to follow and will adjust dose/frequency as necessary. Thank you.
--- NOTE | 2021-01-08 13:49 | Electrocardiogram Report ---
Test Reason : Blood Pressure : / mmHG Vent. Rate : 075 BPM Atrial Rate : 075 BPM P-R Int : 158 ms QRS Dur : 098 ms QT Int : 504 ms P-R-T Axes : 041 -32 036 degrees QTc Int : 562 ms Normal sinus rhythm Left axis deviation Incomplete right bundle branch block T wave abnormality, consider anterolateral ischemia Prolonged QT Abnormal ECG When compared with ECG of 07-JAN-2021 12:11, T wave inversion more evident in Anterolateral leads QT has lengthened Confirmed by Joni Pack ([id number]) on 01/08/2021 1:48:42 PM Referred By: REFERRED SELF Confirmed By:Jean Pack
--- NOTE | 2021-01-08 13:52 | Electrocardiogram Report ---
Test Reason : Blood Pressure : / mmHG Vent. Rate : 077 BPM Atrial Rate : 077 BPM P-R Int : 160 ms QRS Dur : 090 ms QT Int : 464 ms P-R-T Axes : 042 -32 044 degrees QTc Int : 525 ms Normal sinus rhythm Left axis deviation Prolonged QT Abnormal ECG When compared with ECG of 07-JAN-2021 16:37, (unconfirmed) No significant change was found Confirmed by Joni Pack ([id number] on 01/08/2021 1:52:13 PM Referred By: REFERRED SELF Confirmed By:Jean Pack
--- NOTE | 2021-01-08 16:39 | Electrocardiogram Report ---
Test Reason : Blood Pressure : / mmHG Vent. Rate : 082 BPM Atrial Rate : 082 BPM P-R Int : 174 ms QRS Dur : 088 ms QT Int : 422 ms P-R-T Axes : 052 -35 047 degrees QTc Int : 493 ms Sinus rhythm with Premature atrial complexes Left axis deviation Abnormal ECG When compared with ECG of 07-JAN-2021 20:22, (unconfirmed) Premature atrial complexes are now Present Confirmed by Joni Pack ([id number]) on 01/08/2021 4:39:18 PM Referred By: REFERRED SELF Confirmed By:Jean Pack
--- NOTE | 2021-01-08 16:44 | Electrocardiogram Report ---
Test Reason : Blood Pressure : / mmHG Vent. Rate : 077 BPM Atrial Rate : 077 BPM P-R Int : 166 ms QRS Dur : 098 ms QT Int : 494 ms P-R-T Axes : 050 -32 066 degrees QTc Int : 559 ms Sinus rhythm with Premature atrial complexes Left axis deviation Incomplete right bundle branch block T wave abnormality, consider anterior ischemia Prolonged QT Abnormal ECG When compared with ECG of 08-JAN-2021 00:32, (unconfirmed) QT has lengthened Confirmed by Joni Pack ([id number]) on 01/08/2021 4:43:53 PM Referred By: REFERRED SELF Confirmed By:Jean Pack
[2021-01-08] MEDS ORDERED: GADOBUTROL 65ML VIAL IV ONE (17:12)
--- NOTE | 2021-01-08 18:14 | Magnetic Resonance Report ---
Brain MRI WITH AND WITHOUT CONTRAST HISTORY: Altered mental status. eval for anoxic cerebral injury *w/ contrast* TECHNIQUE: Multiplanar multisequence MRI of the brain was performed both before and after the intrave nous administration of contrast. COMPARISON STUDY: Head CT 01/07/2021. FINDINGS: There is no mass, hematoma, midline shift, or acute infarct. The paranasal sinuses are dee r. The mastoid air cells are clear. The ventricles and sulci demonstrate mild age-related involutiona l changes. Scattered foci of T2 hyperintensity seen within the periventricular and subcortical white matter are nonspecific but suggestive of mild microvascular ischemic changes. The major vascular flow voids at the skull base are well-maintained. Trace fluid levels within the paranasal sinuses and sma ll bilateral mastoid effusions. There is fluid and a left-sided nasogastric tube which is partially v isualized in the nasopharynx. Small linear focus of enhancement within the right posterior frontal lo be favors a developmental venous anomaly. This is considered to be a normal variant. Otherwise, no ab normal enhancement within the brain. IMPRESSION: 1. No acute infarct. 2. No acute intracranial hemorrhage. 3. Sinus disease as described above likely secondary to the nasogastric tube. ACT 112: Negative or not required by law. Electronically signed by: Álvaro Carson M.D. 01/08/2021 6:13 PM
--- NOTE | 2021-01-08 18:42 | Magnetic Resonance Report ---
MR soft tissue neck wo/w con HISTORY: Difficulty intubating. Assess for neck mass. TECHNIQUE: Multiplanar multisequence MRI of the neck was performed both before and after the intraven ous administration of 9.4 cc of Gadavist contrast. COMPARISON STUDY: None. FINDINGS: There is a 2.9 x 2.9 x 1.8 cm well-circumscribed lobular mass within the right side of the vallecula/epiglottis. This results in up to 70 % narrowing of the airway at this location. This new l esion does not appear to extend beyond the mucosal lining of the hypopharynx at this level. The parap haryngeal fat spaces are maintained. There is a nasogastric tube traversing posterior to this lesion. A tracheostomy tube is in good position. The lung apices demonstrate posterior consolidation. No cer vical lymphadenopathy. The thyroid gland enhances normally. No suspicious osseous lesions identified. IMPRESSION: 1. A 2.9 x 2.9 x 1.8 cm well-circumscribed lobular mass within the right side of the vallecula/epiglo ttis. This results in up to 70% narrowing of the airway at this location. 2. These findings were called/faxed to the referring physician following dictation. ACT 112: Negative or not required by law. Electronically signed by: Álvaro Carson M.D. 01/08/2021 6:40 PM
[2021-01-08] MEDS ORDERED: MIDAZOLAM BOLUS FROM BAG IV PRN (19:07)
[2021-01-08] MEDS ORDERED: STAT IV Infusion **Titration per Protocol STA (19:07)
[2021-01-08] MEDS ORDERED: MIDAZOLAM HCL 125 MG/250 ML BAG IV SCH (19:15)
[2021-01-09] MEDS: CEFEPIME 2,000 MG in SYRINGE 0 ML IV SCH ×2 (00:03→08:48)
[2021-01-09] MEDS: metroNIDAZOLE 500 MG/100 ML BAG IV SCH ×2 (00:09→08:49)
[2021-01-09] MEDS: NORMOSOL-R 1,000 ML IV SCH ×2 (02:34→13:57)
[2021-01-09 05:17] LABS: iSTAT Art Bld Gas pCO2 Correct 45 mmHg (35-46); iSTAT Art Bld Gas pH Corrected 7.317 (7.35-7.45); iSTAT Arterial Blood Gas HCO3 23 meg/L (19-24); iSTAT Arterial Blood Gas pCO2 45 mmHg (35-46); iSTAT Arterial Blood Gas pH 7.32 (7.35-7.45); iSTAT Arterial Blood Gas pO2 62 mmHg (80-95); iSTAT Arterial Blood Gas pO2 C 62; iSTAT Carbon Dioxide 24 mmol/L (24-31); iSTAT FiO2 60 %; iSTAT Hematocrit 34 % (42-52); iSTAT Hemoglobin 11.6 g/dl (14.0-18.0); iSTAT Potassium 4.3 mmol/L (3.3-5.0); iSTAT Site Art Line; iSTAT Sodium 131 mmol/L (135-144)
[2021-01-09 05:51] LABS: Mean Corpuscular Hgb Conc 33.8 g/dL (32-36)
[2021-01-09] MEDS ORDERED: VANCOMYCIN HCL 1,000 MG in SODIUM CHLORIDE 0.9% 250 ML IV SCH (06:00)
[2021-01-09 06:13] LABS: Hematocrit (blood only) 34.6 % (42-52); Hemoglobin 11.7 g/dL (14.0-18.0); Mean Corpuscular Hemoglobin 29.9 pg (25-34); Mean Corpuscular Volume 88.5 fL (80-100); RDW Coefficient of Variation 16.7 % (11.5-14.5); RDW Standard Deviation 54.6 fL (36.4-46.3); Red Blood Count 3.91 M/uL (4.7-6.1); White Blood Count 9.04 K/uL (4.8-10.8)
--- NOTE | 2021-01-09 06:14 | Critical Care Progress Note ---
Date of Service January 09, 2021 Assessment & Plan (1) Respiratory arrest: Plan: Reason Critically Ill: 65-year-old male presenting with altered mental status with concerns for acute CVA and lactic acidosis who is status post hypoxic respiratory failure with arrest resulting in cardiac arrest with successful ROSC requiring TTM therapy and close ongoing management from a respiratory/cardiac/metabolic standpoint. NEURO - CAM ICU: Unable to assess at this time. Sedation: Will attempt discontinuation Pain: Fentanyl pushes prn RASS Goal: -2 to -1 Metabolic Encephalopathy / Unresponsive * Suspect secondary to acute CVA, hyperglycemia, lactic acidosis * CT-H revealing of acute/subacute R BG infarct (repeat demonstrating no change) * EEG: suggestive of moderate-severe encephalopathy, no epileptiform activity * BCX: NGTD * MRI Brain (01/08) unrevealing for anoxic brain injury, hemorrhage, or acute infarct * Will add lactate CARDIAC/VASCULAR - S/P Cardiac Arrest * Secondary to profound hypoxia and associated acidemia * s/p TTM, rewarming * Troponins: 0.9 --> 1.4 --> downtrended to 1.2 in the PM of 01/07 * Normal LVEF, difficult to appreciate WMAs sec to limited exam Shock * Still requiring pressors at this time to maintain hemodynamic stability. Will ween when appropriate. * Add 25g of 25% albumin for volume expansion RESPIRATORY - VDRF * Intubated in ED - difficult sec to upper airway mass noted on video laryngoscopy * Loss of airway thereafter --> did require subsequent tracheostomy placement via emergent cricothyrotomy * s/p trach, cuff replacement on 01/07 * Trial discontinuation of ventilation and sedatives * Chemical pneumonitis noted on bronchoscopy: see below * Continue pulmonary toilet * Consider further bronchoscopy if no improvement Epiglottal Mass * Concern for airway mass, as noted above - c/f tonsillar carcinoma * Not visible on CT scan or repeat * MRI revealing of well-circumscribed lobular mass within R vallecula/epiglottis, resulting in 70% stenosis of the airway * ENT consulted - anticipate bronchoscopy with possible surgical resection -- Will hold Plavix -- Anticipate procedure next week GI/NUTRITION - Ileus vs. SBO * Abdominal exam this morning revealing +tympanic distention -- mildly improved since yesterday * KUB revealing of dilated loops of bowel s/o either ileus or developing SBO * CT-A/P demonstrating no evidence of SBO * Enteral nutrition per nutrition via NGT Otherwise: * Thiamine supplementation * Prophylaxis: Protonix RENAL/LYTES - JAD - Improving * Likely prerenal and sec to hypovolemia and possibly degree of rhabdomyolysis * Resolving on labs - will monitor * Continue mIVF, enteral nutrition - * Lyles in place - Strict I&Os. ENDO - Hyperglycemia in setting of T2DM -- 438 on arrival * No significant anion gap -- BHB mildly elevated with +ketonuria * Likely 2/2 stress of recent illness, lactic acidosis, steroid use * Certainly could be contributory towards ongoing metabolic encephalopathy * Transition to insulin SQ HEME - * Stable H&H * No obvious bleeding at this point. Will continue to monitor ID - Pneumonitis * Pneumonitis visualized on initial bronchoscopy * CXR this AM demonstrating extensive airspace opacities - likely pneumonitis * Discontinue cefepime, vancomycin LINES/IV ACCESS - - PIVs x4, LEFT Subclavian cooling catheter, LEFT Radial Arterial Line, NG Tube, Tracheostomy tube, Lyles DVT PROPHYLAXIS - Lovenox 40mg daily Thank you for allowing us to be part of this patient's care. Please refer to Dr. Valladares's documentation for any further recommendations. (2) Cardiac arrest: (3) Acute CVA (cerebrovascular accident): (4) Altered mental status: (5) Acidosis, lactic: (6) Elevated troponin: (7) Acute hyperglycemia: (8) Elevated liver enzymes: (9) Diabetes type 2, uncontrolled: (10) Hypertension: (11) Hypertriglyceridemia: (12) Hypothyroidism, unspecified: (13) Obstructive sleep apnea: Admission and Anticipated Discharge Date Admission Date: January 06, 2021 Supervising Physician Co-Signing Physician Notes Dr. Christianson was resident physician during care of patient. I separately evaluated patient for ghosh portions of the history and the exam. I was present during the critical portion of medical decision making, and I discussed the case with the resident. I generally agree with the findings and plan. Discontinuing Plavix plan to go to the operating room, at this point the patient has a secure airway we can allow him to wake up and evaluate his mental status. Transition to subcu insulin will hold on feeding until the patient is awake will need NG feeding tube. Needs evaluation of mass and possible cricothyrotomy revision prior to decannulation of airway. Discontinue all antibiotics no obvious source of infection at this time. Lovenox 40 mg daily DVT prophylaxis. Patient required lavage overnight for clots removed from bronchial tree. We are continuing to decrease ventilator requirements if this stalls we may need a bronchoscopy. I have personally spent 45 minutes of critical care time in the direct management of this patient. This is a life/limb threatening event. This includes time spent evaluating patient, direct bedside care, chart review, placing orders, interpretation of diagnostic studies, discussion with consultants, patient, and/or family members regarding treatment decisions, as w ell as other required patient management activities. This time is exclusive of all separately billable procedures, and teaching time and separate from and in addition to any other critical care service time. Subjective Overnight, patient did have a hypoxic event which he desaturated into the fifties, he subsequently underwent respiratory lavage and suction which revealed clotted blood in the airway. Thereafter, he saturated without difficulty. No other events. Patient is still unresponsive to verbal, tactile, and painful stimuli. Review of Systems Review of Systems: Unobtainable due to endotracheal tube and Unobtainable due to reduced consciousness Physical Exam Physical Exam: General: Obtunded and intubated 65-year-old gentleman who is in his hospital bed. He is unarousable to verbal, tactile, or noxious stimuli. HEENT: Normocephalic atraumatic. Oral exam not achievable secondary to endotracheal tube. Otherwise see neurologic exam. Cardiac: Normal rate and regular rhythm; S1 and S2 present with no murmurs, rubs, or gallops. Pulmonary: Mechanically ventilated with ETT in place. Breath sounds are present bilaterally, no appreciable crackles or wheezes. Abdominal: Normoactive bowel sounds. Abdomen was distended and tympanic. No facial grimacing. Extremities: Upper and lower extremities are warm and well perfused. Capillary refill assessed in UE was < 3 sec. Neurologic: Pupils are sluggishly responsive to light. Minimal to absent corneal reflex. Oculocephalic reflex absent. Examination of the upper and lower extremities reveals bilateral spasticity. Reflexes in the upper and lower extremities reveal minimal reflexes today. Results & Data Results & Data ([facility]) Vital Signs (Past 12 Hours) Vital Signs Temp Pulse Resp BP Pulse Ox 01/09/21 03:46 98 H 26 H 89 L 01/09/21 03:13 36.8 C 99 H 109/62 90 01/09/21 02:43 37.1 C 99 H 106/58 L 92 01/09/21 02:13 37.0 C 102 H 142/73 H 89 L 01/09/21 01:43 37.0 C 100 H 119/59 L 89 L 01/09/21 01:13 37.1 C 102 H 125/71 89 L 01/09/21 00:45 102 H 01/09/21 00:43 36.7 C 98 H 115/61 89 L 01/09/21 00:13 37.2 C 102 H 110/59 L 89 L 01/08/21 23:43 36.6 C 99 H 116/63 90 01/08/21 23:13 101 H 100/56 L 93 01/08/21 22:43 103 H 119/61 90 01/08/21 22:19 102 H 24 88 L 01/08/21 22:13 99 H 113/61 90 01/08/21 21:43 101 H 116/60 93 01/08/21 21:13 97 H 101/56 L 94 01/08/21 20:40 104 H 92 01/08/21 20:35 105 H 91 01/08/21 20:30 105 H 90 01/08/21 20:25 106 H 90 01/08/21 20:20 106 H 90 01/08/21 20:15 107 H 89 L 01/08/21 20:10 108 H 92 01/08/21 20:05 106 H 96 01/08/21 20:01 103 H 25 H 91 01/08/21 20:00 37.2 C 107 H 90 01/08/21 19:55 104 H 91 01/08/21 19:50 105 H 89 L 01/08/21 19:45 103 H 90 01/08/21 19:40 99 H 97 01/08/21 19:35 103 H 93 01/08/21 19:30 99 H 93 01/08/21 19:25 98 H 93 01/08/21 19:20 97 H 93 01/08/21 19:15 98 H 93 01/08/21 19:10 98 H 92 01/08/21 19:05 99 H 92 01/08/21 19:00 99 H 92 Resident Activity Tracking Resident Involvement: Resident Care Provided Care Provided: Adult Hospital Medicine (1) Altered mental status Altered mental status type: unspecified Qualified Code(s): R41.82 - Altered mental status, unspecified (2) Hypertension Hypertension type: essential hypertension Qualified Code(s): I10 - Essential (primary) hypertension
[2021-01-09 06:18] LABS: Platelet Count 63 K/uL (130-400)
[2021-01-09 06:20] LABS: Basophils # (auto) 0.02 K/uL (0-0.2); Basophils % (auto) 0.2 %; Immature Granulocytes # (auto) 0.03 K/uL (0.00-0.02); Immature Granulocytes % (auto) 0.3 %; Lymphocytes # (auto) 0.22 K/uL (1.2-3.4); Lymphocytes % (auto) 2.4 %; Monocytes # (auto) 0.48 K/uL (0.11-0.59); Monocytes % (auto) 5.3 %; Neutrophils # (auto) 8.29 K/uL (1.4-6.5); Neutrophils % (auto) 91.8 %; Platelet Estimate Decreased (Normal); Toxic Vacuolation 2+
--- NOTE | 2021-01-09 07:18 | Hospitalist Progress Note ---
Date of Service January 09, 2021 Assessment & Plan (1) Respiratory arrest: Plan: 65-year-old male presented to the emergency department with altered mental status and concerns for CVA, labs demonstrated lactic acidosis, he experienced respiratory and cardiac arrest with ROSC transferred to the ICU for hypothermia protocol and ongoing management. 1) Metabolic encephalopathy Likely multifactorial secondary to CVA, hyperglycemia, lactic acidosis, CT head demonstrating acute/subacute right basal ganglia infarct, EEG demonstrating moderate to severe encephalopathy. BCX: NGTD. MRI Brain (01/08) unrevealing for anoxic brain injury, hemorrhage, or acute infarct -lactate pending 2) Status post cardiac arrest Secondary to profound hypoxia and associated acidemia. On hypothermia protocol, troponins have up trended from 0.9-1.4 downtrended to 1.2 in the PM of 01/07. Status post TTM, currently in rewarming stage. Normal LVEF, difficult to appreciate WMAs sec to limited exam. -Requiring pressor support, wean when able 3) Ventilator dependent respiratory failure Initially intubated in the ED with a difficult to obtain airway, the airway was lost requiring subsequent trach placement, cuff replacement on 01/07. Chemical pneumonitis was noted on bronchoscopy. Additional airway mass was noted not visible on CT scan. ABG demonstrating pH, pCO2, HCO3 stability -Trial discontinuation of sedatives and ventillation, currently on CPAP -continue pulmonary hygeine 4.) Epiglottal Mass Concern for airway mass, as noted above - c/f tonsillar carcinoma, not visible on CT scan or repeat. MRI revealing of well-circumscribed lobular mass within R vallecula/epiglottis, resulting in 70% stenosis of the airway. ENT consulted - anticipate bronchoscopy with possible surgical resection, recommended tracheostomy - Anticipate procedure next week 5) Pulmonary aspiration and chemical pneumonitis Visualized on bronchoscopy, started on Zosyn and Vanco, switched to vanco, metronidazole, cefepime. CXR this AM demonstrating extensive airspace opacities concerning for PNA. Mild pneumothorax seen on CT chest. -cefepime vancomycin discontinued 01/09/21, currently no abx 5) Ileus versus SBO KUB demonstrating dilated loops of bowel, Abdominal exam this morning revealing +tympanic distention -- mildly improved since yesterday. CT-A/P demonstrating no evidence of SBO -continue enteral nutrition per NGT 6) JAD Likely prerenal and secondary to hypovolemia/rhabdo, resolving on labs -continue to monitor -continue IVF, enteral nutrition 7) Hyperglycemia with type 2 diabetes Likely related to present illness, could be contributory towards ongoing metabolic encephalopathy. Was on insulin GTT -transition to insulin SQ FENa: N.p.o., PIV's x4, left subclavian cooling catheter, left radial art line, NG tube, trach tube, Lyles Code Status: Full code DVT PPX: SCDs PT/OT: Not indicated at present Case Management: Not indicated at present Dispo: ICU (2) Cardiac arrest: (3) Acute CVA (cerebrovascular accident): (4) Altered mental status: (5) Acidosis, lactic: (6) Elevated troponin: (7) Acute hyperglycemia: (8) Elevated liver enzymes: (9) Diabetes type 2, uncontrolled: (10) Hypertension: (11) Hypertriglyceridemia: (12) Hypothyroidism, unspecified: (13) Obstructive sleep apnea: Admission and Anticipated Discharge Date Admission Date: January 06, 2021 Supervising Physician Co-Signing Physician Notes I saw the patient independent of the resident physician and confirmed ghosh portions of the history and physical examination. Also discussed the case with the critical care team who has primary care of this patient while he remains in the intensive care unit. Family medicine service continues to follow. Subjective Patient lying in bed with trach in place, unresponsive to verbal stimuli. Lyles catheter in place. Overnight had a hypoxic event, desaturated into the 50's, respiratory lavage and suction revealed clotted blood in airway. Patient saturated without difficulty afterwards. Have been seen by ENT regarding neck mass, surgery for trach change planned for next week. ICU met with family today to discuss patient case.. Review of Systems Review of Systems: Unobtainable due to endotracheal tube Physical Exam Physical Exam: Intubated lying in bed unarousable Constitutional: + obese and + mechanically ventilated Neck: + tracheostomy present (is currently cricothyrotomy) Respiratory: Auscultation: lungs clear to auscultation bilaterally; no crackles, no rales, no rhonchi and no wheezes Mechanically vented Cardiovascular: RRR, no murmur, no edema Heart Sounds: normal S1 and normal S2; no gallop, no murmur and no cardiac rub Gastrointestinal (Abdomen): Inspection/Auscultation: + abdomen distended; + abnormal bowel sounds (not heard) Percussion/Palpation: + abdomen firm Results & Data Results & Data ([facility]) Vital Signs (Past 12 Hours) Vital Signs Temp Pulse Resp BP Pulse Ox 01/09/21 06:13 37.0 C 99 H 115/61 90 01/09/21 05:43 37.1 C 102 H 118/60 89 L 01/09/21 05:13 36.9 C 100 H 115/59 L 89 L 01/09/21 04:43 37.2 C 102 H 120/62 90 01/09/21 04:13 36.9 C 99 H 115/58 L 88 L 01/09/21 03:46 98 H 26 H 89 L 01/09/21 03:43 37.3 C 99 H 117/62 89 L 01/09/21 03:13 36.8 C 99 H 109/62 90 01/09/21 02:43 37.1 C 99 H 106/58 L 92 01/09/21 02:13 37.0 C 102 H 142/73 H 89 L 01/09/21 01:43 37.0 C 100 H 119/59 L 89 L 01/09/21 01:13 37.1 C 102 H 125/71 89 L 01/09/21 00:45 102 H 01/09/21 00:43 36.7 C 98 H 115/61 89 L 01/09/21 00:13 37.2 C 102 H 110/59 L 89 L 01/08/21 23:43 36.6 C 99 H 116/63 90 01/08/21 23:13 101 H 100/56 L 93 01/08/21 22:43 103 H 119/61 90 01/08/21 22:19 102 H 24 88 L 01/08/21 22:13 99 H 113/61 90 01/08/21 21:43 101 H 116/60 93 01/08/21 21:13 97 H 101/56 L 94 01/08/21 20:40 104 H 92 01/08/21 20:35 105 H 91 01/08/21 20:30 105 H 90 01/08/21 20:25 106 H 90 01/08/21 20:20 106 H 90 01/08/21 20:15 107 H 89 L 01/08/21 20:10 108 H 92 01/08/21 20:05 106 H 96 01/08/21 20:01 103 H 25 H 91 01/08/21 20:00 37.2 C 107 H 90 01/08/21 19:55 104 H 91 01/08/21 19:50 105 H 89 L 01/08/21 19:45 103 H 90 01/08/21 19:40 99 H 97 01/08/21 19:35 103 H 93 01/08/21 19:30 99 H 93 01/08/21 19:25 98 H 93 01/08/21 19:20 97 H 93 Laboratory Results 01/09/21 01/09/21 01/09/21 Range/Units 14:04 11:52 10:45 WBC (4.8-10.8) K/uL RBC (4.7-6.1) M/uL Hgb (14.0-18.0) g/dL POC Hgb (14.0-18.0) g/dl Hct (42-52) % POC Hct (42-52) % MCV (80-100) fL MCH (25-34) pg MCHC (32-36) g/dL RDW Std Deviation (36.4-46.3) fL RDW Coeff of Emery (11.5-14.5) % Plt Count (130-400) K/uL Immature Gran % (Auto) % Neut % (Auto) % Lymph % (Auto) % [place] % (Auto) % Eos % (Auto) % Baso % (Auto) % Neut # (Auto) (1.4-6.5) K/uL Lymph # (Auto) (1.2-3.4) K/uL [place] # (Auto) (0.11-0.59) K/uL Eos # (Auto) (0-0.5) K/uL Baso # (Auto) (0-0.2) K/uL Immature Gran # (Auto) (0.00-0.02) K/uL Toxic Vacuolation Platelet Estimate (Normal) Sample Site POC pH (7.35-7.45) POC pCO2 (35-46) mmHg POC pO2 (80-95) mmHg POC HCO3 (19-24) tiki/L POC Total CO2 (24-31) mmol/L POC Base Excess (-9-1.8) tiki/L ABG pH (Temp Correct) (7.35-7.45) ABG pCO2 (Temp Corrct (35-46) mmHg POC ABG pO2 at Pt Temp POC ABG O2 Sat (90-95) % Kulwant Test O2 Delivery Device POC O2 Rate POC FiO2 % Tidal Volume PEEP POC Sodium (135-144) mmol/L Sodium (136-145) mmol/L POC Potassium (3.3-5.0) mmol/L Potassium (3.5-5.1) mmol/L Chloride (98-107) mmol/L Carbon Dioxide (21-32) mmol/L Anion Gap (3-11) BUN (7-18) mg/dl Creatinine (0.6-1.4) mg/dl Est Cr Clr Drug Dosing ml/min Est GFR ( Amer) ml/min Est GFR (Non-Af Amer) ml/min BUN/Creatinine Ratio (10-20) Glucose (70-99) mg/dl POC Glucose (other) 133 H 121 H 118 H (70-99) mg/dl Calcium (8.5-10.1) mg/dl Phosphorus (2.5-4.9) mg/dl Magnesium (1.8-2.4) mg/dl 01/09/21 01/09/21 01/09/21 Range/Units 09:36 08:39 07:44 WBC (4.8-10.8) K/uL RBC (4.7-6.1) M/uL Hgb (14.0-18.0) g/dL POC Hgb (14.0-18.0) g/dl Hct (42-52) % POC Hct (42-52) % MCV (80-100) fL MCH (25-34) pg MCHC (32-36) g/dL RDW Std Deviation (36.4-46.3) fL RDW Coeff of Emery (11.5-14.5) % Plt Count (130-400) K/uL Immature Gran % (Auto) % Neut % (Auto) % Lymph % (Auto) % [place] % (Auto) % Eos % (Auto) % Baso % (Auto) % Neut # (Auto) (1.4-6.5) K/uL Lymph # (Auto) (1.2-3.4) K/uL [place] # (Auto) (0.11-0.59) K/uL Eos # (Auto) (0-0.5) K/uL Baso # (Auto) (0-0.2) K/uL Immature Gran # (Auto) (0.00-0.02) K/uL Toxic Vacuolation Platelet Estimate (Normal) Sample Site POC pH (7.35-7.45) POC pCO2 (35-46) mmHg POC pO2 (80-95) mmHg POC HCO3 (19-24) tiki/L POC Total CO2 (24-31) mmol/L POC Base Excess (-9-1.8) tiki/L ABG pH (Temp Correct) (7.35-7.45) ABG pCO2 (Temp Corrct (35-46) mmHg POC ABG pO2 at Pt Temp POC ABG O2 Sat (90-95) % Kulwant Test O2 Delivery Device POC O2 Rate POC FiO2 % Tidal Volume PEEP POC Sodium (135-144) mmol/L Sodium (136-145) mmol/L POC Potassium (3.3-5.0) mmol/L Potassium (3.5-5.1) mmol/L Chloride (98-107) mmol/L Carbon Dioxide (21-32) mmol/L Anion Gap (3-11) BUN (7-18) mg/dl Creatinine (0.6-1.4) mg/dl Est Cr Clr Drug Dosing ml/min Est GFR ( Amer) ml/min Est GFR (Non-Af Amer) ml/min BUN/Creatinine Ratio (10-20) Glucose (70-99) mg/dl POC Glucose (other) 118 H 116 H 116 H (70-99) mg/dl Calcium (8.5-10.1) mg/dl Phosphorus (2.5-4.9) mg/dl Magnesium (1.8-2.4) mg/dl 01/09/21 01/09/21 01/09/21 Range/Units 06:17 05:19 05:19 WBC 9.04 (4.8-10.8) K/uL RBC 3.91 L (4.7-6.1) M/uL Hgb 11.7 L (14.0-18.0) g/dL POC Hgb (14.0-18.0) g/dl Hct 34.6 L (42-52) % POC Hct (42-52) % MCV 88.5 (80-100) fL MCH 29.9 (25-34) pg MCHC 33.8 (32-36) g/dL RDW Std Deviation 54.6 H (36.4-46.3) fL RDW Coeff of Emery 16.7 H (11.5-14.5) % Plt Count 63 L (130-400) K/uL Immature Gran % (Auto) 0.3 % Neut % (Auto) 91.8 % Lymph % (Auto) 2.4 % [place] % (Auto) 5.3 % Eos % (Auto) 0.0 % Baso % (Auto) 0.2 % Neut # (Auto) 8.29 H (1.4-6.5) K/uL Lymph # (Auto) 0.22 L (1.2-3.4) K/uL [place] # (Auto) 0.48 (0.11-0.59) K/uL Eos # (Auto) 0.00 (0-0.5) K/uL Baso # (Auto) 0.02 (0-0.2) K/uL Immature Gran # (Auto) 0.03 H (0.00-0.02) K/uL Toxic Vacuolation 2+ Platelet Estimate Decreased L (Normal) Sample Site POC pH (7.35-7.45) POC pCO2 (35-46) mmHg POC pO2 (80-95) mmHg POC HCO3 (19-24) tiki/L POC Total CO2 (24-31) mmol/L POC Base Excess (-9-1.8) tiki/L ABG pH (Temp Correct) (7.35-7.45) ABG pCO2 (Temp Corrct (35-46) mmHg POC ABG pO2 at Pt Temp POC ABG O2 Sat (90-95) % Kulwant Test O2 Delivery Device POC O2 Rate POC FiO2 % Tidal Volume PEEP POC Sodium (135-144) mmol/L Sodium 131 L (136-145) mmol/L POC Potassium (3.3-5.0) mmol/L Potassium 4.3 (3.5-5.1) mmol/L Chloride 101 (98-107) mmol/L Carbon Dioxide 24 (21-32) mmol/L Anion Gap 6.0 (3-11) BUN 46 H (7-18) mg/dl Creatinine 1.19 D (0.6-1.4) mg/dl Est Cr Clr Drug Dosing 71.7 ml/min Est GFR ( Amer) 74.4 ml/min Est GFR (Non-Af Amer) 64.2 ml/min BUN/Creatinine Ratio 38.7 H (10-20) Glucose 131 H (70-99) mg/dl POC Glucose (other) 122 H (70-99) mg/dl Calcium 7.0 L (8.5-10.1) mg/dl Phosphorus 3.2 (2.5-4.9) mg/dl Magnesium 2.1 (1.8-2.4) mg/dl 01/09/21 01/09/21 01/09/21 Range/Units 05:03 03:10 00:21 WBC (4.8-10.8) K/uL RBC (4.7-6.1) M/uL Hgb (14.0-18.0) g/dL POC Hgb 11.6 L (14.0-18.0) g/dl Hct (42-52) % POC Hct 34 L (42-52) % MCV (80-100) fL MCH (25-34) pg MCHC (32-36) g/dL RDW Std Deviation (36.4-46.3) fL RDW Coeff of Emery (11.5-14.5) % Plt Count (130-400) K/uL Immature Gran % (Auto) % Neut % (Auto) % Lymph % (Auto) % [place] % (Auto) % Eos % (Auto) % Baso % (Auto) % Neut # (Auto) (1.4-6.5) K/uL Lymph # (Auto) (1.2-3.4) K/uL [place] # (Auto) (0.11-0.59) K/uL Eos # (Auto) (0-0.5) K/uL Baso # (Auto) (0-0.2) K/uL Immature Gran # (Auto) (0.00-0.02) K/uL Toxic Vacuolation Platelet Estimate (Normal) Sample Site Art Line POC pH 7.32 L (7.35-7.45) POC pCO2 45 (35-46) mmHg POC pO2 62 L (80-95) mmHg POC HCO3 23 (19-24) tiki/L POC Total CO2 24 (24-31) mmol/L POC Base Excess -3.0 (-9-1.8) tiki/L ABG pH (Temp Correct) 7.317 L (7.35-7.45) ABG pCO2 (Temp Corrct 45 (35-46) mmHg POC ABG pO2 at Pt Temp 62 POC ABG O2 Sat 89.0 L (90-95) % Kulwant Test NA O2 Delivery Device Ventilator POC O2 Rate 24 POC FiO2 60 % Tidal Volume 550 PEEP 10 POC Sodium 131 L (135-144) mmol/L Sodium (136-145) mmol/L POC Potassium 4.3 (3.3-5.0) mmol/L Potassium (3.5-5.1) mmol/L Chloride (98-107) mmol/L Carbon Dioxide (21-32) mmol/L Anion Gap (3-11) BUN (7-18) mg/dl Creatinine (0.6-1.4) mg/dl Est Cr Clr Drug Dosing ml/min Est GFR ( Amer) ml/min Est GFR (Non-Af Amer) ml/min BUN/Creatinine Ratio (10-20) Glucose (70-99) mg/dl POC Glucose (other) 143 H 163 H (70-99) mg/dl Calcium (8.5-10.1) mg/dl Phosphorus (2.5-4.9) mg/dl Magnesium (1.8-2.4) mg/dl 01/08/21 Range/Units 17:57 WBC (4.8-10.8) K/uL RBC (4.7-6.1) M/uL Hgb (14.0-18.0) g/dL POC Hgb (14.0-18.0) g/dl Hct (42-52) % POC Hct (42-52) % MCV (80-100) fL MCH (25-34) pg MCHC (32-36) g/dL RDW Std Deviation (36.4-46.3) fL RDW Coeff of Emery (11.5-14.5) % Plt Count (130-400) K/uL Immature Gran % (Auto) % Neut % (Auto) % Lymph % (Auto) % [place] % (Auto) % Eos % (Auto) % Baso % (Auto) % Neut # (Auto) (1.4-6.5) K/uL Lymph # (Auto) (1.2-3.4) K/uL [place] # (Auto) (0.11-0.59) K/uL Eos # (Auto) (0-0.5) K/uL Baso # (Auto) (0-0.2) K/uL Immature Gran # (Auto) (0.00-0.02) K/uL Toxic Vacuolation Platelet Estimate (Normal) Sample Site POC pH (7.35-7.45) POC pCO2 (35-46) mmHg POC pO2 (80-95) mmHg POC HCO3 (19-24) tiki/L POC Total CO2 (24-31) mmol/L POC Base Excess (-9-1.8) tiki/L ABG pH (Temp Correct) (7.35-7.45) ABG pCO2 (Temp Corrct (35-46) mmHg POC ABG pO2 at Pt Temp POC ABG O2 Sat (90-95) % Kulwant Test O2 Delivery Device POC O2 Rate POC FiO2 % Tidal Volume PEEP POC Sodium (135-144) mmol/L Sodium (136-145) mmol/L POC Potassium (3.3-5.0) mmol/L Potassium (3.5-5.1) mmol/L Chloride (98-107) mmol/L Carbon Dioxide (21-32) mmol/L Anion Gap (3-11) BUN (7-18) mg/dl Creatinine (0.6-1.4) mg/dl Est Cr Clr Drug Dosing ml/min Est GFR ( Amer) ml/min Est GFR (Non-Af Amer) ml/min BUN/Creatinine Ratio (10-20) Glucose (70-99) mg/dl POC Glucose (other) 169 H (70-99) mg/dl Calcium (8.5-10.1) mg/dl Phosphorus (2.5-4.9) mg/dl Magnesium (1.8-2.4) mg/dl Medications Administered Current Inpatient Medications Atorvastatin Calcium (Atorvastatin 40 Mg Tab) 40 mg PO QAM ANA MARIA Stop: 02/06/21 08:59 Last Admin: 01/08/21 08:39 Dose: 40 mg Documented by: Dextrose (Dextrose 50% 50 Ml Syringe) 25 - 50 ml IV UD PRN; Protocol PRN Reason: Hypoglycemia Protocol Stop: 02/05/21 19:10 Enoxaparin Sodium (Enoxaparin Inj 40 Mg/0.4 Ml Syr) 40 mg SQ Q24H [facility] Stop: 02/08/21 11:59 Last Admin: 01/09/21 11:13 Dose: 40 mg Documented by: Fentanyl Citrate (Fentanyl Citrate 100 Mcg/2 Ml Vial) 50 - 100 mcg IV Q2H PRN PRN Reason: pain or sedation Stop: 01/23/21 10:13 Glucagon (Glucagon For Inj 1 Mg Vial) 1 mg SQ UD PRN; Protocol PRN Reason: Hypoglycemia Protocol Stop: 02/05/21 19:10 Glucose (Glucose 40% Gel 15 Gm Tube) 15 - 30 gm PO UD PRN; Protocol PRN Reason: Hypoglycemia Protocol Stop: 02/05/21 19:10 Glucose (Glucose 10 Tabs/Tube) 4 - 8 tabs PO UD PRN; Protocol PRN Reason: Hypoglycemia Protocol Stop: 02/05/21 19:10 Pantoprazole Sodium 40 mg/ (Syringe) 10 mls @ 5 mls/min IV DAILY@1100 [facility] Stop: 02/06/21 10:59 Last Admin: 01/09/21 11:13 Dose: 5 mls/min Documented by: Parenteral Electrolytes (Normosol-R) 1,000 mls @ 80 mls/hr IV .[id number] [facility] Stop: 02/06/21 00:59 Last Admin: 01/09/21 13:57 Dose: 80 mls/hr Documented by: Norepinephrine Bitartrate (Levophed/D5w) 8 mg in 508 mls @ 53.264 mls/hr IV .[id number] [facility]; Protocol Stop: 02/06/21 01:29 Last Admin: 01/09/21 14:49 Dose: 0.15 mcg/kg/min, 53.3 mls/hr Documented by: Thiamine HCl 200 mg/ Sodium (Chloride) 52 mls @ 208 mls/hr IV QAM [facility] Stop: 02/08/21 08:59 Last Infusion: 01/09/21 09:44 Dose: Infused Documented by: Albumin Human (Albumin 25%) 12.5 gm in 50 mls @ 50 mls/hr IV Q1H [facility] Stop: 01/09/21 15:29 Last Admin: 01/09/21 14:50 Dose: 50 mls/hr Documented by: Insulin Aspart (Insulin Aspart 100 Units/Ml 3 Ml Pen) 0 units SC Q4 ANA MARIA Stop: 02/08/21 11:59 Last Admin: 01/09/21 11:59 Dose: Not Given Documented by: Insulin Glargine (Insulin Glargine Solostar 100 Units/Ml 3 Ml Pen) 0 units SC BID ANA MARIA; Protocol Stop: 02/08/21 20:59 Levalbuterol HCl (Levalbuterol Hcl 0.63 Mg/3 Ml Neb) 0.63 mg INH Q4H PRN PRN Reason: Dyspnea Stop: 02/05/21 23:13 Miscellaneous (Carbohydrates For Hypoglycemia ) 15 - 30 gm PO UD PRN PRN Reason: Hypoglycemia Protocol Stop: 02/05/21 19:10 Miscellaneous Information (Pharmacist Discharge Med Rec Consult) 1 ea N/A UD PRN PRN Reason: Consult Stop: 02/05/21 23:13 Miscellaneous Information (Pharmacy Glycemic Mgmt Consult) 1 ea N/A UD PRN PRN Reason: Consult Stop: 02/05/21 23:43 Resident Activity Tracking Resident Involvement: Resident Care Provided Care Provided: Adult Hospital Medicine (1) Altered mental status Altered mental status type: unspecified Qualified Code(s): R41.82 - Altered mental status, unspecified (2) Hypertension Hypertension type: essential hypertension Qualified Code(s): I10 - Essential (primary) hypertension
[2021-01-09 07:27] LABS: Creatinine Clr Calc Pharmacy 71.7 ml/min; Est GFR (African American) 74.4 ml/min; Est GFR (Non-African American) 64.2 ml/min; Phosphorus 3.2 mg/dl (2.5-4.9); Potassium 4.3 mmol/L (3.5-5.1)
[2021-01-09 07:28] LABS: BUN Creatinine Ratio 38.7 (10-20); Magnesium 2.1 mg/dl (1.8-2.4)
[2021-01-09] MEDS ORDERED: PNEUMOCOCCAL POLYSACCHARIDES 25 MCG/0.5 ML VIAL/SYR IM ONE (08:00)
[2021-01-09] MEDS: fentaNYL DRIP 1,250 MCG/250 ML BAG IV SCH ×2 (08:43→09:57)
[2021-01-09] MEDS: INSULIN ASPART 100 UNITS/ML 3 ML PEN SC SCH ×4 (08:47→20:24)
[2021-01-09] MEDS: THIAMINE HCL 200 MG in SODIUM CHLORIDE 0.9% 50 ML IV SCH (08:49)
--- NOTE | 2021-01-09 09:10 | XRay Report ---
XR chest 1V portable HISTORY: 65 years-old Male resp failure acute respiratory failure COMPARISON: Chest radiograph 01/08/2021 TECHNIQUE: Portable AP view of the chest FINDINGS: Tracheostomy cannula overlies the midline. Enteric tube courses below the diaphragm outside the field -of-view. Extensive bilateral mixed interstitial and alveolar opacities redemonstrated without signif icant change from comparison. Right hemidiaphragm elevation. No pneumothorax. No large pleural effusi on. IMPRESSION: 1. Lines and tubes as above. 2. Extensive pulmonary opacities redemonstrated suggestive of multifocal pneumonia. 3. No pneumothorax. ACT 112: Negative or not required by law. The above report was generated using voice recognition software. It may contain grammatical, syntax o r spelling errors. Electronically signed by: Adalid Xiao M.D. 01/09/2021 9:08 AM
[2021-01-09] MEDS: NOREPINEPHRINE/D5W 8 MG/508 ML BAG IV SCH ×2 (09:56→14:49)
--- NOTE | 2021-01-09 10:07 | Anesthesiology Progress Note ---
Date of Service January 06, 2021 Assessment & Plan Admission and Anticipated Discharge Date Admission Date: January 06, 2021 Subjective This is a late entry. I was called emergently to the emergency department on the night of 01/06/21. Upon arriving to the patient, the patient already had a cricothyrotomy performed. There was an endotracheal tube placed at the cricothyrotomy site, and the ER physician wanted me to evaluate the tube position by looking orally. There was no CO2 color change from the endotracheal tube, so the tube position was in question. I attempted to visualize the airway through the oropharynx, but there was a large airway mass in addition to blood that did not allow a view. The patient was bag mask ventilated by a respiratory therapist. The ER physician removed the endotracheal tube from the cricothyrotomy site, inserted a bougie at the site, and was able to place a smaller endotracheal tube through the cricothyrotomy site. There was CO2 color change with the 2nd endotracheal tube. I attempted to assess endotracheal tube placement with a fiberoptic bronchoscope, but there was blood in the airway that prevented a view. The endotracheal tube was attached to a continuous end tidal CO2 monitor which showed good waveforms. At this point, the ER physician was in communication with Dr. Valladares and I was dismissed. Physical Exam Vital Signs: Last Vital Signs Temp 98.6 F 01/09/21 06:13 Pulse 90 01/09/21 07:18 Resp 25 H 01/09/21 07:18 BP 115/61 01/09/21 06:13 Pulse Ox 98 01/09/21 07:18 Results & Data ([facility]) Medications Administered Atorvastatin Calcium (Atorvastatin 40 Mg Tab) [facility] Stop: 02/06/21 08:59 Last Admin: 01/08/21 08:39 Dose: 40 mg Documented by: [id number] Admin: 01/07/21 11:56 Dose: 40 mg Documented by: [id number] Clopidogrel Bisulfate (Clopidogrel Bisulfate 75 Mg Tab) 75 mg PO QAM [facility] Stop: 02/06/21 08:59 Last Admin: 01/08/21 08:39 Dose: 75 mg Documented by: [id number] Admin: 01/07/21 11:56 Dose: 75 mg Documented by: [id number] Fentanyl Citrate (Fentanyl Bolus From Bag) 50 mcg IV Q60M PRN PRN Reason: Pain or Agitation Stop: 01/20/21 23:27 Last Admin: 01/07/21 08:43 Dose: 50 mcg Documented by: [id number] Pantoprazole Sodium 40 mg/ (Syringe) 10 mls @ 5 mls/min IV DAILY@1100 ANA MARIA Stop: 02/06/21 10:59 Last Admin: 01/08/21 10:52 Dose: 5 mls/min Documented by: [id number] Admin: 01/07/21 11:15 Dose: 5 mls/min Documented by: [id number] Acetaminophen (Ofirmev) 1,000 mg in 100 mls @ 400 mls/hr IV Q8H PRN PRN Reason: Fever/Mild Pain (Pain 1,2,3) Stop: 01/09/21 23:27 Last Infusion: 01/08/21 13:08 Dose: 0 mls/hr Documented by: [id number] Admin: 01/08/21 12:53 Dose: 400 mls/hr Documented by: [id number] Fentanyl Citrate (Fentanyl Drip) 1,250 mcg in 250 mls @ 20 mls/hr IV .[id number] ANA MARIA; Protocol Stop: 01/20/21 23:29 Last Titration: 01/09/21 09:44 Dose: 100 mcg/hr, 20 mls/hr Documented by: [id number] Cosigned by: [id number] Admin: 01/09/21 08:43 Dose: 150 mcg/hr, 30 mls/hr Documented by: [id number] Cosigned by: [id number] Titration: 01/09/21 08:06 Dose: 150 mcg/hr, 30 mls/hr Documented by: [id number] Cosigned by: [id number] Titration: 01/09/21 07:13 Dose: 150 mcg/hr, 30 mls/hr Documented by: [id number] Cosigned by: [id number] Admin: 01/08/21 23:45 Dose: 150 mcg/hr, 30 mls/hr Documented by: [id number] Cosigned by: [id number] Titration: 01/08/21 23:21 Dose: 150 mcg/hr, 30 mls/hr Documented by: [id number] Cosigned by: [id number] Titration: 01/08/21 21:20 Dose: 150 mcg/hr, 30 mls/hr Documented by: [id number] Cosigned by: [id number] Titration: 01/08/21 20:55 Dose: 100 mcg/hr, 20 mls/hr Documented by: [id number] Cosigned by: [id number] Titration: 01/08/21 19:11 Dose: 50 mcg/hr, 10 mls/hr Documented by: [id number] Cosigned by: [id number] Titration: 01/08/21 14:01 Dose: 50 mcg/hr, 10 mls/hr Documented by: [id number] Cosigned by: [id number] Titration: 01/08/21 10:51 Dose: 75 mcg/hr, 15 mls/hr Documented by: [id number] Cosigned by: [id number] Admin: 01/08/21 08:41 Dose: 150 mcg/hr, 30 mls/hr Documented by: [id number] Cosigned by: [id number] Titration: 01/08/21 08:41 Dose: 150 mcg/hr, 30 mls/hr Documented by: [id number] Cosigned by: [id number] Titration: 01/08/21 07:02 Dose: 150 mcg/hr, 30 mls/hr Documented by: [id number] Cosigned by: [id number] Titration: 01/08/21 02:58 Dose: 150 mcg/hr, 30 mls/hr Documented by: [id number] Cosigned by: [id number] Admin: 01/08/21 01:26 Dose: 125 mcg/hr, 25 mls/hr Documented by: [id number] Cosigned by: [id number] Titration: 01/08/21 00:33 Dose: 125 mcg/hr, 25 mls/hr Documented by: [id number] Cosigned by: [id number] Titration: 01/08/21 00:30 Dose: 125 mcg/hr, 25 mls/hr Documented by: [id number] Cosigned by: [id number] Titration: 01/07/21 18:53 Dose: 100 mcg/hr, 20 mls/hr Documented by: [id number] Cosigned by: [id number] Admin: 01/07/21 13:25 Dose: 125 mcg/hr, 25 mls/hr Documented by: [id number] Cosigned by: [id number] Titration: 01/07/21 13:25 Dose: 125 mcg/hr, 25 mls/hr Documented by: [id number] Cosigned by: [id number] Titration: 01/07/21 08:43 Dose: 125 mcg/hr, 25 mls/hr Documented by: [id number] Cosigned by: [id number] Titration: 01/07/21 07:10 Dose: 100 mcg/hr, 20 mls/hr Documented by: [id number] Cosigned by: [id number] Titration: 01/07/21 05:42 Dose: 100 mcg/hr, 20 mls/hr Documented by: [id number] Cosigned by: [id number] Titration: 01/07/21 02:30 Dose: 75 mcg/hr, 15 mls/hr Documented by: [id number] Cosigned by: [id number] Titration: 01/07/21 02:00 Dose: 50 mcg/hr, 10 mls/hr Documented by: [id number] Cosigned by: [id number] Admin: 01/07/21 00:00 Dose: 25 mcg/hr, 5 mls/hr Documented by: [id number] Cosigned by: [id number] Parenteral Electrolytes (Normosol-R) 1,000 mls @ 80 mls/hr IV .[id number] ANA MARIA Stop: 02/06/21 00:59 Last Infusion: 01/09/21 09:44 Dose: 80 mls/hr Documented by: [id number] Infusion: 01/09/21 07:13 Dose: 80 mls/hr Documented by: [id number] Admin: 01/09/21 02:34 Dose: 80 mls/hr Documented by: [id number] Infusion: 01/09/21 02:34 Dose: 80 mls/hr Documented by: [id number] Admin: 01/08/21 14:28 Dose: 80 mls/hr Documented by: [id number] Infusion: 01/08/21 14:20 Dose: 80 mls/hr Documented by: [id number] Admin: 01/08/21 01:50 Dose: 80 mls/hr Documented by: [id number] Infusion: 01/08/21 01:44 Dose: 80 mls/hr Documented by: [id number] Admin: 01/07/21 13:14 Dose: 80 mls/hr Documented by: [id number] Infusion: 01/07/21 13:14 Dose: 80 mls/hr Documented by: [id number] Infusion: 01/07/21 01:44 Dose: 80 mls/hr Documented by: [id number] Admin: 01/07/21 01:15 Dose: 100 mls/hr Documented by: [id number] Norepinephrine Bitartrate (Levophed/D5w) 8 mg in 508 mls @ 17.755 mls/hr IV .Q24H ANA MARIA; Protocol Stop: 02/06/21 01:29 Last Titration: 01/09/21 09:46 Dose: 0.05 mcg/kg/min, 17.8 mls/hr Documented by: [id number] Titration: 01/09/21 09:44 Dose: 0.03 mcg/kg/min, 10.7 mls/hr Documented by: [id number] Titration: 01/09/21 08:45 Dose: 0.025 mcg/kg/min, 8.9 mls/hr Documented by: [id number] Titration: 01/09/21 07:13 Dose: 0.05 mcg/kg/min, 17.8 mls/hr Documented by: [id number] Titration: 01/09/21 06:03 Dose: 0.05 mcg/kg/min, 17.8 mls/hr Documented by: [id number] Titration: 01/08/21 22:53 Dose: 0 mcg/kg/min, 0 mls/hr Documented by: [id number] Admin: 01/08/21 21:12 Dose: 0.05 mcg/kg/min, 17.8 mls/hr Documented by: [id number] Cosigned by: [id number] Titration: 01/08/21 20:54 Dose: 0.1 mcg/kg/min, 35.5 mls/hr Documented by: [id number] Titration: 01/08/21 19:11 Dose: 0.19 mcg/kg/min, 67.5 mls/hr Documented by: [id number] Cosigned by: [id number] Titration: 01/08/21 17:54 Dose: 0.19 mcg/kg/min, 67.5 mls/hr Documented by: [id number] Titration: 01/08/21 14:35 Dose: 0.17 mcg/kg/min, 60.4 mls/hr Documented by: [id number] Titration: 01/08/21 14:04 Dose: 0.15 mcg/kg/min, 53.3 mls/hr Documented by: [id number] Titration: 01/08/21 13:55 Dose: 0.11 mcg/kg/min, 39.1 mls/hr Documented by: [id number] Titration: 01/08/21 13:46 Dose: 0.09 mcg/kg/min, 32 mls/hr Documented by: [id number] Titration: 01/08/21 13:28 Dose: 0.07 mcg/kg/min, 24.9 mls/hr Documented by: [id number] Titration: 01/08/21 12:12 Dose: 0.05 mcg/kg/min, 17.8 mls/hr Documented by: [id number] Titration: 01/08/21 12:00 Dose: 0.07 mcg/kg/min, 24.9 mls/hr Documented by: [id number] Titration: 01/08/21 11:49 Dose: 0.09 mcg/kg/min, 32 mls/hr Documented by: [id number] Titration: 01/08/21 08:16 Dose: 0.11 mcg/kg/min, 39.1 mls/hr Documented by: [id number] Admin: 01/08/21 07:59 Dose: 0.13 mcg/kg/min, 46.2 mls/hr Documented by: [id number] Cosigned by: [id number] Titration: 01/08/21 07:56 Dose: 0.13 mcg/kg/min, 46.2 mls/hr Documented by: [id number] Cosigned by: [id number] Titration: 01/08/21 07:01 Dose: 0.13 mcg/kg/min, 46.2 mls/hr Documented by: [id number] Cosigned by: [id number] Admin: 01/07/21 22:16 Dose: 0.15 mcg/kg/min, 53.3 mls/hr Documented by: [id number] Cosigned by: [id number] Titration: 01/07/21 21:29 Dose: 0.15 mcg/kg/min, 53.3 mls/hr Documented by: [id number] Cosigned by: [id number] Titration: 01/07/21 17:14 Dose: 0.15 mcg/kg/min, 53.3 mls/hr Documented by: [id number] Titration: 01/07/21 12:00 Dose: 0.15 mcg/kg/min, 53.3 mls/hr Documented by: [id number] Admin: 01/07/21 11:56 Dose: 0.13 mcg/kg/min, 46.2 mls/hr Documented by: [id number] Cosigned by: [id number] Titration: 01/07/21 11:56 Dose: 0.13 mcg/kg/min, 46.2 mls/hr Documented by: [id number] Cosigned by: [id number] Titration: 01/07/21 07:10 Dose: 0.13 mcg/kg/min, 46.2 mls/hr Documented by: [id number] Cosigned by: [id number] Titration: 01/07/21 04:25 Dose: 0.13 mcg/kg/min, 46.2 mls/hr Documented by: [id number] Titration: 01/07/21 03:55 Dose: 0.11 mcg/kg/min, 39.1 mls/hr Documented by: [id number] Titration: 01/07/21 01:55 Dose: 0.09 mcg/kg/min, 32 mls/hr Documented by: [id number] Titration: 01/07/21 01:50 Dose: 0.07 mcg/kg/min, 24.9 mls/hr Documented by: [id number] Admin: 01/07/21 01:42 Dose: 0.05 mcg/kg/min, 17.8 mls/hr Documented by: [id number] Cosigned by: [id number] Insulin Human Regular 250 (units/ Sodium Chloride) 250 mls @ 1.9 mls/hr IV .Q24H ANA MARIA; Protocol Stop: 02/06/21 06:59 Last Titration: 01/09/21 09:44 Dose: 1.9 units/hr, 1.9 mls/hr Documented by: [id number] Cosigned by: [id number] Titration: 01/09/21 08:45 Dose: 1.9 units/hr, 1.9 mls/hr Documented by: [id number] Cosigned by: [id number] Titration: 01/09/21 07:48 Dose: 2.4 units/hr, 2.4 mls/hr Documented by: [id number] Cosigned by: [id number] Titration: 01/09/21 07:13 Dose: 3 units/hr, 3 mls/hr Documented by: [id number] Cosigned by: [id number] Titration: 01/09/21 06:32 Dose: 3 units/hr, 3 mls/hr Documented by: [id number] Cosigned by: [id number] Titration: 01/08/21 21:08 Dose: 3.8 units/hr, 3.8 mls/hr Documented by: [id number] Cosigned by: [id number] Titration: 01/08/21 19:12 Dose: 3.2 units/hr, 3.2 mls/hr Documented by: [id number] Cosigned by: [id number] Admin: 01/08/21 17:56 Dose: 3.2 units/hr, 3.2 mls/hr Documented by: [id number] Cosigned by: [id number] Titration: 01/08/21 17:56 Dose: 3.2 units/hr, 3.2 mls/hr Documented by: [id number] Cosigned by: [id number] Titration: 01/08/21 09:30 Dose: 3.2 units/hr, 3.2 mls/hr Documented by: [id number] Cosigned by: [id number] Titration: 01/08/21 08:30 Dose: 4 units/hr, 4 mls/hr Documented by: [id number] Cosigned by: [id number] Titration: 01/08/21 07:02 Dose: 5 units/hr, 5 mls/hr Documented by: [id number] Cosigned by: [id number] Admin: 01/08/21 01:05 Dose: 5 units/hr, 5 mls/hr Documented by: [id number] Cosigned by: [id number] Titration: 01/08/21 01:05 Dose: 5 units/hr, 5 mls/hr Documented by: [id number] Cosigned by: [id number] Titration: 01/08/21 01:00 Dose: 5 units/hr, 5 mls/hr Documented by: [id number] Cosigned by: [id number] Titration: 01/07/21 22:45 Dose: 5 units/hr, 5 mls/hr Documented by: [id number] Cosigned by: [id number] Titration: 01/07/21 20:45 Dose: 5 units/hr, 5 mls/hr Documented by: [id number] Cosigned by: [id number] Titration: 01/07/21 18:48 Dose: 5 units/hr, 5 mls/hr Documented by: [id number] Cosigned by: [id number] Titration: 01/07/21 16:45 Dose: 5 units/hr, 5 mls/hr Documented by: [id number] Cosigned by: [id number] Titration: 01/07/21 15:45 Dose: 5 units/hr, 5 mls/hr Documented by: [id number] Cosigned by: [id number] Titration: 01/07/21 14:45 Dose: 5 units/hr, 5 mls/hr Documented by: [id number] Cosigned by: [id number] Titration: 01/07/21 13:45 Dose: 5 units/hr, 5 mls/hr Documented by: [id number] Cosigned by: [id number] Titration: 01/07/21 10:45 Dose: 5 units/hr, 5 mls/hr Documented by: [id number] Cosigned by: [id number] Titration: 01/07/21 09:45 Dose: 5 units/hr, 5 mls/hr Documented by: [id number] Cosigned by: [id number] Titration: 01/07/21 08:45 Dose: 5 units/hr, 5 mls/hr Documented by: [id number] Cosigned by: [id number] Admin: 01/07/21 07:45 Dose: 5 units/hr, 5 mls/hr Documented by: [id number] Cosigned by: [id number] Metronidazole (Flagyl) 500 mg in 100 mls @ 100 mls/hr IV Q8H ANA MARIA; Protocol Stop: 01/14/21 15:59 Last Infusion: 01/09/21 09:44 Dose: 0 mls/hr Documented by: [id number] Admin: 01/09/21 08:49 Dose: 100 mls/hr Documented by: [id number] Infusion: 01/09/21 01:25 Dose: 0 mls/hr Documented by: [id number] Admin: 01/09/21 00:09 Dose: 100 mls/hr Documented by: [id number] Infusion: 01/08/21 21:19 Dose: 0 mls/hr Documented by: [id number] Admin: 01/08/21 18:42 Dose: 100 mls/hr Documented by: [id number] Infusion: 01/08/21 09:06 Dose: 0 mls/hr Documented by: [id number] Admin: 01/08/21 08:06 Dose: 100 mls/hr Documented by: [id number] Infusion: 01/08/21 03:00 Dose: 0 mls/hr Documented by: [id number] Admin: 01/08/21 01:20 Dose: 100 mls/hr Documented by: [id number] Infusion: 01/07/21 16:48 Dose: 0 mls/hr Documented by: [id number] Admin: 01/07/21 15:48 Dose: 100 mls/hr Documented by: [id number] Cefepime HCl 2,000 mg/ Syringe 20 mls @ 5 mls/min IV Q8H ANA MARIA; Protocol Stop: 01/14/21 15:59 Last Admin: 01/09/21 08:48 Dose: 5 mls/min Documented by: [id number] Admin: 01/09/21 00:03 Dose: 5 mls/min Documented by: [id number] Admin: 01/08/21 15:30 Dose: 5 mls/min Documented by: [id number] Admin: 01/08/21 08:06 Dose: 5 mls/min Documented by: [id number] Admin: 01/08/21 01:19 Dose: 5 mls/min Documented by: [id number] Admin: 01/07/21 15:48 Dose: 5 mls/min Documented by: [id number] Thiamine HCl 200 mg/ Sodium (Chloride) 52 mls @ 208 mls/hr IV QAM [facility] Stop: 02/08/21 08:59 Last Infusion: 01/09/21 09:44 Dose: 0 mls/hr Documented by: [id number] Admin: 01/09/21 08:49 Dose: 208 mls/hr Documented by: [id number] Vancomycin HCl 1,000 mg/ (Sodium Chloride) 270 mls @ 180 mls/hr IV Q12H ANA MARIA Stop: 01/15/21 05:59 Last Infusion: 01/09/21 08:46 Dose: 0 mls/hr Documented by: [id number] Infusion: 01/09/21 07:13 Dose: 180 mls/hr Documented by: [id number] Admin: 01/09/21 05:57 Dose: 180 mls/hr Documented by: [id number] Midazolam HCl (Versed) 125 mg in 250 mls @ 6 mls/hr IV .[id number] ANA MARIA; Protocol Stop: 02/07/21 19:14 Last Titration: 01/09/21 09:44 Dose: 3 mg/hr, 6 mls/hr Documented by: [id number] Cosigned by: [id number] Titration: 01/09/21 07:13 Dose: 4 mg/hr, 8 mls/hr Documented by: [id number] Cosigned by: [id number] Titration: 01/09/21 06:35 Dose: 4 mg/hr, 8 mls/hr Documented by: [id number] Cosigned by: [id number] Admin: 01/08/21 20:10 Dose: 2 mg/hr, 4 mls/hr Documented by: [id number] Cosigned by: [id number] Insulin Aspart (Insulin Aspart 100 Units/Ml 3 Ml Pen) 0 units SC ACHS ANA MARIA Stop: 02/05/21 20:59 Last Admin: 01/09/21 08:47 Dose: Not Given Documented by: [id number] Admin: 01/08/21 21:02 Dose: Not Given Documented by: [id number] Admin: 01/08/21 18:46 Dose: Not Given Documented by: [id number] Cosigned by: [id number] Admin: 01/08/21 11:49 Dose: Not Given Documented by: [id number] Cosigned by: [id number] Admin: 01/08/21 08:42 Dose: Not Given Documented by: [id number] Cosigned by: [id number] Admin: 01/07/21 22:16 Dose: Not Given Documented by: [id number] Admin: 01/07/21 18:00 Dose: Not Given Documented by: [id number] Cosigned by: [id number] Admin: 01/07/21 13:31 Dose: Not Given Documented by: [id number] Cosigned by: [id number] Admin: 01/07/21 07:58 Dose: Not Given Documented by: [id number] Cosigned by: [id number] Admin: 01/07/21 04:41 Dose: Not Given Documented by: [id number] Cosigned by: [id number] Midazolam HCl (Midazolam Bolus From Bag) 2 mg IV Q60M PRN PRN Reason: Sedation Stop: 02/07/21 19:06 Last Admin: 01/08/21 22:58 Dose: 2 mg Documented by: [id number]
--- NOTE | 2021-01-09 10:08 | Billing Data ---
Date of Service January 09, 2021 Coding Level of Care Code Critical Care 1st -74 mins
[2021-01-09] MEDS ORDERED: fentaNYL citrate 100 MCG/2 ML VIAL IV PRN (10:14)
[2021-01-09] MEDS ORDERED: INSULIN GLARGINE SOLOSTAR 100 UNITS/ML 3 ML PEN SC ONE (10:30)
[2021-01-09] MEDS: CLOPIDOGREL BISULFATE 75 MG TAB PO SCH (10:39)
--- NOTE | 2021-01-09 11:04 | ENT Consultation ---
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 Unable to visualize, on vent and not cooperative being semiconscious. Will visualize in OR with direct laryngoscopy and possible biopsies. (2) Respiratory arrest before cardiac arrest: Notes and chart reviewed. He had cricothyrotomy in the ER. This needs to be changed to a formal trach to prevent subglottic stenosis. However this is complicated by the anticoagulation with Plavix. We will change him over to Lovenox and then be able to stop next week and perform the trach change. Laryngoscopy will be performed at the same time. History of Present Illness Reason for Consultation: Oropharyngeal mass Attending Physician: Sage Lombardi DO History of Present Illness This 65-year-old gentleman with diabetic ketoacidosis ptosis admitted via the ER requiring airway intervention which was a cricothyrotomy. Subsequent MRI showed a right oropharyngeal mass of 2.9 cm. Allergies Allergy/AdvReac Type Severity Reaction Status Date / Time liraglutide [From Victoza] Allergy Unknown Unknown Verified 01/06/21 17:06 Home Medications Medication Instructions Recorded Confirmed Type magnesium 250 mg tablet 250 mg PO HS 10/15/19 01/06/21 History aspirin 81 mg tablet,delayed 81 mg PO QAM #30 tab 12/14/19 01/06/21 Rx release ramipril 5 mg capsule 5 mg PO DAILY #90 cap 12/20/19 01/06/21 Rx metformin 500 mg tablet 1,000 mg PO BID #360 tab 01/03/20 01/06/21 Rx blood-glucose meter (Accu-Chek #1 ea 02/25/20 01/01/21 Rx Guide Glucose Meter) lancets (Accu-Chek Fastclix Lancet #300 ea 02/25/20 01/01/21 Rx Drum) Dexcom G6 Web Methods Developer (blood-glucose #1 ea NS 05/13/20 01/01/21 Rx meter,continuous) atorvastatin 40 mg tablet 40 mg PO QAM #90 tab 05/20/20 01/06/21 Rx levothyroxine 50 mcg capsule 50 mcg PO DAILY #90 cap 05/20/20 01/06/21 Rx blood sugar diagnostic (Accu-Chek ea 08/07/20 01/01/21 History Guide test strips) Dexcom G6 Sensor (blood-glucose #9 ea NS 03/11/21 07/08/21 Rx sensor) Dexcom G6 Transmitter #1 ea NS 09/04/20 01/01/21 Rx (blood-glucose transmitter) Novolog U-100 Insulin aspart 100 350 unit SUBCUT DAILY 90 Days #320 09/04/20 01/06/21 Rx unit/mL subcutaneous solution ml NS (insulin aspart U-100) fenofibrate nanocrystallized 145 145 mg PO DAILY tab 10/15/20 01/06/21 History mg tablet insulin degludec 200 unit/mL (3 140 unit SUBCUT HS PRN ml 11/06/20 01/06/21 History mL) subcutaneous pen (Tresiba FlexTouch U-200 insulin) subcutaneous insulin pump (t:slim #1 ea 11/06/20 01/01/21 History X2 Basal-IQ Insulin Hybrid Tester) meclizine 25 mg tablet 25 mg PO TID PRN #30 tab 12/29/20 01/06/21 Rx methylprednisolone 4 mg tablets in 4 mg PO .COMPLEX #21 ea 01/01/21 01/06/21 Rx a dose pack (Medrol (Jonnathan)) cyanocobalamin (vitamin B-12) 1,000 mcg PO DAILY 01/06/21 01/06/21 History 1,000 mcg tablet (Vitamin B-12) Patient History Medical History (Updated 01/07/21 @ 11:36 by Cullen Slater MD) 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, uncontrolled Diabetes type 2, uncontrolled Diabetic peripheral neuropathy Dysesthesia Dyslipidemia with low high density lipoprotein (HDL) cholesterol with hypertriglyceridemia due to type 2 diabetes mellitus Esophageal reflux Hypertension Hypertriglyceridemia Hypothyroidism, unspecified Neurodermatitis Obstructive sleep apnea Prurigo nodularis Retinopathy Sebaceous cyst Skin lesion Tubular adenoma of colon Type 2 diabetes mellitus Family History Unknown Diabetes Family/Other Diabetes Mother , age 88 with dementia Diabetes Cardiovascular disease Dementia Social History Smoking Status: Unknown if ever smoked Hx Alcohol Use: No (unable to obtain) Hx Substance Use: No (unable to obtain) Preferred Language: Uzbek Communication Ability: Unable Visual Impairment: Limited Hearing Ability: Normal Refrigerated Cargo Clerk Required: No Beliefs That Will Affect Care: None marital status: Single Current Living Situation: Family current occupational status: retired 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 [employer] Feels Safe at Home: Yes Childhood Exposure to Second-Hand Smoke: Yes caffeine: Yes Dental Care, Regularly: No Physical Activity Frequency: Does not Exercise Seatbelt Use: sometimes Sunscreen Use: No Assistive Devices: Oxygen - Continuous Physical Exam Constitutional: + obese Eyes: PERRL, conjunctivae normal, anicteric sclerae ENMT: Unable to examine the mouth Neck: He has a high trach tube in place consistent with cricothyrotomy Respiratory: On vent Cardiovascular: Regular Results & Data ([facility]) Vital Signs (Past 12 Hours) Vital Signs Temp Pulse Resp BP Pulse Ox 01/09/21 07:18 90 25 H 98 01/09/21 06:13 37.0 C 99 H 115/61 90 01/09/21 05:43 37.1 C 102 H 118/60 89 L 01/09/21 05:13 36.9 C 100 H 115/59 L 89 L 01/09/21 04:43 37.2 C 102 H 120/62 90 01/09/21 04:13 36.9 C 99 H 115/58 L 88 L 01/09/21 03:46 98 H 26 H 89 L 01/09/21 03:43 37.3 C 99 H 117/62 89 L 01/09/21 03:13 36.8 C 99 H 109/62 90 01/09/21 02:43 37.1 C 99 H 106/58 L 92 01/09/21 02:13 37.0 C 102 H 142/73 H 89 L 01/09/21 01:43 37.0 C 100 H 119/59 L 89 L 01/09/21 01:13 37.1 C 102 H 125/71 89 L 01/09/21 00:45 102 H 01/09/21 00:43 36.7 C 98 H 115/61 89 L 01/09/21 00:13 37.2 C 102 H 110/59 L 89 L 01/08/21 23:43 36.6 C 99 H 116/63 90 01/08/21 23:13 101 H 100/56 L 93
[2021-01-09] MEDS: ENOXAPARIN INJ 40 MG/0.4 ML SYR SQ SCH (11:13)
[2021-01-09] MEDS: PANTOprazole 40 MG in SYRINGE 0 ML IV SCH (11:13)
[2021-01-09] MEDS: ACETAMINOPHEN 1,000 MG/100 ML VIAL IV PRN (11:53)
[2021-01-09] MEDS: INSULIN REGULAR 250 UNITS in SODIUM CHLORIDE 0.9% 247.5 ML IV SCH (12:29)
--- NOTE | 2021-01-09 12:36 | Pharmacy Report ---
Pharmacy Glycemic Short Note 2 - Date of Service January 09, 2021 - Glycemic Short BSG Results (Last 24 hours): 01/08/21 01/08/21 01/08/21 12:30 14:28 17:57 Glucose POC Glucose (other) 137 H 144 H 169 H 01/09/21 01/09/21 01/09/21 00:21 03:10 05:19 Glucose 131 H POC Glucose (other) 163 H 143 H 01/09/21 01/09/21 01/09/21 06:17 07:44 08:39 Glucose POC Glucose (other) 122 H 116 H 116 H 01/09/21 01/09/21 01/09/21 09:36 10:45 11:52 Glucose POC Glucose (other) 118 H 118 H 121 H OUTPATIENT ANTIDIABETIC REGIMEN: * Novolog pump * Tresiba 140 units SC prn pump failure ASSESSMENT: 01/09 * BSGs again well controlled over last 24 hrs. Insulin infusion running at 2-3 units/hr this AM * Norepi rates have decreased over last 24 hrs, currently down to 0.05mcg/kg/min this AM * Patient remains intubated, NPO status continues - but there may be plan to start TFs later if pressors weaned off * Sedation is being held at this time to assess mental status * Will begin to transition to SQ basal/bolus regimen. Will administer larger dose this AM in order to facilitate easier transition. Will utilized scaled dosing this evening to lessen hypoglycemia risk. Novolog Q 4 hrs with "severe" stress level dosing will be employed initially given uncertain needs. 01/08 * BSGs well controlled with insulin drip at this time * Patient remains intubated, sedated, and requiring pressor support. No tube feeds planned today given pressor requirements and lactate * Rewarming completed this AM * Suspect insulin requirements will decrease today due to rewarming and decrea sing pressor requirements. K currently 3.8 * Insulin drip remains the standard of care however given critical illness and multiple factors affecting insulin resistance 01/07 * 65 yo M presented to ED on 01/06 with AMS now s/p respiratory failure/arrest, cardiac arrest w ROSC, currently undergoing TTM in ICU. * Initially concern for DKA with acidosis, slight anion gap of 12. However, metabolic derangements are not likely 2nd DKA and anion gap has closed [id number]. OK to adjust goal range and dextrose infusion not required at this time * Norepinephrine requirement currently 0.13 mcg/kg/min * Patient is on an insulin drip which is reasonable. No attempt to transition to basal/bolus as this time per discussion at ICU rounds PLAN FOR INPATIENT GLYCEMIC CONTROL: * Basal insulin: * Lantus 22 units SQ x 1 this AM * Lantus SQ BID to begin this evening per scale: 0 units if BSG less than 110, 7 units if BSG 110-180, 15 units if BSG greater than 180 * DC insulin drip 2 hrs after this AM's Lantus dose or sooner if instructed to do so per rate change calculator * Novolog SQ Q 4 hours: * Goal range: 110-140mg/dL * Correction factor: 18mg/dL/unit * Carb ratio: 1 unit per 6 gm CHO consumed
[2021-01-09] MEDS: ALBUMIN 25% 12.5 GM/50 ML VIAL IV SCH ×2 (13:57→14:50)
[2021-01-09] MEDS ORDERED: INSULIN ASPART 100 UNITS/ML 3 ML PEN SC ONE (14:00)
[2021-01-09] MEDS: ACETAMINOPHEN SUSP 325 MG/10.15 ML UDC PO PRN (18:50)
[2021-01-09] MEDS: INSULIN GLARGINE SOLOSTAR 100 UNITS/ML 3 ML PEN SC SCH (20:40)
[2021-01-10] MEDS: NOREPINEPHRINE/D5W 8 MG/508 ML BAG IV SCH ×3 (00:18→18:32)
[2021-01-10] MEDS: INSULIN ASPART 100 UNITS/ML 3 ML PEN SC SCH ×6 (00:19→20:02)
[2021-01-10] MEDS: ACETAMINOPHEN SUSP 325 MG/10.15 ML UDC PO PRN ×2 (00:23→05:48)
[2021-01-10] MEDS: NORMOSOL-R 1,000 ML IV SCH ×2 (00:29→11:33)
[2021-01-10 04:30] LABS: iSTAT Art Bld Gas pCO2 Correct 34 mmHg (35-46); iSTAT Art Bld Gas pH Corrected 7.331 (7.35-7.45); iSTAT Arterial Blood Gas HCO3 17 meg/L (19-24); iSTAT Arterial Blood Gas pCO2 31 mmHg (35-46); iSTAT Arterial Blood Gas pH 7.35 (7.35-7.45); iSTAT Arterial Blood Gas pO2 64 mmHg (80-95); iSTAT Arterial Blood Gas pO2 C 71; iSTAT Carbon Dioxide 18 mmol/L (24-31); iSTAT FiO2 55 %; iSTAT Hematocrit 32 % (42-52); iSTAT Hemoglobin 10.9 g/dl (14.0-18.0); iSTAT Potassium 3.8 mmol/L (3.3-5.0); iSTAT Site Art Line; iSTAT Sodium 131 mmol/L (135-144)
[2021-01-10 04:59] LABS: Mean Corpuscular Hgb Conc 33.6 g/dL (32-36); Nucleated RBC # (auto) 0.03 K/uL (0-0); Nucleated RBC % (auto) 0.4 %
[2021-01-10 05:34] LABS: Calcium 7.9 mg/dl (8.5-10.1); Creatinine Clr Calc Pharmacy 43.3 ml/min; Est GFR (African American) 40.4 ml/min; Est GFR (Non-African American) 34.9 ml/min; Magnesium 2.2 mg/dl (1.8-2.4); Phosphorus 3.6 mg/dl (2.5-4.9); Potassium 3.8 mmol/L (3.5-5.1)
[2021-01-10 05:35] LABS: Hemoglobin 11.1 g/dL (14.0-18.0); Mean Corpuscular Hemoglobin 29.4 pg (25-34); Mean Corpuscular Volume 87.3 fL (80-100); RDW Coefficient of Variation 17.1 % (11.5-14.5); RDW Standard Deviation 55.3 fL (36.4-46.3); Red Blood Count 3.78 M/uL (4.7-6.1); White Blood Count 8.11 K/uL (4.8-10.8)
[2021-01-10 06:01] LABS: Platelet Count 52 K/uL (130-400)
[2021-01-10 06:10] LABS: ALC (manual) 0.07 K/uL (1.2-3.4); ANC (manual) 7.68 K/uL (1.4-6.5); Dohle Bodies Occasional; Giant Platelets 1+; Lymphocytes # (manual) 0.07 K/uL (1.2-3.4); Lymphocytes % (manual) 0.9 %; Monocytes # (manual) 0.28 K/uL (0.11-0.59); Monocytes % (manual) 3.5 %; Myelocytes # (manual) 0.07 K/uL (0-0); Myelocytes % (manual) 0.9 %; Neutrophils # (manual) 7.68 K/uL (1.4-6.5); Neutrophils % (manual) 94.7 %; Platelet Estimate Decreased (Normal); Toxic Vacuolation 2+
[2021-01-10 06:44] LABS: Anaplasmosis Smear(Rpt to DOH) Pos for Anaplasma
--- NOTE | 2021-01-10 07:35 | Hospitalist Progress Note ---
Date of Service January 10, 2021 Assessment & Plan (1) Respiratory arrest: Plan: 65-year-old male presented to the emergency department with altered mental status and concerns for CVA, labs demonstrated lactic acidosis, he experienced respiratory and cardiac arrest with ROSC transferred to the ICU for hypothermia protocol and ongoing management. 1) Metabolic encephalopathy Likely multifactorial secondary to CVA, hyperglycemia, lactic acidosis, CT head demonstrating acute/subacute right basal ganglia infarct, EEG demonstrating moderate to severe encephalopathy. BCX: NGTD. MRI Brain (01/08) unrevealing for anoxic brain injury, hemorrhage, or acute infarct -anaplasmosis may be contributing factor 2) Status post cardiac arrest Secondary to profound hypoxia and associated acidemia. Was placed on hypothermia protocol, troponins have up trended from 0.9-1.4 downtrended to 1.2 in the PM of 01/07. Status post TTM. Normal LVEF, difficult to appreciate WMAs sec to limited exam. today one episode afib w/RVR, underwent cardioversion, given amiodarone -Requiring pressor support, recently increased, wean when able 3) Ventilator dependent respiratory failure Initially intubated in the ED with a difficult to obtain airway, the airway was lost requiring subsequent trach placement, cuff replacement on 01/07. Chemical pneumonitis was noted on bronchoscopy. Additional airway mass was noted not visible on CT scan. ABG demonstrating pH, pCO2, HCO3 stability -Trial discontinuation of sedatives and ventillation, did not work -continue pulmonary hygeine 4.) Epiglottal Mass Concern for airway mass, as noted above - c/f tonsillar carcinoma, not visible on CT scan or repeat. MRI revealing of well-circumscribed lobular mass within R vallecula/epiglottis, resulting in 70% stenosis of the airway. ENT consulted - possible surgical resection, recommended tracheostomy - Anticipate procedure next week - hold plavix, initiate heparin 5) Pulmonary aspiration and chemical pneumonitis Visualized on bronchoscopy, started on Zosyn and Vanco, switched to vanco, m etronidazole, cefepime. CXR demonstrating extensive airspace opacities concerning for PNA. Mild pneumothorax seen on CT chest. -cefepime vancomycin discontinued 01/09/21, currently on vanco zosyn - bronchoscopy showed 70% airway compression, awaiting bronchial lavage cultures 5) Ileus versus SBO KUB demonstrating dilated loops of bowel, Abdominal examrevealing +tympanic distention, no BS on auscultation. CT-A/P demonstrating no evidence of SBO -continue NG suctioning, gastric drainage 960 6) JAD - worsening Likely prerenal and secondary to hypovolemia/rhabdo, initially resolving on labs currently uptrending BUN 63 <-- 46 Creat 1.97 <-- 1.19 -continue to monitor BMP -continue IVF, enteral nutrition -discussed dialysis, patient unlikely to tolerate 7) Hyperglycemia with type 2 diabetes Likely related to present illness, could be contributory towards ongoing metabolic encephalopathy. Was on insulin GTT -transition to insulin SQ glucose 113 8) Anaplasmosis Doxycycline ordered FENa: N.p.o., PIV's x4, left subclavian cooling catheter, left radial art line, NG tube, trach tube, Lyles Code Status: DNR/DNI DVT PPX: SCDs PT/OT: Not indicated at present Case Management: Not indicated at present Dispo: ICU (2) Cardiac arrest: (3) Acute CVA (cerebrovascular accident): (4) Altered mental status: (5) Acidosis, lactic: (6) Elevated troponin: (7) Acute hyperglycemia: (8) Elevated liver enzymes: (9) Diabetes type 2, uncontrolled: (10) Hypertension: (11) Hypertriglyceridemia: (12) Hypothyroidism, unspecified: (13) Obstructive sleep apnea: Admission and Anticipated Discharge Date Admission Date: January 06, 2021 Supervising Physician Co-Signing Physician Notes I also saw the patient and confirmed ghosh portions of the history and exam. I spoke with the ICU team (physician and nurse). 65-year-old male admitted in apparent DKA, respiratory arrest leading to cardiac arrest, ROSC, on ventilator with blood pressure support failing attempt yesterday to wean both; new onset atrial fibrillation today now status post card ioversion to sinus; also anaplasmosis identified by peripheral blood smear today. He remains unresponsive with out any sedation; he is noted to have tolerated bronchoscopy today without sedation. In addition to his acute events, has been diagnosed with a 2.9 cm epiglottal mass resulting in 70% stenosis of his airway. Unfortunately his creatinine is up to 2.46, compared to 1.97 yesterday. Lactate elevated 7.2 Metabolic encephalopathy Status post cardiac arrest Ventilator dependent respiratory failure Acute kidney injury Anaplasmosis Patient remains critically ill under the care of the ICU team. Family medicine service continues to follow. Subjective Patient lying in bed with trach in place, unresponsive to verbal stimuli. Lyles catheter in place. Rewarming stopped yesterday, has fever starting yesterday currently 38.8C. Yesterday attempted trial discontinuation of sedation and ventillation, transitioned to CPAP, patient did not tolerate.Per nurse his NG tube suctioned 960ml, concerned oral medications may not be absorbed, urine output decreased concerned for kidney functionl. Concern for hypotension, pressors have been increased. Patient had event afib RVR, underwent cardioversion, currently back to normal. Lab found he has anaplasma. Bronchoscopy performed at bedside, found airway collapse over 70% bronchial wash sent for culture. Critical care discussed with family, patient now DNR/DNI. Review of Systems Review of Systems: Unobtainable due to endotracheal tube Physical Exam Physical Exam: Intubated lying in bed unarousable Constitutional: + obese and + mechanically ventilated Neck: + tracheostomy present (is currently cricothyrotomy) Respiratory: Auscultation: lungs clear to auscultation bilaterally; no crackles, no rales, no rhonchi and no wheezes Mechanically vented Cardiovascular: RRR, no murmur, no edema Heart Sounds: normal S1 and normal S2; no gallop, no murmur and no cardiac rub Gastrointestinal (Abdomen): Inspection/Auscultation: + abdomen distended; + abnormal bowel sounds (not heard) Percussion/Palpation: + abdomen firm Results & Data Results & Data ([facility]) Vital Signs (Past 12 Hours) Vital Signs Temp Pulse Resp BP Pulse Ox 01/10/21 05:00 38.6 C H 119 H 112/60 90 01/10/21 04:45 38.6 C H 111 H 113/58 L 90 01/10/21 04:30 38.6 C H 111 H 119/55 L 91 01/10/21 04:15 38.6 C H 110 H 118/60 91 01/10/21 04:00 38.6 C H 111 H 120/62 91 01/10/21 03:45 38.6 C H 112 H 123/64 91 01/10/21 03:42 112 H 30 H 90 01/10/21 03:30 38.6 C H 108 H 143/69 H 92 01/10/21 03:15 38.6 C H 110 H 123/59 L 89 L 01/10/21 03:00 38.6 C H 110 H 124/58 L 90 01/10/21 02:45 38.6 C H 124 H 124/70 90 01/10/21 02:30 38.7 C H 110 H 119/63 90 01/10/21 02:15 38.7 C H 110 H 127/60 90 01/10/21 02:00 38.7 C H 107 H 125/62 90 01/10/21 01:45 38.7 C H 109 H 129/60 90 01/10/21 01:30 38.7 C H 108 H 128/66 90 01/10/21 01:15 38.7 C H 109 H 126/59 L 91 01/10/21 01:00 38.7 C H 109 H 124/60 91 01/10/21 00:45 38.8 C H 108 H 130/64 91 01/10/21 00:36 109 H 01/10/21 00:30 38.8 C H 109 H 128/63 91 01/10/21 00:15 38.8 C H 108 H 124/60 92 01/10/21 00:00 38.9 C H 107 H 122/61 92 01/09/21 23:45 38.9 C H 109 H 123/61 92 01/09/21 23:30 38.9 C H 108 H 121/59 L 93 01/09/21 23:15 38.9 C H 108 H 123/58 L 93 01/09/21 23:00 38.9 C H 108 H 118/62 93 01/09/21 22:45 38.9 C H 108 H 118/59 L 92 01/09/21 22:40 107 H 27 H 93 01/09/21 22:30 38.9 C H 106 H 110/59 L 92 01/09/21 22:15 38.9 C H 107 H 115/55 L 93 01/09/21 22:00 38.9 C H 107 H 115/58 L 93 01/09/21 21:45 38.9 C H 106 H 115/56 L 93 01/09/21 21:30 38.9 C H 107 H 112/62 93 01/09/21 21:15 38.9 C H 107 H 109/56 L 92 01/09/21 21:00 38.9 C H 107 H 109/58 L 92 01/09/21 20:45 38.9 C H 106 H 113/54 L 92 01/09/21 20:30 38.9 C H 106 H 111/55 L 93 01/09/21 20:15 38.9 C H 106 H 109/54 L 92 01/09/21 20:03 105 H 28 H 93 01/09/21 20:00 38.9 C H 106 H 109/58 L 93 01/09/21 19:45 38.8 C H 105 H 111/53 L 93 Laboratory Results 01/10/21 01/10/21 01/10/21 Range/Units 13:12 12:31 12:31 WBC (4.8-10.8) K/uL RBC (4.7-6.1) M/uL Hgb (14.0-18.0) g/dL POC Hgb 10.9 L (14.0-18.0) g/dl Hct (42-52) % POC Hct 32 L (42-52) % MCV (80-100) fL MCH (25-34) pg MCHC (32-36) g/dL RDW Std Deviation (36.4-46.3) fL RDW Coeff of Emery (11.5-14.5) % Plt Count (130-400) K/uL Absolute Nucleated RBC (0-0) K/uL Nucleated RBC % (auto) % Neutrophils % (Manual) % Lymphocytes % (Manual) % Monocytes % (Manual) % Myelocytes % (Man) % Neutrophils # (Manual) (1.4-6.5) K/uL Total Absolute Neuts (1.4-6.5) K/uL Lymphocytes # (Manual) (1.2-3.4) K/uL Total Abs Lymphocytes (1.2-3.4) K/uL Monocytes # (Manual) (0.11-0.59) K/uL Myelocytes # (Manual) (0-0) K/uL Toxic Vacuolation Dohle Bodies Platelet Estimate (Normal) Giant Platelets Peripher Smr Path Cons Sample Site Art Line POC pH 7.31 L (7.35-7.45) POC pCO2 33 L (35-46) mmHg POC pO2 62 L (80-95) mmHg POC HCO3 17 L (19-24) tiki/L POC Total CO2 18 L (24-31) mmol/L POC Base Excess -10.0 L (-9-1.8) tiki/L ABG pH (Temp Correct) 7.316 L (7.35-7.45) ABG pCO2 (Temp Corrct 33 L (35-46) mmHg POC ABG pO2 at Pt Temp 62 POC ABG O2 Sat 90.0 (90-95) % Kulwant Test NA O2 Delivery Device Ventilator POC O2 Rate 24 POC FiO2 60 % Tidal Volume 550 PEEP 10 POC Sodium 131 L (135-144) mmol/L Sodium 130 L (136-145) mmol/L POC Potassium 3.8 (3.3-5.0) mmol/L Potassium 3.8 (3.5-5.1) mmol/L Chloride 99 (98-107) mmol/L Carbon Dioxide 18 L (21-32) mmol/L Anion Gap 14.0 H (3-11) BUN 67 H (7-18) mg/dl Creatinine 2.46 H D (0.6-1.4) mg/dl Est Cr Clr Drug Dosing 34.8 ml/min Est GFR ( Amer) 30.9 ml/min Est GFR (Non-Af Amer) 26.7 ml/min BUN/Creatinine Ratio 27.2 H (10-20) Glucose 113 H (70-99) mg/dl POC Glucose (other) (70-99) mg/dl Lactate 7.2 H* (0.4-2.0) mmol/L Calcium 7.6 L (8.5-10.1) mg/dl Phosphorus 4.3 (2.5-4.9) mg/dl Magnesium 2.3 (1.8-2.4) mg/dl Total Bilirubin (0.2-1) mg/dl Direct Bilirubin AST (15-37) U/L ALT (12-78) U/L Alkaline Phosphatase (45-117) U/L Total Protein (6.4-8.2) gm/dl Albumin (3.4-5.0) gm/dl Lipase Pending Random Cortisol Specimen Hemolysis Anaplasma Smear Anaplasma Comment 01/10/21 01/10/21 01/10/21 Range/Units 11:47 11:40 08:17 WBC (4.8-10.8) K/uL RBC (4.7-6.1) M/uL Hgb (14.0-18.0) g/dL POC Hgb (14.0-18.0) g/dl Hct (42-52) % POC Hct (42-52) % MCV (80-100) fL MCH (25-34) pg MCHC (32-36) g/dL RDW Std Deviation (36.4-46.3) fL RDW Coeff of Emery (11.5-14.5) % Plt Count (130-400) K/uL Absolute Nucleated RBC (0-0) K/uL Nucleated RBC % (auto) % Neutrophils % (Manual) % Lymphocytes % (Manual) % Monocytes % (Manual) % Myelocytes % (Man) % Neutrophils # (Manual) (1.4-6.5) K/uL Total Absolute Neuts (1.4-6.5) K/uL Lymphocytes # (Manual) (1.2-3.4) K/uL Total Abs Lymphocytes (1.2-3.4) K/uL Monocytes # (Manual) (0.11-0.59) K/uL Myelocytes # (Manual) (0-0) K/uL Toxic Vacuolation Dohle Bodies Platelet Estimate (Normal) Giant Platelets Peripher Smr Path Cons Sample Site POC pH (7.35-7.45) POC pCO2 (35-46) mmHg POC pO2 (80-95) mmHg POC HCO3 (19-24) tiki/L POC Total CO2 (24-31) mmol/L POC Base Excess (-9-1.8) tiki/L ABG pH (Temp Correct) (7.35-7.45) ABG pCO2 (Temp Corrct (35-46) mmHg POC ABG pO2 at Pt Temp POC ABG O2 Sat (90-95) % Kulwant Test O2 Delivery Device POC O2 Rate POC FiO2 % Tidal Volume PEEP POC Sodium (135-144) mmol/L Sodium (136-145) mmol/L POC Potassium (3.3-5.0) mmol/L Potassium (3.5-5.1) mmol/L Chloride (98-107) mmol/L Carbon Dioxide (21-32) mmol/L Anion Gap (3-11) BUN (7-18) mg/dl Creatinine (0.6-1.4) mg/dl Est Cr Clr Drug Dosing ml/min Est GFR ( Amer) ml/min Est GFR (Non-Af Amer) ml/min BUN/Creatinine Ratio (10-20) Glucose (70-99) mg/dl POC Glucose (other) 110 H 121 H (70-99) mg/dl Lactate (0.4-2.0) mmol/L Calcium (8.5-10.1) mg/dl Phosphorus (2.5-4.9) mg/dl Magnesium (1.8-2.4) mg/dl Total Bilirubin (0.2-1) mg/dl Direct Bilirubin AST (15-37) U/L ALT (12-78) U/L Alkaline Phosphatase (45-117) U/L Total Protein (6.4-8.2) gm/dl Albumin (3.4-5.0) gm/dl Lipase Random Cortisol Pending Specimen Hemolysis Anaplasma Smear Anaplasma Comment 01/10/21 01/10/21 01/10/21 Range/Units 07:45 04:44 04:36 WBC (4.8-10.8) K/uL RBC (4.7-6.1) M/uL Hgb (14.0-18.0) g/dL POC Hgb (14.0-18.0) g/dl Hct (42-52) % POC Hct (42-52) % MCV (80-100) fL MCH (25-34) pg MCHC (32-36) g/dL RDW Std Deviation (36.4-46.3) fL RDW Coeff of Emery (11.5-14.5) % Plt Count (130-400) K/uL Absolute Nucleated RBC (0-0) K/uL Nucleated RBC % (auto) % Neutrophils % (Manual) % Lymphocytes % (Manual) % Monocytes % (Manual) % Myelocytes % (Man) % Neutrophils # (Manual) (1.4-6.5) K/uL Total Absolute Neuts (1.4-6.5) K/uL Lymphocytes # (Manual) (1.2-3.4) K/uL Total Abs Lymphocytes (1.2-3.4) K/uL Monocytes # (Manual) (0.11-0.59) K/uL Myelocytes # (Manual) (0-0) K/uL Toxic Vacuolation Dohle Bodies Platelet Estimate (Normal) Giant Platelets Peripher Smr Path Cons Sample Site POC pH (7.35-7.45) POC pCO2 (35-46) mmHg POC pO2 (80-95) mmHg POC HCO3 (19-24) tiki/L POC Total CO2 (24-31) mmol/L POC Base Excess (-9-1.8) tiki/L ABG pH (Temp Correct) (7.35-7.45) ABG pCO2 (Temp Corrct (35-46) mmHg POC ABG pO2 at Pt Temp POC ABG O2 Sat (90-95) % Kulwant Test O2 Delivery Device POC O2 Rate POC FiO2 % Tidal Volume PEEP POC Sodium (135-144) mmol/L Sodium 130 L (136-145) mmol/L POC Potassium (3.3-5.0) mmol/L Potassium 3.8 (3.5-5.1) mmol/L Chloride 100 (98-107) mmol/L Carbon Dioxide 19 L (21-32) mmol/L Anion Gap 11.0 (3-11) BUN 63 H (7-18) mg/dl Creatinine 1.97 H D (0.6-1.4) mg/dl Est Cr Clr Drug Dosing 43.3 ml/min Est GFR ( Amer) 40.4 ml/min Est GFR (Non-Af Amer) 34.9 ml/min BUN/Creatinine Ratio 32.0 H (10-20) Glucose 138 H (70-99) mg/dl POC Glucose (other) 130 H (70-99) mg/dl Lactate (0.4-2.0) mmol/L Calcium 7.9 L (8.5-10.1) mg/dl Phosphorus 3.6 (2.5-4.9) mg/dl Magnesium 2.2 (1.8-2.4) mg/dl Total Bilirubin 3.6 H (0.2-1) mg/dl Direct Bilirubin TNP AST 253 H (15-37) U/L ALT 77 (12-78) U/L Alkaline Phosphatase 99 (45-117) U/L Total Protein 5.8 L (6.4-8.2) gm/dl Albumin 2.1 L (3.4-5.0) gm/dl Lipase Random Cortisol Specimen Hemolysis Anaplasma Smear Anaplasma Comment 01/10/21 01/10/21 01/10/21 Range/Units 04:36 04:16 00:17 WBC 8.11 (4.8-10.8) K/uL RBC 3.78 L (4.7-6.1) M/uL Hgb 11.1 L (14.0-18.0) g/dL POC Hgb 10.9 L (14.0-18.0) g/dl Hct 33.0 L (42-52) % POC Hct 32 L (42-52) % MCV 87.3 (80-100) fL MCH 29.4 (25-34) pg MCHC 33.6 (32-36) g/dL RDW Std Deviation 55.3 H (36.4-46.3) fL RDW Coeff of Emery 17.1 H (11.5-14.5) % Plt Count 52 L (130-400) K/uL Absolute Nucleated RBC 0.03 H (0-0) K/uL Nucleated RBC % (auto) 0.4 % Neutrophils % (Manual) 94.7 % Lymphocytes % (Manual) 0.9 % Monocytes % (Manual) 3.5 % Myelocytes % (Man) 0.9 % Neutrophils # (Manual) 7.68 H (1.4-6.5) K/uL Total Absolute Neuts 7.68 H (1.4-6.5) K/uL Lymphocytes # (Manual) 0.07 L (1.2-3.4) K/uL Total Abs Lymphocytes 0.07 L (1.2-3.4) K/uL Monocytes # (Manual) 0.28 (0.11-0.59) K/uL Myelocytes # (Manual) 0.07 H (0-0) K/uL Toxic Vacuolation 2+ Dohle Bodies Occasional Platelet Estimate Decreased L (Normal) Giant Platelets 1+ Peripher Smr Path Cons Pending Sample Site Art Line POC pH 7.35 (7.35-7.45) POC pCO2 31 L (35-46) mmHg POC pO2 64 L (80-95) mmHg POC HCO3 17 L (19-24) tiki/L POC Total CO2 18 L (24-31) mmol/L POC Base Excess -8.0 (-9-1.8) tiki/L ABG pH (Temp Correct) 7.331 L (7.35-7.45) ABG pCO2 (Temp Corrct 34 L (35-46) mmHg POC ABG pO2 at Pt Temp 71 POC ABG O2 Sat 91.0 (90-95) % Kulwant Test NA O2 Delivery Device Ventilator POC O2 Rate 24 POC FiO2 55 % Tidal Volume 550 PEEP 10 POC Sodium 131 L (135-144) mmol/L Sodium (136-145) mmol/L POC Potassium 3.8 (3.3-5.0) mmol/L Potassium (3.5-5.1) mmol/L Chloride (98-107) mmol/L Carbon Dioxide (21-32) mmol/L Anion Gap (3-11) BUN (7-18) mg/dl Creatinine (0.6-1.4) mg/dl Est Cr Clr Drug Dosing ml/min Est GFR ( Amer) ml/min Est GFR (Non-Af Amer) ml/min BUN/Creatinine Ratio (10-20) Glucose (70-99) mg/dl POC Glucose (other) 139 H (70-99) mg/dl Lactate (0.4-2.0) mmol/L Calcium (8.5-10.1) mg/dl Phosphorus (2.5-4.9) mg/dl Magnesium (1.8-2.4) mg/dl Total Bilirubin (0.2-1) mg/dl Direct Bilirubin AST (15-37) U/L ALT (12-78) U/L Alkaline Phosphatase (45-117) U/L Total Protein (6.4-8.2) gm/dl Albumin (3.4-5.0) gm/dl Lipase Random Cortisol Specimen Hemolysis Anaplasma Smear See Comment A Anaplasma Comment Pos for Anaplasma 01/09/21 01/09/21 01/09/21 Range/Units 20:21 16:59 14:04 WBC (4.8-10.8) K/uL RBC (4.7-6.1) M/uL Hgb (14.0-18.0) g/dL POC Hgb (14.0-18.0) g/dl Hct (42-52) % POC Hct (42-52) % MCV (80-100) fL MCH (25-34) pg MCHC (32-36) g/dL RDW Std Deviation (36.4-46.3) fL RDW Coeff of Emery (11.5-14.5) % Plt Count (130-400) K/uL Absolute Nucleated RBC (0-0) K/uL Nucleated RBC % (auto) % Neutrophils % (Manual) % Lymphocytes % (Manual) % Monocytes % (Manual) % Myelocytes % (Man) % Neutrophils # (Manual) (1.4-6.5) K/uL Total Absolute Neuts (1.4-6.5) K/uL Lymphocytes # (Manual) (1.2-3.4) K/uL Total Abs Lymphocytes (1.2-3.4) K/uL Monocytes # (Manual) (0.11-0.59) K/uL Myelocytes # (Manual) (0-0) K/uL Toxic Vacuolation Dohle Bodies Platelet Estimate (Normal) Giant Platelets Peripher Smr Path Cons Sample Site POC pH (7.35-7.45) POC pCO2 (35-46) mmHg POC pO2 (80-95) mmHg POC HCO3 (19-24) tiki/L POC Total CO2 (24-31) mmol/L POC Base Excess (-9-1.8) tiki/L ABG pH (Temp Correct) (7.35-7.45) ABG pCO2 (Temp Corrct (35-46) mmHg POC ABG pO2 at Pt Temp POC ABG O2 Sat (90-95) % Kulwant Test O2 Delivery Device POC O2 Rate POC FiO2 % Tidal Volume PEEP POC Sodium (135-144) mmol/L Sodium (136-145) mmol/L POC Potassium (3.3-5.0) mmol/L Potassium (3.5-5.1) mmol/L Chloride (98-107) mmol/L Carbon Dioxide (21-32) mmol/L Anion Gap (3-11) BUN (7-18) mg/dl Creatinine (0.6-1.4) mg/dl Est Cr Clr Drug Dosing ml/min Est GFR ( Amer) ml/min Est GFR (Non-Af Amer) ml/min BUN/Creatinine Ratio (10-20) Glucose (70-99) mg/dl POC Glucose (other) 141 H 140 H 133 H (70-99) mg/dl Lactate (0.4-2.0) mmol/L Calcium (8.5-10.1) mg/dl Phosphorus (2.5-4.9) mg/dl Magnesium (1.8-2.4) mg/dl Total Bilirubin (0.2-1) mg/dl Direct Bilirubin AST (15-37) U/L ALT (12-78) U/L Alkaline Phosphatase (45-117) U/L Total Protein (6.4-8.2) gm/dl Albumin (3.4-5.0) gm/dl Lipase Random Cortisol Specimen Hemolysis Anaplasma Smear Anaplasma Comment Medications Administered Current Inpatient Medications Acetaminophen (Acetaminophen Susp 325 Mg/10.15 Ml Udc) 650 mg PO Q6H PRN PRN Reason: Fever Stop: 02/08/21 18:24 Last Admin: 01/10/21 05:48 Dose: 650 mg Documented by: Atorvastatin Calcium (Atorvastatin 40 Mg Tab) 40 mg PO QAM [facility] Stop: 02/06/21 08:59 Last Admin: 01/08/21 08:39 Dose: 40 mg Documented by: Dextrose (Dextrose 50% 50 Ml Syringe) 25 - 50 ml IV UD PRN; Protocol PRN Reason: Hypoglycemia Protocol Stop: 02/05/21 19:10 Enoxaparin Sodium (Enoxaparin Inj 40 Mg/0.4 Ml Syr) 40 mg SQ Q24H [facility] Stop: 02/08/21 11:59 Last Admin: 01/10/21 11:09 Dose: 40 mg Documented by: Fentanyl Citrate (Fentanyl Citrate 100 Mcg/2 Ml Vial) 50 - 100 mcg IV Q2H PRN PRN Reason: pain or sedation Stop: 01/23/21 10:13 Glucagon (Glucagon For Inj 1 Mg Vial) 1 mg SQ UD PRN; Protocol PRN Reason: Hypoglycemia Protocol Stop: 02/05/21 19:10 Glucose (Glucose 40% Gel 15 Gm Tube) 15 - 30 gm PO UD PRN; Protocol PRN Reason: Hypoglycemia Protocol Stop: 02/05/21 19:10 Glucose (Glucose 10 Tabs/Tube) 4 - 8 tabs PO UD PRN; Protocol PRN Reason: Hypoglycemia Protocol Stop: 02/05/21 19:10 Pantoprazole Sodium 40 mg/ (Syringe) 10 mls @ 5 mls/min IV DAILY@1100 [facility] Stop: 02/06/21 10:59 Last Admin: 01/10/21 11:50 Dose: 5 mls/min Documented by: Parenteral Electrolytes (Normosol-R) 1,000 mls @ 80 mls/hr IV .[id number] ANA MARIA Stop: 02/06/21 00:59 Last Admin: 01/10/21 11:33 Dose: 80 mls/hr Documented by: Norepinephrine Bitartrate (Levophed/D5w) 8 mg in 508 mls @ 60.366 mls/hr IV .Q8H25M ANA MARIA; Protocol Stop: 02/06/21 01:29 Last Admin: 01/10/21 10:22 Dose: 0.17 mcg/kg/min, 60.4 mls/hr Documented by: Thiamine HCl 200 mg/ Sodium (Chloride) 52 mls @ 208 mls/hr IV QAM [facility] Stop: 02/08/21 08:59 Last Infusion: 01/10/21 09:03 Dose: Infused Documented by: Doxycycline Hyclate 100 mg/ (Dextrose) 110 mls @ 50 mls/hr IV Q12H [facility] Stop: 01/24/21 07:29 Last Infusion: 01/10/21 09:58 Dose: Infused Documented by: Ascorbic Acid 1,500 mg/Thiamine HCl 100 mg/ Sodium Chloride 104 mls @ 207 mls/hr IV Q6H [facility] Stop: 01/14/21 08:31 Amiodarone HCl/Dextrose (Nexterone / D5w) 360 mg in 200 mls @ 33.333 mls/hr IV ONE ONE Stop: 01/10/21 19:44 Amiodarone HCl/Dextrose (Nexterone / D5w) 360 mg in 200 mls @ 16.667 mls/hr IV .Q12H ANA MARIA Stop: 02/09/21 19:44 Vasopressin 20 units/ Sodium (Chloride) 101 mls @ 12.12 mls/hr IV .Q8H20M [facility] Stop: 02/09/21 13:44 Piperacillin Sod/Tazobactam (Sod 3.375 gm/ Dextrose) 115 mls @ 28.75 mls/hr IV Q8H [facility]; Protocol Stop: 01/12/21 13:59 Insulin Aspart (Insulin Aspart 100 Units/Ml 3 Ml Pen) 0 units SC Q4 ANA MARIA Stop: 02/08/21 11:59 Last Admin: 01/10/21 11:54 Dose: Not Given Documented by: Insulin Glargine (Insulin Glargine Solostar 100 Units/Ml 3 Ml Pen) 0 units SC BID ANA MARIA; Protocol Stop: 02/08/21 20:59 Last Admin: 01/10/21 08:47 Dose: 7 units Documented by: Levalbuterol HCl (Levalbuterol Hcl 0.63 Mg/3 Ml Neb) 0.63 mg INH Q4H PRN PRN Reason: Dyspnea Stop: 02/05/21 23:13 Miscellaneous (Carbohydrates For Hypoglycemia ) 15 - 30 gm PO UD PRN PRN Reason: Hypoglycemia Protocol Stop: 02/05/21 19:10 Miscellaneous Information (Pharmacist Discharge Med Rec Consult) 1 ea N/A UD PRN PRN Reason: Consult Stop: 02/05/21 23:13 Miscellaneous Information (Pharmacy Glycemic Mgmt Consult) 1 ea N/A UD PRN PRN Reason: Consult Stop: 02/05/21 23:43 Miscellaneous Information (Piperacill/Tazobac Consult Active) 1 ea N/A UD PRN PRN Reason: Consult Stop: 02/09/21 13:48 Miscellaneous Information (Vancomycin Consult Active) 1 ea N/A UD PRN PRN Reason: Consult Stop: 02/09/21 13:48 Resident Activity Tracking Resident Involvement: Resident Care Provided Care Provided: Adult Hospital Medicine (1) Altered mental status Altered mental status type: unspecified Qualified Code(s): R41.82 - Altered mental status, unspecified (2) Hypertension Hypertension type: essential hypertension Qualified Code(s): I10 - Essential (primary) hypertension
[2021-01-10] MEDS: DOXYCYCLINE HYCLATE 100 MG in DEXTROSE 5% 100 ML IV SCH ×2 (07:46→19:32)
--- NOTE | 2021-01-10 08:25 | XRay Report ---
XR chest 1V portable HISTORY: Resp failure COMPARISON: Chest 01/09/2021. FINDINGS: Satisfactory support line placement which is unchanged in position. No pneumothorax. No ple ural effusions. Bilateral diffuse airspace opacities persist. IMPRESSION: 1. Satisfactory support line placement. 2. No change in the diffuse bilateral airspace opacities consistent with a pneumonia. ACT 112: Negative or not required by law. Electronically signed by: Álvaro Carson M.D. 01/10/2021 8:24 AM
[2021-01-10] MEDS: INSULIN GLARGINE SOLOSTAR 100 UNITS/ML 3 ML PEN SC SCH ×2 (08:47→20:39)
[2021-01-10] MEDS: THIAMINE HCL 200 MG in SODIUM CHLORIDE 0.9% 50 ML IV SCH (08:48)
[2021-01-10] MEDS: propofoL 1,000 MG/100 ML VIAL IV SCH ×4 (08:57→09:02)
[2021-01-10 09:14] LABS: Alanine Aminotransferase 77 U/L (12-78); Albumin Level 2.1 gm/dl (3.4-5.0); Alkaline Phosphatase 99 U/L (45-117); Aspartate Aminotransferase 253 U/L (15-37); Bilirubin,Total 3.6 mg/dl (0.2-1); Total Protein 5.8 gm/dl (6.4-8.2)
[2021-01-10] MEDS: ENOXAPARIN INJ 40 MG/0.4 ML SYR SQ SCH (11:09)
--- NOTE | 2021-01-10 11:42 | Critical Care Progress Note ---
Date of Service January 10, 2021 Assessment & Plan (1) Respiratory arrest: Plan: Reason Critically Ill: 65-year-old male presenting with altered mental status with concerns for acute CVA and lactic acidosis who is status post hypoxic respiratory failure with arrest resulting in cardiac arrest with successful ROSC requiring TTM therapy and close ongoing management from a respiratory/cardiac/metabolic standpoint. NEURO - CAM ICU: Unable to assess at this time. Sedation: None Pain: Fentanyl IV push as needed RASS Goal: 0 to 1 Metabolic Encephalopathy / Unresponsive * Suspect secondary to acute CVA, hyperglycemia, lactic acidosis * CT-H revealing of acute/subacute R BG infarct (repeat demonstrating no change) * EEG: suggestive of moderate-severe encephalopathy, no epileptiform activity * BCX: NGTD * MRI Brain (01/08) unrevealing for anoxic brain injury, hemorrhage, or acute infarct -Question anaplasmosis contributing CARDIAC/VASCULAR - S/P Cardiac Arrest * Secondary to profound hypoxia and associated acidemia * s/p TTM, completed * Normal LVEF, difficult to appreciate WMAs sec to limited exam Shock * Still requiring pressors at this time to maintain hemodynamic stability. Will ween when appropriate. Check random cortisol RESPIRATORY - VDRF * Intubated in ED - difficult sec to upper airway mass noted on video laryngoscopy * Loss of airway thereafter --> did require subsequent tracheostomy placement via emergent cricothyrotomy * s/p trach, cuff replacement on 01/07 -We will require formal revision by ENT * Chemical pneumonitis noted on bronchoscopy: see below * Continue pulmonary toilet Epiglottal Mass * Concern for airway mass, as noted above - c/f tonsillar carcinoma * MRI revealing of well-circumscribed lobular mass within R vallecula/epiglottis, resulting in 70% stenosis of the airway * ENT consulted - anticipate bronchoscopy with possible surgical resection -- Will hold Plavix -- Initiate heparin gtt GI/NUTRITION - Ileus vs. SBO * Abdominal exam this morning revealing +tympanic distention -- mildly improved since yesterday * KUB revealing of dilated loops of bowel s/o either ileus or developing SBO * CT-A/P demonstrating no evidence of SBO *Continue NG suctioning RENAL/LYTES - JAD -worsening * Likely prerenal and sec to hypovolemia and possibly degree of rhabdomyolysis * Resolving on labs - will monitor * Continue mIVF, enteral nutrition - * Lyles in place - Strict I&Os. ENDO - Hyperglycemia in setting of T2DM -- 438 on arrival * No significant anion gap -- BHB mildly elevated with +ketonuria * Likely 2/2 stress of recent illness, lactic acidosis, steroid use * Certainly could be contributory towards ongoing metabolic encephalopathy * Continue insulin gtt, appreciate pharmacy aid HEME - * Stable H&H * No obvious bleeding at this point. Will continue to monitor ID - Pneumonia * Pneumonitis visualized on initial bronchoscopy * CXR this AM demonstrating extensive airspace opacities concerning for PNA * PCT, lactate persistently elevated * Continue Zosyn, vancomycin * BCX demonstrated NGTD Anaplasmosis -Doxycycline ordered LINES/IV ACCESS - - PIVs x4, LEFT Subclavian cooling catheter continued using 4 fevers, LEFT Radial Arterial Line, NG Tube, Tracheostomy tube, Lyles DVT PROPHYLAXIS - SCDs (2) Cardiac arrest: (3) Acute CVA (cerebrovascular accident): (4) Altered mental status: (5) Acidosis, lactic: (6) Elevated troponin: (7) Acute hyperglycemia: (8) Elevated liver enzymes: (9) Diabetes type 2, uncontrolled: (10) Hypertension: (11) Hypertriglyceridemia: (12) Hypothyroidism, unspecified: (13) Obstructive sleep apnea: Admission and Anticipated Discharge Date Admission Date: January 06, 2021 Supervising Physician Co-Signing Physician Notes I have personally spent 45 minutes of critical care time in the direct management of this patient. This is a life/limb threatening event. This includes time spent evaluating patient, direct bedside care, chart review, placing orders, interpretation of diagnostic studies, discussion with consultants, patient, and/or family members regarding treatment decisions, as well as other required patient management activities. This time is exclusive of all separately billable procedures, and teaching time and separate from and in addition to any other critical care service time. Subjective Did not tolerate transition to pressure support ventilation secondary to significant tachypnea Physical Exam Physical Exam: General: GCS 3. nontoxic. Skin: Warm, dry, Head: Atraumatic Ears, nose, mouth and throat: Tracheostomy in place Cardiovascular: Normal peripheral perfusion Respiratory: Tachypnea Gastrointestinal: Protuberant, mildly symptomatic Musculoskeletal: No deformity Results & Data Results & Data ([facility]) Vital Signs (Past 12 Hours) Vital Signs Temp Pulse Resp BP Pulse Ox 01/10/21 10:59 114 H 32 H 90 07/17/21 10:45 38.8 C H 114 H 122/53 L 91 01/10/21 09:45 38.6 C H 134 H 107/50 L 90 01/10/21 08:45 38.5 C H 109 H 101/52 L 91 01/10/21 07:29 109 H 30 H 91 01/10/21 07:00 38.5 C H 108 H 107/62 89 L 01/10/21 05:00 38.6 C H 119 H 112/60 90 01/10/21 04:45 38.6 C H 111 H 113/58 L 90 01/10/21 04:30 38.6 C H 111 H 119/55 L 91 01/10/21 04:15 38.6 C H 110 H 118/60 91 01/10/21 04:00 38.6 C H 111 H 120/62 91 01/10/21 03:45 38.6 C H 112 H 123/64 91 01/10/21 03:42 112 H 30 H 90 01/10/21 03:30 38.6 C H 108 H 143/69 H 92 01/10/21 03:15 38.6 C H 110 H 123/59 L 89 L 01/10/21 03:00 38.6 C H 110 H 124/58 L 90 01/10/21 02:45 38.6 C H 124 H 124/70 90 01/10/21 02:30 38.7 C H 110 H 119/63 90 01/10/21 02:15 38.7 C H 110 H 127/60 90 01/10/21 02:00 38.7 C H 107 H 125/62 90 01/10/21 01:45 38.7 C H 109 H 129/60 90 01/10/21 01:30 38.7 C H 108 H 128/66 90 01/10/21 01:15 38.7 C H 109 H 126/59 L 91 01/10/21 01:00 38.7 C H 109 H 124/60 91 01/10/21 00:45 38.8 C H 108 H 130/64 91 01/10/21 00:36 109 H 01/10/21 00:30 38.8 C H 109 H 128/63 01/10/21 00:15 38.8 C H 108 H 124/60 92 01/10/21 00:00 38.9 C H 107 H 122/61 92 01/09/21 23:45 38.9 C H 109 H 123/61 92 Laboratory Results 01/10/21 01/10/21 01/10/21 Range/Units 08:17 07:45 04:44 WBC (4.8-10.8) K/uL RBC (4.7-6.1) M/uL Hgb (14.0-18.0) g/dL POC Hgb (14.0-18.0) g/dl Hct (42-52) % POC Hct (42-52) % MCV (80-100) fL MCH (25-34) pg MCHC (32-36) g/dL RDW Std Deviation (36.4-46.3) fL RDW Coeff of Emery (11.5-14.5) % Plt Count (130-400) K/uL Absolute Nucleated RBC (0-0) K/uL Nucleated RBC % (auto) % Neutrophils % (Manual) % Lymphocytes % (Manual) % Monocytes % (Manual) % Myelocytes % (Man) % Neutrophils # (Manual) (1.4-6.5) K/uL Total Absolute Neuts (1.4-6.5) K/uL Lymphocytes # (Manual) (1.2-3.4) K/uL Total Abs Lymphocytes (1.2-3.4) K/uL Monocytes # (Manual) (0.11-0.59) K/uL Myelocytes # (Manual) (0-0) K/uL Toxic Vacuolation Dohle Bodies Platelet Estimate (Normal) Giant Platelets Peripher Smr Path Cons Sample Site POC pH (7.35-7.45) POC pCO2 (35-46) mmHg POC pO2 (80-95) mmHg POC HCO3 (19-24) tiki/L POC Total CO2 (24-31) mmol/L POC Base Excess (-9-1.8) tiki/L ABG pH (Temp Correct) (7.35-7.45) ABG pCO2 (Temp Corrct (35-46) mmHg POC ABG pO2 at Pt Temp POC ABG O2 Sat (90-95) % Kulwant Test O2 Delivery Device POC O2 Rate POC FiO2 % Tidal Volume PEEP POC Sodium (135-144) mmol/L Sodium (136-145) mmol/L POC Potassium (3.3-5.0) mmol/L Potassium (3.5-5.1) mmol/L Chloride (98-107) mmol/L Carbon Dioxide (21-32) mmol/L Anion Gap (3-11) BUN (7-18) mg/dl Creatinine (0.6-1.4) mg/dl Est Cr Clr Drug Dosing ml/min Est GFR ( Amer) ml/min Est GFR (Non-Af Amer) ml/min BUN/Creatinine Ratio (10-20) Glucose (70-99) mg/dl POC Glucose (other) 121 H 130 H (70-99) mg/dl Calcium (8.5-10.1) mg/dl Phosphorus (2.5-4.9) mg/dl Magnesium (1.8-2.4) mg/dl Total Bilirubin 3.6 H (0.2-1) mg/dl Direct Bilirubin TNP AST 253 H (15-37) U/L ALT 77 (12-78) U/L Alkaline Phosphatase 99 (45-117) U/L Total Protein 5.8 L (6.4-8.2) gm/dl Albumin 2.1 L (3.4-5.0) gm/dl Specimen Hemolysis Anaplasma Smear Anaplasma Comment 01/10/21 01/10/21 01/10/21 Range/Units 04:36 04:36 04:16 WBC 8.11 (4.8-10.8) K/uL RBC 3.78 L (4.7-6.1) M/uL Hgb 11.1 L (14.0-18.0) g/dL POC Hgb 10.9 L (14.0-18.0) g/dl Hct 33.0 L (42-52) % POC Hct 32 L (42-52) % MCV 87.3 (80-100) fL MCH 29.4 (25-34) pg MCHC 33.6 (32-36) g/dL RDW Std Deviation 55.3 H (36.4-46.3) fL RDW Coeff of Emery 17.1 H (11.5-14.5) % Plt Count 52 L (130-400) K/uL Absolute Nucleated RBC 0.03 H (0-0) K/uL Nucleated RBC % (auto) 0.4 % Neutrophils % (Manual) 94.7 % Lymphocytes % (Manual) 0.9 % Monocytes % (Manual) 3.5 % Myelocytes % (Man) 0.9 % Neutrophils # (Manual) 7.68 H (1.4-6.5) K/uL Total Absolute Neuts 7.68 H (1.4-6.5) K/uL Lymphocytes # (Manual) 0.07 L (1.2-3.4) K/uL Total Abs Lymphocytes 0.07 L (1.2-3.4) K/uL Monocytes # (Manual) 0.28 (0.11-0.59) K/uL Myelocytes # (Manual) 0.07 H (0-0) K/uL Toxic Vacuolation 2+ Dohle Bodies Occasional Platelet Estimate Decreased L (Normal) Giant Platelets 1+ Peripher Smr Path Cons Pending Sample Site Art Line POC pH 7.35 (7.35-7.45) POC pCO2 31 L (35-46) mmHg POC pO2 64 L (80-95) mmHg POC HCO3 17 L (19-24) tiki/L POC Total CO2 18 L (24-31) mmol/L POC Base Excess -8.0 (-9-1.8) tiki/L ABG pH (Temp Correct) 7.331 L (7.35-7.45) ABG pCO2 (Temp Corrct 34 L (35-46) mmHg POC ABG pO2 at Pt Temp 71 POC ABG O2 Sat 91.0 (90-95) % Kulwant Test NA O2 Delivery Device Ventilator POC O2 Rate 24 POC FiO2 55 % Tidal Volume 550 PEEP 10 POC Sodium 131 L (135-144) mmol/L Sodium 130 L (136-145) mmol/L POC Potassium 3.8 (3.3-5.0) mmol/L Potassium 3.8 (3.5-5.1) mmol/L Chloride 100 (98-107) mmol/L Carbon Dioxide 19 L (21-32) mmol/L Anion Gap 11.0 (3-11) BUN 63 H (7-18) mg/dl Creatinine 1.97 H D (0.6-1.4) mg/dl Est Cr Clr Drug Dosing 43.3 ml/min Est GFR ( Amer) 40.4 ml/min Est GFR (Non-Af Amer) 34.9 ml/min BUN/Creatinine Ratio 32.0 H (10-20) Glucose 138 H (70-99) mg/dl POC Glucose (other) (70-99) mg/dl Calcium 7.9 L (8.5-10.1) mg/dl Phosphorus 3.6 (2.5-4.9) mg/dl Magnesium 2.2 (1.8-2.4) mg/dl Total Bilirubin (0.2-1) mg/dl Direct Bilirubin AST (15-37) U/L ALT (12-78) U/L Alkaline Phosphatase (45-117) U/L Total Protein (6.4-8.2) gm/dl Albumin (3.4-5.0) gm/dl Specimen Hemolysis Anaplasma Smear See Comment A Anaplasma Comment Pos for Anaplasma 01/10/21 01/09/21 01/09/21 Range/Units 00:17 20:21 16:59 WBC (4.8-10.8) K/uL RBC (4.7-6.1) M/uL Hgb (14.0-18.0) g/dL POC Hgb (14.0-18.0) g/dl Hct (42-52) % POC Hct (42-52) % MCV (80-100) fL MCH (25-34) pg MCHC (32-36) g/dL RDW Std Deviation (36.4-46.3) fL RDW Coeff of Emery (11.5-14.5) % Plt Count (130-400) K/uL Absolute Nucleated RBC (0-0) K/uL Nucleated RBC % (auto) % Neutrophils % (Manual) % Lymphocytes % (Manual) % Monocytes % (Manual) % Myelocytes % (Man) % Neutrophils # (Manual) (1.4-6.5) K/uL Total Absolute Neuts (1.4-6.5) K/uL Lymphocytes # (Manual) (1.2-3.4) K/uL Total Abs Lymphocytes (1.2-3.4) K/uL Monocytes # (Manual) (0.11-0.59) K/uL Myelocytes # (Manual) (0-0) K/uL Toxic Vacuolation Dohle Bodies Platelet Estimate (Normal) Giant Platelets Peripher Smr Path Cons Sample Site POC pH (7.35-7.45) POC pCO2 (35-46) mmHg POC pO2 (80-95) mmHg POC HCO3 (19-24) tiki/L POC Total CO2 (24-31) mmol/L POC Base Excess (-9-1.8) tiki/L ABG pH (Temp Correct) (7.35-7.45) ABG pCO2 (Temp Corrct (35-46) mmHg POC ABG pO2 at Pt Temp POC ABG O2 Sat (90-95) % Kulwant Test O2 Delivery Device POC O2 Rate POC FiO2 % Tidal Volume PEEP POC Sodium (135-144) mmol/L Sodium (136-145) mmol/L POC Potassium (3.3-5.0) mmol/L Potassium (3.5-5.1) mmol/L Chloride (98-107) mmol/L Carbon Dioxide (21-32) mmol/L Anion Gap (3-11) BUN (7-18) mg/dl Creatinine (0.6-1.4) mg/dl Est Cr Clr Drug Dosing ml/min Est GFR ( Amer) ml/min Est GFR (Non-Af Amer) ml/min BUN/Creatinine Ratio (10-20) Glucose (70-99) mg/dl POC Glucose (other) 139 H 141 H 140 H (70-99) mg/dl Calcium (8.5-10.1) mg/dl Phosphorus (2.5-4.9) mg/dl Magnesium (1.8-2.4) mg/dl Total Bilirubin (0.2-1) mg/dl Direct Bilirubin AST (15-37) U/L ALT (12-78) U/L Alkaline Phosphatase (45-117) U/L Total Protein (6.4-8.2) gm/dl Albumin (3.4-5.0) gm/dl Specimen Hemolysis Anaplasma Smear Anaplasma Comment 01/09/21 01/09/21 Range/Units 14:04 11:52 WBC (4.8-10.8) K/uL RBC (4.7-6.1) M/uL Hgb (14.0-18.0) g/dL POC Hgb (14.0-18.0) g/dl Hct (42-52) % POC Hct (42-52) % MCV (80-100) fL MCH (25-34) pg MCHC (32-36) g/dL RDW Std Deviation (36.4-46.3) fL RDW Coeff of Emery (11.5-14.5) % Plt Count (130-400) K/uL Absolute Nucleated RBC (0-0) K/uL Nucleated RBC % (auto) % Neutrophils % (Manual) % Lymphocytes % (Manual) % Monocytes % (Manual) % Myelocytes % (Man) % Neutrophils # (Manual) (1.4-6.5) K/uL Total Absolute Neuts (1.4-6.5) K/uL Lymphocytes # (Manual) (1.2-3.4) K/uL Total Abs Lymphocytes (1.2-3.4) K/uL Monocytes # (Manual) (0.11-0.59) K/uL Myelocytes # (Manual) (0-0) K/uL Toxic Vacuolation Dohle Bodies Platelet Estimate (Normal) Giant Platelets Peripher Smr Path Cons Sample Site POC pH (7.35-7.45) POC pCO2 (35-46) mmHg POC pO2 (80-95) mmHg POC HCO3 (19-24) tiki/L POC Total CO2 (24-31) mmol/L POC Base Excess (-9-1.8) tiki/L ABG pH (Temp Correct) (7.35-7.45) ABG pCO2 (Temp Corrct (35-46) mmHg POC ABG pO2 at Pt Temp POC ABG O2 Sat (90-95) % Kulwant Test O2 Delivery Device POC O2 Rate POC FiO2 % Tidal Volume PEEP POC Sodium (135-144) mmol/L Sodium (136-145) mmol/L POC Potassium (3.3-5.0) mmol/L Potassium (3.5-5.1) mmol/L Chloride (98-107) mmol/L Carbon Dioxide (21-32) mmol/L Anion Gap (3-11) BUN (7-18) mg/dl Creatinine (0.6-1.4) mg/dl Est Cr Clr Drug Dosing ml/min Est GFR ( Amer) ml/min Est GFR (Non-Af Amer) ml/min BUN/Creatinine Ratio (10-20) Glucose (70-99) mg/dl POC Glucose (other) 133 H 121 H (70-99) mg/dl Calcium (8.5-10.1) mg/dl Phosphorus (2.5-4.9) mg/dl Magnesium (1.8-2.4) mg/dl Total Bilirubin (0.2-1) mg/dl Direct Bilirubin AST (15-37) U/L ALT (12-78) U/L Alkaline Phosphatase (45-117) U/L Total Protein (6.4-8.2) gm/dl Albumin (3.4-5.0) gm/dl Specimen Hemolysis Anaplasma Smear Anaplasma Comment Coding Level of Care Code Critical Care 1st 30-74 mins Diagnoses Respiratory arrest R09.2 Cardiac arrest I46.9 Acute CVA (cerebrovascular accident) I63.9 Altered mental status R41.82 Altered mental status type: unspecified Acidosis, lactic E87.2 Elevated troponin R77.8 Acute hyperglycemia R73.9 Elevated liver enzymes R74.8 Diabetes type 2, uncontrolled E11.65 Hypertension I10 Hypertension type: essential hypertension Hypertriglyceridemia E78.1 Hypothyroidism, unspecified E03.9 Obstructive sleep apnea G47.33 (1) Altered mental status Altered mental status type: unspecified Qualified Code(s): R41.82 - Altered mental status, unspecified (2) Hypertension Hypertension type: essential hypertension Qualified Code(s): I10 - Essential (primary) hypertension
[2021-01-10] MEDS: PANTOprazole 40 MG in SYRINGE 0 ML IV SCH (11:50)
--- NOTE | 2021-01-10 12:17 | Procedure Note ---
Procedure Note Date of Service January 10, 2021 Note Procedure date: Noted above Procedure: fiberoptic bronchoscopy Pre-procedure indication: Pulmonary infiltrate Post-procedure Diagnosis: same as above Prior to Procedure: Informed Consent: The risks, benefits, indications, potential complications, and alternatives were explained to the patient's family and informed consent obtained. Attending Staff: Moustapha Valladares DO Resident/APC: Not applicable Skin Prep: Not applicable Anesthesia: None The identity of the patient was confirmed and a bedside time out was performed. Description of Procedure: Fiberoptic bronchoscopy was performed via endotracheal tube. Bronchioalveolar lavage right middle lobe was performed. Findings included: Evidence of diffuse bloody secretions possibly coming from above tracheostomy, this makes it difficult to determine if there is diffuse alveolar hemorrhage versus secretions leaking around the tracheostomy. There is also evidence of excessive dynamic airway collapse greater than 70% closure of the proximal airways Complications: None Specimens: Bronchial washings sent for culture and Gram stain, fungal elements, AFB stain and culture, cell count differential. Estimated blood loss: Zero Coding
[2021-01-10] MEDS ORDERED: NORMOSOL-R 500 ML IV ONE (12:19)
[2021-01-10 13:03] LABS: BUN Creatinine Ratio 27.2 (10-20); Calcium 7.6 mg/dl (8.5-10.1); Creatinine Clr Calc Pharmacy 34.8 ml/min; Est GFR (African American) 30.9 ml/min; Est GFR (Non-African American) 26.7 ml/min; Magnesium 2.3 mg/dl (1.8-2.4); Phosphorus 4.3 mg/dl (2.5-4.9); Potassium 3.8 mmol/L (3.5-5.1)
--- NOTE | 2021-01-10 13:03 | Ears,Nose,Throat Progress Note ---
Date of Service January 10, 2021 Assessment & Plan (1) Mass of throat: Plan: Dr. Snow is managing his neurological status and treating for Anaplasma. May have an anoxic injury to basal ganglia. Due to Plavix direct laryngoscopy and tracheostomy revision postponed to or Tuesday. Hopefully his neurologic status will be more clear at that time. (2) Respiratory arrest before cardiac arrest: Admission and Anticipated Discharge Date Admission Date: January 06, 2021 Subjective Comatose Physical Exam Constitutional: Cricothyrotomy tube in place ENMT: Not seen Neck: No palpable adenopathy Results & Data ([facility]) Vital Signs (Past 12 Hours) Vital Signs Temp Pulse Resp BP Pulse Ox 01/10/21 10:59 114 H 32 H 90 01/10/21 10:45 38.8 C H 114 H 122/53 L 91 01/10/21 09:45 38.6 C H 134 H 107/50 L 90 01/10/21 08:45 38.5 C H 109 H 101/52 L 91 01/10/21 07:29 109 H 30 H 91 01/10/21 07:00 38.5 C H 108 H 107/62 89 L 01/10/21 05:00 38.6 C H 119 H 112/60 90 01/10/21 04:45 38.6 C H 111 H 113/58 L 90 01/10/21 04:30 38.6 C H 111 H 119/55 L 91 01/10/21 04:15 38.6 C H 110 H 118/60 91 01/10/21 04:00 38.6 C H 111 H 120/62 91 01/10/21 03:45 38.6 C H 112 H 123/64 91 01/10/21 03:42 112 H 30 H 90 01/10/21 03:30 38.6 C H 108 H 143/69 H 92 01/10/21 03:15 38.6 C H 110 H 123/59 L 89 L 01/10/21 03:00 38.6 C H 110 H 124/58 L 90 01/10/21 02:45 38.6 C H 124 H 124/70 90 01/10/21 02:30 38.7 C H 110 H 119/63 90 01/10/21 02:15 38.7 C H 110 H 127/60 90 01/10/21 02:00 38.7 C H 107 H 125/62 01/10/21 01:45 38.7 C H 109 H 129/60 01/10/21 01:30 38.7 C H 108 H 128/66 01/10/21 01:15 38.7 C H 109 H 126/59 L 91
[2021-01-10] MEDS ORDERED: AMIODARONE IV BOLUS & DRIP IV STA (13:23)
[2021-01-10] MEDS ORDERED: 0.2 MICRON FILTER SET 1 EA IV ONE (13:23)
[2021-01-10] MEDS ORDERED: STAT IV Infusion **Titration per Protocol STA ×3 (13:23→23:36)
[2021-01-10 13:25] LABS: iSTAT Art Bld Gas pCO2 Correct 33 mmHg (35-46); iSTAT Art Bld Gas pH Corrected 7.316 (7.35-7.45); iSTAT Arterial Blood Gas HCO3 17 meg/L (19-24); iSTAT Arterial Blood Gas pCO2 33 mmHg (35-46); iSTAT Arterial Blood Gas pH 7.31 (7.35-7.45); iSTAT Arterial Blood Gas pO2 62 mmHg (80-95); iSTAT Arterial Blood Gas pO2 C 62; iSTAT Carbon Dioxide 18 mmol/L (24-31); iSTAT FiO2 60 %; iSTAT Hematocrit 32 % (42-52); iSTAT Hemoglobin 10.9 g/dl (14.0-18.0); iSTAT Potassium 3.8 mmol/L (3.3-5.0); iSTAT Site Art Line; iSTAT Sodium 131 mmol/L (135-144)
--- NOTE | 2021-01-10 13:28 | Communication Note ---
Date of Service: January 10, 2021 Notified patient entered atrial fibrillation with rapid ventricular response and was hypotensive requiring increasing vasoactive medication administration. Recheck vital signs lactic acid is increasing and his urine output has dropped with worsening kidney function will discussed with family need for possible emergent dialysis. Proceeded with 150 J cardioversion back to normal sinus rhythm and starting amiodarone infusion to maintain normal sinus rhythm. I have personally spent 45 minutes of critical care time in the direct management of this patient. This is a life/limb threatening event. This includes time spent evaluating patient, direct bedside care, chart review, placing orders, interpretation of diagnostic studies, discussion with cons ultants, patient, and/or family members regarding treatment decisions, as well as other required patient management activities. This time is exclusive of all separately billable procedures, and teaching time and separate from and in addition to any other critical care service time. Coding Level of Care Code None
[2021-01-10] MEDS ORDERED: AMIODARONE / D5W 150 MG/100 ML BAG IV STA (13:32)
[2021-01-10] MEDS ORDERED: AMIODARONE / D5W 360 MG/200 ML BAG IV ONE (13:45)
[2021-01-10] MEDS ORDERED: PIPERACILL/TAZOBAC CONSULT ACTIVE PRN (13:49)
[2021-01-10] MEDS ORDERED: VANCOMYCIN CONSULT ACTIVE PRN (13:49)
[2021-01-10] MEDS: VASOPRESSIN 20 UNITS in 0.9 % SODIUM CHLORIDE 100 ML IV SCH ×2 (13:50→21:37)
[2021-01-10] MEDS: ASCORBIC ACID 1,500 MG, THIAMINE HCL 100 MG in 0.9 % SODIUM CHLORIDE 100 ML IV SCH ×2 (13:51→20:43)
[2021-01-10] MEDS ORDERED: PIPERACILLIN/TAZOBACTAM 3.375 GM in DEXTROSE 5% 100 ML IV SCH (14:00)
[2021-01-10] MEDS ORDERED: PIPERACILLIN/TAZOBACTAM 4.5 GM in DEXTROSE 5% 100 ML IV ONE (14:15)
[2021-01-10 15:17] LABS: Fibrinogen 556 mg/dl (184-400); INR 1.4 (0.9-1.1); Partial Thromboplastin Ratio 2.4; Prothrombin Time 13.8 Seconds (9.0-12.0)
[2021-01-10 15:29] LABS: Partial Thromboplastin Time 63.8 Seconds (21.0-31.0)
[2021-01-10] MEDS ORDERED: VANCOMYCIN HCL 1,000 MG in SODIUM CHLORIDE 0.9% 250 ML IV ONE (15:45)
--- NOTE | 2021-01-10 15:56 | Pharmacy Report ---
Pharmacy Abx Dose Short Note - Date of Service January 10, 2021 - Assessment & Plan Assessment 65 year old M re-initiated on IV vancomycin and zosyn for empiric coverage in the setting of increased vasopressor support, elevated lactate and repeat CXR concerning for pneumonia. Pt was previously on vancomycin 01/07-01/09 for pneumonia vs. pneumonitis and a neck mass. Receiving IV doxycycline for anaplasmosis. MRSA nasal (-). Pt with significantly worsening renal function (SCr 1.19 --> 1.97-->2.46) w/ decreased UOP. Last dose of vancomycin was 1gm on 01/09 ~ 0600. Day #1 of antimicrobial therapy. Plan Vancomycin * Random level of 14.7 mcg/mL is a ~ 32hr level and is therapeutic * Due to rapidly changing renal function, plan to dose vancomycin by levels. It is safe to re-dose vancomycin now. Will give vancomycin 1gm (~10mg/kg) IV X 1. * Goal trough level: 15-20mcg/mL (PNA) * Random level ordered for: 01/10 (24h level). Will consider modifying level timing pending urine output and SCr trend over the next 24 hours. Pharmacy will continue to follow and will adjust dose/frequency as necessary. Thank you.
--- NOTE | 2021-01-10 16:19 | Ultrasound Report ---
RENAL ULTRASOUND HISTORY: Acute kidney injury. COMPARISON: Abdomen and pelvis CT 01/07/2021. FINDINGS: Right kidney: 11.7 cm. No hydronephrosis. Normal corticomedullary differentiation and cortical thickn ess. Left kidney: 11.2 cm. No hydronephrosis. Normal corticomedullary differentiation and cortical thickne ss. Bladder: Decompressed by Lyles catheter and not visualized. IMPRESSION: No hydronephrosis. ACT 112: Negative or not required by law. Electronically signed by: Álvaro Carson M.D. 01/10/2021 4:18 PM
[2021-01-10] MEDS ORDERED: AMIODARONE / D5W 360 MG/200 ML BAG IV SCH (19:45)
[2021-01-10 19:48] LABS: BUN Creatinine Ratio 26.6 (10-20); Calcium 7.5 mg/dl (8.5-10.1); Creatinine Clr Calc Pharmacy 32.1 ml/min; Est GFR (Non-African American) 24.2 ml/min; Potassium 4.6 mmol/L (3.5-5.1)
[2021-01-10] MEDS ORDERED: SODIUM CHLORIDE 0.9% 1000ML 1,000 ML IV ONE (20:16)
[2021-01-10 20:56] LABS: iSTAT Art Bld Gas pCO2 Correct 32 mmHg (35-46); iSTAT Art Bld Gas pH Corrected 7.316 (7.35-7.45); iSTAT Arterial Blood Gas HCO3 16 meg/L (19-24); iSTAT Arterial Blood Gas pCO2 32 mmHg (35-46); iSTAT Arterial Blood Gas pH 7.32 (7.35-7.45); iSTAT Arterial Blood Gas pO2 72 mmHg (80-95); iSTAT Arterial Blood Gas pO2 C 71; iSTAT Carbon Dioxide 17 mmol/L (24-31); iSTAT FiO2 75 %; iSTAT Hematocrit 33 % (42-52); iSTAT Hemoglobin 11.2 g/dl (14.0-18.0); iSTAT Potassium 4.5 mmol/L (3.3-5.0); iSTAT Site Art Line; iSTAT Sodium 128 mmol/L (135-144)
[2021-01-10] MEDS ORDERED: fentaNYL citrate 100 MCG/2 ML VIAL IV STA (21:28)
--- NOTE | 2021-01-10 22:26 | Communication Note ---
Date of Service: January 10, 2021 Unfortunately Mr. Gaines's condition has continued to deteriorate this evening. Patient has become increasingly hypoxic and hypotensive. His renal function has continued to worsen and lactate remains elevated. No significant change in metabolic acidosis. Based on his labs and exam, high suspicion for developing intra-abdominal compartment syndrome and I did obtain an intra-abdominal pressure which was elevated at 28. Patient is also reentered A. fib RVR and has been cardioverted twice this evening which initially converted back to sinus rhythm each time. However, he reentered A. fib RVR within a minute each time. Case was discussed with Dr. Valladares. He was taken for CT abdomen and pelvis which is consistent with pancolonic ischemia. I did call the patient's family to update them on his clinical condition and he was made DNR/DNI over the phone. The patient's family presented to the bedside and his condition and current options were discussed in detail. Surgical consult was offered although patient is very unstable at this point and I suspect that he would not be a candidate for surgery. At this point, the patient's prognosis is very poor. He has continued to decompensate despite current therapies. The family is aware of this and at this point they are not interested in surgical interventions or further aggressive measures. Patient's family has opted to transition the patient to comfort care at this time. We will start patient on morphine drip and remove mechanical ventilation and vasoactive drips once patient is c omfortable. This was discussed with family. All family is on board with transition to comfort care and are currently at bedside. CRITICAL CARE TIME - I have personally spent 70 minutes of critical care time in the direct management of this patient. This is a life/limb threatening event. This includes time spent evaluating patient, direct bedside care, chart review, placing orders, interpretation of diagnostic studies, discussion with consultants, patient, and family members, as well as other required patient management activities. This time is exclusive of all separately billable procedures, and teaching time and separate from and in addition to any other critical care service time. Coding Level of Care Code Critical Care kandy addt'l 30 min
[2021-01-10] MEDS ORDERED: PIPERACILLIN/TAZOBACTAM 4.5 GM in DEXTROSE 5% 100 ML IV SCH (22:30)
[2021-01-10] MEDS ORDERED: ONDANSETRON 4 MG OD TAB SL PRN (23:36)
[2021-01-10] MEDS ORDERED: LORazepam 0.5 MG/1 ML VIAL IV PRN (23:36)
[2021-01-10] MEDS ORDERED: GLYCOPYRROLATE 0.2 MG/ML VIAL IV PRN (23:36)
[2021-01-10] MEDS ORDERED: ONDANSETRON INJ 2 MG/ML 2 ML VIAL IV PRN (23:36)
[2021-01-10] MEDS ORDERED: MoRPHine SULFATE 2 MG/ML CARP IV STA (23:40)
[2021-01-10] MEDS ORDERED: MoRPHine SULFATE 2 MG/ML CARP ONE (23:44)
[2021-01-10] MEDS ORDERED: MoRPHine SULF/NSS 250 MG/250 ML BTL IV SCH (23:45)
--- NOTE | 2021-01-11 01:04 | Death Pronouncement Note ---
Date of Service January 11, 2021 Pronouncement Note Admission Date Admission Date: January 06, 2021 PRONOUNCEMENT NOTE - Date: 01/11/2021 Time: 44 I was contacted by nursing staff regarding the patients declining status and concerns for imminent demise. Assessment: I presented to the patients room for evaluation. Upon assessment, the patient was found to be in a terminal state. Pupils were fixed and dilated without response. No palpable pulses appreciated. No spontaneous breaths noted. Heart sounds were absent. No response to painful stimuli. Time of : 44 as pronounced by myself. Patients primary service was contacted and made aware of patient demise. Pronouncement section of the Certificate was filled out and signed by myself. Preliminary Cause of : Primary -multisystem organ failure Secondary -intra-abdominal compartment syndrome Contributing Causes of -sepsis, cardiac arrest, anoxic encephalopathy, mass of throat, metabolic acidosis, pneumonia, anaplasmosis Final diagnosis pending autopsy Please feel free to contact me with any questions regarding the above-mentioned course. Contributing Factors (1) Respiratory arrest: (2) Cardiac arrest: (3) Acute CVA (cerebrovascular accident): (4) Altered mental status: (5) Acidosis, lactic: (6) Elevated troponin: (7) Acute hyperglycemia: (8) Elevated liver enzymes: (9) Diabetes type 2, uncontrolled: (10) Hypertension: (11) Hypertriglyceridemia: (12) Hypothyroidism, unspecified: (13) Obstructive sleep apnea: Additional Data Attending physician: Sage Lombardi DO Coding Level of Care Code None Diagnoses Respiratory arrest R09.2 Cardiac arrest I46.9 Acute CVA (cerebrovascular accident) I63.9 Altered mental status R41.82 Altered mental status type: unspecified Acidosis, lactic E87.2 Elevated troponin R77.8 Acute hyperglycemia R73.9 Elevated liver enzymes R74.8 Diabetes type 2, uncontrolled E11.65 Hypertension I10 Hypertension type: essential hypertension Hypertriglyceridemia E78.1 Hypothyroidism, unspecified E03.9 Obstructive sleep apnea G47.33
[2021-01-11] MEDS ORDERED: SODIUM BICARB 8.4% INJ 50 MEQ/50 ML SYR IV ONE (04:24)
--- NOTE | 2021-01-11 05:57 | Discharge Summary ---
Date of Service January 11, 2021 Admission HPI Per Admitting Provider 65-year-old male past medical history significant for type 2 diabetes with insulin pump, hypertension, hyperlipidemia, hypothyroidism, BIANKA presented to the ER via EMS after being found down for unknown amount of time by family. Last known well was yesterday evening around 9pm. Of note, has recently been on PO steroids for vertigo/presumed eustachian tube dysfunction per reviewed outpatient clinic notes. On arrival patient had altered mental status, alert only to name and lethargic. POC BSG 412, POC ABG with pH of 7.39, CO2 31, O2 36, HCO3 20. Lab work showed an elevated lactate of 5 with repeat 2 hours later of 10. Troponin elevated to 0.656, CK 1320, pro-Andrez 26. CT head showed 8 mm hypodensity in the region of the right basal ganglia, possible age indeterminate infarct. Patient was having labored quick respirations, and there was concern for ability to protect airway. Intubation was attempted and there was a large mass noted in airway. Tube was removed for concern for air into belly, and was unable to be reinserted due to airway mass swelling and bleeding. Cricothyrotomy performed, after which patient had cardiac arrest. Received epinephrine q3-5 mins during code, and ROSC was able to be achieved. Central line placed in ER. Patient was ultimately transferred to ICU for continued acute care. Principal Diagnosis Multisystem organ failure Discharge Exam Constitutional + acute distress, + ill appearing and + frail appearing Respiratory Mechanically ventilated through trach with tachypnea Cardiovascular Rate/Rhythm: + tachycardic Gastrointestinal (Abdomen) Inspection/Auscultation: + abdomen distended, + abdominal edema and + hypoactive bowel sounds Discharge Data Allergies Allergy/AdvReac Type Severity Reaction Status Date / Time liraglutide [From Victoza] Allergy Unknown Unknown Verified 01/06/21 17:06 Consultations 01/06/21 19:44 ED Decision to Admit Stat 01/06/21 20:38 Consult [employer] Basic Routine 01/08/21 19:07 Consult Otolaryngology (Head and Neck) Routine 01/10/21 13:26 Consult Nephrology Routine 01/10/21 23:36 Consult Palliative Care Routine Procedures Performed Operation Date: 01/09/21 11:50 <No data on this case meets the specified criteria> Ordered Studies 01/06/21 16:43 CT head/brain wo con Stat 01/06/21 17:24 CT abd pelvis IV con only Stat 01/06/21 17:41 CT angio head w con Stat CT angio neck with con Stat 01/06/21 18:57 CT angio chest PE protocol Stat 01/07/21 10:19 CT angio abdomen pelvis w con Urgent CT head/brain wo con Urgent 01/08/21 10:20 MR soft tissue neck wo/w con Urgent 01/08/21 10:51 MR brain wo/w con Urgent 01/10/21 12:19 US renal/blad retro comp Routine 01/10/21 21:25 CT abd pelvis wo con Urgent Hospital Course (1) Respiratory arrest: Jacob Fang was a 65-year-old male who initially presented to the emergency department with altered mental status and concerns for CVA, labs demonstrating lactic acidosis; he experienced respiratory and cardiac arrest with ROSC transferred to the ICU for continued management fortunately ultimately developing into multisystem organ failure before being transitioned to comfort measures. Multisystem organ failure: -Unfortunately patient continued to develop worsening multisystem organ failure -Repeat CT abdomen pelvis overnight demonstrating concerns for developing abdominal compartment syndrome -Extensive discussions had with family in regards to maintaining comfort as he would be a poor surgical candidate -Patient's family declined interest in surgical interventions or continuation of aggressive measures following explanation of the extent of deterioration of his condition -Transitioned to comfort measures with withdrawal of care at approximately midnight prior to expiring this a.m. Metabolic encephalopathy: -Likely multifactorial secondary to CVA, hyperglycemia, lactic acidosis, -CT head demonstrating acute/subacute right basal ganglia infarct -EEG demonstrating moderate to severe encephalopathy. -BCX: NGTD. -MRI Brain (01/08) unrevealing for anoxic brain injury, hemorrhage, or acute infarct -anaplasmosis may be contributing factor Epiglottal Mass -Concern for airway mass, as noted above - c/f tonsillar carcinoma, not visible on CT scan or repeat. -MRI revealing of well-circumscribed lobular mass within R vallecula/epiglottis, resulting in 70% stenosis of the airway. -ENT consulted - possible surgical resection, recommended tracheostomy (2) Cardiac arrest: (3) Acute CVA (cerebrovascular accident): (4) Altered mental status: (5) Acidosis, lactic: (6) Elevated troponin: (7) Acute hyperglycemia: (8) Elevated liver enzymes: (9) Diabetes type 2, uncontrolled: (10) Hypertension: (11) Hypertriglyceridemia: (12) Hypothyroidism, unspecified: (13) Obstructive sleep apnea: Total Time Total Time Spent Total Time Spent (In Minutes): <30 Discharge Plan Discharge Items Patient Disposition: Discharge Diagnosis: multi-system organ failure Addtl Attending Provider Instructions: Mr. Fang was transitioned to comfort care following extended conversations with family given his continued declining organ function. Supervising Physician Co-Signing Physician Notes I saw the patient on 01/09/2021 and 01/10/2021 as the rounding attending on the family medicine service. Please see my attestations in the progress note of the same dates. I did not see the patient on 01/11/2021, the date of his . note was completed by the guardian family member on-call overnight, with supervision provided by in-hospital overnight attendings, and forwarded to me for co- signature. During his entire hospitalization, the patient remained in the ICU under care of the critical care team with the family medicine service following for continuity of care should he be downgraded from the ICU. Please see notes of critical care team and multiple consultants for details of care during his hospitalization, as well as documentation of family discussions and withdrawal of care, late 01/10/2021 and early hours of 01/11/2021. In summary, 65-year-old male admitted through the emergency department with apparent DKA, CVA, respiratory arrest leading to cardiac arrest with successful cardiopulmonary resuscitation and return of spontaneous circulation, subsequently transferred to the ICU with both mechanical ventilation and blood pressure support. He failed attempts 01/09/2021 to both wean ventilatory support and pressure support. On 01/10/2021, he had new onset atrial fibrillation, successfully cardioverted to a sinus rhythm, only to have recurrent atrial fibrillation later in the day on 01/10/2021. In addition, laboratory work on 01/10/2021 demonstrated worsening renal function and climbing lactic acid. He remained unresponsive despite holding all sedation. 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 Lastly, with falling platelets, a subsequent peripheral smear reviewed presence of Anaplasma. Overall suspicion is that anaplasma was not primary pathology, but perhaps contributing factor - his platelet count was only mildly depressed upon admission, and his LFT (AST primarily) elevation thought secondary to history of cirrhosis and acute illness. A CT scan of the abdomen on 01/10/2021 demonstrated interval development of nonspecific pancolitis, redemonstration of extensive bilateral lower lung airspace opacities consistent with multifocal pneumonia, anasarca, and cirrhosis. With continued deterioration in clinical markers, family opted for comfort care in the early hours of 01/11/2021, as documented in ICU progress notes. Resident Activity Tracking Resident Involvement: Resident Care Provided Care Provided: Adult Hospital Medicine
--- NOTE | 2021-01-11 09:43 | CT Scan Report ---
CT OF THE ABDOMEN AND PELVIS WITHOUT CONTRAST CLINICAL HISTORY: Abdominal distension, lactic acidosis, shock COMPARISON STUDY: CTA of the abdomen and pelvis January 07, 2021. Renal ultrasound January 10, 2021. TECHNIQUE: Axial images of the abdomen and pelvis were obtained without IV contrast. Images were revi ewed in the axial, sagittal, and coronal planes. Automated exposure control was utilized for the margret dy. A dose lowering technique was utilized adhering to the principles of ALARA. FINDINGS: Visualized portions of the lower chest demonstrate cardiomegaly. Extensive consolidation wi thin the visualized lungs is again noted. This was shown on prior exam. There are small bilateral ple ural effusions. A 2.7 cm left adrenal nodule remains unchanged. Evaluation of the abdomen and pelvis is suboptimal on this unenhanced exam. Mildly enlarged upper abdominal lymph nodes remain unchanged. Tip of nasogastr ic tube is within the body of the stomach. The liver is cirrhotic. Splenomegaly is again noted. There is anasarca. Mesenteric vessel engorgement has increased. A small amount of abdominal and pelvic asc ites has increased. No pneumatosis, free air or portal venous gas is present. There is no evidence fo r a bowel obstruction. Collateral formation is again noted. There is no hydronephrosis. Unenhanced im ages of the right adrenal gland, kidneys and pancreas are unremarkable. There is no biliary or pancre atic ductal dilatation. There is hyperdense material within the gallbladder which may reflect loki us excretion of contrast. Colonic diverticulosis is noted without evidence for acute diverticulitis. There has been interval development of pancolonic wall thickening. There are no acute fractures withi n visualized skeletal structures. The single locule of gas within the anterior abdominal wall. Lyles balloon is in place. There is gas within the bladder. Rectal probe is in place. IMPRESSION: 1. Interval development of a nonspecific pancolitis which may be infectious, ischemic or inflammatory in etiology. 2. No bowel obstruction. 3. Redemonstration of extensive bilateral lower lung airspace opacities consistent with multifocal pn eumonia. 4. Anasarca. Increase in a small amount of ascites. 5. Cirrhosis. Splenomegaly and upper abdominal varices. ACT 112: Negative or not required by law. Electronically signed by: Neftali Brandon M.D. 01/11/2021 9:41 AM
--- NOTE | 2021-01-11 13:17 | Electrocardiogram Report ---
Test Reason : Blood Pressure : / mmHG Vent. Rate : 134 BPM Atrial Rate : 060 BPM P-R Int : 000 ms QRS Dur : 082 ms QT Int : 300 ms P-R-T Axes : 000 -17 064 degrees QTc Int : 448 ms Atrial fibrillation with rapid ventricular response Low voltage QRS Abnormal ECG When compared with ECG of 08-JAN-2021 04:24, Atrial fibrillation has replaced Sinus rhythm Vent. rate has increased BY 57 BPM Incomplete right bundle branch block is no longer Present Confirmed by Indra Fuentes ([id number]) on 01/11/2021 1:17:04 PM Referred By: REFERRED SELF Confirmed By:Indra Fuentes
--- NOTE | 2021-01-11 13:26 | Electrocardiogram Report ---
Test Reason : Blood Pressure : / mmHG Vent. Rate : 135 BPM Atrial Rate : 178 BPM P-R Int : 000 ms QRS Dur : 092 ms QT Int : 334 ms P-R-T Axes : 000 -22 025 degrees QTc Int : 501 ms Atrial fibrillation with rapid ventricular response Low voltage QRS Inferior infarct (cited on or before 10-JAN-2021) Cannot rule out Anterior infarct , age undetermined Abnormal ECG When compared with ECG of 10-JAN-2021 12:57, (unconfirmed) No significant change was found Confirmed by Indra Fuentes ([id number]) on 01/11/2021 1:25:59 PM Referred By: REFERRED SELF Confirmed By:Indra Fuentes
--- NOTE | 2021-01-12 16:22 | Nephrology Consultation ---
Date of Consultation January 12, 2021 Assessment & Plan (1) Cardiac arrest: (2) Anoxic encephalopathy: (3) Acute kidney injury: Nephrology consultation requested for evaluation of JAD in this patient who was s/p cardiac arrest with anoxic encephalopathy. Patient prior to Nephrology evaluation. Consultation was not provided. History of Present Illness Attending Physician: Sage Lombardi DO Allergies Allergy/AdvReac Type Severity Reaction Status Date / Time liraglutide [From Victoza] Allergy Unknown Unknown Verified 01/06/21 17:06 Home Medications Medication Instructions Recorded Confirmed Type magnesium 250 mg tablet 250 mg PO HS 10/15/19 01/06/21 History aspirin 81 mg tablet,delayed 81 mg PO QAM #30 tab 12/14/19 01/06/21 Rx release ramipril 5 mg capsule 5 mg PO DAILY #90 cap 12/20/19 01/06/21 Rx metformin 500 mg tablet 1,000 mg PO BID #360 tab 01/03/20 01/06/21 Rx blood-glucose meter (Accu-Chek #1 ea 02/25/20 01/01/21 Rx Guide Glucose Meter) lancets (Accu-Chek Fastclix Lancet #300 ea 02/25/20 01/01/21 Rx Drum) Dexcom G6 Media Aid (blood-glucose #1 ea NS 05/13/20 01/01/21 Rx meter,continuous) atorvastatin 40 mg tablet 40 mg PO QAM #90 tab 05/20/20 01/06/21 Rx levothyroxine 50 mcg capsule 50 mcg PO DAILY #90 cap 05/20/20 01/06/21 Rx blood sugar diagnostic (Accu-Chek ea 08/07/20 01/01/21 History Guide test strips) Dexcom G6 Sensor (blood-glucose #9 ea NS 09/04/20 01/01/21 Rx sensor) Dexcom G6 Transmitter #1 ea NS 09/04/20 01/01/21 Rx (blood-glucose transmitter) Novolog U-100 Insulin aspart 100 350 unit SUBCUT DAILY 90 Days #320 09/04/20 01/06/21 Rx unit/mL subcutaneous solution ml NS (insulin aspart U-100) fenofibrate nanocrystallized 145 145 mg PO DAILY tab 10/15/20 01/06/21 History mg tablet insulin degludec 200 unit/mL (3 140 unit SUBCUT HS PRN ml 11/06/20 01/06/21 History mL) subcutaneous pen (Tresiba FlexTouch U-200 insulin) subcutaneous insulin pump (t:slim #1 ea 11/06/20 01/01/21 History X2 Basal-IQ Insulin Child And Adolescent Therapist) meclizine 25 mg tablet 25 mg PO TID PRN #30 tab 12/29/20 01/06/21 Rx methylprednisolone 4 mg tablets in 4 mg PO .COMPLEX #21 ea 01/01/21 01/06/21 Rx a dose pack (Medrol (Jonnathan)) cyanocobalamin (vitamin B-12) 1,000 mcg PO DAILY 01/06/21 01/06/21 History 1,000 mcg tablet (Vitamin B-12) Patient History Medical History (Updated 01/12/21 @ 16:20 by Sinan Smith MD) 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, uncontrolled Diabetes type 2, uncontrolled Diabetic peripheral neuropathy Dysesthesia Dyslipidemia with low high density lipoprotein (HDL) cholesterol with hypertriglyceridemia due to type 2 diabetes mellitus Esophageal reflux Hypertension Hypertriglyceridemia Hypothyroidism, unspecified Neurodermatitis Obstructive sleep apnea Prurigo nodularis Retinopathy Sebaceous cyst Skin lesion Tubular adenoma of colon Type 2 diabetes mellitus Family History Unknown Diabetes Family/Other Diabetes Mother , age 88 with dementia Diabetes Cardiovascular disease Dementia Social History Smoking Status: Unknown if ever smoked Hx Alcohol Use: No (unable to obtain) Hx Substance Use: No (unable to obtain) Preferred Language: Polish Communication Ability: Unable Visual Impairment: Limited Hearing Ability: Normal Chief Informatics Officer Required: No Beliefs That Will Affect Care: None marital status: Single Current Living Situation: Family current occupational status: retired 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 [employer] Feels Safe at Home: Yes Childhood Exposure to Second-Hand Smoke: Yes caffeine: Yes Dental Care, Regularly: No Physical Activity Frequency: Does not Exercise Seatbelt Use: sometimes Sunscreen Use: No Assistive Devices: Oxygen - Continuous PG Care Time/CCT Total # of Minutes Spent Total Time Spent with Patient: Total time spent is greater than 50% in coordination of care (as documented) at patient's floor/unit and/or counseling patient: Coding Level of Care Code None Diagnoses Cardiac arrest I46.9 Anoxic encephalopathy G93.1 Acute kidney injury N17.9
--- NOTE | 2021-01-26 08:48 | Coding Query ---
CODING QUERY To promote full compliance with coding requirements relating to patient care, provider participation is requested in all cases of automated access systems technician uncertainty. Please assist us with the question(s) below: Coding Question(s): There is documentation on the 01/07 Critical Care Progress Note of, "cuff leak, plan to upsize and exchange tracheostomy today", and, " Patient has persistent cuff leak unclear if the balloon has popped we will exchange the tracheostomy and upsize it at this time", and the 01/07 Hospitalist Progress Note documents, "Respiratory reporting leak in the trach, plans to be replaced later today", then the Hospitalist Progress Notes on 01/09 & 01/10 document, "Mild pneumothorax seen on CT chest". Please specify below, in your clinical opinion, regarding cuff leak and mild pneumothorax. ( ) Cuff leak and mild pneumothorax are the same issue and are likely post- procedural complication(s) of the tracheostomy ( ) Cuff leak and mild pneumothorax are the same issue and are Not post- procedural complication(s) of the tracheostomy ( ) Cuff leak and mild pneumothorax are two different issues and are likely post-procedural complications of the tracheostomy ( ) Cuff leak and mild pneumothorax are two different issues and Not post- procedural complications of the tracheostomy ( ) Cuff leak and mild pneumothorax are Other: Please Specify I do not know the answer to this. It may be a better question for critical care team. Physician's Response(s): Thank you Katja Morelos Principal Diagnosis: "that condition established after study, to be chiefly responsible for occasioning the admission of the patient to the hospital for care." Co-Existing Principal Diagnosis: "when two or more diagnoses equally meet the criteria for principal diagnosis as determined by the circumstances of admission, diagnostic work up, and/or therapy provided, and the Alphabetic Index, Tabular List, or another coding guideline does not provide sequencing direction, any one of the diagnoses may be sequenced first." "When the physician has documented what appears to be a current diagnosis in the body of the record, but has not included the diagnosis in the final diagnostic statement, the physician should be asked whether the diagnosis should be added." ([facility] 2 QTR90. p3-4) STEFANIE
--- NOTE | 2021-01-27 07:38 | Coding Query ---
CODING QUERY To promote full compliance with coding requirements relating to patient care, provider participation is requested in all cases of medical billing coder uncertainty. Please assist us with the question(s) below: Coding Question(s): The following query was placed to the attending physician and he felt it would be best placed to the Critical Care team. There is documentation on the 01/07 Critical Care Progress Note of, "cuff leak, plan to upsize and exchange tracheostomy today", and, "Patient has persistent cuff leak unclear if the balloon has popped we will exchange the tracheostomy and upsize it at this time", and the 01/07 Hospitalist Progress Note documents, " Respiratory reporting leak in the trach, plans to be replaced later today", then the Hospitalist Progress Notes on 01/09 & 01/10 document, "Mild pneumothorax seen on CT chest". Please specify below, in your clinical opinion, regarding cuff leak and mild pneumothorax. ( ) Cuff leak and mild pneumothorax are the same issue and are likely post- procedural complication(s) of the tracheostomy ( ) Cuff leak and mild pneumothorax are the same issue and are Not post- procedural complication(s) of the tracheostomy ( ) Cuff leak and mild pneumothorax are two different issues and are likely post-procedural complications of the tracheostomy ( ) Cuff leak and mild pneumothorax are two different issues and Not post- procedural complications of the tracheostomy (X ) Cuff leak and mild pneumothorax are Other: Please Specify Cuff leak from placement. Mild pneumothorax is likely from CPR. Physician's Response(s): Thank you Katja Morelos Principal Diagnosis: "that condition established after study, to be chiefly responsible for occasioning the admission of the patient to the hospital for care." Co-Existing Principal Diagnosis: "when two or more diagnoses equally meet the criteria for principal diagnosis as determined by the circumstances of admission, diagnostic work up, and/or therapy provided, and the Alphabetic Index, Tabular List, or another coding guideline does not provide sequencing direction, any one of the diagnoses may be sequenced first." "When the physician has documented what appears to be a current diagnosis in the body of the record, but has not included the diagnosis in the final diagnostic statement, the physician should be asked whether the diagnosis should be added." (Source [facility]oding [facility] 2 QTR90. p3-4) STEFANIE
== END 2021-01-11 04:25 | disposition expired | DRG 4 ==
LOC: ED 16:09 → SUATTDRO 20:38 → 1E 20:38
DX: E78.5 Hyperlipidemia, unspecified; K55.9 Vascular disorder of intestine, unspecified; E86.0 Dehydration; K74.60 Unspecified cirrhosis of liver; Y83.3 Surgical operation with formation of external stoma as the cause of abnormal reaction of the patient, or of later complication, without mention of misadventure at the time of the procedure; N17.9 Acute kidney failure, unspecified; E11.319 Type 2 diabetes mellitus with unspecified diabetic retinopathy without macular edema; Z88.8 Allergy status to other drugs, medicaments and biological substances; I10 Essential (primary) hypertension; J96.01 Acute respiratory failure with hypoxia; R58 Hemorrhage, not elsewhere classified; Z79.82 Long term (current) use of aspirin; Y92.239 Unspecified place in hospital as the place of occurrence of the external cause; J38.6 Stenosis of larynx; R57.9 Shock, unspecified; R79.89 Other specified abnormal findings of blood chemistry; I46.8 Cardiac arrest due to other underlying condition; Z96.41 Presence of insulin pump (external) (internal); M79.A3 Nontraumatic compartment syndrome of abdomen; E87.1 Hypo-osmolality and hyponatremia; J95.812 Postprocedural air leak; I48.91 Unspecified atrial fibrillation; Z20.822 Contact with and (suspected) exposure to COVID-19; Z82.49 Family history of ischemic heart disease and other diseases of the circulatory system; Z51.81 Encounter for therapeutic drug level monitoring; G93.1 Anoxic brain damage, not elsewhere classified; K56.7 Ileus, unspecified; A41.9 Sepsis, unspecified organism; E78.1 Pure hyperglyceridemia; J93.83 Other pneumothorax; G93.41 Metabolic encephalopathy; Z79.52 Long term (current) use of systemic steroids; R42 Dizziness and giddiness; A77.49 Other ehrlichiosis; Z79.4 Long term (current) use of insulin; E03.9 Hypothyroidism, unspecified; I63.89 Other cerebral infarction; Z79.899 Other long term (current) drug therapy; R22.1 Localized swelling, mass and lump, neck; E11.10 Type 2 diabetes mellitus with ketoacidosis without coma; Z79.890 Hormone replacement therapy; M62.82 Rhabdomyolysis; E87.2 Acidosis; Z83.3 Family history of diabetes mellitus; E11.42 Type 2 diabetes mellitus with diabetic polyneuropathy; J98.8 Other specified respiratory disorders; G47.33 Obstructive sleep apnea (adult) (pediatric); J69.8 Pneumonitis due to inhalation of other solids and liquids; Z66 Do not resuscitate; Z51.5 Encounter for palliative care